=== PATIENT | female | born 1985 | race Caucasian/White ===

== ENCOUNTER 2024-01-14 10:40 | Outpatient (CLI) | payer OTHER, SELFPAY | END 2024-01-14 10:41 | disposition home or self-care (01) | PROVIDERS: Visit Provider Obstetrics & Gynecology | DX: O20.0 Threatened abortion (principal); Z3A.00 Weeks of gestation of pregnancy not specified | CPT/HCPCS: 36415; 84702; 85461; 86850; 86900; 86901 ==

== ENCOUNTER 2024-01-16 00:26 | Day surgery (SDC) | payer OTHER, SELFPAY ==
[2024-01-15 13:17] VITALS: BMI 37.7
--- NOTE | 2024-01-15 13:17 | PC.NURSE ---
Report to the Outpatient Waiting Room, entrance under the green pavilion located off [facility], at time _0600_ on date _[id number]_. Planned Procedure Time: _0730_. Time changes happen often and if your time is changed the preop area will call you the afternoon before. - You and your visitor will be asked to self-screen and do not enter if you have any COVID symptoms. - A mask is optional within the hospital at this time. Patients may have clear liquids (water, carbonated beverages, clear teas, apple juice) until 3 hours prior to surgery with a maximum of 20 ounces. - No food from midnight until time of surgery Take the following medications with a SIP of water the morning of surgery: None, takes Oxcarbazepine at 10am so will take after surgery. DO NOT STOP ANY OF YOUR OTHER PRESCRIPTION MEDICATIONS PRIOR TO SURGERY ?EXCEPT THE FOLLOWING Medications to discontinue per physician Prenatal and folic acid Date to take last dose____Stop now. Please no make-up, nail thai, hairspray, perfume, deodorant, or body powder the day of surgery. No jewelry (including any body piercings) or valuables the day of surgery, leave them at home. Please take a shower or bath the night before, or the morning of, surgery with an antibacterial soap. Wear comfortable, loose fitting clothing. - Jewelry must be removed prior to entering the operating room. Rings and piercings that are not removed may be cut off. - The hospital will not accept responsibility for valuables. - Please leave all valuables, including medications, at home the day of surgery. If you are going home after surgery, a licensed mechanic welder truck driver must drive you home. - NO public transportation without another adult if you receive anesthesia. - We recommend that an adult stay with you for 24 hours following discharge. - We also recommend that you do not drive, make important decision, drink alcoholic beverages, or take any drugs that were not prescribed by your health care provider for at least 24 hours after your discharge time. Follow any additional instructions given to you from your surgeon. If you or anyone in your household have experienced Covid symptoms in the past week, please notify your surgeon or the nurse liaison at the phone number below for possible testing. Telephone instructions given to __Quynh___and asked if any additional questions and then verbalized understanding. Patient advised to call surgeon office or pre surgery nurse liaison [phone] if any additional questions.
--- NOTE | 2024-01-16 06:32 | P.PNAN_ITS ---
Anes - Initial Pre Proc Eval Procedure: Operation Date: 01/16/24 07:30 Proposed Procedures p Suction Dilation and Curettage - Dario Mullen MD Date/Time: 01/16/24 06:32 Surgeon: Dario Mullen MD Pre Op Diagnosis: missed ab Patient Data Age: 38 Gender: F Height: 1.55 m Weight: 90.5 kg Allergies Allergy/AdvReac Type Severity Reaction Status Date / Time Penicillins Allergy Mild Nausea and Verified 01/15/24 13:07 Vomiting Home Medications Medication Instructions Recorded Confirmed Type folic acid 1 mg tablet 1 mg PO HS 01/15/24 01/15/24 History nifedipine 30 mg tablet,extended 30 mg PO HS 01/15/24 01/15/24 History release oxcarbazepine 600 mg tablet 900 mg PO BID 01/15/24 01/15/24 History vit with calcium-iron 1 tablet PO HS 01/15/24 01/15/24 History fum-folic acid 60 mg-0.8 mg tablet Patient hx anesthesia problems: none Family hx anesthesia problems: none Results Review: All pre-operative results and documents have been reviewed as part of the pre- operative evaluation. [facility] Past Medical History Medical History Epilepsy HTN (hypertension) Social History Social History Smoking status: Never smoker Living arrangements: with family Spiritual care concerns: No Anes - Eval Final PreProcedure Day of Procedure 01/16/24 06:32 Patient weight: obese Heart: regular rate and rhythm Lungs: clear to auscultation Airway: Mallampati scale class II Neurological: alert and oriented Last oral intake: >/= 8 hours ASA classification: II Emergent: no Anesthetic plan: proceed Anesthesia type and monitoring: general GIVS and standard monitoring Results Review: All pre-operative results and documents have been reviewed as part of the pre- operative evaluation. Informed Consent: The patient's anesthetic plan and its attendant risks and benefits were dis cussed with the patient/family/POA. Questions were solicited and answers provided to the satisfaction of the patient/family/POA.
[2024-01-16 07:00] VITALS: BP 126/79; PULSE 78; RESP 14; TEMP 36.3; O2SAT 99
[2024-01-16] MEDS: ACETAMINOPHEN 500 MG TABLET 1000 MG PO (07:00)
[2024-01-16] MEDS: LACTATED RINGERS 1,000 ML 30 ML IV CONT (07:00)
--- NOTE | 2024-01-16 07:47 | PM.IMHP ---
H&P: HPI History of Present Illness Date/Time: 01/16/24 07:47 Chief Complaint: Missed miscarriage Narrative: this patient is a 38-year-old female with a missed miscarriage. We have agreed to perform suction D&C. She understands risks, benefits, and alternatives. She has understands the procedure. She understands injury may occur that resulted hospitalization, more surgery, and severe illness. Understands risk of hemorrhage and infection. She and denies any nausea, vomiting, fever, chills. She denies any chest pain or shortness of breath Review of Systems Review of Systems: All systems reviewed & are unremarkable except as noted in HPI and below Constitutional: Constitutional: Denies chills, Denies fatigue, Denies fever(s) and Denies weakness Eyes: Eyes: Denies blurry vision, Denies change in vision, Denies loss of peripheral vision, Denies loss of vision, Denies other visual disturbances and Denies eye pain ENT: Denies vertigo, Denies dizziness, Denies hearing loss, Denies mouth pain, Denies nasal obstruction, Denies neck mass and Denies neck pain Cardiovascular: Cardiovascular: Denies chest pain, Denies diaphoresis, Denies syncope, Denies leg edema and Denies dyspnea Respiratory: Respiratory: Denies chest congestion, Denies cough, Denies hemoptysis, Denies dyspnea and Denies wheezing Gastrointestinal: Gastrointestinal: Denies abdominal pain, Denies constipation, Denies diarrhea, Denies nausea and Denies vomiting Genitourinary: Genitourinary: Denies hematuria, Denies change in libido, Denies nocturia, Denies genital lesions, Denies flank pain and Denies urinary urgency Musculoskeletal: Musculoskeletal: Denies abnormal gait, Denies back pain, Denies myalgias, Denies arthralgias, Denies joint swelling, Denies muscle weakness and Denies neck pain Integumentary/Breasts: Skin/Breast: Denies swelling, Denies breast pain, Denies breast mass, Denies dry skin, Denies nipple discharge, Denies unusual bruising and Denies jaundice Neurologic: Denies Neuro-related abnormal movements, Denies Abnormal speech present, Denies abnormal gait, Denies behavioral changes, Denies confusion, Denies vertigo, Denies dizziness, Denies syncope, Denies loss of vision, Denies memory loss, Denies convulsions and Denies weakness Psychiatric: Psychiatric: Denies abnormal sleep pattern, Denies behavioral changes, Denies change in libido, Denies confusion, Denies depression, Denies anhedonia and Denies memory loss Endocrine: Endocrine: Reports no additional endocrine complaints, Denies change in libido and Denies fatigue Hematologic/Lymphatic: Hematologic/Lymphatic: Reports no additional hematologic/lymphatic complaints Allergic/Immunologic: Allergic/Immunologic: Reports no additional allergic/immunologic complaints and Denies wheezing PMFSH Past Medical History Medical History Epilepsy HTN (hypertension) Social History Social History Smoking status: Never smoker Living arrangements: with family Spiritual care concerns: No Meds Home Medications and Allergies Home Medications Medication Instructions Recorded Confirmed Type folic acid 1 mg tablet 1 mg PO HS 01/15/24 01/15/24 History nifedipine 30 mg tablet,extended 30 mg PO HS 01/15/24 01/15/24 History release oxcarbazepine 600 mg tablet 900 mg PO BID 01/15/24 01/15/24 History vit with calcium-iron 1 tablet PO HS 01/15/24 01/15/24 History fum-folic acid 60 mg-0.8 mg tablet Allergies Allergy/AdvReac Type Severity Reaction Status Date / Time Penicillins Allergy Mild Nausea and Verified 01/16/24 07:43 Vomiting levetiracetam [From [facility]] Allergy Hives Verified 01/16/24 07:45 Vital Signs Vital Signs - 24 hr 01/16/24 07:00 Temperature 97.4 F L Pulse Rate 78 Respiratory Rate 14 Blood Pressure 126/79 Pulse Oximetry 99 Oxygen Delivery Room Air E
--- NOTE | 2024-01-16 07:49 | WPDHPUPDATE1 ---
History and Physical Update Update Date/Time: 01/16/24 07:49 History and Physical has been reviewed, including an updated exam of the patient. There are NO changes in the patient's condition. Risks, benefits, and alternatives have been discussed and questions answered. Patient agrees to proceed with procedure.
[2024-01-16 08:14] VITALS: BP 137/78; PULSE 71; RESP 12; O2SAT 93
--- NOTE | 2024-01-16 08:34 | P.OP_ITS ---
Procedure Note - Detailed Date of Procedure 01/16/24 Pre-op Diagnosis missed ab Post-op Diagnosis Same Procedure Performed Suction D&C Surgeon Dario Mullen MD Anesthesia MAC Indications missed Findings normal-appearing vulva vagina and cervix to. Moderate amount of products conception within the uterus. 8 cm uterus Description of Procedure the patient was taken the operating room. She was prepped and draped in dorsal lithotomy position after induction of mac anesthesia. A speculum was placed in the vagina. Cervix grasped with tenaculum. The cervix was dilated to about 1 cm Using Henao dilators. A 8. [place] curved curette was used to perform suction D&C. The curette was introduced and vacuum was applied. The curette was removed over all surfaces of the intrauterine cavity multiple times. This was done until all the surfaces were clear and had the familiar grainy texture they can be felt through the instrument. A sharp curette was then used to curettage all the surfaces. The suction cup was then reapplied 1 more time to remove any debris. The instruments were removed. The speculum and tenaculum were removed. The patient tolerated the procedure well. She was taken recovery room stable condition. Estimated Blood Loss 50 Drains No Packing No Pathology Yes Complications No immediate complications Condition Stable Disposition PACU
[2024-01-16 08:40] VITALS: BP 130/77; PULSE 64; RESP 12; O2SAT 97
[2024-01-16] MEDS: oxyCODONE HCL (*CRX) 5 MG TAB IR PO (08:44)
[2024-01-16 09:10] VITALS: BP 134/83; PULSE 55; RESP 12
== END 2024-01-16 09:25 | disposition home or self-care (01) ==
PROVIDERS: Visit Provider Obstetrics & Gynecology
PROC: (CPT 59820; principal; 2024-01-16 07:30)
DX: O02.1 Missed abortion (principal); I10 Essential (primary) hypertension; G40.909 Epilepsy, unspecified, not intractable, without status epilepticus
CPT/HCPCS: 59820; 36415; 85461; 86850; 86900; 86901; 88305; A9270; J1100; J1885; J2250; J2405; J2704; J3010; J7120

== ENCOUNTER 2024-03-19 17:29 | Outpatient (RCR) | payer OTHER, SELFPAY ==
[2024-03-17 11:43] LABS: Beta HCG Quantitative 258.79 mIU/ML
[2024-03-19 18:33] LABS: Beta HCG Quantitative 703.71 mIU/ML
== END 2024-06-15 23:59 | disposition home or self-care (01) ==
LOC: ANHLAB 17:29
PROVIDERS: Visit Provider Obstetrics & Gynecology
DX: Z87.59 Personal history of other complications of pregnancy, childbirth and the puerperium (principal)
CPT/HCPCS: 36415; 84702

== ENCOUNTER 2024-05-18 08:24 | Outpatient (CLI) | payer OTHER, SELFPAY ==
--- NOTE | ~2024-05-18 | US_ITS ---
US breast RT limited INDICATION: Right breast lump by clinical examination. History of breast reduction surgery. Patient i s . Family history of breast cancer. TECHNIQUE: Dedicated Limited right breast ultrasound COMPARISON: No prior studies for comparison. FINDINGS: The right breast is/are composed of normal heterogeneous echotexture without focal solid or cystic mass. IMPRESSION: 1: Normal limited right breast ultrasound. BI-RADS CATEGORY 1 - NEGATIVE Reviewed, dictated and finalized at location B. 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
== END 2024-05-18 08:25 | disposition home or self-care (01) ==
PROVIDERS: Visit Provider Obstetrics & Gynecology
DX: N63.0 Unspecified lump in unspecified breast (principal)
CPT/HCPCS: 76642

== ENCOUNTER 2024-05-30 13:35 | Emergency (ER) | payer OTHER, SELFPAY ==
[2024-05-30 13:36] VITALS: BP 133/76; PULSE 92; RESP 16; TEMP 36.9; O2SAT 99
[2024-05-30 14:37] VITALS: BP 120/67; PULSE 83; RESP 20; O2SAT 98
--- NOTE | 2024-05-30 15:21 | ED.FEMALEGU ---
HPI - Female Genitourinary General Chief complaint: Urogenital-Female Stated complaint: LLQ pain, hematuria, 14 weeks Time Seen by Provider: 05/30/24 14:45 History of Present Illness HPI Narrative: 38-year-old female at approximately 14 weeks gestation presenting with vomiting and hematuria. States that for the last couple days she has had vomiting and is now unable to keep down fluids. She has B6 and doxylamine at home which has not really been helping. Today she noticed blood in her urine. No vaginal bleeding. Complains of very mild left lower quadrant pain that feels better with palpation. Related Data Home Medications ?Medication ?Instructions ?Recorded ?Confirmed ?Last Taken ?Type folic acid 1 mg tablet 1 mg PO HS 01/15/24 01/15/24 Unknown History nifedipine 30 mg tablet,extended 30 mg PO HS 01/15/24 01/15/24 Unknown History release oxcarbazepine 600 mg tablet 900 mg PO BID 01/15/24 01/15/24 Unknown History vit with calcium-iron 1 tablet PO HS 01/15/24 01/15/24 Unknown History fum-folic acid 60 mg-0.8 mg tablet Allergies Allergy/AdvReac Type Severity Reaction Status Date / Time levetiracetam (From [facility]) Allergy Hives Verified 01/16/24 07:45 Penicillins AdvReac Mild Nausea and Verified 05/30/24 15:39 Vomiting Review of Systems Review of Systems: All systems reviewed & are unremarkable except as noted in HPI and below PMFSH Past Medical History Medical History HTN (hypertension) Epilepsy Social History Social History Smoking status: Never smoker Living arrangements: with family Spiritual care concerns: No Exam Narrative: GENERAL: Well-appearing, in no acute distress, pleasant and cooperative HEAD: Normocephalic, atraumatic. EYES: PERRLA and EOMI. ENT: Mucous membranes moist. NECK: Supple. CHEST: Clear to auscultation. No respiratory distress. HEART: Regular rate and rhythm ABDOMEN: Soft, appropriately gravid, nontender EXTREMITIES: Normal range of motion SKIN: Warm, dry, no rash. NEURO: No focal deficits. Alert and oriented x3. PSYCH: Normal mood and affect. Course Vital Signs Vital signs: Vital Signs Temperature 98.5 F 05/30/24 13:36 Pulse Rate 92 05/30/24 13:36 Respiratory Rate 16 05/30/24 13:36 Blood Pressure 133/76 05/30/24 13:36 Pulse Oximetry 99 05/30/24 13:36 Oxygen Delivery Room Air 05/30/24 13:36 Temperature 98.5 F 05/30/24 13:36 Pulse Rate 72 05/30/24 17:32 Respiratory Rate 20 05/30/24 17:32 Blood Pressure 112/72 05/30/24 17:32 Pulse Oximetry 100 05/30/24 17:32 Oxygen Delivery Room Air 05/30/24 14:37 MDM - Female Genitourinary MDM Narrative Medical decision making narrative: 38-year-old female presenting with hematuria and vomiting. Vitals are stable. Exam remarkable for the above. Blood work is unremarkable. UA is concerning for UTI. Patient given a dose of Rocephin, 2 L of fluids, some Zofran. She is now tolerating p.o. intake. Feel she is safe for outpatient management. Will send in for Keflex and p.o. Zofran. Recommend close OB follow-up. Appropriate return precautions given. Discharged in stable condition. Lab Data 05/30/24 15:37 05/30/24 15:37 Labs: Lab Results 05/30/24 Range/Units 15:37 WBC 4.7 (4.5-10.0) K/mm3 RBC 4.59 (4.2-5.4) M/mm3 Hgb 13.6 (12.0-15.0) g/dL Hct 38.6 (37.0-47.0) % MCV 84.1 (80-100) fl MCH 29.6 (26-34) pg MCHC 35.2 (32-36) g/dl RDW 12.5 (11.5-14.5) % Plt Count 154 (150-375) k/mm3 MPV 10.4 (7.4-10.4) fl Immature Gran % (Auto) 0.4 (0-0.5) % Neut % (Auto) 87.9 H (45.5-73.1) % Lymph % (Auto) 7.2 L (18.3-44.2) % [place] % (Auto) 4.3 (2.6-8.5) % Eos % (Auto) 0.0 (0-4.4) % Baso % (Auto) 0.2 (0.2-1.2) % Lymph # (Auto) 0.34 L (0.9-3.2) K/mm3 [place] # (Auto) 0.2 (0.1-0.6) K/mm3 Eos # (Auto) 0.0 (0-0.3) K/mm3 Baso # (Auto) 0.0 (0.0-0.1) K/mm3 Abs Immat Gran (auto) 0.02 (0.00-0.031) K/mm3 Absolute Neuts (auto) 4.1 (1.3-6.7) K/mm3 Absolute Nucleated RBC 0.000 (0.0-0.012) K/mm3 Nucleated RBC % 0.0 (0.0-0.2) % Sodium 131 L (137-145) mmol/L Potassium 3.6 (3.4-5.0) mmol/L Chloride 106 (98-107) mmol/L Carbon Dioxide 23 (22-30) mmol/L Anion Gap 2 L (4-12) mmol/L BUN 7 (7-17) mg/dL Creatinine 0.50 L (0.7-1.0) mg/dL Estim Creat Clear Calc 131 ml/min Estimated GFR > 60 (59 - ) Glucose 90 (65-110) mg/dL Calcium 8.1 L (8.4-10.2) mg/dL Total Bilirubin 0.4 (0.2-1.3) mg/dL AST 28 (14-36) U/L ALT 20 (6-35) U/L Alkaline Phosphatase 64 (38-126) U/L Total Protein 6.0 L (6.3-8.2) g/dL Albumin 3.2 L (3.5-5.1) g/dL Lipase 88 (23-300) U/L Urine Color [place] H (Yellow) Urine Appearance Cloudy H (Clear) Urine pH 6.0 (5.0-9.0) Ur Specific [place] 1.033 (1.001-1.035) Urine Protein 2+ H (Negative) mg/dL Urine Glucose (UA) Negative (Negative) mg/dL Urine Ketones 4+ H (Negative) mg/dL Ur Blood (Man) Negative (Negative) Urine Nitrate Positive H (Negative) Urine Bilirubin 2+ H (Negative) Urine Urobilinogen 1.0 (<2.0) mg/dL Add Ur Microanalysis Reviewed Leukocyte Esterase Rfl 1+ H (Negative) JUANY/UL Urine RBC 11-20 H (0-2) /hpf Urine WBC 0-5 (0-3) /hpf Ur Squamous Epith Cells Few (Few) /hpf Urine Bacteria None seen /hpf Urine Casts 0-2 Critical Care Time Critical Care Time Critical Care Time: No Discharge Plan Discharge Clinical Impression: Urinary tract infection during , Vomiting affecting Patient Disposition: Home, Self-Care Condition: Stable Instructions: Antibiotic Form, Nausea and Vomiting in (ED), Urinary Tract Infection in (ED) Additional Instructions: You were found to have a urinary tract infection today. We have started you on antibiotics. Please complete these as prescribed. You may use the Zofran as needed for vomiting. Please follow-up closely with your OB. If your symptoms worsen or other concerning symptoms arise, please return to the ER. Patient Language: Albanian Prescriptions: New cephalexin 500 mg capsule 500 mg PO Q6H 7 Days Qty: 28 0RF ondansetron 4 mg tablet,disintegrating 4 mg PO Q8H PRN (Reason: nausea and vomiting) Qty: 20 0RF No Action nifedipine 30 mg tablet extended release 30 mg PO HS oxcarbazepine 600 mg tablet 900 mg PO BID folic acid 1 mg tablet 1 mg PO HS 60-0.8 mg Tablet 1 tablet PO HS Follow-up/Referrals: Dario Mullen MD [Primary Care Provider] -
[2024-05-30] MEDS: SODIUM CHLORIDE 0.9% IV 1,000 ML 999 ML IV CONT ×2 (15:45→17:31)
[2024-05-30] MEDS: ONDANSETRON INJ 4 MG/2 ML VIAL IV PUSH (15:45)
[2024-05-30 15:46] LABS: Basophils Percent Auto 0.2 % (0.2-1.2); Hematocrit 38.6 % (37.0-47.0); Hemoglobin 13.6 g/dL (12.0-15.0); Immature Granulocyte Absolute 0.02 K/mm3 (0.00-0.031); Immature Granulocyte Percent A 0.4 % (0-0.5); Lymphocytes Absolute Auto 0.34 K/mm3 (0.9-3.2); Lymphocytes Percent Auto 7.2 % (18.3-44.2); Mean Corpuscular HGB Conc 35.2 g/dl (32-36); Mean Corpuscular Hemoglobin 29.6 pg (26-34); Mean Corpuscular Volume 84.1 fl (80-100); Mean Platelet Volume 10.4 fl (7.4-10.4); Monocytes Absolute Auto 0.2 K/mm3 (0.1-0.6); Monocytes Percent Auto 4.3 % (2.6-8.5); Neutrophils Absolute Auto 4.1 K/mm3 (1.3-6.7); Neutrophils Percent Auto 87.9 % (45.5-73.1); Platelet Count Result 154 k/mm3 (150-375); Red Blood Count 4.59 M/mm3 (4.2-5.4); Red Cell Distribution Width 12.5 % (11.5-14.5); White Blood Count 4.7 K/mm3 (4.5-10.0)
[2024-05-30 15:56] LABS: Alanine Aminotransferase 20 U/L (6-35); Albumin Level 3.2 g/dL (3.5-5.1); Alkaline Phosphatase 64 U/L (38-126); Anion Gap 2 mmol/L (4-12); Aspartate Amino Transferase 28 U/L (14-36); Bilirubin,Total 0.4 mg/dL (0.2-1.3); Blood Urea Nitrogen 7 mg/dL (7-17); Calcium 8.1 mg/dL (8.4-10.2); Carbon Dioxide 23 mmol/L (22-30); Chloride 106 mmol/L (98-107); Estimated CRCL calculation 131 ml/min; Estimated Glomerular Filt Rate > 60; Glucose 90 mg/dL (65-110); Lipase 88 U/L (23-300); Potassium 3.6 mmol/L (3.4-5.0); Sodium 131 mmol/L (137-145)
[2024-05-30 16:04] LABS: Add Urine Microscopic? YES; Appearance Urine Cloudy (Clear); Bacteria Urine None Seen /hpf; Bilirubin Urine 2+ (Negative); Blood Urine Negative (Negative); Glucose Urine UA Negative (Negative); Ketones Urine 4+ mg/dL (Negative); Leukocyte Esterase Ur 1+ LEU/UL (Negative); Need Manual Microscopic Reviewed; Nitrate Urine Positive (Negative); Non Pathogenic Casts 0-2; Protein Urine 2+ mg/dL (Negative); Specific Grav Ur 1.033 (1.001-1.035); Squamous Epithelial Cell Urine Few /hpf (Few); WBC Urine 0-5 /hpf (0-3)
[2024-05-30 16:05] LABS: Color Urine Orange (Yellow)
[2024-05-30] MEDS: cefTRIAXone 2 GM/NS 100 ML 2 GM/100 ML BAG IVPB (16:30)
[2024-05-30 17:32] VITALS: BP 112/72; PULSE 72; RESP 20; O2SAT 100
[2024-05-30 18:32] VITALS: BP 130/75; PULSE 86; RESP 18; O2SAT 99
--- OUTSIDE RECORDS SUMMARY | 2024-06-04 06:22 | XMS_ITS | Continuity of Care Document ---
Author Organization [facility], [facility] Address [address] [place] [address] [place] [address] Care Team Providers Care Design And Sales Consultant Name Role Phone ZEESHAN BRAGA Primary Care Provider [phone] Assessment No assessment recorded. Plan of Treatment Reminders Order Date Submit Date Provider Last Modified By Organization Details Last Modified Time Details Appointments OB ROUTINE 2024 03:15P Aguilar BOB MD Not available Not available Not available U/S OB BASELIN E 2024 02:00P M ULTRASOUND Not available Not available Not available OB ROUTINE 2024 03:00P M Freddie BOB MD Not available Not available Not available Lab None recorde d. Referral None recorde d. Procedures None recorde d. Surgeries None recorde d. Imaging US, obstetr ic, nuchal translu cency 2023 024 [email or web address] [address], [address], [place], [address], 05/19/2024 21:10:46 Medication Orders None recorde d. Patient TargetsNo targets recorded. Patient InstructionsNo instructions recorded. Reason for Referral None Reported. Results Created Date Observation Date Name Description Value Unit Range Abnormal Flag Note LastModifiedBy Organization Detail LastModifiedTime 05/19/20 24 05/19/2024 US, obste tric, nucha l trans lucen cy No observ ation record ed. [facility] [address], [place], [address], 05/19/2024 18:26:41 05/19/20 24 05/19/2024 US, obste tric, nucha l trans lucen cy No observ ation record ed. [email or web address] [address], [place], [address], 05/19/2024 21:06:08 Result Notes None recorded. Problems Name Problem SNOMED Code Status Onset Date Resolution Date Notes Provider Name and Address Organization Details Recorded Time 42439046 Active 2023 Maria Elena rm, [facility] 16:44:58 Seizure disorder 919804021 Active oxcarbeza pine 900 bid Dario Bob MD [address], [place], [address], [facility] 17:16:32 Hypertens shalonda disorder 84598782 Active Chronic HTN - procardia xl 60mg qd Dario Bob MD [address], [place], [address], [facility] 17:18:38 Problem Notes None recorded. Procedures Surgical History Date Name Laterality Status Provider Name and Address Organization Details Recorded Time 4 Date of Last Pap Smear completed Maria Elena Parada [facility] 04/22/2024 14:59:47 4 DILATION & CURETTAGE (SURG) completed Aspen Burns [facility] 01/16/2024 10:26:21 8 [facility] 01/15/2024 10:34:11 Imaging Results Imaging Date Name Status LastModified by Organization Details LastModified Time 05/19/2024 US, obstetric, nuchal translucency completed sanna [place] [address], [place], [address], 05/19/2024 18:26:41 05/19/2024 US, obstetric, nuchal translucency completed [email or web address] [address], [place], [address], 05/19/2024 21:06:08 Procedure Notes None recorded. Medical Equipment None Reported. Allergies Allergen ID Allergen Name Allergen Category Reaction Reaction Severity Criticality Documentation Date Start Date Code Code System Note Provider Name and Address Organization Details Recorded Time 07480 Keppra medicatio n rash moderate Not available 01/15/2024 51622 7 RxNorm Maria Elena Woodwarder [facility] 10:28:54 Medications Name Sig Start Date Stop Date Status Note LastModified by Organization Details LastModified Time dicloxacill in 500 mg capsule TAKE 1 CAPSULE BY MOUTH 4 TIMES DAILY FOR 5 DAYS 01/14 completed Not Available Not Available Not Available labetalol 200 mg tablet Take 1 tablet twice a day by oral route. active Not Available Not Available No t Available nifedipine ER 30 mg tablet,exte nded release TAKE 1 TABLET BY MOUTH ONCE DAILY active Not Available Not Available No t Available nifedipine ER 60 mg tablet,exte nded release 24 hr Take 1 tablet every day by oral route. active Not Available Not Available No t Available Nifedipine ER 30 mg tablet,exte nded release 01/14 completed Not Available Not Available Not Available lisinopril 10 mg tablet TAKE 1 TABLET BY MOUTH ONCE DAILY 01/14 completed Not Available Not Available Not Available oxcarbazepi ne 600 mg tablet TAKE 1 & 1/2 (ONE & ONE-HALF) TABLETS BY MOUTH TWICE DAILY active Not Available Not Available No t Available folic acid 1 mg tablet TAKE 1 TABLET BY MOUTH ONCE DAILY active Not Available Not Available No t Available methylpredn isolone 4 mg tablets in a dose pack TAKE BY MOUTH DIRECTED ON INSIDE OF PACKAGE 01/14 completed Not Available Not Available Not Available fluticasone propionate 50 mcg/actuati on nasal spray,suspe nsion USE 2 SPRAY(S) IN EACH NOSTRIL ONCE DAILY active Not Available Not Available No t Available amoxicillin 875 mg-potassiu m clavulanate 125 mg tablet 01/14 completed Not Available Not Available Not Available neomycin-po lymyxin-hyd rocort 3.5 mg-10,000 unit/mL-1 % ear drops,susp 01/14 completed Not Available Not Available Not Available clonazepam 0.25 mg disintegrat ing tablet DISSOLVE 1 TABLET IN MOUTH ONCE DAILY NEEDED FOR SEIZURES 04/22 completed Not Available Not Available Not Available Flonase 01/14 completed Not Available Not Available Not Available active Not Available Not Avai lable Not Available Vitals Date Recorded Body height Body weight Systolic blood pressure Diastolic blood pressure Systolic blood pressure Diastolic blood pressure Provider Name and Address Organization Details Last Updated DateTime 4 167.64 cm 62625.5 95185 g 145 mm[Hg] 84 mm[Hg] 140 mm[Hg] 88 mm[Hg] Maria Elena Parada [facility] 4 17:45:55 Social History Question Answer Notes LastModified by Organizat ion Details LastModified Time What Is Your Level Of Alcohol Consumption? Occasional Information not available 01/15/2024 How Many Years Have You Consumed Alcohol? 15 Information not available 01/15/2024 Are You Blind Or Do You Have Difficulty Seeing? No Information not available 01/15/2024 What Is Your Level Of Caffeine Consumption? Moderate Information not available 01/15/2024 How Much Tobacco Do You Chew? None Information not available 01/15/2024 In The 14 Days Before Symptom Onset, Have You Had Close Contact With A Laboratory-confir med COVID-19 While That Case Was Ill? No Information not available 01/15/2024 In The 14 Days Before Symptom Onset, Have You Had Close Contact With A Person Who Is Under Investigation For COVID-19 While That Person Was Ill? No Information not available 04/22/2024 Have You Been To An Area Known To Be High Risk For COVID-19? No Information not available 01/15/2024 Are You Deaf Or Do You Have Serious Difficulty Hearing? No Information not available 01/15/2024 What Type Of Diet Are You Following? REGULAR Information not available 01/15/2024 What Is The Highest Grade Or Level Of School You Have Completed Or The Highest Degree You Have Received? 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 No Information not available 01/15/2024 Do You Use Protection During Sex? No Information not available 01/15/2024 Do You Use Your Seat Belt Or Car Seat Routinely? Yes Information not available 01/15/2024 Do You Have Smoke And Carbon Monoxide Detectors In Your Home? Yes Information not available 01/15/2024 How Much Tobacco Do You Smoke? No Information not available 01/15/2024 Do You Feel Stressed (tense, Restless, Nervous, Or Anxious, Or Unable To Sleep At Night)? [id number] Information not available 01/15/2024 Do You Use Any Illicit Or Recreational Drugs? No Information not available 01/15/2024 Do You Use Sunscreen Routinely? Yes Information not available 01/15/2024 Have You Used IV Drugs? No Information not available 01/15/2024 Sex: Unknown Functional Status Question Answer Note LastModified by Organization D etails LastModified Time Are you able to walk? YESWOREST Information not available 01/15/2024 What is your exercise level? None Information not available 01/15/2024 Mental Status None recorded. Family History Relationship Description Onset Age of this Age Resolved Age Notes LastModified by Organization Details LastModified Time Mother Hypertensive disorder Not available 2023 10:28:59 Paternal Aunt Malignant tumor of breast Not available 2023 10:28:59 Paternal Aunt Malignant tumor of ovary Not available 2023 10:28:59 Paternal Grandfather Heart disease Not available 2023 10:28:59 Father Hypertensive disorder Not available 2023 10:28:59 Medical History Condition Response Hypertension Y Neurologic/Epilepsy Y Gynecological History Statement/Question Response Abnormal Pap N Flow Moderate Date of LMP 02/14/2024 On BCP's at Conception? N N Was last menstrual period normal Y STIs/STDs N HPV Vaccine Y Duration of Flow (days) 7 Current Control Method Are cycles usually normal Y Frequency of Cycle (Q days) 28 Sexually Active? Y Menses Monthly Y Age of first menstrual cycle 12 Date of Last Pap Smear 04/22/2024 Sexual Problems? N LMP Definite N Obstetrics History GPAL:G 2 P 0 0 1 0 Type Value Spontaneous 1 Living 0 Total 2 Past Encounters Encounter ID Performer Location Encounter Start Date Encounter Closed Date Diagnosis/Indication Diagnosis SNOMED-CT Code Diagnosis ICD10 Code [id number] Elly Harmon [facility] [address],[place] [address] 04/22/2024 13:50:30 04/22/2024 14:16:23 [id number] Dario Bob MD [facility] [address],[place] [address] 04/22/2024 13:50:49 04/22/2024 15:59:06 Amenorrhea 55570044 N91.2 [id number] [facility] [address],[place] [address] 05/19/2024 15:16:38 05/19/2024 16:06:30 screening 257108619 Z36.82 Z3A.13 [id number] [facility] [address],[place] [address] 05/19/2024 15:16:55 05/19/2024 18:27:40 Chronic hypertension complicating AND/OR reason for care during 37208016 O16.9 Health Concerns Section Related Observation LastModified by Organization Detai ls LastModified Time None Recorded Concern Status LastModified by Organization Details LastModified Time None Recorded Payers Encounter Date Sequence Insurance Name Policy Number Policy Turcios Covered Member ID Turcios Member ID Guarantor Name 05/19/2024 1 R [id number] Quynh De Leon [id number] Quynh De Leon OBGyn Episode Ob Episode Information Episode Created Date Number of Fetuses Patient Bloodtype Patient rh Status Prepregnancy Weight lbs Domestic Partner Domestic Partner Phone Father Name Human Resources Vice President Status 05/19/20 24 1 A Positive [place] Fetus Data First Name Last Name Admitted to NICU Weight (g) Sex Living Outcome Pediatric Complications Fetus ID Race Codes Race Delivery Type [id number] Problems Problem Notes Problem Name Start Date End Date Resolution Snomed Code Not e Seizure disorder 679254513 oxc arbezapine 900 bid Hypertensive disorder 05856461 Chronic HTN - procardia xl 60mg qd Arvin Calculation ARVIN Calculation Method Initial Arvin Date Initial Exam Date Initial Exam Provider Initial Ultrasound Date Last Menstrual Period Date Ultra Sound Weeks Gestation Conception by IVF Embryo Age at Transfer Date of Transfer 05/19/20 24 04/22/2024 02/14/2024 9 Eighteen To Twenty Week Arvin Update Ultra Sound Date Fundal Height At Umbil Quickening Date Ultra Sound Latest Weeks Gestation Final Arvin Confirmed By Final Arvin Confirmed Date Final Arvin Date Ultra Sound Latest Days Gestation 0 [email or web address] 05/19/2024 11/26/19 25 0 Pre- Flowsheet Flowsheet Date 05/19/2024 Perales Score Blood Edema Fundus Height Fundus Units Glucose Ketones Leukocytes Nitrite Labor Signs Protein Cervic Dilation Cervic Effacement Cervic Station Type Weight in lbs Pre/Post Dialysis Refused 204.272981852121 BP Diastolic BP Location Tested BP Systolic BP Type 84 L arm 145 sitting 88 R arm 140 sitting Fetus Heart Rate Present A 154 Fetus Movement A No Comments this patient is a 38-year-ol d multiparous female at 12 weeks' gestation who presents for initial care. She has a history of term vaginal births. Her medical, surgical, obstetric history is unremarkable. She is vaccinated. She was given precautions recommendations for . We talked about vaccines in . Talked about care in detail. She is having genetic testing. She had a normal 12 week ultrasound. To begin routine care. complicated by seizure disorder and chronic hypertension Flowsheet Date 05/28/2024 Perales Score Blood Edema Fundus Height Fundus Units Glucose Ketones Leukocytes Nitrite Labor Signs Protein Cervic Dilation Cervic Effacement Cervic Station Type Weight in lbs Pre/Post Dialysis Refused 204.688405448807 BP Diastolic BP Location Tested BP Systolic BP Type 78 L arm 136 sitting Fetus Heart Rate Present A 155 Fetus Movement A No Comments This patient presents for fo llow-up on blood pressure. She had some severe [place] blood pressures last night. They did improve. She has reasonably good blood pressures today. We agreed to start 200 labetalol b.i.d. to prevent these blood pressure spikes And gained better controlled. Menstrual History Last Menstrual Date Menses Monthly On Bcp Conception Prior Menses Frequency Hcg Plus Date Menarche Onset Age 0802/14/2024 true Delivery Information Delivery Date Delivery Type Labor Anesthesia Weeks Gestation Incision Type Labor Labor Length Hrs Delivered By Post Complications Tubal Sterilization Discharge Date Comments Discharge Information Feeding Method Contraceptive Method Maternal HG B and HCT Levels
--- OUTSIDE RECORDS SUMMARY | 2024-06-04 06:22 | XMS_ITS | Data Portability ---
[facility] Address [address] [place] [address] Assessment No assessment recorded. Plan of Treatment Reminders Order Date Submit Date Provider Last Modified By Organization Details Last Modified Time Details Appointments None recorded. Lab SARS CoV 2 RNA (COVID-19), QL, territory manager-PCR, respiratory specimen - [place] location please 2019 020 MARY [facility] (Lab), [address] [place], [address], 0 17:55:45 Referral None recorded. Procedures None recorded. Surgeries None recorded. Imaging None recorded. Medication Orders None recorded. Patient TargetsNo targets recorded. Patient Instructions Encounter Date Encounter Id Patient Instructions Last Modified By Organization Details Last Modified Time 10/20/2019 [id number] Reviewed the following recommendations: -Stay home and separate from others as much as possible. -Monitor your symptoms and seek medical attention for trouble breathing, persistent chest pain, confusion, or bluish lips or face. -Wear a mask if you must be around other people. -Wash your hands often for 20 seconds with soap and water and clean high-touch surfaces daily -You may discontinue home isolation if your symptoms are improving, it has been 7 days since symptoms started, and you have been fever free for at least 3 days. [email or web address] Not available 10/20/2019 12:03:46 Reason for Referral None Reported. Results Created Date Observation Date Name Description Value Unit Range Abnormal Flag Note LastModifiedBy Organization Detail LastModifiedTime 10/20/19 20 10/20/2019 SARS CoV 2 RNA (COVI D-19) , QL, territory manager-P CR, respi rator y speci men sars - cov - 2 PCR NEGATI VE mL Not Available [facility] [address] [place], [address], 10/21/2019 17:55:45 10/20/19 20 10/20/2019 SARS CoV 2 RNA (COVI D-19) , QL, territory manager-P CR, respi rator y speci men covidcom1 This assay is desig polo to detec t the RdRp and N genes of SARS- CoV-2 using nucle ic acid ampli ficat ion. A negat shalonda resul t does not precl ude the possi bilit y of 2019- nCoV infec tion since the adequ acy of sampl e colle ction and/o r low viral burde n may resul t in the prese nce of viral nucle ic acids level s below the jorge l tical sensi tivit y of this test metho d. Not Available [facility] (Lab) [address], [place], [address], 10/21/2019 17:55:45 10/20/1910/20/2019 SARS CoV 2 RNA (COVI D-19) , QL, territory manager-P CR, respi rator y speci men covidcom2 Posit shalonda resul ts are indic ative of the prese nce of SARS- CoV-2 RNA and do not rule out bacte rial infec tion or co-in fecti on with other virus es. Not Available [facility] (Lab) [address], [place], [address], 10/21/2019 17:55:45 10/20/1910/20/2019 SARS CoV 2 RNA (COVI D-19) , QL, territory manager-P CR, respi rator y speci men covidcom3 Test resul ts shoul d be used along with other clini emmie obser vatio ns, patie nt histo ry, epide miolo gical infor matio n and labor atory data in sheng miguel the diagn osis. Not Available [facility] (Lab) [address], [place], [address], 10/21/2019 17:55:45 10/20/1910/20/2019 SARS CoV 2 RNA (COVI D-19) , QL, territory manager-P CR, respi rator y speci men covidcom4 This test has recei [facility]imo [facility] Emerg ency Use Autho rizat ion and has been verif ied by Arley ravinder [address] . This test is only autho rized for the durat ion of the decla ratio n and the circu mstan nolan that exist to justi fy the autho rizat ion of the emerg ency use of in vitro diagn ostic tests for the detec tion of SARS- CoV-2 virus and/o r diagn osis of COVID -19 infec tion under secti on 564 (b) (1) of the Act. 11 U.S.C . 360bb b-3 (b) (1), unles s the autho rizat ion is termi nated or revok ed soone r. Not Available [facility] (Lab) [address] [place], [address], 10/21/2019 17:55:45 10/20/1910/20/2019 SARS CoV 2 RNA (COVI D-19) , QL, territory manager-P CR, respi rator y speci men covidcom5 [facility] ravinder Peters kiki Horacio arango is certi fied under CLIA- 88 as quali fied to perfo rm high compl exity testi ng. This testi ng was perfo rmed in the [facility] [employer] Visual Effects[employer] [place] [address] (CLIA Licen se #[id number] 5, CAP #[id number], AU-ID #[id number]). Not Available [facility] (Lab) [address], [place], [address], 10/21/2019 17:55:45 10/20/1910/20/2019 SARS CoV 2 RNA (COVI D-19) , QL, territory manager-P CR, respi rator y speci men covidcom6 Facts heet for healt hcare provi ders: https ://ww w.fda .gov/ media /6808 56/do wnloa d Facts heet for mere nts: https ://ww w.fda .gov/ media /1094 57/do wnloa d Not Available [facility] (Lab) [address], [place], [address], 10/21/2019 17:55:45 Result Notes None recorded. Medical Equipment None Reported. Vitals None Recorded Social History None recorded. Functional Status None recorded. Mental Status None recorded. Family History Nothing Reported. Medical History No medical history recorded. Gynecological HistoryNo gynecological history recorded. Obstetrics History GPAL:G 0 P 0 0 0 0 Past Encounters Encounter ID Performer Location Encounter Start Date Encounter Closed Date Diagnosis/Indication Diagnosis SNOMED-CT Code Diagnosis ICD10 Code [id number] [place] [address] [place] [address] 10/20/2019 11:02:29 10/20/2019 13:27:13 Suspected COVID-19 579886757 Z03.818 Health Concerns Section Related Observation LastModified by Organization Detai ls LastModified Time None Recorded Concern Status LastModified by Organization Details LastModified Time None Recorded Advance Directives Directive None Recorded Payers Encounter Date Sequence Insurance Name Policy Number Policy Turcios Covered Member ID Turcios Member ID Guarantor Name 10/20/2019 1 [employer] (POS) [id number] Quynh De Leon [id number] Quynh De Leon Notes Date Note Type Note Provider Name and Address Organization Details Recorded Time 10/20/2019 text/html COVID ScreeningReported bypatient.Onset/Durati on of fever:no fever Associated Symptoms:cough; no shortness of breathCOVID-19 Symptoms October 2019Reported bypatient.COVID-19 Signs and Symptomsheadache same; sore throat same Contacts and Exposureclose contact with a confirmed or suspected case of COVID-19; 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
--- OUTSIDE RECORDS SUMMARY | 2024-06-04 06:22 | XMS_ITS | Continuity of Care Document ---
Author Organization [facility], [facility] Address [address] [place] [address] Care Team Providers Care Culinary Manager Name Role Phone ZEESHAN BRAGA Primary Care Provider [phone] Assessment No assessment recorded. Plan of Treatment [...] recorde d. Surgeries None recorde d. Imaging None recorde d. Medication Orders labetal ol 200 mg tablet 2023 024 [facility], [address] [facility], [place], [address], 05/28/2024 11:29:56 Patient TargetsNo targets recorded. Patient InstructionsNo instructions recorded. Reason for Referral None Reported. Results Created Date Observation Date Name Description Value Unit Range Abnormal Flag Note LastModifiedBy Organization Detail LastModifiedTime 05/19/2005/19/2024 US, obste tric, nucha l trans lucen cy No observ ation record ed. [facility] [address], [place], [address], 05/19/2024 18:26:41 05/19/20 24 05/19/2024 US, obste tric, nucha l trans lucen cy No observ ation record ed. [email or web address], [place], [address], 05/19/2024 21:06:08 Result Notes None recorded. Problems Name Problem SNOMED Code Status Onset Date Resolution Date Notes Provider Name and Address Organization Details Recorded Time 26949298 Active 2023 Maria Elena rm [facility] 4 16:44:58 Seizure disorder 018960210 Active oxcarbeza pine 900 bid Draio Bob MD [address], [place], [address], [facility] 4 17:16:32 Hypertens shalonda disorder 91751156 Active Chronic HTN - procardia xl 60mg qd Dario Bob MD [address], [place], [address], [facility] 4 17:18:38 Problem Notes None recorded. Procedures Surgical History Date Name Laterality Status Provider Name and Address Organization Details Recorded Time 4 Date of Last Pap Smear completed Maria Elena Parada [facility] 04/22/2024 14:59:47 4 DILATION & CURETTAGE (SURG) completed Aspen Burns [facility] 01/16/2024 10:26:21 8 Breast Surgery completed Maria Elena Parada [facility] 01/15/2024 10:34:11 Imaging Results None recorded. Procedure Notes None recorded. Medical Equipment None Reported. Allergies Allergen ID Allergen Name Allergen Category Reaction Reaction Severity Criticality Documentation Date Start Date Code Code System Note Provider Name and Address Organization Details Recorded Time 76589 Keppra medicatio n rash moderate Not available 01/15/2024 60076 7 RxNorm Maria Elena rm [facility] 10:28:54 Medications Name Sig Start Date [...] Available Vitals Date Recorded Body height Body mass index (BMI) Body weight Systolic blood pressure Diastolic blood pressure Provider Name and Address Organization Details Last Updated DateTime 05/28/2024 167.64 cm 32.9 kg/m2 65760.84 348 g 136 mm[Hg] 78 mm[Hg] Maria Elena Parada [facility] 10:44:51 Social History Question Answer Notes LastModified by [...] Or The Highest Degree You Have Received? 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 [id number] Information not available 01/15/2024 Do You Use [...] Diagnosis/Indication Diagnosis SNOMED-CT Code Diagnosis ICD10 Code [id number] Azul Andinojose enrique [place] [address] [address] 05/19/2024 15:16:38 05/19/2024 16:06:30 screening 945186058 Z36.82 Z3A.13 [id number] Maria Elena Parada [place] [address] [address] 05/19/2024 15:16:55 05/19/2024 18:27:40 Chronic hypertension complicating AND/OR reason for care during 56744761 O16.9 [id number] Dario Bob MD [place] [address] [address] 05/28/2024 09:55:50 05/28/2024 11:33:55 Chronic hypertension complicating AND/OR reason for care during 01174936 O16.9 Health Concerns Section Related Observation LastModified by Organization Detai ls LastModified Time None Recorded Concern Status LastModified by Organization Details LastModified Time None Recorded Payers Encounter Date Sequence Insurance Name Policy Number Policy Turcios Covered Member ID Tucrios Member ID Guarantor Name 05/28/2024 1 [facility] [id number] Quynh De Leon [id number] Quynh De Leon OBGyn Episode Ob Episode Information Episode Created Date Number of Fetuses Patient Bloodtype Patient rh Status Prepregnancy Weight lbs Domestic Partner Domestic Partner Phone Father Name Pathology Supervisor Status 05/19/20 24 1 A Positive Los OPEN Fetus Data First Name Last Name Admitted to NICU Weight (g) Sex Living Outcome Pediatric Complications Fetus ID Race Codes Race Delivery Type [id number] Problems Problem Notes Problem Name Start Date End Date Resolution Snomed Code Not e Seizure disorder 075547779 oxc arbezapine 900 bid Hypertensive disorder 79379733 Chronic HTN - procardia xl 60mg qd [...] Gestation 0 [email or web address] 05/19/2024 11/26/19 25 0 Pre-tim Flowsheet Flowsheet Date 05/19/2024 Perales Score Blood Edema Fundus Height Fundus Units Glucose Ketones Leukocytes Nitrite Labor Signs Protein Cervic Dilation Cervic Effacement Cervic Station Type Weight in lbs Pre/Post Dialysis Refused 204.244402754488 BP Diastolic BP Location Tested BP Systolic [...] Type Weight in lbs Pre/Post Dialysis Refused 204.182492868897 BP Diastolic BP Location Tested BP Systolic [...]
--- OUTSIDE RECORDS SUMMARY | 2024-06-04 06:22 | XMS_ITS | Continuity of Care Document ---
Author Organization [facility], [facility] Address [address] [place] [address] Care Team Providers Care Master Fire Control Technician Name Role Phone ZEESHAN BRAGA Primary Care Provider [phone] Assessment No assessment recorded. Plan of Treatment [...] d. Imaging None recorde d. Medication Orders Procard ia XL 60 mg tablet, extende d release 2023 024 [facility] [address], [address] [place] [address], [address], 05/19/2024 17:20:16 Patient TargetsNo targets recorded. Patient InstructionsNo instructions recorded. Reason for Referral None Reported. Results Created Date Observation Date Name Description Value Unit Range Abnormal Flag Note LastModifiedBy Organization Detail LastModifiedTime 05/19/20 24 05/19/2024 US, obste tric, nucha l trans lucen cy No observ ation record ed. [facility] [address], [place], [address], 05/19/2024 18:26:41 05/19/20 24 05/19/2024 US, obste tric, nucha l trans lucen cy No observ ation record ed. [email or web address], [place], [address], 05/19/2024 21:06:08 Result Notes None recorded. Problems Name Problem SNOMED Code Status Onset Date Resolution Date Notes Provider Name and Address Organization Details Recorded Time 39224445 Active 2023 Maria Elena rm [facility] 4 16:44:58 Seizure disorder 739809003 Active oxcarbeza pine 900 bid Dario Bob MD [address], [place], [address], [facility] 4 17:16:32 Hypertens shalonda disorder 53723029 Active Chronic HTN - procardia xl 60mg qd Dario Bob MD [address], [place], [address], [facility] 4 17:18:38 Problem Notes None recorded. Procedures Surgical History Date Name Laterality Status Provider Name and Address Organization Details Recorded Time 4 Date of Last Pap Smear completed Maria Elena Parada [facility] 04/22/2024 14:59:47 4 DILATION & CURETTAGE (SURG) completed Aspen Burns [facility] 01/16/2024 10:26:21 8 Breast Surgery completed Maria Elena Parada [facility] 01/15/2024 10:34:11 Imaging Results None recorded. Procedure Notes None recorded. Medical Equipment None Reported. Allergies Allergen ID Allergen Name Allergen Category Reaction Reaction Severity Criticality Documentation Date Start Date Code Code System Note Provider Name and Address Organization Details Recorded Time 40744 Keppra medicatio n rash moderate Not available 01/15/2024 47257 7 RxNorm Maria Elena rm [facility] 4 10:28:54 Medications Name Sig Start Date Stop [...] Details Last Updated DateTime 4 167.64 cm 29985.5 17139 g 145 mm[Hg] 84 mm[Hg] 140 mm[Hg] 88 mm[Hg] Maria Elena Parada [facility] 4 17:45:55 Social History Question [...] Or The Highest Degree You Have Received? 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 [id number] Information not available 01/15/2024 Do You Use [...] Diagnosis/Indication Diagnosis SNOMED-CT Code Diagnosis ICD10 Code 168253 Elly Harmon [place] [address] [address] 04/22/2024 13:50:30 04/22/2024 14:16:23 142255 Dario Bob MD [place] [address] [address] 04/22/2024 13:50:49 04/22/2024 15:59:06 Amenorrhea 88586714 N91.2 [id number] Azul Romo [place] [address] [address] 05/19/2024 15:16:38 05/19/2024 16:06:30 screening 529658475 Z36.82 Z3A.13 462015 Maria Elena Parada [place] [address] [address] 05/19/2024 15:16:55 05/19/2024 18:27:40 Chronic hypertension complicating AND/OR reason for care during 28006317 O16.9 Health Concerns Section Related Observation LastModified by Organization Detai ls LastModified Time None Recorded Concern Status LastModified by Organization Details LastModified Time None Recorded Payers Encounter Date Sequence Insurance Name Policy Number Policy Turcios Covered Member ID Turcios Member ID Guarantor Name 05/19/2024 1 [facility] [id number] Quynh De Leon [id number] Quynh De Leon OBGyn Episode Ob Episode Information Episode Created Date Number of Fetuses Patient Bloodtype Patient rh Status Prepregnancy Weight lbs Domestic Partner Domestic Partner Phone Father Name Faucet Polisher Status 05/19/20 24 1 A Positive Los OPEN Fetus Data First Name Last Name Admitted to NICU Weight (g) Sex Living Outcome Pediatric Complications Fetus ID Race Codes Race Delivery Type 44239 Problems Problem Notes Problem Name Start Date End Date Resolution Snomed Code Not e Seizure disorder 212416145 oxc arbezapine 900 bid Hypertensive disorder 92469864 Chronic HTN - procardia xl 60mg qd [...] Type Weight in lbs Pre/Post Dialysis Refused 204.251540594992 BP Diastolic BP Location Tested BP Systolic [...] Type Weight in lbs Pre/Post Dialysis Refused 204.103906727462 BP Diastolic BP Location Tested BP Systolic [...]
--- OUTSIDE RECORDS SUMMARY | 2024-06-04 06:22 | XMS_ITS | Continuity of Care Document ---
Author Organization [facility], [facility] Address [address] [place] [address] Care Team Providers Care Gang Saw Operator Name Role Phone ZEESHAN BRAGA Primary Care Provider Assessment No assessment recorded. Plan of Treatment [...] None recorde d. Imaging US, obstetr ic, transva ginal 2023 024 [email or web address] [place], [address], [place], [address], 04/06/2024 18:16:59 Medication Orders None recorde d. Patient TargetsNo targets recorded. Patient InstructionsNo instructions recorded. Reason for Referral None Reported. Results Created Date Observation Date Name Description Value Unit Range Abnormal Flag Note LastModifiedBy Organization Detail LastModifiedTime 05/19/20 24 05/19/2024 US, obste tric, nucha l trans lucen cy No observ ation record ed. [facility] [address], [place], [address], 05/19/2024 18:26:41 05/19/20 24 05/19/2024 US, obste tric, nucha l trans lucen cy No observ ation record ed. [email or web address], [place], [address], 05/19/2024 21:06:08 Result Notes None recorded. Problems Name Problem SNOMED Code Status Onset Date Resolution Date Notes Provider Name and Address Organization Details Recorded Time 32544003 Active 2023 Maria Elena rm, [facility] 16:44:58 Seizure disorder 346401932 Active oxcarbeza pine 900 bid Dario Bob MD [address], [place], [address], [facility] 4 17:16:32 Hypertens shalonda disorder 28216755 Active Chronic HTN - procardia xl 60mg qd Dario Bob MD [address], [place], [address], [facility] 4 17:18:38 Problem Notes None recorded. Procedures Surgical History Date Name Laterality Status Provider Name and Address Organization Details Recorded Time 4 Date of Last Pap Smear completed Maria Elena Parada [facility] 04/22/2024 14:59:47 4 DILATION & CURETTAGE (SURG) completed Aspen Burns [facility] 01/16/2024 10:26:21 8 Breast Surgery completed Maria Elena Parada [facility] 01/15/2024 10:34:11 Imaging Results Imaging Date Name Status LastModified by Organization Details LastModified Time 04/06/2024 US, obstetric, transvaginal completed sanna [place] [address], [place], [address], 04/06/2024 18:11:08 Procedure Notes None recorded. Medical Equipment None Reported. Allergies Allergen ID Allergen Name Allergen Category Reaction Reaction Severity Criticality Documentation Date Start Date Code Code System Note Provider Name and Address Organization Details Recorded Time 93483 Keppra medicatio n rash moderate Not available 01/15/2024 07889 7 RxNorm Maria Elena Parada [facility] 4 10:28:54 Medications Name Sig Start [...] completed Not Available Not Available Not Available Diliae 01/14 completed Not Available Not Available Not Available active Not Available Not Avai lable Not Available Vitals None Recorded Social History Question Answer Notes LastModified by [...] Or The Highest Degree You Have Received? 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 [id number] Information not available 01/15/2024 Do You Use [...] Diagnosis/Indication Diagnosis SNOMED-CT Code Diagnosis ICD10 Code [id number] Azullester Andinojose enrique [place] [address] [address] 04/06/2024 15:22:11 04/07/2024 05:23:51 screening 661100223 O36.80X0 Z87.59 Z3A.01 Health Concerns Section Related Observation LastModified by Organization Detai ls LastModified Time None Recorded Concern Status LastModified by Organization Details LastModified Time None Recorded Payers Encounter Date Sequence Insurance Name Policy Number Policy Turcios Covered Member ID Turcios Member ID Guarantor Name 04/06/2024 1 [facility] [id number] Quynh De Leon [id number] Quynh De Leon OBGyn Episode Ob Episode Information Episode Created Date Number of Fetuses Patient Bloodtype Patient rh Status Prepregnancy Weight lbs Domestic Partner Domestic Partner Phone Father Name Internal Revenue Agent Status 05/19/20 24 1 A Positive [place] OPEN Fetus Data First Name Last Name Admitted to NICU Weight (g) Sex Living Outcome Pediatric Complications Fetus ID Race Codes Race Delivery Type 08967 Problems Problem Notes Problem Name Start Date End Date Resolution Snomed Code Not e Seizure disorder 602864649 oxc arbezapine 900 bid Hypertensive disorder 16716541 Chronic HTN - procardia xl 60mg qd [...] Type Weight in lbs Pre/Post Dialysis Refused 204.305797246489 BP Diastolic BP Location Tested BP Systolic [...] Type Weight in lbs Pre/Post Dialysis Refused 204.132001471923 BP Diastolic BP Location Tested BP Systolic [...]
--- OUTSIDE RECORDS SUMMARY | 2024-06-04 06:22 | XMS_ITS | Data Portability ---
Author Organization 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 Discussed plan. Not available 04/22/2024 14:50:59 Plan of Treatment Reminders Order Date Submit Date Provider Last Modified By Organization Details Last Modified Time Details Appointments OB ROUTINE 2024 03:15P Aguilar MULLEN MD Not available Not available Not available U/S OB BASELIN E 2024 02:00P M ULTRASOUND Not available Not available Not available OB ROUTINE 2024 03:00P Aguilar MULLEN MD Not available Not available Not available Lab None recorde d. Referral None recorde d. Procedures None recorde d. Surgeries None recorde d. Imaging US, obstetr ic, nuchal translu cency 2023 024 [email or web address] [facility], [address], [place], [address], 05/19/2024 21:10:46 Medication Orders Procard ia XL 60 mg tablet, extende d release 2023 024 [facility] [address] [facility], [place], [address], 05/19/2024 17:20:16 labetal ol 200 mg tablet 2023 024 [facility] [address] [facility], [place], [address], 05/28/2024 11:29:56 Patient TargetsNo targets recorded. Patient InstructionsNo instructions recorded. Reason for Referral None Reported. Results Created Date Observation Date Name Description Value Unit Range Abnormal Flag Note LastModifiedBy Organization Detail LastModifiedTime 05/25/2024 [UNIT Y] ANEUP LOIDY NIPT fraction 9.4% normal Not Available [facility] [address] [facility], [place], [address], 05/25/2024 22:48:49 05/25/2024 [UNIT Y] ANEUP LOIDY NIPT 22Q11.2 microdeletio n LOW RISK <1 in 10,000 normal Not Available [facility] [address] [place], [address], 05/25/2024 22:48:49 05/25/2024 [UNIT Y] ANEUP LOIDY NIPT sex chromosome aneuploidy NOT DETECT ED normal Not Available [facility] [address] [facility] , [place], [address], 05/25/2024 22:48:49 05/25/2024 [UNIT Y] ANEUP LOIDY NIPT monosomy X LOW RISK <1 in 10,000 normal Not Available [facility] [address] [facility] , [place], [address], 05/25/2024 22:48:49 05/25/2024 [UNIT Y] ANEUP LOIDY NIPT trisomy 13 LOW RISK <1 in 10,000 normal Not Available [facility] [address] [facility] , [place], [address], 05/25/2024 22:48:49 05/25/2024 [UNIT Y] ANEUP LOIDY NIPT trisomy 18 LOW RISK <1 in 10,000 normal Not Available [facility] [address] [facility] , [place], [address], 05/25/2024 22:48:49 05/25/2024 [UNIT Y] ANEUP LOIDY NIPT trisomy 21 LOW RISK <1 in 10,000 normal Not Available [facility] [address] [facility] , [place], [address], 05/25/2024 22:48:49 05/25/2024 [UNIT Y] ANEUP LOIDY NIPT sex FEMALE normal Not Available [facility] [address] [facility], [place], [address], 05/25/2024 22:48:49 05/25/2024 [UNIT Y] ANEUP LOIDY NIPT gestation SINGLE TON normal Not Available [facility] [address] [facility], [place], [address], 05/25/2024 22:48:49 05/25/2024 [UNIT Y] ANEUP LOIDY NIPT for detailed report, see pdf See PDF normal Not Available [facility] [address] [facility], [place], [address], 05/25/2024 22:48:49 04/22/20 24 04/22/2024 IMAGE GUIDE D PAP AND HPV REGAR DLESS image guided Pap, HPV regardless of Pap result SEE RESULT S BELOW CASE REPOR T: Cytol ogy Gynec ologi emmie Repor t Case: [id number] Autho francia miguel Provi viktoria: Obdulia Mullen MD Colle cted: 04/22 1453 Order ing Locat ion: [place] [facility] Recei geronimo: 04/23 0954 First Scree n: Rohit Grace, CT Speci men: Scree ruthann Pap - Image d, Cervi x STATE MENT OF ADEQU ACY: Satis facto ry for evalu ation Trans forma tion zone compo nent prese nt ----- ----- ----- ----- ----- ----- ----- ----- ----- ----- ----- ----- ----- ----- ----- ----- ----- ---- FINAL DIAGN OSIS: Negat shalonda for Intra epith elial Lesio brijesh or Brayden yeung (NIL) . Elect michael triplett d by Rohit Grace, CT on 04/29 at 5:05 PM ----- ----- ----- ----- ----- ----- ----- ----- ----- ----- ----- ----- ----- ----- ----- ----- ----- ---- HPV RESUL TS: HPV mRNA E6/E7 : No HPV mRNA Detec nicole NOTE: This high risk HPV mRNA assay detec ts fourt een high- risk HPV types (16, 18, 31, 33, 35, 39, 45, 51, 52, 56, 58, 59, 66, 68) witho ut diffe renti ation . COMME NT: This speci men was revie wed by a Cytot echno logis t and/o r Patho logis t (as indic ated in this repor t) after evalu ation using the Thinp rep Imagi ng Syste m. CLINI EMMIE INFOR MATIO N: Menst rual Statu s: LMP (if appli cable ): Clini emmie Histo ry/Pr eviou s Pap: Type of Neopl dominick (if appli cable ): Signi fican t Clini emmie Findi ngs: Other Histo ry: Hormo nelida (if appli cable ): PAP EDUCA ANGELINA L NOTE: The Pap Test is a scree ruthann test with an inher ent false negat shalonda rate. Liqui d-bas ed sampl ing may decre ase, but will not elimi brain, false negat shalonda resul ts. A negat shalonda resul t does not precl ude the prese nce and/o r devel opmen t of disea se, since the prese nce of abnor mal cells in the sampl e depen ds on the locat ion of the lesio n and sampl ing techn ique. Joanie nued regul ar scree ruthann is the best metho d of cance r preve ntion . If repor nicole cytol ogic findi ng do not corre late with physi emmie and/o r histo rical findi ngs, furamilcar romo tigafrica ion is recom anthony d, as clini taiwo nuñez nted. Not Available [facility] (Lab) [address], [place], [address], 04/29/2024 18:10:16 04/22/20 24 04/22/2024 TRICH OMONA S VAGIN AMANDA (RRNA ) trichomonas vaginalis ribosomal RNA (rrna) Negati ve negati ve Not Available [facility] (Lab) [address], [place], [address], 04/29/2024 18:10:17 04/22/20 24 04/22/2024 CT/GC (SUNG) , THINP REP VIAL chlamydia trachomatis, PCR Negati ve negati ve Not Available [facility] (Lab) [address], [place], [address], 04/29/2024 18:10:17 04/22/20 24 04/22/2024 CT/GC (SUNG) , THINP REP VIAL neisseria gonorrhoeae, PCR Negati ve negati ve Not Available [facility] (Lab) [address], [place], [address], 04/29/2024 18:10:17 05/19/20 24 05/19/2024 CBC W/DIF F WBC 6.6 10'3/ uL 3.5-10 .5 Not Available [facility] (Lab) [address], [place], [address], 05/20/2024 13:27:55 05/19/20 24 05/19/2024 CBC W/DIF F RBC 4.64 10'6/ uL (based on docume nted legal sex) 3.80-5 .20 Not Available [facility] (Lab) [address], [place], [address], 05/20/2024 13:27:55 05/19/20 24 05/19/2024 CBC W/DIF F HGB 13.6 g/dL (based on docume nted legal sex) 11.6-1 5.4 Not Available [facility] (Lab) [address] , [place], [address], 05/20/2024 13:27:55 05/19/20 24 05/19/2024 CBC W/DIF F HCT 39.6 % (based on docume nted legal sex) 34.0-4 5.0 Not Available [facility] (Lab) [address], [place], [address], 05/20/2024 13:27:55 05/19/20 24 05/19/2024 CBC W/DIF F MCV 85.3 fL 80.0-9 9.0 Not Available [facility] (Lab) [address], [place], [address], 05/20/2024 13:27:55 05/19/20 24 05/19/2024 CBC W/DIF F MCH 29.3 pg 27.0-3 4.0 Not Available [facility] (Lab) [address], [place], [address], 05/20/2024 13:27:55 05/19/20 24 05/19/2024 CBC W/DIF F MCHC 34.3 g/dL 32.0-3 5.5 Not Available [facility] (Lab) [address], [place], [address], 05/20/2024 13:27:55 05/19/20 24 05/19/2024 CBC W/DIF F RDW 12.1 % 11.0-1 5.0 Not Available [facility] (Lab) [address], [place], [address], 05/20/2024 13:27:55 05/19/20 24 05/19/2024 CBC W/DIF F plt 214 10'3/ uL 150-40 0 Not Available [facility] (Lab) [address] [facility], [place], [address], 05/20/2024 13:27:55 05/19/20 24 05/19/2024 CBC W/DIF F MPV 11.4 fL 8.8-12 .1 Not Available [facility] (Lab) [address] [facility], [place], [address], 05/20/2024 13:27:55 05/19/20 24 05/19/2024 CBC W/DIF F NRBC's 0.0 % 0.0 Not Available [facility] (Lab) [address] [facility], [place], [address], 05/20/2024 13:27:55 05/19/20 24 05/19/2024 CBC W/DIF F absolute NRBCs 0.0 10'3/ uL no refere nce range establ ished Not Available [facility] (Lab) [address] [facility], [place], [address], 05/20/2024 13:27:55 05/19/20 24 05/19/2024 CBC W/DIF F neutrophils 69.2 % 34.0-7 3.0 Not Available [facility] (Lab) [address] [facility], [place], [address], 05/20/2024 13:27:55 05/19/20 24 05/19/2024 CBC W/DIF F lymphocytes 25.3 % 15.0-5 0.0 Not Available [facility] (Lab) [address] [facility], [place], [address], 05/20/2024 13:27:55 05/19/20 24 05/19/2024 CBC W/DIF F monocytes 4.7 % 1.0-15 .0 Not Available [facility] (Lab) [address] [facility], [place], [address], 05/20/2024 13:27:55 05/19/20 24 05/19/2024 CBC W/DIF F eosinophils 0.3 % 0.0-8. 0 Not Available [facility] (Lab) [address] [place], [address], 05/20/2024 13:27:55 05/19/20 24 05/19/2024 CBC W/DIF F basophils 0.3 % 0.0-2. 0 Not Available [facility] (Lab) [address] [facility], [place], [address], 05/20/2024 13:27:55 05/19/20 24 05/19/2024 CBC W/DIF F immature granulocytes 0.2 % no define d refere nce range Not Available [facility] (Lab) [address] [facility], [place], [address], 05/20/2024 13:27:55 05/19/20 24 05/19/2024 CBC W/DIF F absolute neutrophils 4.5 10'3/ uL 1.5-8. 0 Not Available [facility] (Lab) [address] [facility], [place], [address], 05/20/2024 13:27:55 05/19/20 24 05/19/2024 CBC W/DIF F absolute lymphocytes 1.7 10'3/ uL 1.0-4. 0 Not Available [facility] (Lab) [address] [place], [address], 05/20/2024 13:27:55 05/19/20 24 05/19/2024 CBC W/DIF F absolute monocytes 0.3 10'3/ uL 0.2-1. 0 Not Available [facility] (Lab) [address] [place], [address], 05/20/2024 13:27:55 05/19/20 24 05/19/2024 CBC W/DIF F absolute eosinophils 0.0 10'3/ uL 0.0-0. 6 Not Available [facility] (Lab) [address] [place], [address], 05/20/2024 13:27:55 05/19/20 24 05/19/2024 CBC W/DIF F absolute basophils 0.0 10'3/ uL 0.0-0. 3 Not Available [facility] (Lab) [address], [place], [address], 05/20/2024 13:27:55 05/19/20 24 05/19/2024 CBC W/DIF F absolute immature granulocytes 0.0 10'3/ uL 0.00-0 .10 2023 2:51 AM: P indic ates parti al resul ts on a panel have been relea sed. Addit ional resul ts will follo w. 2023 2:51 AM: This resul t has been final verif ied. No addit ional or little ed resul ts are expec nicole. Not Available [facility] (Lab) [address], [place], [address], 05/20/2024 13:27:55 05/19/20 24 05/19/2024 HEMOG LOBIN A1C hemoglobin A1C 5.5 % 0-5.6 The Ameri can [employer] iatio n recom mends that a prima ry goal of thera py shoul d be a HBA1C of < 7% and that physi cians shoul d reeva luate the treat ment regim en in patie nts with HBA1C value s consi stent ly > 8%. <5.7% Mindy l 5.7 - 6.4% Incre ased risk for diabe bharat >=6.5 % Diagn ostic of diabe bharat <7.0% Goal of thera py >8.0% Actio n sugge sted Not Available [facility] (Lab) [address], [place], [address], 05/20/2024 13:27:55 05/19/20 24 05/19/2024 RUBEL LA IGG ANTIB GENOVEVA, QUANT rubella antibodies, IgG Reacti ve reacti ve Not Available [facility] (Lab) [address] [facility], [place], [address], 05/20/2024 13:27:56 05/19/20 24 05/19/2024 RUBEL LA IGG ANTIB GENOVEVA, QUANT rubella antibodies, IgG quant 37.4 IU/mL >=10 Non-r eacti ve (Non- Immun e) <10 IU/mL React shalonda (Immu ne) > or = 10 IU/mL Not Available [facility] (Lab) [address] [facility], [place], [address], 05/20/2024 13:27:56 05/19/20 24 05/19/2024 TYPE/ RH/SC REEN ABO/Rh type A POS Not Available [facility] (Lab) [address] [facility], [place], [address], 05/20/2024 13:27:56 05/19/20 24 05/19/2024 TYPE/ RH/SC REEN antibody screen NEG Not Available [facility] (Lab) [address] [facility], [place], [address], 05/20/2024 13:27:56 05/19/20 24 05/19/2024 TYPE/ RH/SC REEN exp date 2023 23:59 Not Available [facility] (Lab) [address] [facility], [place], [address], 05/20/2024 13:27:56 05/19/20 24 05/19/2024 HIV 1/2 ANTIG EN/AN TIBOD Y, REFLE X CONFI RMATI ON HIV antigen/anti body Nonrea ctive nonrea ctive HIV-1 antig en and HIV-1 /HIV- 2 antib odies were not detec nicole. No labor atory evide nce of HIV infec tion. Not Available [facility] (Lab) [address] [facility], [place], [address], 05/20/2024 13:27:57 05/19/20 24 05/19/2024 HEPAT ITIS C ANTIB GENOVEVA SCREE N, REFLE X TO CONFI RMATI ON hepatitis C antibody Non-re active non-re active Antib odies to HCV Not Detec nicole, does not exclu de the possi bilit y of expos ure to HCV. Not Available [facility] (Lab) [address] [facility], [place], [address], 05/20/2024 13:27:57 05/19/20 24 05/19/2024 HEPAT ITIS B SURFA CE ANTIG EN hepatitis B surface antigen Non-re active non-re active This assay was perfo rmed using [employer] ratio n reage nts and test kits. Value s obtai polo with other assay metho ds or kits canno t be used inter little eably . Not Available [facility] (Lab) [address] [facility], [place], [address], 05/20/2024 13:27:58 05/19/20 24 05/19/2024 RPR SCREE N, REFLE X TITER /CONF IRMAT ION RPR screen Nonrea ctive nonrea ctive Not Available [facility] (Lab) [address] [facility], [place], [address], 05/20/2024 13:27:58 04/06/20 24 04/06/2024 US, obste tric, 1st trime ster No observ ation record ed. [email or web address] [facility], [place], [address], 04/06/2024 20:23:28 04/06/20 24 04/06/2024 US, obste tric, trans vagin al No observ ation [facility] ed. [facility] [address], [place], [address], 04/06/2024 18:11:08 04/22/20 24 04/22/2024 US, obste tric, follo w-up No observ ation record ed. [email or web address] [address], [place], [address], 04/23/2024 07:34:04 05/18/20 24 05/18/2024 US, alma kapoor unila teral No observ ation record ed. M[facility] [address], [place], [address], 05/18/2024 12:07:39 05/18/20 24 05/18/2024 US, jake strangea teral No observ ation record ed. [facility] [address], [place], [address], 05/18/2024 17:27:46 05/19/20 24 05/19/2024 US, obste tric, nucha l trans lucen cy No observ ation record ed. [facility] [address], [place], [address], 05/19/2024 18:26:41 05/19/20 24 05/19/2024 US, obste tric, nucha l trans lucen cy No observ ation record ed. [email or web address], [place], [address], 05/19/2024 21:06:08 Result Notes None recorded. Problems Name Problem SNOMED Code Status Onset Date Resolution Date Notes Provider Name and Address Organization Details Recorded Time 20839452 Active 2023 Maria Elena rm, [facility] 16:44:58 Seizure disorder 564354501 Active oxcarbeza pine 900 bid Dario Mullen MD [address], [place], [address], [facility] 17:16:32 Hypertens shalonda disorder 20031234 Active Chronic HTN - procardia xl 60mg qd Dario Mullen MD [address], [place], [address], [facility] 17:18:38 Problem Notes None recorded. Procedures Surgical History Date Name Laterality Status Provider Name and Address Organization Details Recorded Time 4 Date of Last Pap Smear completed Maria Elena [facility] 04/22/2024 14:59:47 4 DILATION & CURETTAGE (SURG) completed Aspen Burns [facility] 01/16/2024 10:26:21 8 Breast Surgery completed [facility] 01/15/2024 10:34:11 Imaging Results Imaging Date Name Status LastModified by Organization Details LastModified Time 04/06/2024 US, obstetric, 1st trimester completed [email or web address], [place], [address], 04/06/2024 20:23:28 04/06/2024 US, obstetric, transvaginal completed [facility] [address], [place], [address], 04/06/2024 18:11:08 04/22/2024 US, obstetric, follow-up completed [email or web address], [place], [address], 04/23/2024 07:34:04 05/18/2024 US, breast, unilateral completed MARY [facility] [address], [place], [address], 05/18/2024 12:07:39 05/18/2024 US, breast, unilateral completed [email or web address] [facility] [address], [place], [address], 05/18/2024 17:27:46 05/19/2024 US, obstetric, nuchal translucency completed [facility] [address], [place], [address], 05/19/2024 18:26:41 05/19/2024 US, obstetric, nuchal translucency completed [email or web address] [facility], [place], [address], 05/19/2024 21:06:08 Procedure Notes None recorded. Medical Equipment None Reported. Allergies Allergen ID Allergen Name Allergen Category Reaction Reaction Severity Criticality Documentation Date Start Date Code Code System Note Provider Name and Address Organization Details Recorded Time 76889 Keppra medicatio n rash moderate Not available 01/15/2024 81660 7 RxNorm Maria Elena rm [facility] 10:28:54 Medications Name Sig Start Date [...] and Address Organization Details Last Updated DateTime 04/22/2024 167.64 cm 32.9 kg/m2 22182.84 g 124 mm[Hg] 85 mm[Hg] [facility] 4 14:52:14 Date Recorded Body height Body weight Systolic blood pressure Diastolic blood pressure Systolic blood pressure Diastolic blood pressure Provider Name and Address Organization Details Last Updated DateTime 4 167.64 cm 79596.5 87851 g 145 mm[Hg] 84 mm[Hg] 140 mm[Hg] 88 mm[Hg] [facility] 4 17:45:55 Date Recorded Body height Body mass index (BMI) Body weight Systolic blood pressure Diastolic blood pressure Provider Name and Address Organization Details Last Updated DateTime 05/28/2024 167.64 cm 32.9 kg/m2 47467.84 348 g 136 mm[Hg] 78 mm[Hg] [facility] 4 10:44:51 Social History Question Answer Notes LastModified [...] Or The Highest Degree You Have Received? 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 [id number] Information not available 01/15/2024 Do You Use [...] Diagnosis/Indication Diagnosis SNOMED-CT Code Diagnosis ICD10 Code 718181 Azul Romo [facility] [address],[facility] [place] [address] 01/15/2024 09:48:08 01/15/2024 10:39:37 Threatened miscarriage 76968446 O20.0 Z3A.01 [id number] Dario Mullen MD [facility] [address],[facility] [place] [address] 01/15/2024 09:50:21 01/15/2024 11:10:27 Missed miscarriage 48443625 O02.1 [id number] Dario Mullen MD [facility] [address],[facility] [place] [address] 01/21/2024 14:49:06 01/21/2024 16:00:26 Missed miscarriage 08281743 O02.1 Polycystic ovary syndrome 974398161 E28.2 [id number] Aspen Burns [facility] [address],[place] [address] 02/10/2024 11:59:37 02/10/2024 12:34:32 Missed miscarriage 34305413 O02.1 [id number] [facility] [address],[place] [address] 04/06/2024 15:22:11 04/07/2024 05:23:51 screening 382681449 O36.80X0 Z87.59 Z3A.01 [id number] Elly Harmon [facility] [address],[place] [address] 04/22/2024 13:50:30 04/22/2024 14:16:23 [id number] Dario Mullen MD [facility] [address],[place] [address] 04/22/2024 13:50:49 04/22/2024 15:59:06 Amenorrhea 73152501 N91.2 [id number] [facility] [address],[place] [address] 05/19/2024 15:16:38 05/19/2024 16:06:30 screening 205315692 Z36.82 Z3A.13 [id number] Maria Elena Parada [facility] [address],[place] [address] 05/19/2024 15:16:55 05/19/2024 18:27:40 Chronic hypertension complicating AND/OR reason for care during 00132427 O16.9 [id number] Dario Mullen MD [facility] [address],[place] [address] 05/28/2024 09:55:50 05/28/2024 11:33:55 Chronic hypertension complicating AND/OR reason for care during 41319262 O16.9 Health Concerns Section Related Observation LastModified by Organization Detai ls LastModified Time None Recorded Concern Status LastModified by Organization Details LastModified Time None Recorded Advance Directives Directive None Recorded Payers Encounter Date Sequence Insurance Name Policy Number Policy Turcios Covered Member ID Turc[employer] Member ID Guarantor Name 04/22/2024 1 R [id number] Quynh De Leon [id number] Quynh De Leon 04/22/2024 1 R [id number] Quynh Brunern [id number] Quynh Brunern 05/19/2024 1 UMR [id number] Quynh Brunern [id number] Quynh Brunern 05/19/2024 1 UMR [id number] Quynh Brunern [id number] Quynh Brunern 05/28/2024 1 UMR [id number] Quynh Brunern [id number] Quynh De Leon Notes Date Note Type Note Provider Name and Address Organization Details Recorded Time 04/22/2024 text/html this patient is a 38-year-old female who presents for amenorrhea. She is a positive test. Ultrasound revealed a 1st trimester gestation. Patient has no complaints. We talked about early care. Talked about genetic screening. We talked about her ultrasound results. We talked about the 12 week ultrasound that has genetic screening components. She was given recommendations on exercise, diet, [id number] medications. We reviewed her obstetric history. We reviewed her medical history. We reviewed her social history. She will begin routine care at her next visit. Dario Mullen MD [address], [place], [address], [facility] 04/22/2024 15:55:38 OBGyn Episode Ob Episode Information Episode Created Date Number of Fetuses Patient Bloodtype Patient rh Status Prepregnancy Weight lbs Domestic Partner Domestic Partner Phone Father Name Machinery Mover Status 01/15/20 24 1 CLOSED Fetus Data First Name Last Name Admitted to NICU Weight (g) Sex Living Outcome Pediatric Complications Fetus ID Race Codes Race Delivery Type , Spontane ous [id number] Arvin Calculation ARVIN Calculation Method Initial Arvin Date Initial Exam Date Initial Exam Provider Initial Ultrasound Date Last Menstrual Period Date Ultra Sound Weeks Gestation Conception by IVF Embryo Age at Transfer Date of Transfer 0 Eighteen To Twenty Week Arvin Update Ultra Sound Date Fundal Height At Umbil Quickening Date Ultra Sound Latest Weeks Gestation Final Arvin Confirmed By Final Arvin Confirmed Date Final Arvin Date Ultra Sound Latest Days Gestation 0 0 Menstrual History Last Menstrual Date Menses Monthly On Bcp Conception Prior Menses Frequency Hcg Plus Date Menarche Onset Age Delivery Information Delivery Date Delivery Type Labor Anesthesia Weeks Gestation Incision Type Labor Labor Length Hrs Delivered By Post Complications Tubal Sterilization Discharge Date Comments 4 Discharge Information Feeding Method Contraceptive Method Maternal HG B and HCT Levels Ob Episode Information Episode Created Date Number of Fetuses Patient Bloodtype Patient rh Status Prepregnancy Weight lbs Domestic Partner Domestic Partner Phone Father Name Machinery Mover Status 05/19/20 24 1 A Positive [place] Fetus Data First Name Last Name Admitted to NICU Weight (g) Sex Living Outcome Pediatric Complications Fetus ID Race Codes Race Delivery Type [id number] Problems Problem Notes Problem Name Start Date End Date Resolution Snomed Code Not e Seizure disorder [id number] oxc arbezapine 900 bid Hypertensive disorder 34263427 Chronic HTN - procardia xl 60mg qd [...] Type Weight in lbs Pre/Post Dialysis Refused 204.676831496395 BP Diastolic BP Location Tested BP Systolic [...] Type Weight in lbs Pre/Post Dialysis Refused 204.011870514275 BP Diastolic BP Location Tested BP Systolic [...]
--- OUTSIDE RECORDS SUMMARY | 2024-06-04 06:22 | XMS_ITS | Data Portability ---
Author Organization [place] [facility], Main Office Address [address] [place] [address] Assessment Encounter Date Assessment Date Assessment LastModified by Organization Details LastModified Time 01/21/2023 01/21/2023 Medrol Dosepak blood work see me in 6 months [email or web address] Not available 01/21/2023 21:44:09 Plan of Treatment Reminders Order Date Submit Date Provider Last Modified By Organization Details Last Modified Time Details Appointments None recorded. Lab HbA1c (hemoglob in A1c), blood 023 023 [email or web address] [facility], [facility] [place], [address], 4 11:02:54 CMP, serum or plasma 023 023 [email or web address] 25 [facility], [facility], [place], [address], 4 11:02:54 CBC w/ auto diff 023 023 [email or web address] 25 [facility], [facility], [place], [address], 4 11:02:54 lipid panel, serum 023 023 [email or web address] [facility], [address] [place] [address], [place], [address], 4 11:02:54 Referral None recorded. Procedures None recorded. Surgeries None recorded. Imaging None recorded. Medication Orders Medrol (Jim) 4 mg tablets in a dose pack 023 023 [email or web address] [facility] [facility], [place], [address], 3 17:43:58 Patient TargetsNo targets recorded. Patient InstructionsNo instructions recorded. Reason for Referral None Reported. Results Created Date Observation Date Name Description Value Unit Range Abnormal Flag Note LastModifiedBy Organization Detail LastModifiedTime Result Notes None recorded. Problems Name Problem SNOMED Code Status Onset Date Resolution Date Notes Provider Name and Address Organization Details Recorded Time Eruption 255826928 Active Not Available [facility] 3 13:30:56 Insect bite - wound 278461371 Active Not Available [facility] 3 13:30:56 Low back pain 766504752 Active Not Available [facility] 3 13:30:56 Cat bite - wound 178717496 Active Not Available [facility] 3 13:30:56 Synovitis/t enosynoviti s - hand 483542056 Active Not Available [facility] 3 13:30:56 Ingrowing toenail 995414036 Active Not Available [facility] 3 13:30:57 Dysuria 63999986 Active 023 Not Available [facility] 3 13:30:57 Obesity 200728609 Active 023 LAILA Cardoza, [place] [employer] [facility] 3 17:17:12 Problem Notes None recorded. Procedures Surgical History Date Name Laterality Status Provider Name and Address Organization Details Recorded Time Vidalia Teeth completed Not Available [facility] 08/14/2022 13:30:05 Breast reduction completed Not Available [facility] 08/14/2022 13:30:05 Imaging Results None recorded. Procedure Notes None recorded. Medical Equipment None Reported. Allergies No known drug allergies Medications Name Sig Start Date Stop Date Status Note LastModified by Organization Details LastModified Time clotrimazol e 10 mg jorgito 01/21 completed Not Available Not Available Not Available Augmentin 875 mg-125 mg tablet Take 1 tablet every 12 hours by oral route. 11/22 completed Not Available Not Available Not Available acetic acid 2 % ear solution INSTILL 3 TO 5 DROPS INTO EACH EAR EVERY 4 8 HOURS FOR 5 7 DAYS 10/18 completed Not Available Not Available Not Available prednisone 10 mg tablet Take by oral route. take 7x3hubd, 8y2umzw, 1x3 days active Not Available Not Available No t Available doxycycline hyclate 100 mg capsule TAKE 1 CAPSULE BY MOUTH TWICE DAILY FOR 7 DAYS 07/05 completed Not Available Not Available Not Available cefuroxime axetil 250 mg tablet 09/15 completed Not Available Not Available Not Available triamcinolo ne acetonide 0.5 % topical cream APPLY TOPICALLY TO THE AREA(S) ON LEG AND THIGH TWICE DAILY FOR 14 DAYS 07/05 completed Not Available Not Available Not Available tizanidine 4 mg tablet Take 1 tablet every day by oral route at bedtime. 10/18 completed Not Available Not Available Not Available Nystop 100,000 unit/gram topical powder APPLY POWDER TOPICALLY TO AFFECTED AREA TWICE DAILY 07/05 completed Not Available Not Available Not Available prednisone 20 mg tablet Take 2 tablets every day by oral route. active Not Available Not Available No t Available Zyrtec 10 mg tablet Take 1 tablet every day by oral route. 01/17 completed Not Available Not Available Not Available ciprofloxac in 500 mg tablet 01/21 completed Not Available Not Available Not Available sulfamethox azole 800 mg-trimetho prim 160 mg tablet Take 1 tablet every 12 hours by oral route. 03/11 completed Not Available Not Available Not Available Macrobid 100 mg capsule Take 1 capsule every 12 hours by oral route for 5 days. 01/21 completed Not Available Not Available Not Available cephalexin 500 mg capsule Take 1 capsule twice a day by oral route for 7 days. 01/17 completed Not Available Not Available Not Available oxcarbazepi ne 600 mg tablet TAKE 1 & 1/2 (ONE & ONE-HALF) TABLETS BY MOUTH TWICE DAILY active Not Available Not Available No t Available diclofenac sodium 75 mg tablet,maxwell yed release 06/23 completed Not Available Not Available Not Available montelukast 10 mg tablet Take 1 tablet every day by oral route. 08/13 completed Not Available Not Available Not Available mupirocin 2 % topical ointment 03/11 completed Not Available Not Available Not Available levofloxaci n 500 mg tablet 09/15 completed Not Available Not Available Not Available methylpredn isolone 4 mg tablets in a dose pack TAKE BY MOUTH DIRECTED ON INSIDE OF PACKAGE active Not Available Not Available No t Available albuterol sulfate HFA 90 mcg/actuati on aerosol inhaler INHALE 2 PUFFS BY MOUTH EVERY 4 HOURS NEEDED 01/21 completed Not Available Not Available Not Available dicyclomine 10 mg capsule TAKE 1 CAPSULE BY MOUTH THREE TIMES DAILY 01/21 completed Not Available Not Available Not Available Bactroban Nasal 2 % ointment Take 1 applicati on twice a day by nasal route for 14 days. 03/11 completed Not Available Not Available Not Available cyclobenzap rine 5 mg tablet TAKE 1 TO 2 TABLETS BY MOUTH THREE TIMES DAILY NEEDED FOR MUSCLE SPASM 10/18 completed Not Available Not Available Not Available clonazepam 0.25 mg disintegrat ing tablet active Not Available Not Available N ot Available Menactra (PF) 4 mcg/0.5 mL intramuscul ar solution 03/11 completed Not Available Not Available Not Available Zyrtec 2021 active Not Available Not Available Not Avai lable Mirena 10/18 completed Not Available Not Available Not Available Recombivax HB (PF) 10 mcg/mL intramuscul ar syringe 01/17 completed Not Available Not Available Not Available Vaqta (PF) 50 unit/mL intramuscul ar syringe 01/17 completed Not Available Not Available Not Available Ocella 3 mg-0.03 mg tablet 07/28 completed Not Available Not Available Not Available Recombivax HB (PF) 5 mcg/0.5 mL intramuscul ar syringe 01/12 completed Not Available Not Available Not Available Vitamins Plus Low Iron 27 mg iron-1 mg tablet TAKE 1 TABLET BY MOUTH ONCE DAILY active Not Available Not Available No t Available Flonase Allergy Relief 50 mcg/actuati on nasal spray,suspe nsion Eastman 1 spray every day by intranasa l route. 2021 active Not Available Not Available Not Avai lable Fluarix Quad 7618-0998 (PF) 60 mcg (15 mcg x 4)/0.5 mL IM syringe 01/17 completed Not Available Not Available Not Available Fluarix Quad (PF) 60 mcg (15 mcg x 4)/0.5 mL IM syringe 07/28 completed Not Available Not Available Not Available Fluzone Quad (PF) 60 mcg(15 mcgx4)/0.5 mL intramuscul ar syringe 03/11 completed Not Available Not Available Not Available Se-Inna-19 29 mg iron-1 mg tablet TAKE 1 TABLET BY MOUTH ONCE DAILY 10/18 completed Not Available Not Available Not Available ID NOW COVID-19 Test Kit TEST DIRECTED TODAY 07/05 completed Not Available Not Available Not Available BinaxNOW COVID-19 Ag Self Test kit Use as Directed on the Package 07/05 completed Not Available Not Available Not Available Vitals Date Recorded Body mass index (BMI) Body height Heart rate Body temperature Body weight Systolic blood pressure Diastolic blood pressure Provider Name and Address Organization Details Last Updated DateTime 2 36.6 kg/m2 157.48 cm 72 /min 97.7 [degF] 15223.4 7 g 122 mm[Hg] 72 mm[Hg] Not Available [facility] 3 13:30:17 Date Recorded Body mass index (BMI) Body height Heart rate Body temperature Body weight Systolic blood pressure Diastolic blood pressure Provider Name and Address Organization Details Last Updated DateTime 3 37.3 kg/m2 157.48 cm 73 /min 98.2 [degF] 00258.8 4 g 124 mm[Hg] 78 mm[Hg] Not Available [facility] 3 13:30:17 Date Recorded Body height Body mass index (BMI) Body weight Body temperature Heart rate Systolic blood pressure Diastolic blood pressure Provider Name and Address Organization Details Last Updated DateTime 3 157.48 cm 36.6 kg/m2 37818.4 7 g 97.7 [degF] 70 /min 122 mm[Hg] 82 mm[Hg] LAILA Chirinos [place] [employer] [facility] 3 16:21:30 Social History Question Answer Notes LastModified by Organizat ion Details LastModified Time Tobacco Smoking Status Never Smoker Not Available [facility] 08/14/2022 13:29:55 Do You Have An Advance Directive? No MIGRATION.[id number] [id number] Information not available 08/14/2022 What Is Your Level Of Alcohol Consumption? None MIGRATION.06349 86895 Information not available 08/14/2022 What Is Your Level Of Caffeine Consumption? None MIGRATION.74722 68528 Information not available 08/14/2022 In The 14 Days Before Symptom Onset, Have You Had Close Contact With A Laboratory-confi rmed COVID-19 While That Case Was Ill? No MIGRATION.37005 47894 Information not available 08/14/2022 In The 14 Days Before Symptom Onset, Have You Had Close Contact With A Person Who Is Under Investigation For COVID-19 While That Person Was Ill? No MIGRATION.04794 33299 Information not available 08/14/2022 What Type Of Diet Are You Following? REGULAR MIGRATION.99377 87445 Information not available 08/14/2022 What Is The Highest Grade Or Level Of School You Have Completed Or The Highest Degree You Have Received? 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 No MIGRATION.37372 95804 Information not available 08/14/2022 What Is The Fluoride Status Of Your Home? Unknown MIGRATION.55517 45321 Information not available 08/14/2022 Are There Any Guns Present In Your Home? No MIGRATION.02214 92538 Information not available 08/14/2022 Do You Use Insect Repellent Routinely? No MIGRATION.44196 68650 Information not available 08/14/2022 Where Do You Live? [place]House MIGRATION.96191 07759 Information not available 08/14/2022 Do You Have A Medical Power Of Institute Scientist? No MIGRATION.58609 90231 Information not available 08/14/2022 What Was The Date Of Your Most Recent Tobacco Screening? 01/21/2023 [email or web address] Information not available 01/21/2023 Do You Have Any Pets? Yes MIGRATION.84113 54946 Information not available 08/14/2022 What Is Your Relationship Status? Single MIGRATION.64291 39185 Information not available 08/14/2022 Do You Use Your Seat Belt Or Car Seat Routinely? Yes MIGRATION.36151 13698 Information not available 08/14/2022 Do You Have Smoke And Carbon Monoxide Detectors In Your Home? Yes MIGRATION.84952 22531 Information not available 08/14/2022 Are You Passively Exposed To Smoke? No MIGRATION.15313 85501 Information not available 08/14/2022 Are There Any Smokers In Your House? No MIGRATION.48958 70289 Information not available 08/14/2022 What Types Of Sporting Activities Do You Participate In? None MIGRATION.78572 20845 Information not available 08/14/2022 Do You Feel Stressed (tense, Restless, Nervous, Or Anxious, Or Unable To Sleep At Night)? [id number] MIGRATION.03542 49016 Information not available 08/14/2022 Do You Use Any Illicit Or Recreational Drugs? No MIGRATION.82627 68414 Information not available 08/14/2022 Do You Use Sunscreen Routinely? Yes MIGRATION.10691 46992 Information not available 08/14/2022 Has Tobacco Cessation Counseling Been Provided? No Not Needed-ne fernando Smoked MIGRATION.59841 85571 Information not available 08/14/2022 Have You Recently Traveled Abroad? No MIGRATION.32817 22474 Information not available 08/14/2022 Do You Have Any Dietary Restrictions? No MIGRATION.91086 93194 Information not available 08/14/2022 Do You Or Have You Ever Used Any Other Forms Of Tobacco Or Nicotine? No MIGRATION.64202 56379 Information not available 08/14/2022 Sex: Female Functional Status Question Answer Note LastModified by Organizat ion Details LastModified Time What is your exercise level? Occasional MIGRATION.[id number] Information not available 08/14/2022 Mental Status None recorded. Family History Relationship Description Onset Age of this Age Resolved Age Notes LastModified by Organization Details LastModified Time Paternal Grandmother Arterial bypass graft MIGRATION.007 [id number] Not available 08/14/2022 13:30:06 Paternal Grandmother Alzheimer's disease MIGRATION.950 [id number] Not available 08/14/2022 13:30:06 Maternal Grandfather Bypass graft MIGRATION.0 30 [id number] Not available 08/14/2022 13:30:06 Maternal Grandfather Alzheimer's disease deceas ed MIGRATION.058 [id number] Not available 08/14/2022 13:30:06 Paternal Aunt Malignant tumor of breast and cervic al cancer MIGRATION.616 [id number] Not available 08/14/2022 13:30:06 Maternal Grandmother Neoplasm of brain MIGRATION.992 [id number] Not available 08/14/2022 13:30:06 Mother Anxiety MIGRATION.537 [id number] Not available 08/14/2022 13:30:06 Father Hypertensive disorder MIGRATION.853 [id number] Not available 08/14/2022 13:30:06 Medical History Condition Response NERVE DISEASE N BLINDNESS N RHEUMATIC FEVER N KIDNEY STONES N BLADDER PROBLEMS N MRSA N OTHER # 1 N POLIO N LUNG DISEASE/DISORDER N HISTORY OF DRUG ABUSE N RADIATION / CHEMOTHERAPY N COPD N Other # 2 N BLOOD DISEASES N EAR OR HEARING PROBLEMS N MUMPS N SHINGLES N BOWEL PROBLEMS N DEPRESSION (INCLUDING POST ) N STROKE/TIA N ULCERS N BENIGN PROSTATIC HYPERPLASIA N MEASLES N HYPOTENSION N MYOCARDIAL INFARCTION N OBESITY N GERD/NAUSEA N ANEURYSM N URINARY/BLADDER/KIDNEY PROBLEMS N CORONARY ARTERY DISEASE (CAD) N ADDICTION CONCERNS N Impotence N ENDOMETRIOSIS N USE OF BLOOD THINNERS N SKIN PROBLEMS N GASTROINTESTINAL DISORDER N PERIPHERAL VASCULAR DISEASE N MUSCLE,JOINT OR BONE PROBLEMS N GASTROINTESTINAL BLEEDING N BLOOD CLOTS N ASTHMA N CATARACTS N ERECTILE DYSFUNCTION N VARICOSITIES N GI PROBLEMS N Low Testosterone N INFERTILITY N AIDS/HIV N CHEMOTHERAPY / RADIATION N LIVER DISEASE N MALE HYPOGONADISM N HYPERTENSION N Deficiency N TOURETTE'S N ANXIETY DISORDER N BLOOD TRANSFUSION N ANEMIA/BLOOD DISORDER N CHRONIC EAR INFECTIONS N BRONCHITIS N TUBERCULOSIS N GLAUCOMA N FOOT PROBLEM N DIVERTICULITIS N SLEEP APNEA N CHICKENPOX N INFECTIOUS DISEASE N PROSTATE N HEART ARRHYTHMIA N INSOMNIA N HIGH CHOLESTEROL / HYPERLIPIDEMIA N EYE PROBLEMS N HYPERTHYROIDISM N EDEMA N CHRONIC PAIN SYNDROME N HYPOTHYROIDISM N CONSTIPATION N CAROTID BLOCKAGE N BACK / NECK PROBLEMS N HAVE YOU BEEN HOSPITALIZED OR SEEN IN [facility] IN THE PAST YEAR ? N ATHEROSCLEROSIS N BREAST PROBLEMS N DIALYSIS N ECZEMA N OSTEOPOROSIS N ARTHRITIS N APPENDICITIS N DIABETES, TYPE N BAD TEETH N ENT N HEARTBURN / REFLUX N AUTISM SPECTRUM DISORDER (ASD) N HEPATITIS / LIVER DISEASE N GOUT N SLEEP DISORDER N ALZHEIMER'S DISEASE N Brain Problems N DEMENTIA N HERPES N SEIZURES/EPILEPSY N HEADACHES/MIGRAINES N VASCULAR DISEASE N PACEMAKER N Blood Disorder N DIZZINESS N HEART DISEASE/HEART PROBLEMS N KIDNEY DISEASE N MULTIPLE SCLEROSIS N CANCER: SPECIFY N CARDIAC ARRHYTHMIA N ATRIAL FIBRILLATION N Gall Stones N PULMONARY EMBOLISM N AUTOIMMUNE DISEASE N Gynecological HistoryNo gynecological history recorded. Obstetrics History GPAL:G 0 P 0 0 0 0 Immunizations Vaccine Type Date Status Note Provider Nam e and Address Organization Details Recorded Time tetanus toxoid, adsorbed 3 completed Not Available [facility] 08/14/2022 13:33:20 COVID-19, mRNA, LNP-S, PF, 100 mcg/0.5mL dose or 50 mcg/0.25mL dose 1 completed Not Available [facility] 08/14/2022 13:33:20 COVID-19, mRNA, LNP-S, PF, 100 mcg/0.5mL dose or 50 mcg/0.25mL dose 1 completed Not Available [facility] 08/14/2022 13:33:20 COVID-19, mRNA, LNP-S, PF, 100 mcg/0.5mL dose or 50 mcg/0.25mL dose 1 completed Not Available [facility] 08/14/2022 13:33:20 Influenza, split virus, trivalent, preservative 0 completed Not Available [facility] 08/14/2022 13:33:20 Tdap 0 completed Not Available [facility] 08/14/2022 13:33:20 Influenza, split virus, quadrivalent, preservative 9 completed Not Available [facility] 08/14/2022 13:33:20 Influenza, split virus, quadrivalent, preservative 8 completed Not Available [facility] 08/14/2022 13:33:20 meningococcal B, recombinant 7 completed Not Available [facility] 08/14/2022 13:33:20 Influenza, high-dose, trivalent, PF 7 completed Not Available [facility] 08/14/2022 13:33:20 Influenza, split virus, trivalent, preservative 7 completed Not Available [facility] 08/14/2022 13:33:20 Influenza, split virus, quadrivalent, preservative 1 completed Not Available [facility] 08/14/2022 13:33:20 meningococcal MPSV4 6 completed Not Available [facility] 08/14/2022 13:33:21 Influenza, split virus, quadrivalent, preservative 6 completed Not Available [facility] 08/14/2022 13:33:21 Hep B, adult 5 completed Not Available [facility] 08/14/2022 13:33:21 Hep A, adult 5 completed Not Available [facility] 08/14/2022 13:33:21 Hep A, adult 5 completed Not Available [facility] 08/14/2022 13:33:21 Hep B, adult 5 completed Not Available [facility] 08/14/2022 13:33:21 Past Encounters Encounter ID Performer Location Encounter Start Date Encounter Closed Date Diagnosis/Indication Diagnosis SNOMED-CT Code Diagnosis ICD10 Code [id number] S[facility] Internal Med Shaun talavera [address] [facility] , [place] [address] 10/18/2021 00:00:00 12/01/2021 14:57:01 [id number] S_G Internal Med [facility] [address], [facility] [address] [place] [address] 07/05/2022 00:00:00 07/05/2022 16:23:14 [id number] Wil Downey MD [facility] Internal Med Shaun talavera [address] [facility] , [place] [address] 01/21/2023 15:33:02 01/21/2023 17:22:20 Eruption 520630263 R21 Obesity 803661543 E66.9 Screening for cardiovascular system disease 086269333 Z13.6 Health Concerns Section Related Observation LastModified by Organization Detai ls LastModified Time None Recorded Concern Status LastModified by Organization Details LastModified Time None Recorded Advance Directives Directive N: Payers Encounter Date Sequence Insurance Name Policy Number Policy Turcios Covered Member ID Turcios Member ID Guarantor Name 01/21/2023 1 R [id number] Quynh De Leon [id number] Quynh De Leon Notes Date Note Type Note Provider Name and Address Organization Details Recorded Time 01/21/2023 text/html a bite on her leg now she has got a rash in the right upper arm was not a tick it did itch no new plants pets detergents. Has not lost weight Wil Downey MD [address] [facility], [place], [address], [place] [facility] 01/21/2023 21:44:37 OBGyn Episode No OBEpisode recorded.
--- OUTSIDE RECORDS SUMMARY | 2024-06-04 06:23 | XMS_ITS | Clinical Summary ---
Author Organization [facility] [place] [address] [place] [address] Care Team Providers Care Air Traffic Controller Name Role Phone Mray Perla MD Primary Care Provider [phone] Allergies Active Allergy Reactions Criticality Noted Date Comments Levetiracetam Unknown 12/11/2023 Medications fluticasone propionate (FLONASE) 50 mcg/actuation nasal spray 04/21/20 19 Active cetirizine (ZyrTEC) 10 mg tablet Take 1 tablet (10 mg total) by mouth daily Active Vitamin Plus Low Iron 27 mg iron- 1 mg tablet Take 1 tablet by mouth daily 08/27/19 22 Active clonazePAM (KlonoPIN) 0.25 mg disintegrating tabletIndications: Partial epilepsy with impairment of consciousness, intractable (HCC) Take 1 tablet (0.25 mg total) by mouth daily as needed for seizures 5 tablet 2 05/28/20 23 Active Additional Information Patient not taking.Reported on 01/05/2024 NIFEdipine CC 30 mg 24 hr tablet Take 1 tablet (30 mg total) by mouth daily 12/11/19 24 Active folic acid (FOLVITE) 1 mg tabletIndications: Partial epilepsy with impairment of consciousness, intractable (HCC), of unknown anatomic location Take 1 tablet (1 mg total) by mouth daily 30 tablet 11 01/05/20 24 025 Active OXcarbazepine (TRILEPTAL) 600 mg tabletIndications: Partial epilepsy with impairment of consciousness, intractable (HCC) Take 1.5 tablets (900 mg total) by mouth 2 (two) times a day 270 tablet 3 02/12/20 24 025 Active Active Problems Problem Noted Date Diagnosed Date HTN (hypertension) 01/05/2024 Assessment & Plan (01/05/2024 4:28 PM CDT): Normotensive today Monitors BP at home mostly 120/80s Currently on Nifedipine 30 mg every day of unknown anatomic location Assessment & Plan (01/05/2024 5:13 PM CDT): of unknown viability GS without a yolk sac or an embryo G measures 1.7 x 1.27 x 2.01 cm, with MSD 16.6 mm Around 7w4d in measurement, patient would be 8w0d by LMP with irregular menses Discussed plan for formal US in 2 weeks for diagnosis and the potential for diagnosing an early loss at that time, briefly reviewed the potential options for intervention for an early loss Counseled on mood today, discussed option to consider an SSRI for EPDS 10 with a hx of having thoughts of self harm, denies SI today, recommended therapy and resources provided Partial epilepsy with impair ment of consciousness, intractable 04/20/2019 Assessment & Plan (01/05/2024 5:14 PM CDT): Last seizure was in 2014 Currently on oxcarbazepine Recommendations for would include: Folic acid supplementation (1mg/day), Rx sent today Specialized anatomic survey Serial growth ultrasounds q4 weeks starting at 24 weeks Serial anti-epileptic levels qtrimester Continue to follow with neurology PCOS (polycystic ovarian syndrome) 07/01/2017 Excessive hair growth 03/15/2015 Symptomatic localization-related epilepsy 2012 Resolved Problems Problem Noted Date Diagnosed Date Resolved Date Supervision of other normal , antepartum 12/29/2023 03/09/2024 Overview (01/05/2024): -AMA -h/o PCOS -epilepsy -cHTN, on Nifedipine -serial growth US @ 28wks -weekly NSTs @ 32wks - Delivery 38-39 wks -EPDS 10 [] Initial BMI: [] Labs: [] Genetic Screening: [] Baby ASA: [] 1hr GCT at 24-28wks: [] Tdap (27-36wks): [] Flu Shot: [] RSV Vaccine (32.0-36.0): [] COVID vaccine: [] Rhogam (if Rh neg): [] GBS at 36 wks: [] [] control method: [] 39 weeks discussion of IOL vs. Expectant management: [] Mode of delivery: [] For C/S bottle of CHG 4% and hand out provided @ 36wks Teaching: [] 1st visit [] 28-30 week [] 36 week Intrauterine contraceptive d evice threads lost 07/01/2017 09/27/2020 Mass of breast 08/14/2016 09/27/2020 Immunizations Name Administration Dates Next Due Hep A, Adult 05/02/2015,11/28/2014 Hep B Vaccine 05/02/2015,11/28/2014 Influenza, Quadrivalent, Spl it, Intramuscular 01/21/2016 Influenza, Quadrivalent, Spl it, Preservative Free, Intramuscular 04/17/2020,03/03/2019,01/28/2018,03/26,01/31/2016 Influenza, Trivalent, IM (MDV) 04/17/2020 Meningococcal B, Recombinant (Trumenba) 04/16/2017 Meningococcal MCV4P (Menactra) 04/16/2017,2015 Meningococcal Polysaccharide (Menomune) 02/07/2016 Moderna SARS-CoV-2 Monovalen t Vaccination (12+ YRS) 08/17/2020,07/19/2020 Tdap 11/22/2019 Tetanus toxoid, adsorbed 02/12/2013 Surgical History Surgery Date Site/Laterality Comments NO PAST SURGERIES Medical History Medical History Date Comments Epilepsy without status epil epticus, not intractable (HCC) Epilepsy - (Added by TW Conv ) Partial epilepsy with impair ment of consciousness, intractable (HCC) 04/20/2019 Hypertension Family History Medical History Relation Name Comments Deep vein thrombosis Father Breast cancer Father's Sister Uterine cancer Father's Sister No Known Problems Mother Relation Name Status Comments Father Father's Sister Mother Social History Tobacco Use Types Packs/Day Years Used Date Smoking Tobacco: Never Smokeless Tobacco: Never Tobacco Cessation:Counseling Given: Not Answered Alcohol Use Standard Drinks/Week Comments Yes 0 (1 standard drink = 0.6 oz pur e alcohol) AUDIT-C Answer Date Recorded Q1: How often do you have a drink containing alcohol? Never 01/05/2024 Q2: How many drinks containi ng alcohol do you have on a typical day when you are drinking? Patient does not drink Q3: How often do you have si x or more drinks on one occasion? Never 01/05/2024 [place] Depression Scale Answer Date Recorded [place] Depression Scale Total 10 01/05/2024 The thought of harming myself has occurred to me . 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 Not on file Not on file Obstetrics History Para Term AB IAB SAB Ectopic Multiple Livin g Live Births 1 0 0 0 1 0 1 0 0 0 0 Date Outcome GA Total Labor Labor/2nd/3rd Weight Sex Type Anes PTL Candy A1 A5 Name Clin 12/2023 SAB Last Filed Vital Signs Vital Sign Reading Time Taken Comments Blood Pressure 126/85 02/12/2024 2:47 PM CDT Pulse 84 02/12/2024 2:47 PM CDT Temperature - - Respiratory Rate - - Oxygen Saturation 97% 07/01/2017 1:08 PM METAL MOULDER'S ASSISTANT Inhaled Oxygen Concentration - - Weight 91.6 kg (202 lb) 02/12/2024 2:47 PM CDT Height 154.9 cm (5' 1 ) 02/12/2024 2:47 PM CDT Body Mass Index 38.17 02/12/2024 2:47 PM CDT Plan of Treatment Health Maintenance Due Date Last Done Comments Hepatitis C Screening 1985 Varicella Vaccines (1 of 2 - 13+ 2-dose series) 1998 Cervical Cancer Screening 12/18/2017 12/18/2016 Regular Well Visit/Exam 18-64 09/27/2021 09/27/2020, 07/27/2019 Covid-19 Vaccine ( season) 2024 06/12/2021, 08/17/2020, 07/19/2020 Influenza Vaccine (#1) 2024 , 04/17/2020, 04/17/2020, Additional history exists Depression Screening 01/04/2025 01/05/2024 DTaP/Tdap/Td Vaccine (2 - Td or Tdap) 11/21/2029 11/22/2019 HPV Vaccines Aged Out No longer eligi ble based on patient's age to complete this topic Pneumococcal vaccine <65 Aged Out No longer eligible based on patient's age to complete this topic Procedures Procedure Name Priority Date/Time Associated Diagnosis Comments PAP SMEAR WITH HPV Routine 12/18/2016 from Last 3 Months or Most Recently Relevant to Health Maintenance Results * PAP SMEAR WITH HPV (12/18/2016) Pap smear Normal Historical Provider MD HEALTH MAINTENANCE Final Result from Last 3 Months or Most Recently Relevant to Health Maintenance [facility]O Address: [facility] [address] [place] [address] [facility] H[facility]/PPO Address: [address] [address] [facility] H[facility]/PPO Address: [address] [address] Care Teams Air Traffic Controller Relationship Specialty Start Date End Date Mary Perla MD [address] [facility] [address] [place] [address] PCP - General Internal Medicine 04/18/21
--- OUTSIDE RECORDS SUMMARY | 2024-06-04 06:23 | XMS_ITS | Referral Summary ---
Author Organization [facility] Address [address] [place] [address] Care Team Providers Care Hat Binder Name Role Phone Mary Perla MD Primary Care Provider Allergies Active Allergy Reactions Criticality Noted Date [...] 08/17/2020,07/19/2020 Tdap 11/22/2019 Tetanus toxoid, adsorbed 02/12/2013 Social History Tobacco Use Types Packs/Day Years [...] more drinks on one occasion? Never 01/05/2024 [place] Depression Scale Answer Date Recorded [place] Depression Scale Total 10 01/05/2024 The thought of harming myself has occurred to me . 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 Not on file Not on file Last Filed Vital Signs Vital Sign Reading Time Taken Comments Blood Pressure 126/85 02/12/2024 2:47 PM CDT Pulse 84 02/12/2024 2:47 PM CDT Temperature - - Respiratory Rate - - Oxygen Saturation 97% 07/01/2017 1:08 PM INDUSTRIAL CHEMISTRY TEACHER Inhaled Oxygen Concentration - - Weight 91.6 kg (202 lb) 02/12/2024 2:47 PM CDT Height 154.9 cm (5' 1 ) 02/12/2024 2:47 PM CDT Body Mass Index 38.17 02/12/2024 2:47 PM CDT Plan of Treatment Not on file Procedures Procedure Name Priority Date/Time Associated Diagnosis Comments PAP SMEAR WITH HPV Routine 12/18/2016 from Last 3 Months or Most Recently Relevant to Health Maintenance Results * PAP SMEAR WITH HPV (12/18/2016) Pap smear Normal us Historical Provider HEALTH MAINTENANCE Final Result from Last 3 Months or Most Recently Relevant to Health Maintenance Insurance [employer] [facility] HMO [facility] H[facility]/PPO Address: [address] [address] [facility] HMO/PPO Address: [address] [address] Care Teams Hat Binder Relationship Specialty Start Date End Date Mary Perla MD [address] [facility] [address] [place] [address] PCP - General Internal Medicine 04/18/21
--- OUTSIDE RECORDS SUMMARY | 2024-06-04 06:23 | XMS_ITS | Continuity of Care Document ---
Author Organization [facility] Address [address] [place] [address] Care Team Providers Care Solder Sprayer Name Role Phone MARIA LUZ, ZEESHAN Primary Care Provider Assessment Encounter Date Assessment Date Assessment LastModified by Organization Details LastModified Time 04/22/2024 04/22/2024 Patient is ___weeks . Discussed plan. Not available 04/22/2024 14:50:59 Plan of Treatment Reminders Order Date Submit Date Provider Last Modified By Organization Details Last Modified Time Details Appointments OB ROUTINE 2024 03:15P M Freddie BOB MD Not available Not available Not available U/S OB BASELIN E 2024 02:00P M ULTRASOUND Not available Not available Not available OB ROUTINE 2024 03:00P Aguilar BOB MD Not available Not available Not available Lab None recorde d. Referral None recorde d. Procedures None recorde d. Surgeries None recorde d. Imaging None recorde d. Medication Orders None recorde d. Patient TargetsNo targets recorded. Patient InstructionsNo instructions recorded. Reason for Referral None Reported. Results Created Date Observation Date Name Description Value Unit Range Abnormal Flag Note LastModifiedBy Organization Detail LastModifiedTime 05/19/2005/19/2024 US, obste tric, nucha l trans lucen cy No observ ation record ed. [facility] [address], [place], [address], 05/19/2024 18:26:41 05/19/2005/19/2024 US, obste tric, nucha l trans lucen cy No observ ation record ed. [email or web address], [place], [address], 05/19/2024 21:06:08 Result Notes None recorded. Problems Name Problem SNOMED Code Status Onset Date Resolution Date Notes Provider Name and Address Organization Details Recorded Time 61917503 Active 2023 Maria Elena rm [facility] 4 16:44:58 Seizure disorder 997496473 Active oxcarbeza pine 900 bid Dario Bob MD [address], [place], [address], [facility] 4 17:16:32 Hypertens shalonda disorder 72188580 Active Chronic HTN - procardia xl 60mg qd Dario Bob MD [address], [place], [address], [facility] 4 17:18:38 Problem Notes None recorded. Procedures Surgical History Date Name Laterality Status Provider Name and Address Organization Details Recorded Time 4 Date of Last Pap Smear completed Maria Elena Parada [facility] 04/22/2024 14:59:47 4 DILATION & CURETTAGE (SURG) completed [place] [facility] 01/16/2024 10:26:21 8 Breast Surgery completed Maria Elena Parada [facility] 01/15/2024 10:34:11 Imaging Results None recorded. Procedure Notes None recorded. Medical Equipment None Reported. Allergies Allergen ID Allergen Name Allergen Category Reaction Reaction Severity Criticality Documentation Date Start Date Code Code System Note Provider Name and Address Organization Details Recorded Time 82920 Keppra medicatio n rash moderate Not available 01/15/2024 34691 7 RxNorm Maria Elena rm [facility] 10:28:54 Medications Name Sig Start Date [...] Updated DateTime 04/22/2024 167.64 cm 32.9 kg/m2 52981.84 g 124 mm[Hg] 85 mm[Hg] Maria Elena Parada [facility] 14:52:14 Social History Question Answer Notes LastModified by [...] Or The Highest Degree You Have Received? 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 [id number] Information not available 01/15/2024 Do You Use [...] Diagnosis/Indication Diagnosis SNOMED-CT Code Diagnosis ICD10 Code [id number] Azul Andinojose enrique [place] [address] [address] 04/06/2024 15:22:11 04/07/2024 05:23:51 screening 726040860 O36.80X0 Z87.59 Z3A.01 [id number] Elly Harmon [place] [address] [address] 04/22/2024 13:50:30 04/22/2024 14:16:23 [id number] Dario Bob MD [place] [address] [address] 04/22/2024 13:50:49 04/22/2024 15:59:06 Amenorrhea 36587005 N91.2 Health Concerns Section Related Observation LastModified by Organization Detai ls LastModified Time None Recorded Concern Status LastModified by Organization Details LastModified Time None Recorded Payers Encounter Date Sequence Insurance Name Policy Number Policy Turcios Covered Member ID Turcios Member ID Guarantor Name 04/22/2024 1 [facility] [id number] Quynh Richardestella [id number] Quynh Haley Notes Date Note Type Note Provider Name [...] She was given recommendations on exercise, diet, lqic-jeq-kwjgyib medications. We reviewed her obstetric history. We reviewed her medical history. We reviewed her social history. She will begin routine care at her next visit. Dario Bob MD [address], [place], [address], [facility] 04/22/2024 15:55:38 OBGyn Episode Ob Episode Information Episode Created Date Number of Fetuses Patient Bloodtype Patient rh Status Prepregnancy Weight lbs Domestic Partner Domestic Partner Phone Father Name Scientific Investigator Status 05/19/20 24 1 A Positive [place] OPEN Fetus Data First Name Last Name Admitted to NICU Weight (g) Sex Living Outcome Pediatric Complications Fetus ID Race Codes Race Delivery Type [id number] Problems Problem Notes Problem Name Start Date End Date Resolution Snomed Code Not e Seizure disorder 085082090 [facility] arbezapine 900 bid Hypertensive disorder 76372808 Chronic HTN - procardia xl 60mg qd [...] Type Weight in lbs Pre/Post Dialysis Refused 204.884576018145 BP Diastolic BP Location Tested BP Systolic [...] Type Weight in lbs Pre/Post Dialysis Refused 204.795045590212 BP Diastolic BP Location Tested BP Systolic [...]
--- OUTSIDE RECORDS SUMMARY | 2024-06-04 06:23 | XMS_ITS | CONTINUITY OF CARE DOCUMENT ---
Author Name sakina presley Address Unknown Organization [facility] Address [address] [place] [address] Phone [phone] Care Team Providers Care Cartoonist Special Effects Name Role Phone Dian Melendez MD Unavailable Dian Melendez MD Unavailable INSURANCE PROVIDERS Payer name Policy type / Coverage type [place] red libertarian ID [id number] Commercial insurance co [facility] [id number]
--- OUTSIDE RECORDS SUMMARY | 2024-06-04 06:23 | XMS_ITS | Continuity of Care Document ---
Author Organization [facility], [facility] Address [address] [place] [address] Care Team Providers Care Memory Care Program Director Name Role Phone ZEESHAN BRAGA Primary Care [...] lucen cy No observ ation record ed. [facility] [address], [place], [address], 05/19/2024 18:26:41 05/19/20 24 05/19/2024 US, obste tric, nucha l trans lucen cy No observ ation record ed. [email or web address], [place], [address], 05/19/2024 21:06:08 Result Notes None recorded. Problems Name Problem SNOMED Code Status Onset Date Resolution Date Notes Provider Name and Address Organization Details Recorded Time 82180406 Active 2023 Maria Elena rm [facility] 4 16:44:58 Seizure disorder 716187079 Active oxcarbeza pine 900 bid Dario Bob MD [address], [place], [address], [facility] 4 17:16:32 Hypertens shalonda disorder 24354882 Active Chronic HTN - procardia xl 60mg qd Dario Bob MD [address], [place], [address], [facility] 4 17:18:38 Problem Notes None recorded. Procedures Surgical History Date Name Laterality Status Provider Name and Address Organization Details Recorded Time 4 Date of Last Pap Smear completed Maria Elena Parada [facility] 04/22/2024 14:59:47 4 DILATION & CURETTAGE (SURG) completed [place] [facility] 01/16/2024 10:26:21 8 Breast Surgery completed Maria Elena Parada [facility] 01/15/2024 10:34:11 Imaging Results None recorded. Procedure Notes None recorded. Medical Equipment None Reported. Allergies Allergen ID Allergen Name Allergen Category Reaction Reaction Severity Criticality Documentation Date Start Date Code Code System Note Provider Name and Address Organization Details Recorded Time 95529 Keppra medicatio n rash moderate Not available 01/15/2024 98656 7 RxNorm Maria Elena rm [facility] 4 10:28:54 Medications Name Sig Start [...] Updated DateTime 04/22/2024 167.64 cm 32.9 kg/m2 55099.84 g 124 mm[Hg] 85 mm[Hg] Maria Elena Parada [place] [facility] 4 14:52:14 Social History Question Answer Notes LastModified [...] Or The Highest Degree You Have Received? 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 [id number] Information not available 01/15/2024 Do You Use [...] Diagnosis/Indication Diagnosis SNOMED-CT Code Diagnosis ICD10 Code [id number] Azul Romo [place] [address] [address] 04/06/2024 15:22:11 04/07/2024 05:23:51 screening 661737037 O36.80X0 Z87.59 Z3A.01 [id number] Elly Harmon [place] [address] [address] 04/22/2024 13:50:30 04/22/2024 14:16:23 [id number] Dario Bob MD [place] [address] [address] 04/22/2024 13:50:49 04/22/2024 15:59:06 Amenorrhea 33532401 N91.2 Health Concerns Section Related Observation LastModified by Organization Detai ls LastModified Time None Recorded Concern Status LastModified by Organization Details LastModified Time None Recorded Payers Encounter Date Sequence Insurance Name Policy Number Policy Turcios Covered Member ID Turcios Member ID Guarantor Name 04/22/2024 1 [facility] [id number] Quynh Brunerbrijesh [id number] Quynh Haley Notes Date Note Type Note [...] She was given recommendations on exercise, diet, cjmw-idx-wjvslzj medications. We reviewed her obstetric history. We reviewed her medical history. We reviewed her social history. She will begin routine care at her next visit. Dario Bob MD [address], [place], [address], [facility] 04/22/2024 15:55:38 OBGyn Episode Ob Episode Information Episode Created Date Number of Fetuses Patient Bloodtype Patient rh Status Prepregnancy Weight lbs Domestic Partner Domestic Partner Phone Father Name Merry Go Round Attendant Status 05/19/20 24 1 A Positive [place] OPEN Fetus Data First Name Last Name Admitted to NICU Weight (g) Sex Living Outcome Pediatric Complications Fetus ID Race Codes Race Delivery Type [id number] Problems Problem Notes Problem Name Start Date End Date Resolution Snomed Code Not e Seizure disorder 314262074 oxc arbezapine 900 bid Hypertensive disorder 09126725 Chronic HTN - procardia xl 60mg qd [...] Type Weight in lbs Pre/Post Dialysis Refused 204.677963378473 BP Diastolic BP Location Tested BP Systolic [...] Type Weight in lbs Pre/Post Dialysis Refused 204.179594276580 BP Diastolic BP Location Tested BP Systolic [...]
--- OUTSIDE RECORDS SUMMARY | 2024-06-04 06:24 | XMS_ITS | Encounter Summary ---
Author Organization [facility] Care Team Providers Care Chief Nursing Executive Name Role Phone Unavailable Primary Care Provider Unavailabl e Encounter Details Date Type Department Care Team (Late st Contact Info) Description 01/21/2012 - 01/21/2012 11:59 PM CDT Hospital Encounter [facility] Marisela Monaco MD [id number] [place] [address] Lump or mass in breast Social History Tobacco Use Types Packs/Day Years Used Date Smoking Tobacco: Never Assessed Comments Unknown Sex and Gender Information Value Date Recorded Sex Assigned at Not on file 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
--- OUTSIDE RECORDS SUMMARY | 2024-06-04 06:24 | XMS_ITS | Encounter Summary ---
Author Organization [facility] Address [address] [place] [address] Phone Care Team Providers Care Glove Turner Name Role Phone Mary Perla MD Primary Care Provider Reason for Visit * Reason Comments Follow-up NO NORMAL CYCLES IN 3MO Encounter Details Date Type Department Care Team (Late st Contact Info) Description 11/15/2021 7:45 AM CDT Office Visit [facility] Obstetrics and Gynecology [address] [facility] [address] 1st [address] [place] [address] Corin Fraser, MIKAEL [address] [address] PCOS (polycystic ovarian syndrome) (Primary Dx); Desire for Social History Tobacco Use Types Packs/Day Years Used Date Smoking Tobacco: Never Smokeless Tobacco: Never Alcohol Use Standard Drinks/Week Comments Yes 0 (1 standard drink = 0.6 oz pur e alcohol) Comments No Sex and Gender Information Value Date Recorded Sex Assigned at Not on file Legal Sex Female 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 Gender Identity Not on file Sexual Orientation Not on file documented as of this encounter Last Filed Vital Signs Vital Sign Reading Time Taken Comments Blood Pressure 136/94 11/15/2021 7:44 AM CDT AUT OMATIC Pulse 78 11/15/2021 7:44 AM CDT Temperature - - Respiratory Rate - - Oxygen Saturation - - Inhaled Oxygen Concentration - - Weight 90.1 kg (198 lb 9.6 oz) 11/15/2021 7:44 A M CDT Height 154.9 cm (5' 1 ) 11/15/2021 7:44 AM CDT Body Mass Index 37.53 11/15/2021 7:44 AM CDT documented in this encounter Progress Notes * Corin Fraser, WOOL WASHING MACHINE OPERATOR - 11/15/2021 7:45 AM CDT Patient ID: Quynh De Leon is a 36 y.o. female Subjective: Chief Complaint: Follow-up (NO NORMAL CYCLES IN 3MO) HPI: Quynh De Leon is a 36 y.o. with PMH significant for epilepsy and PCOS who presents for f/u after Mirena IUD removal 07/07. H/o irreg menses. Started on COCs around age 14. Then switched to Mirena. However, since IUD removed, pt reports having spontaneous, monthly cycles. Pt and partner are not preventing , but unsure if they want to proceed with infertility w/u at this time. Taking PNVs intermittently, often forgets. Does endorse coarse hair growth on chin and jaw line. Past medical, surgical, social and family history reviewed as documented. Histories: Patient Active Problem List Diagnosis ??? Symptomatic localization-related epilepsy (CMS/HCC) (HCC) ??? PCOS (polycystic ovarian syndrome) ??? Excessive hair growth ??? Partial epilepsy with impairment of consciousness, intractable (CMS/HCC) (HCC) Past Medical History: Diagnosis Date ??? Epilepsy without status epilepticus, not intractable (CMS/HCC) (HCC) Epilepsy - (Added by TW Conv) ??? Partial epilepsy with impairment of consciousness, intractable (CMS/HCC) (HCC) 04/20/2019 Past Surgical History: Procedure Laterality Date ??? NO PAST SURGERIES OB History Para Term AB Living 0 0 0 0 0 0 SAB IAB Ectopic Multiple Live Births 0 0 0 0 0 Patient's last menstrual period was 10/18/2021. Social History Substance and Sexual Activity Sexual Activity Yes ??? Partners: Male ??? control/protection: I.U.D. Family Family History Problem Relation Age of Onset ??? No Known Problems Father ??? No Known Problems Mother Medications: Current Outpatient Medications: ??? cetirizine (ZyrTEC) 10 mg tablet, Take 10 mg by mouth daily, Disp: , Rfl: ??? clonazePAM (KlonoPIN) 0.25 mg disintegrating tablet, Take 1 tablet (0.25 mg total) by mouth daily as needed for seizures, Disp: 5 tablet, Rfl: 2 ??? dicyclomine (BENTYL) 10 mg capsule, , Disp: , Rfl: ??? fluticasone propionate (FLONASE) 50 mcg/actuation nasal spray, , Disp: , Rfl: ??? OXcarbazepine (TRILEPTAL) 600 mg tablet, Take 1.5 tablets (900 mg total) by mouth 2 (two) timesa day, Disp: 270 tablet, Rfl: 3 ??? Vitamin Plus Low Iron 27 mg iron- 1 mg tablet, Take 1 tablet by mouth daily, Disp: , Rfl: Allergies: Patient has no known allergies. Objective: BP 136/94 (BP Location: Right arm, Patient Position: Sitting) Comment: AUTOMATIC Pulse 78 Ht 154.9 cm (5' 1 ) Wt 198 lb 9.6 oz (90.1 kg) LMP 10/18/2021 BMI 37.53 kg/m?? Physical Exam Constitutional: Appearance: Normal appearance. She is well-developed. She is obese. Pulmonary: Effort: Pulmonary effort is normal. Musculoskeletal: General: Normal range of motion. Cervical back: Normal range of motion. Skin: General: Skin is dry. Neurological: Mental Status: She is alert. Psychiatric: Behavior: Behavior normal. Thought Content: Thought content normal. Judgment: Judgment normal. Assessment/Plan: Quynh De Leon is a 36 y.o. female who presents today in office. Diagnoses and all orders for this visit: PCOS (polycystic ovarian syndrome) - Pt w/ elev free testosterone, h/o irreg menses. Pelvic US in 2018 did reveal normal ovarian morphology - Pt notes she has orders from PCP to have labs done but not an HgbA1c. Pt inquiring re: metformin use. Will check labs. [facility] 09/2020 wnl. - Hemoglobin A1c; Future Desire for - reviewed infertility w/u. ACOG Eval Infertility, letrozole and KRIS handout given. - Recommended OPKs, timed IC, day 21 progesterone level to start. Would then proceed with a HSG with next cycle and SA of partner. - Pt will discuss with partner desired next steps. Pt aware of AMA. Due for WWE and pap. Pt states I'm not up for that today. Pt to schedule at earliest convenience. Corin Fraser, JAMIN, JAIRO, [place] 11/15/21 documented in this encounter Plan of Treatment Not on file documented as of this encounter Procedures Procedure Name Priority Date/Time Associated Diagnosis Comments HEMOGLOBIN A1C Routine 11/15/2021 11:21 AM CDT PCOS (polycystic ovarian syndrome) documented in this encounter Results * Hemoglobin A1c (11/15/2021 11:21 AM CDT) Hgb A1C 5.1 <5.7 % of total Hgb [facility] Comment: For the purpose of screening for the presence of diabetes: <5.7% ? Consistent with the absence of diabetes 5.7-6.4% ?Consistent with increased risk for diabetes ?(prediabetes) > or =6.5% ??Consistent with diabetes This assay result is consistent with a decreased risk of diabetes. Currently, no consensus exists regarding use of hemoglobin A1c for diagnosis of diabetes in children. According to [place] Diabetes Association (ADA) guidelines, hemoglobin A1c <7.0% represents optimal control in non- diabetic patients. Different metrics may apply to specific patient populations. Standards of Medical Care in Diabetes(ADA). ?? Blood specimen (specimen) 11/15/2021 11:21 AM CDT 11/15/2021 11:22 AM CDT us Corin Fraser WOOL WASHING MACHINE OPERATOR LAB BLOOD ORDERABLES Fi nal Result [email or web address] [address] [place] [address] documented in this encounter Visit Diagnoses Diagnosis PCOS (polycystic ovarian syndrome)- Primary Polycystic ovaries Desire for documented in this encounter Discontinued Medications Medication Sig Discontinue Reason Start Date End Da te levonorgestrel (MIRENA) IUD Mirena Patient Discharge documented as of this encounter Historical Medications * This list may reflect changes made after this encounter. Vitamin Plus Low Iron 27 mg iron- 1 mg tablet Take 1 tablet by mouth daily 08/26/2021 added in this encounter Care Teams Glove Turner Relationship Specialty Start Date End Date Mary Perla MD [address] [facility] [address] [place], [place] [id number] PCP - General Internal Medicine 04/18/21 documented as of this encounter
--- OUTSIDE RECORDS SUMMARY | 2024-06-04 06:24 | XMS_ITS | Encounter Summary ---
Author Organization [facility] Address [address] [place] [address] Phone Care Team Providers Care Molecular Modeler Name Role Phone Wil Downey MD Primary Care Provider [phone] Encounter Details Date Type Department Care Team (Late st Contact Info) Description 04/19/2019 4:00 PM RELAY TESTER Office Visit [facility] Epilepsy [address] [facility] Advanced Medicine 6th [place] [address] [place] [address] Richard Espinoza III, MD [address] [place] [address] Partial epilepsy with impairment of consciousness, intractable (CMS/HCC) Social History Tobacco Use Types Packs/Day Years Used Date Smoking Tobacco: Never Smokeless Tobacco: Never Comments Unknown Sex and Gender Information Value Date Recorded Sex Assigned at Not on file Legal Sex Female 9:12 PM RELAY TESTER Gender Identity Not on file Sexual Orientation Not on file documented as of this encounter Last Filed Vital Signs Vital Sign Reading Time Taken Comments Blood Pressure 127/82 04/19/2019 3:15 PM RELAY TESTER Pulse 74 04/19/2019 3:15 PM RELAY TESTER Temperature - - Respiratory Rate - - Oxygen Saturation - - Inhaled Oxygen Concentration - - Weight 91.8 kg (202 lb 6.4 oz) 04/19/2019 3:15 P M RELAY TESTER Height 154.9 cm (5' 1 ) 04/19/2019 3:15 PM RELAY TESTER Body Mass Index 38.24 04/19/2019 3:15 PM RELAY TESTER documented in this encounter Ordered Prescriptions Prescription Sig Dispense Quantity Refills Last Filled Start Date End Date OXcarbazepine (TRILEPTAL) 600 mg tabletIndications: Partial epilepsy with impairment of consciousness, intractable (HCC) Take 1.5 tablets (900 mg total) by mouth 2 (two) times a day 270 tablet 3 04/19/2019 0 documented in this encounter Progress Notes * Richard Espinoza MD - 04/19/2019 4:00 PM CST Name: Quynh De Leon Date of : 1985 PCP: Wil Downey MD Date: 04/19/2019 Provider: Jasmeet Espinoza III, MD CHIEF COMPLAINT Quynh is a 33 y.o. year old female who was referred by Wil Downey MD for evaluation of seizures. HISTORY OF PRESENT ILLNESS The patient presents today for follow up of epileptic seizures. The patient developed seizures at age 18 years. Her initial episode while at [place], preceded by headache, followed by loss of consciousness and shaking. She was evaluated with a head CT at a local hospital, which was reportedly normal. She had further episodes thereafter, prompting trials of Dilantin,Tegretol, and Keppra, the latter of which was started by Dr. Saleem. There was a possible rash with Dilantin and Tegretol. She was then switched to Trileptal in September 2003 and has had much improvedseizure control since. Her seizures were typically preceded by vertigo for 1-2 seconds, followed byloss of consciousness and shaking with right head version, tongue biting, no incontinence, ending with postictal confusion. Seizure triggers have included stress. In the past, the patient has been treated with Dilantin and Tegretol, which were discontinued because of allergic reactions. There was no history of febrile seizures. There was no history of head trauma with loss of consciousness. The patient was the product of a normal and delivery with normal developmental milestones. Today, she denies any seizures since 2013. She is taking OXC 900 mg BID. She denies any side effects. She reports good over all compliance with medication (she missed one dose this year). Her mood isgood today, but sometimes feels depressed, mostly transient, related to her periods, not interrupting her daily life. She still has episodic lightheadedness and feelings of passing out. She had rash (hives) after a trip to [place] this October, which is now under control with allergy meds. She has beenconsulting with her filtrose crusher. She has been on OXC for 15 yrs. Before OXC, she was on PHT, CBZ, LEV. PAST MEDICAL HISTORY Quynh has a past medical history of Epilepsy without status epilepticus, not intractable (CMS/[facility]). PAST SURGICAL HISTORY She has no past surgical history on file. REVIEW OF SYSTEMS Review of Systems see patient health questionnaire. MEDICATIONS She has a current medication list which includes the following prescription(s): dicyclomine, levonorgestrel, oxcarbazepine, clonazepam, levonorgestrel, methylprednisolone, and tizanidine. Requested Prescriptions Signed Prescriptions Disp Refills ??? OXcarbazepine (TRILEPTAL) 600 mg tablet 270 tablet 3 Sig: Take 1.5 tablets (900 mg total) by mouth 2 (two) times a day ALLERGIES Quynh has No Known Allergies. SOCIAL HISTORY Quynh reports that she has never smoked. She has never used smokeless tobacco. FAMILY HISTORY Her family history is not on file. VITAL SIGNS Vitals BP 127/82 (BP Location: Left arm, Patient Position: Sitting) Pulse 74 Ht 154.9 cm (5' 1 ) Wt 91.8 kg (202 lb 6.4 oz) BMI 38.24 kg/m?? PAST TESTING PHYSICAL EXAM General: The patient appeared well developed, well nourished and well groomed. HEENT: Normocephalic atraumatic. Oropharynx was clear. Conjunctivae were clear. Extremities: No edema. Normal. Skin: Normal Neurological Exam: Mental Status: The patient was alert, awake, and oriented. The patient had fluent speech and followed commands. Attention was normal. Affect and mood were normal. The STACY-D score was 21 today. Cranial Nerves: Pupils were equal, round and reactive to light bilaterally. Extraocular muscles were full. There was no nystagmus. Facial strength was normal and symmetric. Facial expression was normal. Palate was up going equally bilaterally. Tongue was midline. Motor Examination: Muscle bulk was normal. Tone was normal. Strength was 5/5 throughout in both upper and lower extremities. Fasciculations were absent. There was no pronator drift. There was no tremor. Bradykinesia was absent. Myoclonus was absent. Fine finger movements were normal and equal bilaterally. Sensation: The patient had normal sensations to temperature, light touch. Coordination: Finger to nose testing and rapid alternating movements were normal. Gait: Posture was normal. Gait was normal including tandem gait. Reflexes: The reflexes were normal at the biceps, brachioradialis, and knees bilaterally. 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 Since increase of her oxcarbazepine to 900 mg twice daily, she has had adequate seizure control. She has now been seizure free since 2013. We encouraged her to take her oxcarbazepine with food. We also reviewed protocols in case she misses medication dosages. We also reviewed systems to insure medication compliance. She reports that shehad been tolerating her medication well recently. She developed rash since this October. We think it is unlikely related to OXC, given her length of therapy with OXC. She will continue to f/u with her forest resource specialist and continue to monitor. PLAN The patient will continue her oxcarbazepine 900 mg twice daily. She was given a refill of her antiepileptic medication today. We reviewed the importance of regular antiepileptic medication compliance, as well as good general medical health, to optimize seizure control. She will follow-up in the epilepsy clinic in one year, sooner if clinically indicated. Y TESTER documented in this encounter Plan of Treatment Not on file documented as of this encounter Visit Diagnoses Diagnosis Partial epilepsy with impairment of consciousness, intractable (HCC) Localization-related (focal) (partial) epilepsy and epileptic syndromes with complex partial seizures, with intractable epilepsy documented in this encounter Discontinued Medications Medication Sig Discontinue Reason Start Date End Da te OXcarbazepine (TRILEPTAL) 600 mg tabletIndications:Partia l epilepsy with impairment of consciousness, intractable (HCC) Take 1.5 tablets (900 mg total) by mouth 2 (two) times a day Reorder 04/12/2019 04/19/2019 documented as of this encounter Historical Medications * This list may reflect changes made after this encounter. clonazePAM (KlonoPIN) 0.25 mg disintegrating tablet clonazepam 0.25 mg disintegrating tablet methylPREDNISolone (MEDROL DOSEPACK) 4 mg Dosepack methylprednisolone 4 mg tablets in a dose pack 020 levonorgestrel (MIRENA) IUD Mirena 022 tiZANidine (ZANAFLEX) 4 mg tablet daily 022 added in this encounter Care Teams Molecular Modeler Relationship Specialty Start Date End Date Wil Downey MD PCP - General 12/12/16 04/17/21 documented as of this encounter
--- OUTSIDE RECORDS SUMMARY | 2024-06-04 06:24 | XMS_ITS | Encounter Summary ---
Author Organization [facility] Address [address] [place] [address] Phone Care Team Providers Care Business Services Analyst Name Role Phone Mary Perla MD Primary Care Provider [phone] Encounter Details Date Type Department Care Team (Late st Contact Info) Description 02/12/2024 3:00 PM CDT Office Visit [facility] Epilepsy [address] [facility] Medicine 6th [place] [address] [place] [address] Richard Espinoza III, MD [address] [place] [address] Partial epilepsy with impairment of consciousness, intractable (HCC) (Primary Dx) Social History Tobacco Use Types Packs/Day Years [...] more drinks on one occasion? Never 01/05/2024 [place] Depression Scale Answer Date Recorded [place] Depression Scale Total 10 01/05/2024 The thought of harming myself has occurred to me . 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 Gender Identity Not on file Sexual Orientation Not on file Occupation Industry Job Start Date Job End Date [employer] Not on file Not on file Not on file documented as of this encounter Last Filed Vital Signs Vital Sign Reading Time Taken Comments Blood Pressure 126/85 02/12/2024 2:47 PM CDT Pulse 84 02/12/2024 2:47 PM CDT Temperature - - Respiratory Rate - - Oxygen Saturation - - Inhaled Oxygen Concentration - - Weight 91.6 kg (202 lb) 02/12/2024 2:47 PM CDT Height 154.9 cm (5' 1 ) 02/12/2024 2:47 PM CDT Body Mass Index 38.17 02/12/2024 2:47 PM CDT documented in this encounter Ordered Prescriptions Prescription Sig Dispense Quantity Refills Last Filled Start Date End Date OXcarbazepine (TRILEPTAL) 600 mg tabletIndications: Partial epilepsy with impairment of consciousness, intractable (HCC) Take 1.5 tablets (900 mg total) by mouth 2 (two) times a day 270 tablet 3 02/12/2024 documented in this encounter Progress Notes * Richard Espinoza III, MD - 02/12/2024 3:00 PM CDT Name: Quynh De Leon Date of : 1985 PCP: Mary Perla MD Date: 02/12/2024 Provider: Richard Espinoza III, MD CHIEF COMPLAINT Quynh is a 38 y.o. year old female who was referred by Physician Jacqueline for evaluation of seizures. HISTORY OF PRESENT ILLNESS The patient presents today for follow up of epileptic seizures. The patient developed seizures at age 18 years. Her initial episode while at , preceded by headache, followed by loss of [...] past, the patient has been treated with PHT, and CBZ which were discontinued because of allergic reactions. She also tried LEV in the past. There was no history of febrile seizures. There was no history of head trauma with loss of consciousness. The patient was the product of a normal and delivery with normal developmental milestones. She remains seizure free since 2013. She continues taking OXC 900 mg BID. She denies any side effects, and reports good over all compliance with medication. Overall, she reports doing well since her last visit. She continues working at [employer] full-time, and reports she is completing her job adequately. She continues to have intermittent, mild tension headache, which is relieved with ibuprofen. Sometimes this has been associated with jaw tightness, especially when sleeping/resting. PAST MEDICAL HISTORY Quynh has a past medical history of Epilepsy without status epilepticus, not intractable (HCC), Hypertension, and Partial epilepsy with impairment of consciousness, intractable (HCC) (04/20/2019). PAST SURGICAL HISTORY She has a past surgical history that includes No past surgeries. REVIEW OF SYSTEMS Review of Systems see patient health questionnaire. MEDICATIONS She has a current medication list which includes the following prescription(s): cetirizine, folic acid, nifedipine cc, vitamin plus low iron, clonazepam, fluticasone propionate, and oxcarbazepine. Requested Prescriptions Signed Prescriptions Disp Refills OXcarbazepine (TRILEPTAL) 600 mg tablet 270 tablet 3 Sig: Take 1.5 tablets (900 mg total) by mouth 2 (two) times a day ALLERGIES Quynh is allergic to keppra [levetiracetam]. SOCIAL HISTORY Quynh reports that she has never smoked. She has never used smokeless tobacco. She reports current alcohol use. She reports that she does not use drugs. 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 FAMILY HISTORY Her family history includes Breast cancer in her father's sister; Deep vein thrombosis in her father; No Known Problems in her mother; Uterine cancer in her father's sister. VITAL SIGNS Vitals BP 126/85 (BP Location: Left arm, Patient Position: Sitting) Pulse 84 Ht 154.9 cm (5' 1 ) Wt 91.6 kg (202 lb) LMP 11/10/2023 BMI 38.17 kg/m?? PAST TESTING PHYSICAL EXAM General: The patient appeared well developed, well nourished and well groomed. HEENT: Normocephalic atraumatic. Conjunctivae were clear. Extremities: Normal. Skin: Normal Neurological Exam: Mental Status: The patient was alert, awake, and oriented. The patient had fluent speech and followed commands. Attention was normal. Affect and mood were normal. Cranial Nerves: Extraocular muscles were full. There was no nystagmus. Facial strength was normal and symmetric. Facial expression was normal. Palate was up going equally bilaterally. Tongue was midline. Motor Examination: Muscle bulk was normal. Fasciculations were absent. There was no pronator drift.There was no tremor. Bradykinesia was absent. Myoclonus was absent. Fine finger movements were normal and equal bilaterally. Coordination: Finger to nose testing and rapid alternating movements were normal. Gait: Posture was normal. Gait was normal including tandem gait. 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 Since increase of her oxcarbazepine to 900 mg twice daily, she has had adequate seizure control. She remains seizure free since 2013. We encouraged her to take her oxcarbazepine with food. We also reviewed systems to insure she takesher medication regularly. She reports good compliance with oxcarbazepine. We reviewed long-term risk and benefits for taking antiseizure medication. Given her past history of seizures, she should take antiseizure medication in the long-term. She has not used her clonazepamrecently. Overall, headaches have been stable. Intermittent use of ibuprofen is effective for headache control. PLAN The patient will continue her oxcarbazepine 900 mg twice daily. She was given a refill of her antiepileptic medication today. We reviewed the importance of regular antiseizure medication compliance, as well as good general medical health, to optimize seizure control. She will follow-up in the epilepsy clinic in one year, sooner if clinically indicated. documented in this encounter Plan of Treatment Not on file documented as of this encounter Visit Diagnoses Diagnosis Partial epilepsy with impairment of consciousness, intractable (HCC)- Primary Localization-related (focal) (partial) epilepsy and epileptic syndromes with complex partial seizures, with intractable epilepsy documented in this encounter Discontinued Medications Medication Sig Discontinue Reason Start Date End Da te OXcarbazepine (TRILEPTAL) 600 mg tabletIndications:Partia l epilepsy with impairment of consciousness, intractable (HCC) Take 1.5 tablets (900 mg total) by mouth 2 (two) times a day Reorder 05/28/2023 02/12/2024 documented as of this encounter Care Teams Business Services Analyst Relationship Specialty Start Date End Date Mary Perla MD [address] [facility] [address] [place] [address] PCP - General Internal Medicine 04/18/21 documented as of this encounter
--- OUTSIDE RECORDS SUMMARY | 2024-06-04 06:24 | XMS_ITS | Encounter Summary ---
Author Organization 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 Gender Identity Not on file Sexual Orientation Not on file documented as of this encounter Medications at Time of Discharge OXcarbazepine (TRILEPTAL) 600 mg tablet TAKE ONE & ONE-HALF TABLETS BY MOUTH TWICE DAILY 12/11/2009 04/01/2018 documented as of this encounter Discharge Disposition Disposition Code Departure Means Destination Discharge to home or self care documented in this encounter Plan of Treatment Not on file documented as of this encounter Procedures Procedure Name Priority Date/Time Associated Diagnosis Comments HPV ONLY Routine 12/18/2016 4:37 PM CDT DISCHARGE LABORATORY CUMULATIVE REPORT 12/18/2016 12:00 AM CDT documented in this encounter Results * HPV ONLY (12/18/2016 4:37 PM CDT) High Risk HPV RNA Detection Negative Negative GARRY Comment: Interpretive Data Tested for types 16, 18, 31, 33, 35, 39, 45, 51, 52, 56, 58, 59, 66, and 68. Test performed utilizing Gen-Probe Aptima assay. Current interpretive data was last reviewed 2016 Thin prep 12/18/2016 4:37 PM CDT 12/23/2016 8:51 AM CDT Narrative GARRY - 12/23/2016 2:23 PM CDT [id number] us Notinfile Unknown LAB BLOOD ORDERABLES Final Res ult GARRY [id number] [place] [address] * DISCHARGE LABORATORY CUMULATIVE REPORT (12/18/2016 12:00 AM CDT) Narrative 12/18/2016 12:00 AM CDT Ordered by an unspecified provider. Historical Provider LAB BLOOD ORDERABLES Yanira l Result documented in this encounter Visit Diagnoses Not on filedocumented in this encounter Care Teams Fuel Operator Relationship Specialty Start Date End Date Wil Downey MD PCP - General 12/12/16 04/17/21 documented as of this encounter
--- OUTSIDE RECORDS SUMMARY | 2024-06-04 06:24 | XMS_ITS | Encounter Summary ---
Author Organization [facility] Address [address] [place] [address] Phone Care Team Providers Care Monotype Keyboard Operator Name Role Phone Mary Perla MD Primary Care Provider Encounter Details Date Type Department Care Team (Late st Contact Info) Description 11/26/2021 Telephone [facility] Epilepsy [address] [facility] Medicine 6th [place] [address] [place] [address] Richard Espinoza III, MD [address] [place] [address] Social History Tobacco Use Types Packs/Day Years Used Date Smoking Tobacco: Never Smokeless Tobacco: Never Alcohol Use Standard Drinks/Week Comments Yes 0 (1 standard drink = 0.6 oz pur e alcohol) Comments No Sex and Gender Information Value Date Recorded Sex Assigned at Not on file 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 She wants to make sure she have a script on hand just in case an emergency. documented in this encounter Plan of Treatment [...] mouth 2 (two) times a day Reorder 04/26/2021 11/26/2021 documented as of this encounter Care Teams Monotype Keyboard Operator Relationship Specialty Start Date End Date Mary Perla MD [address] [facility] [address] [place] [address] PCP - General Internal Medicine 04/18/21 documented as of this encounter
--- OUTSIDE RECORDS SUMMARY | 2024-06-04 06:24 | XMS_ITS | Encounter Summary ---
Author Organization [facility] Address [address] [place] [address] Phone Care Team Providers Care Entertainment Manager Name Role Phone Mary Perla MD Primary Care Provider Encounter Details Date Type Department Care Team (Late st Contact Info) Description 09/05/2023 Telephone [facility] Epilepsy [address] [facility] 6th [place] [address] [place] [address] Richard Espinoza III, MD [address] [place] [address] Social History Tobacco Use Types Packs/Day Years Used Date Smoking Tobacco: Never Smokeless Tobacco: Never Alcohol Use Standard Drinks/Week Comments Yes 0 (1 standard drink = 0.6 oz pur e alcohol) Personal Safety Answer Date Recorded Getting School Help Needed Not on file 05/27 Comments No Sex and Gender Information Value Date Recorded Sex Assigned at Not on file 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 Informed patient to look in [employer] under the letters tab to locate. * Telephone Encounter - Nevin Thayer RN - 09/05/2023 10:32 AM CDT Quynh called. She is going to [facility] and will be going on a hike and is requesting a letter that states that she can go on the hike. I informed Quynh that we could not provide a letter stating this, as we could not guarantee that she would not have a seizure while on the hike, but we could provide her a seizure precaution letter. She was in agreement for the seizure precaution letter. She also asked for a letter that states what medications she is on as previously provided in May 2022. Will generate both letters and upload to her [employer] account. documented in this encounter Plan of Treatment Not on file documented as of this encounter Visit Diagnoses Not on filedocumented in this encounter Care Teams Entertainment Manager Relationship Specialty Start Date End Date Mary Perla MD [facility] [facility] [address] [place] [address] PCP - General Internal Medicine 04/18/21 documented as of this encounter
--- OUTSIDE RECORDS SUMMARY | 2024-06-04 06:24 | XMS_ITS | Encounter Summary ---
Author Organization [facility] Address [address] [place] [address] Phone Care Team Providers Care Ultrasound Applications Specialist Name Role Phone Mary Perla MD Primary Care Provider [phone] Reason for Visit * Diagnostic Imaging (Routine) - Closed Specialty Diagnoses / Procedures Referred By Contac t Referred To Contact Diagnoses of unknown anatomic location Procedures US [place] 14 [place] [address] [place] [id number] Phone: tel: fax: [facility] (All Locations) Referral ID Status Reason Start Date Expiration Date Visits Re quested Visits Authorized [id number] Closed 01/05/2024 02/03/2025 1 1 Encounter Details Date Type Department Care Team (Late st Contact Info) Description 01/05/2024 2:05 PM CDT Ancillary Procedure [facility] Obstetrics and Gynecology [address] [place] [address] Outpatient Health 7th Floor [address] [place] [address] Social History Tobacco Use Types Packs/Day Years [...] more drinks on one occasion? Never 01/05/2024 [place] Depression Scale Answer Date Recorded [place] Depression Scale Total 10 01/05/2024 The thought of harming myself has occurred to me . 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 Not on file Not on file documented as of this encounter Plan of Treatment Not on file documented as of this encounter Procedures Procedure Name Priority Date/Time Associated Diagnosis Comments US OB UNDER 14 WEEKS Schedule Routine, Read Routine (OP Routine) 01/05/2024 2:01 PM CDT of unknown anatomic location documented in this encounter Results * US Ob Under 14 Weeks (01/05/2024 2:01 PM CDT) Anatomical Region Laterality Modality Abdomen N/A Ultrasound Study GA Study Date Study ARVIN Working ARVIN (Source) Feta l Weight (Method) 01/05/2024 Result Name Value Comments CRL cm Sac Diameter cm Heart Rate bpm Narrative 01/05/2024 2:05 PM CDT Transvaginal ultrasound early Indication: Confirm viability and dating Uterus: normal in tom and shape Gestational sac without an embryo GS measuring 1.7 x 1.27 x 2.01 cm, with MSD 16.6 mm Unable to visualize ovaries, no free fluid or masses appreciated Impression: of unknown viability us Dayanara Hill MD IMG OB US PROCEDURES F inal Result documented in this encounter Visit Diagnoses Not on filedocumented in this encounter Care Teams Ultrasound Applications Specialist Relationship Specialty Start Date End Date Mary Perla MD [address] [facility] [address] [place] [address] PCP - General Internal Medicine 04/18/21 documented as of this encounter
--- OUTSIDE RECORDS SUMMARY | 2024-06-04 06:24 | XMS_ITS | Encounter Summary ---
Author Organization [facility] Address [address] [place] [address] Phone Care Team Providers Care Frothing Machine Operator Name Role Phone Mary Perla MD Primary Care Provider Reason for Visit * Reason Comments IUD Removal Planning Breast Lumps on both breasts Encounter Details Date Type Department Care Team (Late st Contact Info) Description 06/22/2021 8:45 AM MEDICAL LAB TECH INSTRUCTOR Office Visit [facility] Gynecology [address] [facility] 7th Floor [address] [place] [address] Solomon Messina MD [address] [facility] [phone] [place] [address] Encounter for IUD removal (Primary Dx); General counseling and advice on procreative management; PCOS (polycystic ovarian syndrome); Lump or mass in breast Social History Tobacco Use Types Packs/Day Years Used Date Smoking Tobacco: Never Smokeless Tobacco: Never Alcohol Use Standard Drinks/Week Comments Yes 0 (1 standard drink = 0.6 oz pur e alcohol) Comments No Sex and Gender Information Value Date Recorded Sex Assigned at Not on file Legal Sex Female 9:12 PM MEDICAL LAB TECH INSTRUCTOR Gender Identity Not on file Sexual Orientation Not on file documented as of this encounter Last Filed Vital Signs Vital Sign Reading Time Taken Comments Blood Pressure 144/85 06/22/2021 9:04 AM MEDICAL LAB TECH INSTRUCTOR Pulse - - Temperature - - Respiratory Rate - - Oxygen Saturation - - Inhaled Oxygen Concentration - - Weight 90.4 kg (199 lb 6.4 oz) 06/22/2021 9:04 A M MEDICAL LAB TECH INSTRUCTOR Height 154.9 cm (5' 1 ) 06/22/2021 9:04 AM MEDICAL LAB TECH INSTRUCTOR Body Mass Index 37.68 06/22/2021 9:04 AM MEDICAL LAB TECH INSTRUCTOR documented in this encounter Patient Instructions * Patient Instructions* Solomon Messina MD - 06/22/2021 8:45 AM MEDICAL LAB TECH INSTRUCTOR [facility] Family Planning Post-op Instructions/Expectations After your IUD removal procedure you may have irregular bleeding. Most patients do well with just ibuprofen to manage their pain/craming. You should rest the day and gradually return to regular activity. Post-procedure restrictions: ?? Nothing in the vagina for 1 week (no douching, tampons, intercourse) Pain Medication: ?? You should take Ibuprofen 600 mg every 6 hours or 800 mg every 8 hr for cramping/pain. Maximum dose: 2400 mg/24 hr ?? You may take Tylenol (acetaminophen) 975-1000 mg every 8 hr in combination with the ibuprofen. Maximum dose: 3000 mg/24 hr Please CALL us immediately if you experience any of the following: ?? Fever (Temperature 100.4F or higher) ?? Pain that is not relieved with the medications provided ?? Heavy vaginal bleeding (passing clots, soaking a maxi pad in less than 1 hour) ?? Foul smelling vaginal discharge ?? Severe vomiting, where you are unable to keep down liquids or medications If you notice any of the above, please call [phone] to speak to the nurse during normal business hours. Please call our exchange at [phone] if it is after hours. The answering service will call the physician on-call who will then call you back. Patient Education Planning for HEALTH COORDINATOR: Why you should plan for : There are things you can do to get your body ready for a healthypregnancy. A healthy can improve your chance of having a healthy baby. The steps you needto take and the amount of time needed depends on your current health and habits. Work with your healthcare provider to help you plan a healthy . What you need to know about nutrition and exercise before : ?? Eat a variety of healthy foods. Healthy foods include fruits, vegetables, whole-grain breads, low-fat dairy foods, beans, lean meats, and fish. Limit foods high in sugar, fat, and sodium. Limit your intake of fish to 2 servings each week. Choose fish low in mercury such as canned light tuna, shrimp, salmon, cod, or tilapia. Do not eat fish high in mercury such as swordfish, tilefish, karli mackerel, and shark. ?? Take 400 micrograms (mcg) of folic acid each day. This will help to prevent defects of thebrain and spine such as spina bifida. Most women should take folic acid before and up to 12 weeks after getting . ?? Exercise for at least 30 minutes, 5 days a week. Some examples of exercise include walking, biking, dancing, and swimming. Include muscle strengthening activities 2 days each week. Regular exercise provides many health benefits. It helps you manage your weight, and decreases your risk for type 2diabetes, heart disease, stroke, and high blood pressure. Exercise can also help improve your mood.Ask your healthcare provider about the best exercise plan for you. How weight affects : ?? Obesity can make it harder for you to get . It also increases your risk of health problems during . Some of these health problems include gestational diabetes, high blood pressure, and infections. It can also increase your baby's risk of health problems such as defects. Your baby may also be large and harder to deliver or be born prematurely (early). Your risk of miscarriage is also higher if you are obese. Work with your healthcare provider to reach a healthy weight before you try to get . ?? Being underweight can also make it hard for you to get . It can also increase your risk of having a premature baby and miscarriage. Your baby may be born at a low weight. What you need to know about smoking, alcohol, and drugs: ?? Smoking increases your risk of a miscarriage and other health problems during . Smokingcan cause your baby to be born too early or weigh less at . Ask your healthcare provider for information if you need help quitting. ?? Alcohol passes from your body to your baby through the placenta. It can affect your baby's braindevelopment and cause alcohol syndrome (FAS). FAS is a group of conditions that causes mental, behavior, and growth problems. Talk to your healthcare provider if you abuse alcohol and need helpquitting before . ?? Drugs , such as marijuana and cocaine, should not be used while you are trying to get or during . They increase your risk of problems during and increase the risk of having a baby with health problems. These include defects, premature , and infant . What you need to know about medicines and supplements: Tell your healthcare provider about all the medicines and supplements you take. Certain medicines and supplements should not be used during . These include [id number] medicines, prescription medicines, vitamins, and herbal supplements. He or she may recommend that you take different medicines that are safer during . What you need to know about immunizations: Tell your healthcare provider about all the immunizations you have had. If you have missed any immunizations, your healthcare provider may recommend that you update your immunizations. These include hepatitis B, influenza, MMR (measles, mumps, rubella), Tdap, and varicella immunizations. Tests you may need to have before : Your healthcare provider may recommend that you have tests to screen for sexually transmitted infections. These include chlamydia, gonorrhea, herpes, HIV infection, syphilis, and tuberculosis. These infectious diseases should be treated before ,if needed. What you need to know about toxic substances: Toxic substances can harm a developing baby. Examplesinclude cleaning products, paints, solvents, pesticides, and other chemical products. They can increase the risk of having a miscarriage, premature , and low- weight baby. They also increase the risk of developmental delay and childhood cancer. Avoid exposure to toxic substances and materials at work and home. What you need to know about genetic testing: Tell your healthcare provider about your and your partner's family history of genetic disorders, developmental delays, or other disabilities. Also tell your healthcare provider about any problems you have had in previous pregnancies. Your healthcare provider may recommend that you see a healthcare professional called a genetic counselor. He or she willtalk to you about how genes, defects, and other medical conditions are passed down. He or shecan also tell you about your risk for passing a genetic disease in a future . How you can prepare for if you have a medical condition: Medical conditions such as diabetes, high blood pressure, asthma, seizure disorders, and thyroid disorders should be managed before . Mental health conditions, such as depression and anxiety, should also be treated. This will decrease your risk of having health problems during . It will also decrease your baby's risk of medical problems. Medicines used to treat certain conditions are not safe to use during and may need to be changed before you get . Ask your healthcare provider if it is safefor you to get if you have a medical condition. ?? 2017 [employer] Information is for End User's use only and may not be sold, redistributed or otherwise used for commercial purposes. All illustrations and images included in CareNotes?? are the copyrighted property of [employer]. or [employer]. The above information is an public aid eligibility assistant only. It is not intended as medical advice for individual conditions or treatments. Talk to your doctor, nurse or pharmacist before following any medical regimen to see if it is safe and effective for you. CAL LAB TECH INSTRUCTOR documented in this encounter Ordered Prescriptions Prescription Sig Dispense Quantity Refills Last Filled Start Date End Date [id number] acid 29 mg iron- 1 mg tablet,chewableIndi cations:Prevention of Neural Tube Defects Take 1 Dose by mouth daily 90 tablet 3 06/22/2021 09/20/2021 documented in this encounter Progress Notes * Solomon Messina MD - 06/22/2021 8:45 AM CST Patient ID: Quynh De Leon is a 35 y.o. female Subjective Chief Complaint: IUD Removal (Planned ) and Breast Lumps on both breasts HPI: 35 y.o. with PMH significant for Epilepsy, breast reduction, PCOS who presents for eval of bilateral breast lumps who also wants IUD removal for desired . She has had Mirena x5yrs and is not having menses. She notes that before Mirena her cycles were unpredictable unless she was onOCPs. She reports lumps in both breasts with round hard spot in right breast on the outer aspect of the breast on right. She reports she has had this for a couple weeks. It has not changed much. She thinksit may come/go on a regular basis. She does not need pain meds. She denies d/c from nipple. 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 All necessary changes were made in her chart to reflect updates. Objective BP 144/85 Ht 154.9 cm (5' 1 ) Wt 90.4 kg (199 lb 6.4 oz) LMP (LMP Unknown) BMI 37.68 kg/m?? Physical Exam Examination chaperoned by Mariluz Cervantes MA General Appearance: appears stated age, cooperative, no distress and obese, Breasts: s/p reduction bilat, irregular densities in BUOQ c/w fibrocystic breast dz or scarring, but discrete/tender 1.5cm round, mobile, firm mass at 8 O'clock 10cm from areolar edge on right at border of defect from reduction c/w patient's area of concern Gastrointestinal Exam: soft, non-tender; bowel sounds normal; no masses, no organomegaly, Pelvic Exam: External genitalia: normal general appearance Urinary system: urethral meatus normal and bladder not palpable Vaginal: normal mucosa without prolapse or lesions and normal rugae Cervix: normal appearance and IUD string visualized but flush w/ os Uterus: normal single, nontender and mid-position Adnexa: normal bimanual exam Exam limited by body habitus Musculoskeletal Exam: Normal. Back is straight and non-tender, full ROM of upper and lower extremities. Skin: normal, acne, hirsutism noted Psychiatric Exam: Normal. and Alert and oriented, appropriate affect. IUD REMOVAL PROCEDURE The strings were visible After prepping the cervix with betadine sterile alligator forcep was gently inserted into the uterine cavity under sterile conditions and used to grasp and remove the IUD. UItrasound guidance was used during the procedure No . Complications: None New contraception desired: Contraceptive type: desires conception Assessment/Plan 1. Encounter for IUD removal 2. General counseling and advice on procreative management 3. PCOS (polycystic ovarian syndrome) We reviewed importance of healthy lifestyle habits prior to and during . We discussed her and her partner's family history is negative for significant chromosomal or congenital anomalies. Wereviewed that her partner does not have any children, but has no risk factors for low sperm counts.We reviewed that her irregular cycles and dx of PCOS puts her at risk for infertility issues. We reviewed that ???polycystic ovarian syndrome??? is a metabolic syndrome characterized by excess androgens, oligomenorrhea, and complications of excess weight such as diabetes, hyperlipidemia, fatty liver disease, and sleep apnea. We discussed diagnosis of PCOS can be made using the [place] criteria with two out of three elements required to make the diagnosis: oligomenorrhea, clinical or biochemical hyperandrogenism, and polycystic ovaries on ultrasound. Given this she will try for for at least 6 months if no we will then pursue a more extensive evaluation, but if she does not have return of normal menses within 3 months of the IUD removal we will start the evaluation sooner. She tolerated the IUD removal well postprocedure instructions were reviewed. Finally we discussed that she is at risk for spina bifida and other neural tube defects in the setting of her anti epileptic medication, but she is not on a high risk medication considering the otherpotential antiepileptics and that she would warrant 1 mg daily folic acid for risk reduction for ideally 12 weeks prior to conception. Prescription for vitamin with 1 mg folic acid was sent pharmacy with instructions. - [id number] acid 29 mg iron- 1 mg tablet,chewable; Take 1 Dose by mouth daily Dispense: 90 tablet; Refill: 3 4. Lump or mass in breast We reviewed her physical exam findings and history are most consistent with chronic trauma from an underwire bra are on the right causing discomfort and the palpable mass likely to be a combination of scar tissue and normal breast tissue at the location of her previous breast reduction. We discussed that the potential cyclicity of this could be related to hormonal changes as well, but without menstrual cycles on a in the presence of the IUD it is hard difficult to determine. She was sufficient reassured by this that she does not desire additional workup, but we discussed that if her symptoms do not improve or worsen that a breast ultrasound would be warranted to further identify the etiology of this mass and tenderness. We discussed the best approach for now would be to avoid wearing underwire bra off for at least we can determine if this resolves her symptoms and ideally to not use an underwire bra at all, or minimum be refitted for a new underwire bra that fits more properly. Solomon Messina MD Please note that portions of this note were created using [employer] and may have some trolley operator variance. CAL LAB TECH INSTRUCTOR documented in this encounter Plan of Treatment Not on file documented as of this encounter Visit Diagnoses Diagnosis Encounter for IUD removal- Primary General counseling and advice on procreative management Other procreative management counseling and advice PCOS (polycystic ovarian syndrome) Polycystic ovaries Lump or mass in breast documented in this encounter Discontinued Medications Medication Sig Discontinue Reason Start Date End Da te tiZANidine (ZANAFLEX) 4 mg tablet daily Therapy completed 06/22/2021 documented as of this encounter Care Teams Frothing Machine Operator Relationship Specialty Start Date End Date Mary Perla MD [address] [facility] [address] [place] [address] PCP - General Internal Medicine 04/18/21 documented as of this encounter
--- OUTSIDE RECORDS SUMMARY | 2024-06-04 06:24 | XMS_ITS | Encounter Summary ---
Author Organization [facility] Address [address] [place] [address] Phone Care Team Providers Care Bathhouse Attendant Name Role Phone Mary Perla MD Primary Care Provider [phone] Reason for Referral * Diagnostic Imaging (Routine) - Pending Review Specialty Diagnoses / Procedures Referred By Contac t Referred To Contact Diagnoses of unknown anatomic location Procedures US Ob Limited Dayanara Hill MD [address] [place] [address] Phone: tel: fax: [facility] (All Locations) Referral ID Status Reason Start Date Expiration Date V isits Requested Visits Authorized [id number] Pending Review 01/05/2024 02/03/2025 1 1 * Diagnostic Imaging (Routine) - Closed Specialty Diagnoses / Procedures Referred By Contdewayne t Referred To Contact Diagnoses of unknown anatomic location Procedures US Ob Under 14 Weeks Dayanara Hill MD [address] [place] [address] Phone: tel: fax: [facility] (All Locations) Referral ID Status Reason Start Date Expiration Date Visits Re quested Visits Authorized [id number] Closed 01/05/2024 02/03/2025 1 1 Reason for Visit * Reason Comments New Patient Initial Visit Encounter Details Date Type Department Care Team (Late st Contact Info) Description 01/05/2024 1:15 PM CDT Office Visit [facility] Obstetrics and Gynecology [address] 7[address] [place] [address] of unknown anatomic location (Primary Dx); Partial epilepsy with impairment of consciousness, intractable (HCC); PCOS (polycystic ovarian syndrome); Hypertension, unspecified type Social History Tobacco Use Types Packs/Day Years [...] more drinks on one occasion? Never 01/05/2024 [place] Depression Scale Answer Date Recorded [place] Depression Scale Total 10 01/05/2024 The thought of harming myself has occurred to me . 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 Not on file Not on file Not on file documented as of this encounter Last Filed Vital Signs Vital Sign Reading Time Taken Comments Blood Pressure 128/82 01/05/2024 1:12 PM CDT Pulse - - Temperature - - Respiratory Rate - - Oxygen Saturation - - Inhaled Oxygen Concentration - - Weight 91 kg (200 lb 9.6 oz) 01/05/2024 1:12 PM CDT Height 154.9 cm (5' 1 ) 01/05/2024 1:12 PM CDT Body Mass Index 37.9 01/05/2024 1:12 PM CDT documented in this encounter Patient Instructions * Patient Instructions* Dayanara Hill MD - 01/05/2024 1:15 PM CDT Psychiatry Resources Psychiatry: [facility] @ [phone] [facility] @ [phone] [facility] @ [phone] [facility] @ [phone] Therapy: [facility] @ [phone] [facility] @ [phone] [facility] @ [phone] [facility] @ [phone] / Resources: Behavioral Health Unit: [phone] Help for [employer] (PSI) [place] Maternal Mental Health Hotline: 747-QUR-HYTY documented in this encounter Ordered Prescriptions Prescription Sig Dispense Quantity Refills Last Filled Start Date End Date folic acid (FOLVITE) 1 mg tabletIndications: Partial epilepsy with impairment of consciousness, intractable (HCC), of unknown anatomic location Take 1 tablet (1 mg total) by mouth daily 30 tablet 11 01/05/2024 01/04/2025 documented in this encounter Progress Notes * Dayanara Hill MD - 01/05/2024 1:15 PM CDT [facility] Gynecology Note Subjective/Objective Patient ID: Quynh De Leon is a 38 y.o. with PMH of cHTN on Nifedipine, epilepsy on oxcarbazepine, and PCOS who presents for an initial visit and was found to have a ofunknown viability with a gestational sac without an embryo. She is overall doing okay today, deniesVB, LOF, and contractions. She is with her partner Los who is supportive. She has a group of friends through work who have been a strong support system for her as well. With her epilepsy, she does follow with neurology. She has never been diagnosed with a mood disorder, never been on SSRIs previously, endorses rare thoughts of self harm without having an active plan. She has not had any recent thoughts of self harm. I have reviewed: allergies, current medications, past family history, past medical history, past social history, past surgical history, and problem list Vitals BP 128/82 Ht 154.9 cm (5' 1 ) Wt 200 lb 9.6 oz (91 kg) LMP 11/10/2023 BMI 37.90 kg/m?? Physical Exam Constitutional: Appearance: Normal appearance. Genitourinary: Vulva and rectum normal. HENT: Head: Normocephalic and atraumatic. Mouth/Throat: Mouth: Mucous membranes are moist. Eyes: Extraocular Movements: Extraocular movements intact. Pulmonary: Effort: Pulmonary effort is normal. Musculoskeletal: General: Normal range of motion. Cervical back: Normal range of motion. Neurological: General: No focal deficit present. Mental Status: She is alert. Psychiatric: Mood and Affect: Mood normal. Behavior: Behavior normal. Thought Content: Thought content normal. Exam Chaperoned by: Lita Lopez Assessment/Plan Diagnoses and all orders for this visit: of unknown anatomic location (Primary) Assessment & Plan: of unknown viability GS without a yolk [...] SI today, recommended therapy and resources provided Orders: - POCT urinalysis dipstick - US Ob Under 14 Weeks - US Ob Limited; Future - folic acid (FOLVITE) 1 mg tablet; Take 1 tablet (1 mg total) by mouth daily Partial epilepsy with impairment of consciousness, intractable (HCC) Assessment & Plan: Last seizure was in 2014 Currently on oxcarbazepine Recommendations for would include: Folic acid supplementation (1mg/day), Rx sent today Specialized anatomic survey Serial growth ultrasounds q4 weeks starting at 24 weeks Serial anti-epileptic levels qtrimester Continue to follow with neurology Orders: - folic acid (FOLVITE) 1 mg tablet; Take 1 tablet (1 mg total) by mouth daily PCOS (polycystic ovarian syndrome) Hypertension, unspecified type Assessment & Plan: Normotensive today Monitors BP at home mostly 120/80s Currently on Nifedipine 30 mg every day RTC in 2 weeks for formal US with follow up MD visit Dayanara Hill MD documented in this encounter Miscellaneous Notes * Assessment & Plan Note - Dayanara Hill MD - 01/05/2024 5:13 PM CDT Associated Problem(s): of unknown anatomic location of unknown viability GS without a yolk [...] SI today, recommended therapy and resources provided * Assessment & Plan Note - Dayanara Hill MD - 01/05/2024 1:50 PM CDT Associated Problem(s): Partial epilepsy with impairment of consciousness, intractable (HCC) Last seizure was in 2014 Currently on oxcarbazepine Recommendations for would include: Folic acid supplementation (1mg/day), Rx sent today Specialized anatomic survey Serial growth ultrasounds q4 weeks starting at 24 weeks Serial anti-epileptic levels qtrimester Continue to follow with neurology * Assessment & Plan Note - Dayanara Hill MD - 01/05/2024 1:45 PM CDT Associated Problem(s): HTN (hypertension) Normotensive today Monitors BP at home mostly 120/80s Currently on Nifedipine 30 mg every day documented in this encounter Plan of Treatment Scheduled Orders Name Type Priority Associated Diagnoses Orde r Schedule US Ob Limited Imaging Schedule Routine , Read Routine (OP Routine) of unknown anatomic location Expected: 01/19/2024, Expires: 01/04/2025 documented as of this encounter Procedures Procedure Name Priority Date/Time Associated Diagnosis Comments POCT URINALYSIS DIPSTICK Routine 01/05/2024 2:44 PM CDT of unknown anatomic location US OB UNDER 14 WEEKS Schedule Routine, Read Routine (OP Routine) 01/05/2024 2:01 PM CDT of unknown anatomic location documented in this encounter Results * (ABNORMAL) POCT urinalysis dipstick (01/05/2024 2:44 PM CDT) Color, Urine, POC Kate Clarity, ur, POC Clear Clear Glucose, ur, POC Negative Negative MG/DL Bilirubin, ur, POC Negative Negative, Small, Moderate, Large Ketones, ur, POC Negative Negative Specific A[place]worth, POC 1.015 1.003 - 1.030 Blood, ur, POC Negative Negative pH, ur, POC 6.5 5.0 - 8.0 Protein, ur, POC 30.(A) Negative Urobilinogen, urine, POC 0.2 0.2 - 1.0 mg/dL Nitrite, ur, POC Negative Negative Leukocytes, ur, POC Negative Negative Lot Number [id number] Urine 01/05/2024 2:44 PM CDT Dayanara Hill MD POINT OF CARE TEST ORD ERABLES Final Result * US Ob Under 14 Weeks (01/05/2024 [...] Result documented in this encounter Visit Diagnoses Diagnosis of unknown anatomic location- Primary Partial epilepsy with impairment of consciousness, intractable (HCC) Localization-related (focal) (partial) epilepsy and epileptic syndromes with complex partial seizures, with intractable epilepsy PCOS (polycystic ovarian syndrome) Polycystic ovaries Hypertension, unspecified type documented in this encounter Historical Medications * This list may reflect changes made after this encounter. NIFEdipine CC 30 mg 24 hr tablet Take 1 tablet (30 mg total) by mouth daily 12/11/2023 added in this encounter Care Teams Bathhouse Attendant Relationship Specialty Start Date End Date Mary Perla MD [address] [place] [address] PCP - General Internal Medicine 04/18/21 documented as of this encounter
--- OUTSIDE RECORDS SUMMARY | 2024-06-04 06:24 | XMS_ITS | Encounter Summary ---
Author Organization [facility] Address [address] [place] [address] Phone Care Team Providers Care Fisher Spear Name Role Phone Wil Downey MD Primary Care Provider [phone] Encounter Details Date Type Department Care Team (Late st Contact Info) Description 03/27/2018 Orders Only [facility] Scheduling [address] [place] [address] Ted Wan CMA Social History Tobacco Use Types Packs/Day Years Used Date Smoking Tobacco: Never Comments Unknown Sex and Gender Information Value Date Recorded Sex Assigned at Not on file 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 OXcarbazepine (TRILEPTAL) 600 mg tablet TAKE ONE & ONE-HALF TABLETS BY MOUTH TWICE DAILY 12/11/2009 8 levonorgestrel (MIRENA) IUD by intrauterine route. 0 added in this encounter Care Teams Fisher Spear Relationship Specialty Start Date End Date Wil Downey MD PCP - General 12/12/16 04/17/21 documented as of this encounter
--- OUTSIDE RECORDS SUMMARY | 2024-06-04 06:24 | XMS_ITS | Encounter Summary ---
Author Organization [facility] Care Team Providers Care Accounting Administrator Name Role Phone Unavailable Primary Care Provider Unavailabl e Encounter Details Date Type Department Care Team (Late st Contact Info) Description 09/04/2010 - 09/04/2010 11:59 PM CDT Hospital Encounter [facility] Richard Blackwell III, MD [address] [place] [address] Condition of brain Social History Tobacco Use Types Packs/Day Years Used Date Smoking Tobacco: Never Assessed Comments Unknown Sex and Gender Information Value Date Recorded Sex Assigned at Not on file 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
--- OUTSIDE RECORDS SUMMARY | 2024-06-04 06:24 | XMS_ITS | Encounter Summary ---
Author Organization [facility] Care Team Providers Care Corporate Tutor Name Role Phone Unavailable Primary Care Provider Unavailabl e Encounter Details Date Type Department Care Team (Late st Contact Info) Description 03/02/2014 - 03/02/2014 11:59 PM CDT Hospital Encounter [facility] Marisela Monaco MD [phone] [place] [address] Screening for malignant neoplasm of cervix Social History Tobacco Use Types Packs/Day Years Used Date Smoking Tobacco: Never Comments Unknown Sex and Gender Information Value Date Recorded Sex Assigned at Not on file 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 us Historical Provider MD LAB CYTOLOGY ORDERABLES F inal Result documented in this encounter Visit Diagnoses Diagnosis Screening for malignant neoplasm of cervix Screening for malignant neoplasm of the cervix documented in this encounter
--- OUTSIDE RECORDS SUMMARY | 2024-06-04 06:24 | XMS_ITS | Encounter Summary ---
Author Organization [facility] Address [address] [place] [address] Phone Care Team Providers Care Crude Oil Driver Name Role Phone Wil Doweny MD Primary Care Provider [phone] Reason for Visit * Reason Comments Return Patient 1 y f/u Encounter Details Date Type Department Care Team (Late st Contact Info) Description 04/01/2018 2:00 PM CDT Office Visit [facility] Epilepsy 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 Gender Identity Not on file Sexual Orientation Not on file documented as of this encounter Last Filed Vital Signs Vital Sign Reading Time Taken Comments Blood Pressure 125/82 04/01/2018 1:57 PM CDT Pulse 85 04/01/2018 1:57 PM CDT Temperature - - Respiratory Rate - - Oxygen Saturation - - Inhaled Oxygen Concentration - - Weight 89 kg (196 lb 3.2 oz) 04/01/2018 1:57 PM CDT Height 154.9 cm (5' 1 ) 04/01/2018 1:57 PM CDT Body Mass Index 37.07 04/01/2018 1:57 PM CDT documented in this encounter Ordered Prescriptions Prescription Sig Dispense Quantity Refills Last Filled Start Date End Date OXcarbazepine (TRILEPTAL) 600 mg tabletIndications: Partial epilepsy with impairment of consciousness, intractable (HCC) Take 1.5 tablets (900 mg total) by mouth 2 (two) times a day. 270 tablet 3 04/01/2018 9 documented in this encounter Progress Notes * Richard Espinoza MD - 04/01/2018 2:00 PM CDT Name: Quynh De Leon Date of : 1985 PCP: Wil Downey MD Date: 04/01/2018 Provider: Jasmeet Espinoza MD CHIEF COMPLAINT Quynh is a 32 y.o. year old female who was referred [...] She reports good over all compliance with medication. PAST MEDICAL HISTORY Quynh has a past medical history of Epilepsy without status epilepticus, not intractable ([facility] PAST SURGICAL HISTORY She has no past surgical history on file. REVIEW OF SYSTEMS Review of Systems MEDICATIONS She has a current medication list which includes the following prescription(s): dicyclomine, levonorgestrel, and oxcarbazepine. Requested Prescriptions Signed Prescriptions Disp Refills ??? OXcarbazepine (TRILEPTAL) 600 mg tablet 270 tablet 3 Sig: Take 1.5 tablets (900 mg total) by mouth 2 (two) times a day. ALLERGIES Quynh has No Known Allergies. SOCIAL HISTORY Quynh reports that she has never smoked. She has never used smokeless tobacco. FAMILY HISTORY Her family history is not on file. VITAL SIGNS Vitals BP 125/82 (BP Location: Left arm, Patient Position: Sitting) Pulse 85 Ht 154.9 cm (5' 1 ) Wt 89 kg (196 lb 3.2 oz) BMI 37.07 kg/m?? PAST TESTING PHYSICAL EXAM General: The patient appeared well developed, well nourished and well groomed. HEENT: Normocephalic atraumatic. Oropharynx was clear. Conjunctivae were clear. Cardiovascular: Regular rate and rhythm. No murmurs or gallops were appreciated. Pulmonary: Lungs were clear to ausculation bilaterally. Extremities: No edema. Normal. Skin: Normal Neurological Exam: Mental Status: The patient was alert, awake, and oriented. The patient had fluent speech and followed commands. Attention was normal. Affect and mood were normal. The STACY-D score was today. Cranial Nerves: Pupils were equal, round [...] patient had normal sensations to temperature, light touch and vibration. Coordination: Finger to nose testing and rapid [...] shehad been tolerating her medication well recently. PLAN The patient will continue her oxcarbazepine [...] End Da te OXcarbazepine (TRILEPTAL) 600 mg tablet TAKE ONE & ONE-HALF TABLETS BY MOUTH TWICE DAILY Reorder 12/11/2009 04/01/2018 documented as of this encounter Historical Medications * This list may reflect changes made after this encounter. Medication Sig Dispense Quantity Refills Last Filled Start D ate End Date dicyclomine (BENTYL) 10 mg capsule 03/16/2018 08/10/2019 added in this encounter Care Teams Crude Oil Driver Relationship Specialty Start Date End Date Wil Downey MD PCP - General 12/12/16 04/17/21 documented as of this encounter
--- OUTSIDE RECORDS SUMMARY | 2024-06-04 06:24 | XMS_ITS | Encounter Summary ---
Author Organization [facility] Address [address] [place] [address] Care Team Providers Care Day Guard Name Role Phone Wil Downey MD Primary Care Provider [phone] Encounter Details Date Type Department Care Team (Latest Contact Info) Description 12/19/2016 11:04 AM CDT - 12/19/2016 11:59 PM T Hospital Encounter [facility] [phone] Marisela Hernandez MD [phone] [place] [address] Discharge Disposition: Discharge to home or self care Social History Tobacco Use Types Packs/Day Years Used Date Smoking Tobacco: Never Comments Unknown Sex and Gender Information Value Date Recorded Sex Assigned at Not on file 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 GONORRHOEAE/C. TRACHOMATIS AMPLIFICATION TEST Routine Gen Lab 12/18/2016 3:15 PM CDT documented in this encounter Results * DISCHARGE LABORATORY CUMULATIVE REPORT (12/19/2016 12:00 AM CDT) Narrative 12/19/2016 12:00 AM CDT Ordered by an unspecified provider. [facility] Provider LAB BLOOD ORDERABLES Yanira l Result * N. gonorrhoeae/C. trachomatis amplification test (12/18/2016 3:15 PM CDT) Report Final Report: Negative for: ??Chlamydia trachomatis rRNA Negative for: ??Neisseria gonorrhoeae rRNA [facility] Endocervical 12/18/2016 3:15 PM CDT 12/19/2016 11:42 AM CDT Narrative [facility] - 12/19/2016 11:45 AM CDT Testing performed by the Gen-Probe [employer]ris APTIMA Combo 2 Assay. This nucleic acid amplification test (NAAT) detects ribosomal RNA (rRNA) from Chlamydia trachomatis and Neisseria gonorrhoeae using target capture,and Dye Winch Operator-Mediated Amplification (TMA). This test is approved by the [place] Food and Drug Administration for endocervical, vaginal, and male urethral swab specimens, in addition to male and female urine specimens. The performance characteristics for these specimen types have been verified by the [facility].The performance characteristics of this assay for pharyngeal and rectal specimens collected from cervical swab collection devices have been validated and verified by the [facility]. Verification studies support a lack of cross reactivity with other Neisseria species considered normal oropharyngeal bacterial donte. Rectal swab specimens containing excess stool may be inhibitory and result in false negatives for Chlamydia trachomatis or Neisseria gonorrhoeae. The performance characteristics of this test have not been evaluated in women or individuals less than 16 years of age. Marisela Hernandez MD LAB MICROBIOLOGY - GENERAL O RDERABLES Final Result GARRY H [facility] [place] [address] documented in this encounter Visit Diagnoses Not on filedocumented in this encounter Care Teams Day Guard Relationship Specialty Start Date End Date Wil Downey MD PCP - General 12/12/16 04/17/21 documented as of this encounter
--- OUTSIDE RECORDS SUMMARY | 2024-06-04 06:24 | XMS_ITS | Encounter Summary ---
Author Organization [facility] Address [address] [place] [address] Phone Care Team Providers Care Inside Sales Executive Name Role Phone Wil Downey MD Primary Care Provider [phone] Reason for Referral * (Routine) - Closed Specialty Diagnoses / Procedures Referred By Contac t Referred To Contact Diagnoses Arthritis of carpometacarpal (CMC) joint of right thumb Procedures De Quervain's injection: R extensor compartment 1 Héctor Ware MD Phone: tel: fax: [facility] (All Locations) Referral ID Status Reason Start Date Expiration Date Visits Re quested Visits Authorized [id number] Closed 08/10/2019 02/18/2021 1 1 TRACTOR OPERATOR Encounter Details Date Type Department Care Team (Latest Contact Info) Description 08/10/2019 3:40 PM RAIL TRACTOR OPERATOR Office Visit [facility] Orthopaedic Surgery [address] [place] [address] 6th [place] [address] [place] [address] Héctor Ware MD [address] [facility] [address]A [place] [address] Arthritis of carpometacarpal (CMC) joint of right thumb (Primary Dx) Social History Tobacco Use Types Packs/Day Years Used Date Smoking Tobacco: Never Smokeless Tobacco: Never Alcohol Use Standard Drinks/Week Comments Yes 0 (1 standard drink = 0.6 oz pur e alcohol) Comments No Sex and Gender Information Value Date Recorded Sex Assigned at Not on file Legal Sex Female 9:12 PM RAIL TRACTOR OPERATOR Gender Identity Not on file Sexual Orientation Not on file documented as of this encounter Progress Notes * Héctor Ware MD - 08/10/2019 3:40 PM CST Images from the original note were not included. NEW PATIENT VISIT HISTORY OF PRESENT ILLNESS It is my pleasure seeing Quynh. 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 Has had two injections before. Did not work. PAST MEDICAL HISTORY She has a past medical history of Epilepsy without status epilepticus, not intractable ([facility]). PAST SURGICAL HISTORY She has a past surgical history that includes No past surgeries. INITIAL REVIEW OF MEDICATIONS She has a current medication list which includes the following prescription(s): dicyclomine, fluticasone propionate, levonorgestrel, oxcarbazepine, and tizanidine. DRUG ALLERGIES She has No Known Allergies. SOCIAL HISTORY She reports that she has never smoked. She has never used smokeless tobacco. She reports current alcohol use. She reports that she does not use drugs. FAMILY HISTORY Her family history includes No Known Problems in her father and mother. REVIEW OF SYSTEMS The intake questionnaire was reviewed. No relevant new findings (noted by the patient over the pastthirty days) were recorded. PHYSICAL EXAMINATION On examination, patient looks their stated age, appears well-nourished, is alert and oriented timesthree. Heart rhythm is regular. Respirations are at a normal rate and the patient can articulate full sentences without dyspnea. Skin is warm and dry bilaterally. The patient has tenderness overlying her first dorsal compartment.The Lionel test is positive.There is no mass present. There is not thinning and discoloration of the skin overlying the 1st dorsal compartment. The ipsilateral basal thumb joint is not tender. The contralateral exam is normal with respect to these findings. IMPRESSION/TREATMENT PLAN Injected. This would be our last injection. Third time. If she does not get better from this or shedoes get better and then recurs, I would recommend surgical treatment. Héctor Ware M.D., MSc, [facility](C) Professor [facility] Orthopedics TRACTOR OPERATOR * Héctor Ware MD - 08/10/2019 3:40 PM CSTAssociated Order(s): De Quervain's injection: R extensor compartment 1 Post-Procedure Diagnose(s): Arthritis of carpometacarpal (CMC) joint of right thumb De Quervain's injection: R extensor compartment 1 Date/Time: 08/10/2019 4:39 PM Performed by: Héctor Ware MD Authorized by: Héctor Ware MD De Quervain's Injection: Consent Given by: Patient Timeout: prior to procedure the correct patient, procedure, and site was verified Verbal consent obtained?: Yes Written consent obtained?: No Supporting Documentation: Indications: Pain and therapeutic Procedure Details: Condition: de Quervain's Site: R extensor compartment 1 Prep: patient was prepped using a clean technique Needle Size: 28 G Approach: Volar Ultrasound guidance: No Medications: 1 mL lidocaine PF 10 mg/mL (1 %); 40 mg methylPREDNISolone acetate 40 mg/mL Patient tolerance: Patient tolerated the procedure well with no immediate complications TRACTOR OPERATOR documented in this encounter Plan of Treatment Not on file documented as of this encounter Procedures Procedure Name Priority Date/Time Associated Diagnosis Comments MS INJECTION 1 TENDON SHEATH/LIGAMENT APONEUROSIS Routine 08/10/2019 3:40 PM RAIL TRACTOR OPERATOR Arthritis of carpometacarpal (CMC) joint of right thumb documented in this encounter Results * MS INJECTION 1 TENDON SHEATH/LIGAMENT APONEUROSIS (08/10/2019 3:40 PM RAIL TRACTOR OPERATOR) Narrative Héctor Ware MD - 08/10/2019 3:40 PM RAIL TRACTOR OPERATOR Héctor Ware MD ? 08/10/2019 ??4:39 PM De Quervain's injection: R extensor compartment 1 Date/Time: 08/10/2019 4:39 PM Performed by: Héctor Ware MD Authorized by: Héctor Ware MD De Quervain's Injection: ??Consent Given by: ??Patient ??Timeout: prior to procedure the correct patient, procedure, and site was verified ?Verbal consent obtained?: Yes ?Written consent obtained?: No ?? Supporting Documentation: ??Indications: ??Pain and therapeutic Procedure Details: ??Condition: de Quervain's ?Site: ??R extensor compartment 1 ??Prep: patient was prepped using a clean technique ?Needle Size: ??28 G ??Approach: ??Volar ??Ultrasound guidance: No ?Medications: ??1 mL lidocaine PF 10 mg/mL (1 %); 40 mg methylPREDNISolone acetate 40 mg/mL ??Patient tolerance: ??Patient tolerated the procedure well with no immediate complications us Héctor Ware MD IN CLINIC/BEDSIDE ORDERABLES Final Result documented in this encounter Visit Diagnoses Diagnosis Arthritis of carpometacarpal (CMC) joint of right thumb- Primary documented in this encounter Administered Medications Inactive Administered Medications - up to 3 most recent administrations Medication Order MAR Action Action Date Dose Rate Site lidocaine PF (XYLOCAINE) 10 mg/mL (1 %) preservative free injection 1 mL 1 mL, One-Time Injection, Starting on Fri08/10/19 at 1639, For 1 doseIndications:Arthritis of carpometacarpal (CMC) joint of right thumb Given 08/10/2019 4:39 PM RAIL TRACTOR OPERATOR 1 mL methylPREDNISolone acetate (DEPO-medrol) injection 40 mg 40 mg, intra-articular, One-Time Injection, Starting on Fri08/10/19 at 1639, For 1 doseIndications:Arthritis of carpometacarpal (CMC) joint of right thumb Given 08/10/2019 4:39 PM RAIL TRACTOR OPERATOR 40 mg documented in this encounter Discontinued Medications Medication Sig Discontinue Reason Start Date End Da te dicyclomine (BENTYL) 10 mg capsule Duplicate order 03/16/2018 08/10/2019 documented as of this encounter Historical Medications * This list may reflect changes made after this encounter. Medication Sig Dispense Quantity Refills Last Filled Start D ate End Date dicyclomine (BENTYL) 10 mg capsule 08/04/2019 12/11/2023 added in this encounter Care Teams Inside Sales Executive Relationship Specialty Start Date End Date Wil Downey MD PCP - General 12/12/16 04/17/21 documented as of this encounter
--- OUTSIDE RECORDS SUMMARY | 2024-06-04 06:24 | XMS_ITS | Encounter Summary ---
Author Organization [facility] Address [address] [place] [address] Phone Care Team Providers Care Primary Care Pediatrician Name Role Phone Wil Downey MD Primary Care Provider [phone] Reason for Visit * Reason Onset Date Comments OT Discharge 09/09/2019 Encounter Details Date Type Department Care Team (Late st Contact Info) Description 09/09/2019 Documentation [facility] Occupational Therapy [address] [facility] 6th [place] [address] [place] [address] Kat Encarnacion, OT [address] [address] OT Discharge Social History Tobacco Use Types Packs/Day Years Used Date Smoking Tobacco: Never Smokeless Tobacco: Never Alcohol Use Standard Drinks/Week Comments Yes 0 (1 standard drink = 0.6 oz pur e alcohol) Comments No Sex and Gender Information Value Date Recorded Sex Assigned at Not on file Legal Sex Female 9:12 PM HEALTHCARE SOCIAL WORKER Gender Identity Not on file Sexual Orientation Not on file documented as of this encounter Progress Notes * Kat Encarnacion, OT - 09/09/2019 2:20 PM CDT Patient discharged from OT on 08/10/19 documented in this encounter Plan of Treatment Not on file documented as of this encounter Visit Diagnoses Not on filedocumented in this encounter Care Teams Primary Care Pediatrician Relationship Specialty Start Date End Date Wil Downey MD PCP - General 12/12/16 04/17/21 documented as of this encounter
--- OUTSIDE RECORDS SUMMARY | 2024-06-04 06:24 | XMS_ITS | Encounter Summary ---
Author Organization [facility] Facility Care Team Providers Care Asphalt Tile Floor Layer Name Role Phone Unavailable Primary Care Provider Unavailabl e Encounter Details Date Type Department Care Team (Late st Contact Info) Description 07/16/2011 - 07/16/2011 11:59 PM ASSISTANT MAINTENANCE MANAGER Hospital Encounter [facility] Marisela Monaco MD [address] [phone] [place] [address] Lump or mass in breast Social History Tobacco Use Types Packs/Day Years Used Date Smoking Tobacco: Never Assessed Comments Unknown Sex and Gender Information Value Date Recorded Sex Assigned at Not on file Legal Sex Female 9:12 PM ASSISTANT MAINTENANCE MANAGER Gender Identity Not on file Sexual Orientation [...]
--- OUTSIDE RECORDS SUMMARY | 2024-06-04 06:24 | XMS_ITS | Encounter Summary ---
Author Organization [facility] Address [address] [place] [address] Phone Care Team Providers Care Rad Tech Name Role Phone Mary Perla MD Primary Care Provider [phone] Encounter Details Date Type Department Care Team (Late st Contact Info) Description 01/21/2022 Telephone [facility] Obstetrics and Gynecology [address] [facility] 7th [address] [place] [address] Lilibeth Damian Social History Tobacco Use Types Packs/Day Years Used Date Smoking Tobacco: Never Smokeless Tobacco: Never Alcohol Use Standard Drinks/Week Comments Yes 0 (1 standard drink = 0.6 oz pur e alcohol) Comments No Sex and Gender Information Value Date Recorded Sex Assigned at Not on file Legal Sex Female 9:12 PM [employer] Gender Identity Not on file Sexual Orientation Not on file documented as of this encounter Miscellaneous Notes * Telephone Encounter - Lilibeth Damian - 01/21/2022 9:35 AM CDT Spoke with pt who declined to reschedule her agy at this time./ documented in this encounter Plan of Treatment Not on file documented as of this encounter Visit Diagnoses Not on filedocumented in this encounter Care Teams Rad Tech Relationship Specialty Start Date End Date Mary Perla MD [address] [facility] [address] [place] [address] PCP - General Internal Medicine 04/18/21 documented as of this encounter
--- OUTSIDE RECORDS SUMMARY | 2024-06-04 06:24 | XMS_ITS | Encounter Summary ---
Author Organization [facility] Healthcare Address [address] [place] [address] Care Team Providers Care High Pressure Kettle Operator Name Role Phone Wil Downey MD Primary Care Provider [phone] Encounter Details Date Type Department Care Team (Latest Contact Info) Description 05/20/2017 10:50 PM SPACE OPERATIONS - 05/20/2017 11:59 PM [facility] Hospital Encounter [facility] OP INTERIM [phone] Marisela Hernandez MD [address] [facility] [address] [phone] [place] [address] Discharge Disposition: Discharge to home or self care Social History Tobacco Use Types Packs/Day Years Used Date Smoking Tobacco: Never Comments Unknown Sex and Gender Information Value Date Recorded Sex Assigned at Not on file Legal Sex Female 9:12 PM SPACE OPERATIONS Gender Identity Not on file Sexual Orientation [...] Procedure Name Priority Date/Time Associated Diagnosis Comments N. GONORRHOEAE/C. TRACHOMATIS AMPLIFICATION TEST Routine Gen Lab 05/20/2017 3:38 PM SPACE OPERATIONS DISCHARGE LABORATORY CUMULATIVE REPORT 05/20/2017 12:00 AM SPACE OPERATIONS documented in this encounter Results * N. gonorrhoeae/C. trachomatis amplification test (05/20/2017 3:38 PM SPACE OPERATIONS) Report Final Report: Negative for: ??Chlamydia trachomatis rRNA Negative for: ??Neisseria gonorrhoeae rRNA [facility] Urine 05/20/2017 3:38 PM SPACE OPERATIONS 05/20/2017 11:05 PM SPACE OPERATIONS Narrative [facility] - 05/20/2017 11:05 PM SPACE OPERATIONS Testing performed by the Gen-Probe Tigris APTIMA Combo 2 Assay. This nucleic acid amplification test (NAAT) detects ribosomal RNA (rRNA) from Chlamydia trachomatis and Neisseria gonorrhoeae using target capture,and Centrex Radio Operator-Mediated Amplification (TMA). This test is approved by the [place] Food and Drug Administration for endocervical, vaginal, and male urethral swab specimens, in addition to male and female urine specimens. The performance characteristics for these specimen types have been verified by the [facility].The performance characteristics of this assay for pharyngeal and rectal specimens collected from cervical swab collection devices have been validated and verified by the [facility]. Verification studies support a lack of cross reactivity with other Neisseria species considered normal oropharyngeal bacterial donte. Rectal swab specimens containing excess stool may be inhibitory and result in false negatives for Chlamydia trachomatis or Neisseria gonorrhoeae. The performance characteristics of this test have not been evaluated in women or individuals less than 16 years of age. us Marisela Hernandez MD LAB MICROBIOLOGY - GENERAL O RDERABLES Final Result [facility] Department [place] [address] * DISCHARGE LABORATORY CUMULATIVE REPORT (05/20/2017 12:00 AM SPACE OPERATIONS) Narrative 05/20/2017 12:00 AM SPACE OPERATIONS Ordered by an unspecified provider. us Historical Provider LAB BLOOD ORDERABLES Yanira l Result documented in this encounter Visit Diagnoses Not on filedocumented in this encounter Care Teams High Pressure Kettle Operator Relationship Specialty Start Date End Date Wil Downey MD PCP - General 12/12/16 04/17/21 documented as of this encounter
--- OUTSIDE RECORDS SUMMARY | 2024-06-04 06:24 | XMS_ITS | Encounter Summary ---
Author Organization [facility] Facility Care Team Providers Care Economics Analyst Name Role Phone Unavailable Primary Care Provider Unavailabl e Encounter Details Date Type Department Care Team (Late st Contact Info) Description 02/03/2008 - 02/03/2008 11:59 PM CDT Hospital Encounter [facility] Delaney Brown MD [address] [place] [address] Social History Tobacco Use Types Packs/Day Years Used Date Smoking Tobacco: Never Assessed Comments Unknown Sex and Gender Information Value Date Recorded Sex Assigned at Not on file Legal Sex Female 9:12 PM BUILDING CONSTRUCTION SUPERVISOR Gender Identity Not on file Sexual Orientation Not on file documented as of this encounter Plan of Treatment Not on file documented as of this encounter Visit Diagnoses Not on filedocumented in this encounter
--- OUTSIDE RECORDS SUMMARY | 2024-06-04 06:24 | XMS_ITS | Encounter Summary ---
Author Organization [facility] Healthcare Address [address] [place] [address] Care Team Providers Care Sorting Livestock Worker Name Role Phone Wil Downey MD Primary Care Provider [phone] Encounter Details Date Type Department Care Team (Latest Contact Info) Description 12/18/2016 4:37 PM CDT - 12/18/2016 11:59 PM T Hospital Encounter [facility] OP INTERIM [phone] Marisela Hernandez MD [address] [phone] [place] [address] Discharge Disposition: Discharge to home or self care Social History Tobacco Use Types Packs/Day Years Used Date Smoking Tobacco: Never Comments Unknown Sex and Gender Information Value Date Recorded Sex Assigned at Not on file Legal Sex Female 9:12 PM WORD PROCESSING SPECIALIST Gender Identity Not on file Sexual Orientation [...] Name Priority Date/Time Associated Diagnosis Comments CYTOLOGY Routine 12/18/2016 4:37 PM CDT CYTOLOGY 12/18/2016 12:00 AM CDT documented in this encounter Results * Cytology (12/18/2016 4:37 PM CDT) 12/18/2016 4:37 PM CDT 12/19/2016 8:15 AM CDT Narrative 12/25/2016 4:42 PM CDT [facility] [place] [address] CYTOPATHOLOGY REPORT FINAL Patient Name: STALIN DE LEON Address: [address] [place] [address] Service: Laboratory [place], [place] ??[address] Location: [facility] Taken: 12/18/2016 Gender: F Received: 12/19/2016 : 1985 (Age: 31) Hospital #: [id number] Accessioned: 12/19/2016 ?? Patient Type: [facility] Ref Lab Reported: 12/25/2016 ? Physician(s): Marisela Hernandez M.D. ?? FINAL INTERPRETATION SOURCE OF SPECIMEN: ? Liquid based pap test, Thin prep STATEMENT OF ADEQUACY: ?- Satisfactory for evaluation ?- Endocervical cells/transformation zone sample absent GENERAL CATEGORY: ?- Negative for squamous intraepithelial lesion or malignancy ?? Comments HPV Result: ??NEGATIVE for high risk types of Human Papilloma Virus (HPV) RNA This probe detects the presence of HPV types: 16, 18, 31, 33, 35, 39, 45, 51, 52, 56, 58, 59, 66 and 68. ??This HPV test was performed at [facility] in [place], [place] utilizing the Gen-Probe Aptima assay. This specimen has been rescreened in accordance with this laboratory's Videotape Operator Program. sherman/12/25/2016 16:37 ?Biju Bell, CT(ASCP) ??Report Electronically Reviewed and Signed Out By MARK Beltre, CT(ASCP)[facility] 12/25/2016 16:37:21 ?? Gross Description A. ??Liquid based pap test, Thin prep: ??Cervical/vaginal - Screening ThinPrep ??with HPV ?? Clinical Diagnosis and History Last Menstrual Period: Not Provided. ICD-9 code V72.31 per requisition. The HPV test was performed by [facility], [address] [place] [address]. This Cytology report is available electronically in Clinical Desktop. The performance characteristics of some immunohistochemical stains, in-situ hybridization and fluorescence in-situ hybridization tests and immunophenotyping by flow cytometry cited in this report (if any) were determined by the Surgical Pathology Department at [facility] as part of an ongoing dairy quality assurance officer program and in compliance with federally mandated regulations drawn from the Clinical Laboratory Improvement Act of 1988 (CLIA '88). ??Some of these tests rely on the use of analyte specific reagents and are subject to specific labeling requirements by the US Food and Drug Administration. ??Such diagnostic tests may only be performed in a facility that is certified by the Department of Health and Human Services as a high complexity laboratory under CLIA '88. ??The FDA has determined that such clearance or approval is not necessary. ??This test is used for clinical purposes. ??It should not be regarded as investigational or for research. ??Nevertheless, federal rules concerning the medical use of analyte specific reagents require that the following disclaimer be attached to the report: This test was developed and its performance characteristics determined by the Surgical Pathology Department of [facility]. ??It has not been cleared or approved by the [place]. S. Food and Drug Administration. Marisela Hernandez MD LAB CYTOLOGY ORDERABLES Edit ed Result - Final * CYTOLOGY (12/18/2016 12:00 AM CDT) Narrative 12/18/2016 12:00 AM CDT Ordered by an unspecified provider. Historical Provider LAB CYTOLOGY ORDERABLES F inal Result documented in this encounter Visit Diagnoses Not on filedocumented in this encounter Care Teams Sorting Livestock Worker Relationship Specialty Start Date End Date Wil Downey MD PCP - General 12/12/16 04/17/21 documented as of this encounter
--- OUTSIDE RECORDS SUMMARY | 2024-06-04 06:24 | XMS_ITS | Encounter Summary ---
Author Organization [facility] Address [address] [place] [address] Phone Care Team Providers Care Wink Cutter Operator Name Role Phone Mary Perla MD Primary Care Provider [phone] Reason for Visit * Reason Onset Date Comments medication question 12/11/2023 Encounter Details Date Type Department Care Team (Late st Contact Info) Description 12/11/2023 Telephone [facility] Obstetrics and Gynecology [facility] 7th Floor [address] [place] [address] Pancho Pcukett RN medication question Social History Tobacco Use Types Packs/Day Years [...] on file Legal Sex Female 9:12 PM SPEECH CORRECTION ASSISTANT Gender Identity Not on file Sexual Orientation Not on file documented as of this encounter Miscellaneous Notes * Telephone Encounter - Pancho Puckett RN - 12/11/2023 6:26 PM CDT Pt informed of provider recommendations of nifedipine XL 30mg PO daily and should speak with neuro in regards to medications. Pt verbalized understanding. Pt states that she has already reached out to neuro and awaiting follow up. * Telephone Encounter - Pancho Puckett RN - 12/11/2023 10:45 AM CDT Returned phone call to pt and informed of provider response/recommendations to switch to lamictal or keppra if possible and stop klonopin and lisinopril. Pt states that she does not use klonopin as she has not had seizure in a long time. Pt states that she is allergic to keppra but will ask about lamictal but unsure if neuro will switch given great control on oxcarbazepine since 18. Pt states that her PCP will get back to her about medication but will let them know about suggestion for nifedipine and f/u once they have prescribed. Pt inquiring about AMA . Pt informed that AMA is managed similarly, she is at greater risk for tri21 but will offer genetic screening however this is offered to all pts, will have her start baby ASA at 12wks due to increased risk of preE, and she will get a specialized anatomy scan but this is standard for all AMA pregnancies. Pt informed that can send additional information for her and partner to review via [employer]. Pt amenable and understanding verbalized. * Telephone Encounter - Pancho Puckett RN - 12/11/2023 8:46 AM CDT Pt 4.3 wks by . Pt calling due to her NOB scheduled for 01/04 and has questions about her prescriptions and wanting to know if ok to take: Oxcarbazepine 600mg 1.5 tabs PO BID Lisinopril 10mg PO daily Klonopin 0.25mg PO PRN Flonase PRN Cetirizine PRN Pt informed that will reach out to provider to review and follow up. Understanding verbalized. documented in this encounter Plan of Treatment Not on file documented as of this encounter Visit Diagnoses Not on filedocumented in this encounter Discontinued Medications Medication Sig Discontinue Reason Start Date End Da te dicyclomine (BENTYL) 10 mg capsule Therapy completed 08/04/2019 12/11/2023 documented as of this encounter Care Teams Wink Cutter Operator Relationship Specialty Start Date End Date aMry Perla MD [address] [facility] [address] [place] [address] PCP - General Internal Medicine 04/18/21 documented as of this encounter
--- OUTSIDE RECORDS SUMMARY | 2024-06-04 06:24 | XMS_ITS | Encounter Summary ---
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 Telemedicine [facility] Epilepsy [address] [facility] 6th [place] [address] [place] [address] Richard Espinoza III, MD [address] [place] [address] Partial epilepsy with impairment of consciousness, intractable (CMS/HCC) (Primary Dx) Social History Tobacco Use Types Packs/Day Years Used Date Smoking Tobacco: Never Smokeless Tobacco: Never Alcohol Use Standard Drinks/Week Comments Yes 0 (1 standard drink = 0.6 oz pur e alcohol) Comments No Sex and Gender Information Value Date Recorded Sex Assigned at Not on file Legal Sex Female 9:12 PM 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 Gender Identity Not on file Sexual Orientation Not on file documented as of this encounter Ordered Prescriptions Prescription Sig Dispense Quantity Refills Last Filled Start Date End Date clonazePAM (KlonoPIN) 0.25 mg disintegrating tabletIndications:Pa rtial epilepsy with impairment of consciousness, intractable (HCC) Take 1 tablet (0.25 mg total) by mouth daily as needed for seizures 5 tablet 2 04/19/2020 1 OXcarbazepine (TRILEPTAL) 600 mg tabletIndications:Pa rtial epilepsy with impairment of consciousness, intractable (HCC) Take 1.5 tablets (900 mg total) by mouth 2 (two) times a day 270 tablet 3 04/19/2020 1 documented in this encounter Progress Notes * Richard Espinoza III, MD - 04/19/2020 11:00 AM CST Name: Quynh De Leon Date of : 1985 PCP: Wil Downey MD Date: 04/19/2020 Provider: Jasmeet Espinoza III, MD CHIEF COMPLAINT Quynh is a 34 y.o. year old female who was referred [...] had rash (hives) after a trip to [place] this October, which is now under control with allergy meds. She has beenconsulting with her brim pouncer. She has been on OXC for 15 yrs. Before OXC, she was on PHT, CBZ, LEV. Overall, she reports doing well since her last visit. 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 She is also taking a single graduate-level class. Her main complaint today is intermittent headache. These headaches begin only when she isbusy at work, and typically build gradually during the day, but sometimes can have a more rapid onset. Ibuprofen relieves that headache. Headaches typically only require ibuprofen every 2-4 weeks. They do not occur outside of her work setting. We discussed issues related to COVID-19 and epileptic seizures. PAST MEDICAL HISTORY Quynh has a past medical history of Epilepsy without status epilepticus, not intractable ([facility]). PAST SURGICAL HISTORY She has a past surgical history that includes No past surgeries. REVIEW OF SYSTEMS Review of Systems see patient health questionnaire. MEDICATIONS She has a current medication list which includes the following prescription(s): clonazepam, dicyclomine, fluticasone propionate, levonorgestrel, oxcarbazepine, and tizanidine. Requested Prescriptions Signed Prescriptions Disp Refills ??? OXcarbazepine (TRILEPTAL) 600 mg tablet 270 tablet 3 Sig: Take 1.5 tablets (900 mg total) by mouth 2 (two) times a day ??? clonazePAM (KlonoPIN) 0.25 mg disintegrating tablet 5 tablet 2 Sig: Take 1 tablet (0.25 mg total) by mouth daily as needed for seizures ALLERGIES Quynh has No Known Allergies. SOCIAL HISTORY Quynh reports that she has never smoked. She has never used smokeless tobacco. She reports current alcohol use. She reports that she does not use drugs. 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 FAMILY HISTORY Her family history includes No Known Problems in her father and mother. VITAL SIGNS There were no vitals taken for this visit. 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 Since increase of her oxcarbazepine to 900 mg twice daily, she has had adequate seizure control. She has now been seizure free since 2014. We encouraged her to take her oxcarbazepine with food. We also reviewed protocols in case she misses medication dosages. We also reviewed systems to insure medication compliance. She reports that shehad been tolerating her medication well recently. We reviewed issues related to COVID-19 and epileptic seizures. PLAN The patient will continue her oxcarbazepine 900 mg twice daily. She was given a refill of her antiepileptic medication today. We reviewed the importance of regular antiepileptic medication compliance, as well as good general medical health, to optimize seizure control. By history, she likely has intermittent tension headaches in addition to her epileptic seizures. Intermittent treatment with ibuprofen for her headache is appropriate. If headaches worsen or change in character, we will consider further assessment for etiology. She will follow-up in the epilepsy clinic in one year, sooner if clinically indicated. This was a telemedicine visit with Quynh aviles which took place via Telephone. During the visit, I was located in the office and the patient was located at home [facility] the [facility]. The patient visit started at 11:00 and ended at 11:25. Total encounter time was 33 minutes, which includes time spent today on pre charting, the patient encounter, and post charting and Greater than 50% ofthe video/phone call was spent on counseling and coordinating care. Patient was counseled on medication compliance.. The patient: has been informed that the visit may not be secure and acknowledged the information. The option of participating in a telephone or video visit during the COVID-19 public health emergencywas explained to them. After being given an opportunity to ask questions about and discuss this type of visit, they verbally consented to proceeding with the telephone/video visit and understand thatthis service replaces an office visit. Jasmeet Espinoza III, MD [employer] MOLDING MACHINE OFFBEARER documented in this encounter Plan of Treatment Not on file documented as of this encounter Visit Diagnoses Diagnosis Partial epilepsy with impairment of consciousness, intractable (HCC)- Primary Localization-related (focal) (partial) epilepsy and epileptic syndromes with complex partial seizures, with intractable epilepsy documented in this encounter Discontinued Medications Medication Sig Discontinue Reason Start Date End Da te OXcarbazepine (TRILEPTAL) 600 mg tabletIndications:Partial epilepsy with impairment of consciousness, intractable (HCC) Take 1.5 tablets (900 mg total) by mouth 2 (two) times a day Reorder 04/19/2019 04/19/2020 clonazePAM (KlonoPIN) 0.25 mg disintegrating tablet Take 1 tablet (0.25 mg total) by mouth daily as needed for seizures Reorder 09/15/2019 04/19/2020 documented as of this encounter Care Teams Associate Principal Relationship Specialty Start Date End Date Wil Downey MD PCP - General 12/12/16 04/17/21 documented as of this encounter
--- OUTSIDE RECORDS SUMMARY | 2024-06-04 06:24 | XMS_ITS | Encounter Summary ---
Author Organization [facility] Facility Care Team Providers Care Claim Processor Name Role Phone Unavailable Primary Care Provider Unavailabl e Encounter Details Date Type Department Care Team (Late st Contact Info) Description 09/02/2013 12:47 AM CDT - 09/02/2013 5:06 AM CDT Hospital Encounter [facility] Zana Marsh MD [address] [place] [address] Epilepsy (HCC); Vomiting alone; Other alteration of consciousness Social History Tobacco Use Types Packs/Day Years Used Date Smoking Tobacco: Never Comments Unknown Sex and Gender Information Value Date Recorded Sex Assigned at Not on file Legal Sex Female 9:12 PM [employer] Gender Identity Not on file Sexual Orientation Not on file documented as of this encounter Medications at Time of Discharge OXcarbazepine (TRILEPTAL) 600 mg tablet TAKE ONE & ONE-HALF TABLETS BY MOUTH TWICE DAILY 12/11/2009 04/01/2018 documented as of this encounter Plan of Treatment Not on file documented as of this encounter Procedures Procedure Name Priority Date/Time Associated Diagnosis Comments CT HEAD WO CONTRAST Routine 09/02/2013 3 :09 AM CDT XR CHEST PA LATERAL 2 VIEWS Routine 09/02/2013 2:32 AM CDT URINE CHORIONIC GONADOTROPIN (HCG) Routine 09/02/2013 2:16 AM CDT URINE DRUG SCREEN Routine 09/02/2013 2:0 9 AM CDT URINALYSIS Routine 09/02/2013 2:09 AM CDT BLOOD GLUCOSE, POC Routine 09/02/2013 1: 52 AM CDT BLOOD CELL COUNT (CBC) Routine 09/02/2013 1:47 AM CDT PLASMA HEPATIC FUNCTION PANEL Routine 09/02/2013 1:41 AM CDT PLASMA BASIC METABOLIC PANEL Routine 09/02/2013 1:41 AM CDT DISCHARGE LABORATORY CUMULATIVE REPORT Routine 09/02/2013 12:00 AM CDT documented in this encounter Results * CT Head WO Contrast (09/02/2013 3:09 AM CDT) Anatomical Region Laterality Modality Head and Neck N/A Computed Tomogra phy 09/02/2013 3:09 AM CDT Narrative 09/02/2013 3:18 PM CDT DINORAH LEO M.D. RHEA ORELLANA, FINAL REPORT The radiology attending physician has personally reviewed this study, and has reviewed and/or edited this written report and agrees with it. ACC# ??Date Time ??Exam [id number] Sep 02, 2013 03:09:[id number] Head or Brain w/o cont EXAMINATION: ?? Noncontrast head CT HISTORY: Seizure TECHNIQUE: Noncontrast CT of the brain was performed with axial images acquired from skull base to vertex. COMPARISON: None available. FINDINGS: Topogram demonstrates no lytic lesions or fractures. ??On the axial slices, there are no acute intra or extra-axial fluid collections. Ventricles are of normal size, shape, and morphology. The basal cisterns are patent. No mass effect or midline shift is present. The mendoza-white matter differentiation is normal. The visualized portions of the orbits, and paranasal sinuses, and mastoids are normal. No fractures are identified. A 4 x 10 mm focus of ossification along the inner table of the left frontal bone is unchanged since the prior study and likely represents dural calcification. IMPRESSION: ?? No acute findings. Requested By: NATHALIE MCLAUGHLIN M.D. Dictated By: ?? RHEA ORELLANA, ?? on Sep 02 2013 ??3:32A This document has been electronically signed by: DINORAH LEO M.D. on Sep 02 2013 ??3:17P Procedure Note Provider, MD Lindsey - 10/16/2016 DINORAH LEO M.D. RHEA ORELLANA, FINAL REPORT The radiology attending physician has personally reviewed this study, and has reviewed and/or edited this written report and agrees with it. ACC# Date Time Exam [id number] Sep 02, 2013 03:09:[id number] Head or Brain w/o cont EXAMINATION: Noncontrast head CT HISTORY: Seizure TECHNIQUE: Noncontrast CT of the brain was performed with axial images acquired from skull base to vertex. COMPARISON: None available. FINDINGS: Topogram demonstrates no lytic lesions or fractures. On the axial slices, there are no acute intra or extra-axial fluid collections. Ventricles are of normal size, shape, and morphology. The basal cisterns are patent. No mass effect or midline shift is present. The mendoza-white matter differentiation is normal. The visualized portions of the orbits, and paranasal sinuses, and mastoids are normal. No fractures are identified. A 4 x 10 mm focus of ossification along the inner table of the left frontal bone is unchanged since the prior study and likely represents dural calcification. IMPRESSION: No acute findings. Requested By: NATHALIE MCLAUGHLIN M.D. Dictated By: RHEA ORELLANA, on Sep 02 2013 3:32A This document has been electronically signed by: DINORAH LEO M.D. on Sep 02 2013 3:17P us Historical Provider MD THOM[facility] CT PROCEDURES Final R esult * XR Chest Pa Lateral 2 Views (09/02/2013 2:32 AM CDT) Anatomical Region Laterality Modality Body, Chest N/A Radiographic Sara ging 09/02/2013 2:32 AM CDT Narrative 09/02/2013 9:34 AM CDT Alina DE LA TORRE M.D. FINAL REPORT The radiology attending physician has personally reviewed this study, and has reviewed and/or edited this written report and agrees with it. ACC# ??Date Time ??Exam [id number] Sep 02, 2013 02:32:00 [id number] Chest 2 views Frontl & Lat EXAMINATION: ?? Chest 2 views HISTORY: Seizure IMPRESSION: ?? Two view examination of the chest is submitted without prior comparison. Lungs are clear. There is no pleural effusion or pneumothorax. Heart size and mediastinal contour normal. Requested By: NATHALIE MCLAUGHLIN M.D. Dictated By: ?? ZANA ANDERSON M.D. ??on Sep 02 2013 ??2:37A This document has been electronically signed by: KEON PEREZ M.D. on Sep 02 2013 ??9:34A Procedure Note Provider, MD Lindsey - 11/21/2016 KEON PEREZ M.D. ZANA ANDERSON M.D. FINAL REPORT The radiology attending physician has personally reviewed this study, and has reviewed and/or edited this written report and agrees with it. ACC# Date Time Exam [id number] Sep 02, 2013 02:32:00 [id number] Chest 2 views Frontl & Lat EXAMINATION: Chest 2 views HISTORY: Seizure IMPRESSION: Two view examination of the chest is submitted without prior comparison. Lungs are clear. There is no pleural effusion or pneumothorax. Heart size and mediastinal contour normal. Requested By: NATHALIE MCLAUGHLIN M.D. Dictated By: ZANA ANDERSON M.D. on Sep 02 2013 2:37A This document has been electronically signed by: KEON PEREZ M.D. on Sep 02 2013 9:34A us Historical Provider MD THOMPSON XR PROCEDURES Final R esult * Urine chorionic gonadotropin (HCG) (09/02/2013 2:16 AM CDT) HCG, ur Negative HISTORICAL RESULTS Urine 09/02/2013 2:16 AM CDT us Nathalie Hyun Mclaughlin LAB BLOOD ORDERABLES Final Resu lt HISTORICAL RESULTS * Urine drug screen (09/02/2013 2:09 AM CDT) Amphetamine, ur None detected HISTORICAL RESULTS Comment: Interpretive Data Immunoassay Screen cutoff level 300 ng/mL. Drug results are to be used only for medical purposes. ??All results, especially unconfirmed screening results, must not be used for non medical purposes. Current interpretive data was last revised 06. Barbiturates, ur None detected HISTORICAL RESULTS Comment: Interpretive Data Immunoassay Screen cutoff level 200 ng/mL. Drug results are to be used only for medical purposes. ??All results, especially unconfirmed screening results, must not be used for non medical purposes. Current interpretive data was last revised 06. Benzodiazepines, ur None detected HISTORICAL RESULTS Comment: Interpretive Data Immunoassay Screen cutoff level 200 ng/mL. Drug results are to be used only for medical purposes. ??All results, especially unconfirmed screening results, must not be used for non medical purposes. Current interpretive data was last revised 06. Cannabinoids, ur None detected HISTORICAL RESULTS Comment: Interpretive Data Immunoassay Screen cutoff level 50 ng/mL. Drug results are to be used only for medical purposes. ??All results, especially unconfirmed screening results, must not be used for non medical purposes. Current interpretive data was last revised 06. Cocaine, ur None detected HISTORICAL RESULTS Comment: Interpretive Data Immunoassay Screen cutoff level 150 ng/mL. Drug results are to be used only for medical purposes. ??All results, especially unconfirmed screening results, must not be used for non medical purposes. Current interpretive data was last revised 06. Opiates, qual, ur None detected HISTORICAL RESULTS Comment: Interpretive Data Immunoassay Screen cutoff level 300 ng/mL. Drug results are to be used only for medical purposes. ??All results, especially unconfirmed screening results, must not be used for non medical purposes. Current interpretive data was last revised 06. Phencyclidine, qual, ur None detected HISTORICAL RESULTS Comment: Interpretive Data Immunoassay Screen cutoff level 25 ng/mL. Drug results are to be used only for medical purposes. ??All results, especially unconfirmed screening results, must not be used for non medical purposes. Current interpretive data was last revised 06. Urine 09/02/2013 2:09 AM CDT Result [facility] Nathalie Mclaughlin LAB BLOOD ORDERABLES Final Resu lt Performing Organization Address [facility] de Phone Number HISTORICAL RESULTS * (ABNORMAL) Urinalysis (09/02/2013 2:09 AM CDT) Color, ur Yellow Yellow HISTORICAL RESULTS Clarity, ur Clear Clear HISTORIC AL RESULTS Specific gravity, ur 1.023 1.003 - 1.030 HISTORICAL RESULTS pH, ur 6.0 5.0 - 8.0 HISTORICAL RESULTS Protein, ur Trace Trace HISTORIC AL RESULTS Glucose, ur Negative Negative HISTORIC AL RESULTS Ketones, ur Trace(A) Negative HISTORIC AL RESULTS Bilirubin, ur Negative Negative HISTOR ICAL RESULTS U Blood Negative Negative HISTORICAL RESULTS Urobilinogen, quant, ur <2.0 0.0 - 2.0 mg/dl HISTORICAL RESULTS Nitrites, ur Negative Negative HISTORI SHERLEY RESULTS Leukocyte esterase, ur Negative Negative HISTORICAL RESULTS Urine 09/02/2013 2:09 AM CDT Result [facility] Zana Quigley MD LAB BLOOD ORDERA BLES Final Result Performing Organization Address [facility] de Phone Number HISTORICAL RESULTS * Blood glucose, POC (09/02/2013 1:52 AM CDT) Glucose, POC, bld 96 70 - 199 mg/dl HISTORICAL RESULTS Blood specimen (specimen) 09/02/2013 1:52 AM CDT Result [facility] Historical Provider LAB BLOOD ORDERABLES Yanira l Result Performing Organization Address [facility] de Phone Number HISTORICAL RESULTS * (ABNORMAL) Blood cell count (CBC) (09/02/2013 1:47 AM CDT) WBC 9.9(H) 3.8 - 9.8 K/cumm HISTORICAL RESULTS RBC 4.73 3.90 - 5.00 M/cumm HISTORICAL RESULTS Hgb 13.7 12.1 - 15.1 g/dl HISTORICAL RESULTS Hct 40.3 36.1 - 44.3 % HISTORICAL RESULTS MCV 85.1 80.0 - 97.6 fl HISTORICAL RESULTS MCH 28.9 26.7 - 33.7 pg HISTORICAL RESULTS MCHC 34.0 32.7 - 35.5 g/dl HISTORICAL RESULTS Rdw 12.7 11.8 - 14.6 % HISTORICAL RESULTS Platelets 202 140 - 440 K/cumm HISTORICAL RESULTS MPV 8.3 6.8 - 10.4 fl HISTORICAL RESULTS Neutrophils 76.7(H) 38.7 - 74.5 % HISTORICAL RESULTS Lymphocytes 18.4(L) 20.0 - 54.3 % HISTORICAL RESULTS Monos 4.1(L) 4.3 - 13.5 % HISTORICAL RESULTS Eosinophils 0.4 0.0 - 6.0 % HISTORICAL RESULTS Basophils 0.4 0.0 - 3.0 % HISTORICAL RESULTS Neutrophils, abs 7.6(H) 1.8 - 6.6 K/cumm HISTORICAL RESULTS Lymphocytes, abs 1.8 1.2 - 3.3 K/cumm HISTORICAL RESULTS Monocytes, absolute 0.4 0.2 - 1.2 K/cumm HISTORICAL RESULTS Eosinophils, abs 0.0 0.0 - 0.5 K/cumm HISTORICAL RESULTS Basophils, abs 0.0 0.0 - 0.2 K/cumm HISTORICAL RESULTS Blood specimen (specimen) 09/02/2013 1:47 AM CDT us Nathalie Mclaughlin LAB BLOOD ORDERABLES Final Resu lt HISTORICAL RESULTS * (ABNORMAL) Plasma hepatic function panel (09/02/2013 1:41 AM CDT) Pathologist [facility] [place] Protein, pl 6.9 6.5 - 8.5 g/dl HISTORICAL RESULTS Alb 3.9 3.6 - 5.0 g/dl HISTORICAL RESULTS Bilirubin 0.1(L) 0.3 - 1.1 mg/dl HISTORICAL RESULTS Alk phos 47 38 - 126 Units/L HISTORICAL RESULTS AST 31 11 - 47 Units/L HISTORICAL RESULTS ALT 17 7 - 53 Units/L HISTORICAL RESULTS Bilirubin, direct <0.1 0.0 - 0.3 mg/dl HISTORICAL RESULTS Plasma 09/02/2013 1:41 AM CDT Nathalie Purvis Gross LAB BLOOD ORDERABLES Final Resu lt Performing Organization Address [place]/[facility] de Phone Number HISTORICAL RESULTS * Plasma basic metabolic panel (09/02/2013 1:41 AM CDT) [facility] Sodium 138 135 - 145 mmol/L HISTORICAL RESULTS K, pl 3.6 3.3 - 4.9 mmol/L HISTORICAL RESULTS Comment: Hemolyzed; (++); potassium value may be falsely elevated by as much as 0.3 - 0.5 mmol/L. Suggest redraw and reanalysis. Chloride 101 97 - 110 mmol/L HISTORICAL RESULTS CO2 29 22 - 32 mmol/L HISTORICAL RESULTS A. gap 8 0 - 16 mmol/L HISTORICAL RESULTS Glucose 104 70 - 199 mg/dl HISTORICAL RESULTS BUN 9 8 - 25 mg/dl HISTORICAL RESULTS Creatinine 0.63 0.60 - 1.10 mg/dl HISTORICAL RESULTS Calcium 8.9 8.6 - 10.3 mg/dl HISTORICAL RESULTS Plasma 09/02/2013 1:41 AM CDT Nathalie Mclaughlin LAB BLOOD ORDERABLES Final Resu lt Performing Organization Address [facility] Co de Phone Number HISTORICAL RESULTS * Discharge Laboratory Cumulative Report (09/02/2013 12:00 AM CDT) 09/02/2013 Narrative HISTORICAL RESULTS - 09/03/2013 3:17 PM CDT ?[facility] ?Department of Laboratories ? [address] [facility] [address] ? [place] [address] Patient Name: ??STALIN DE LEON [facility] Rec Number: [id number] Fin Number: ?[id number] Date: ?1985 Sex/Age: ? Female 28 years Admit Date: ?09/02/2013 Discharge Date: 09/02/2013 Doctor: ?Zana Quigley V Facility: ?[facility] Location: ?[facility]-5 Chart Printed: 09/03/2013 15:17 ?? * Abnormal ?? C Critical ?? f Footnote ?? ^ Corrected ?? L Low ?? H High ? i Interp Data ?? @ Reference Lab ?Chart Type:Cumulative ? SELECTED ELECTROLYTES ?Test: Sodium ? Plasma Potassium ??Chloride ? Reference: [135-145] ??[3.3-4.9] ? [97-110] ? Units: mmol/L ? mmol/L ?mmol/L 09/02/2013 ?? 01:41:00 ?? 138 ?3.6 ??f ?101 09/02/2013 01:41:00 ??Plasma Potassium: Hemolyzed; (++); potassium value may be falsely elevated by as much as 0.3 - 0.5 mmol/L. Suggest redraw and reanalysis. ?Test: Total CO2 ??Anion Gap ? Reference: [22-32] ?[0-16] ? Units: mmol/L ? mmol/L 09/02/2013 ?? 01:41:00 ?? 29 ? 8 ? STANDARD BLOOD CHEMISTRY ?Test: BUN ? Creatinine ?? Total Bilirubin ? Reference: [8-25] ??[0.60-1.10] ??[0.3-1.1] ? Units: mg/dL ?? mg/dL ?mg/dL 09/02/2013 ?? 01:41:00 ?? 9 ? 0.63 ? 0.1 ??L ?Test: Bilirubin, Direct ??Glucose ?? Total Calcium ? Reference: [0.0-0.3] ?[70-199] ??[8.6-10.3] ? Units: mg/dL ?mg/dL ? mg/dL 09/02/2013 ?? 01:41:00 ?? <0.1 ? 104 ? 8.9 ?Test: Plasma Total Protein ??Albumin ? Reference: [6.5-8.5] ? [3.6-5.0] ? Units: g/dL ?g/dL 09/02/2013 ?? 01:41:00 ?? 6.9 ? 3.9 ?ENZYMES ?Test: Alkaline Phosphatase ??ALT ?AST ? Reference: [38-126] ?[7-53] ?? [11-47] ? Units: Units/L ? Units/L ??Units/L 09/02/2013 ?? 01:41:00 ?? 47 ?17 ? 31 ?URINE HORMONES ?Test: hCG Ur Qual ? Reference: ? Units: 09/02/2013 ?? 02:16:59 ?? Negative ? URINE/GASTRIC DRUG SCREEN ?Test: Amphet Class i ??Barbs Class i ? Reference: ? Units: 09/02/2013 ?? 02:09:00 ?? None detected ?? None detected 09/02/2013 02:09:00 Amphet Class: Interpretive Data Immunoassay Screen cutoff level 300 ng/mL. Drug results are to be used only for medical purposes. ??All results, especially unconfirmed screening results, must not be used for non medical purposes. Current interpretive data was last revised 06. 09/02/2013 02:09:00 Barbs Class: Interpretive Data Immunoassay Screen cutoff level 200 ng/mL. Drug results are to be used only for medical purposes. ??All results, especially unconfirmed screening results, must not be used for non medical purposes. Current interpretive data was last revised 06. ?Test: Benzodiazepines i ??Cannabinoids, Scrn i ? Reference: ? Units: 09/02/2013 ?? 02:09:00 ?? None detected ?None detected 09/02/2013 02:09:00 Benzodiazepines: Interpretive Data Immunoassay Screen cutoff level 200 ng/mL. Drug results are to be used only for medical purposes. ??All results, especially unconfirmed screening results, must not be used for non medical purposes. Current interpretive data was last revised 06. ? URINE/GASTRIC DRUG SCREEN 09/02/2013 02:09:00 Cannabinoids, Scrn: Interpretive Data Immunoassay Screen cutoff level 50 ng/mL. Drug results are to be used only for medical purposes. ??All results, especially unconfirmed screening results, must not be used for non medical purposes. Current interpretive data was last revised 06. ?Test: Cocaine Metabolite i ??Opiate Class i ? Reference: ? Units: 09/02/2013 ?? 02:09:00 ?? None detected ? None detected 09/02/2013 02:09:00 Cocaine Metabolite: Interpretive Data Immunoassay Screen cutoff level 150 ng/mL. Drug results are to be used only for medical purposes. ??All results, especially unconfirmed screening results, must not be used for non medical purposes. Current interpretive data was last revised 06. 09/02/2013 02:09:00 Opiate Class: Interpretive Data Immunoassay Screen cutoff level 300 ng/mL. Drug results are to be used only for medical purposes. ??All results, especially unconfirmed screening results, must not be used for non medical purposes. Current interpretive data was last revised 06. ?Test: Phencyclidine i ? Reference: ? Units: 09/02/2013 ?? 02:09:00 ?? None detected 09/02/2013 02:09:00 Phencyclidine: Interpretive Data Immunoassay Screen cutoff level 25 ng/mL. Drug results are to be used only for medical purposes. ??All results, especially unconfirmed screening results, must not be used for non medical purposes. Current interpretive data was last revised 06. ?URINALYSIS ?Macroscopic ?Test: Color ? Clarity ??Specific [place] ??pH ? Reference: [Yellow] ??[Clear] ??[1.003-1.030] ? [5.0-8.0] ? Units: 09/02/2013 ?? 02:09:43 ?? Yellow ?Clear ?1.023 ? 6.0 ?Test: Albumin ??Glucose ? Ketones ? Bilirubin ? Reference: [Trace] ??[Negative] ??[Negative] ??[Negative] ? Units: 09/02/2013 ?? 02:09:43 ?? Trace ?Negative ?Trace ??* ?Negative ?URINALYSIS ?Macroscopic ?Test: Blood ? Urobilinogen ??Nitrite ? Reference: [Negative] ??[0.0-2.0] ? [Negative] ? Units: ? mg/dL 09/02/2013 ?? 02:09:43 ?? Negative ?<2.0 ?Negative ?Test: Leuk Esterase ? Reference: [Negative] ? Units: 09/02/2013 ?? 02:09:43 ?? Negative ? COMPLETE BLOOD COUNT ?Test: WBC ?RBC ?Hgb ? Reference: [3.8-9.8] ??[3.90-5.00] ??[12.1-15.1] ? Units: K/cumm ? M/cumm ? g/dL 09/02/2013 ?? 01:47:40 ?? 9.9 ??H ? 4.73 ? 13.7 ?Test: Hct ?Platelet Ct ??MCV ? Reference: [36.1-44.3] ??[140-440] ?[80.0-97.6] ? Units: % ?K/cumm ? fL 09/02/2013 ?? 01:47:40 ?? 40.3 ? 202 ?85.1 ?Test: MCH ?MCHC ? RDW ? Reference: [26.7-33.7] ??[32.7-35.5] ??[11.8-14.6] ? Units: pg ? g/dL ? % 09/02/2013 ?? 01:47:40 ?? 28.9 ? 34.0 ? 12.7 ?Test: MPV ? Reference: [6.8-10.4] ? Units: fL 09/02/2013 ?? 01:47:40 ?? 8.3 ? AUTOMATED WHITE CELL DIFFERENTIAL ?Test: Neut Pct Auto ??Lymph Pct Auto ??Calvert Pct Auto ? Reference: [38.7-74.5] ?[20.0-54.3] ? [4.3-13.5] ? Units: % ?% ? % 09/02/2013 ?? 01:47:40 ?? 76.7 ??H ?18.4 ??L ? 4.1 ??L ?Test: Eos Pct Auto ??Baso Pct Auto ??Neut Abs Auto ? Reference: [0.0-6.0] ? [0.0-3.0] ?[1.8-6.6] ? Units: % ? % ?K/cumm 09/02/2013 ?? 01:47:40 ?? 0.4 ? 0.4 ?7.6 ??H ? AUTOMATED WHITE CELL DIFFERENTIAL ?Test: Lymph Abs Auto ??Calvert Abs Auto ??Eos Abs Auto ? Reference: [1.2-3.3] ? [0.2-1.2] ?[0.0-0.5] ? Units: K/cumm ?K/cumm ? K/cumm 09/02/2013 ?? 01:47:40 ?? 1.8 ? 0.4 ?0.0 ?Test: Baso Abs Auto ? Reference: [0.0-0.2] ? Units: K/cumm 09/02/2013 ?? 01:47:40 ?? 0.0 ?POINT OF CARE TESTS ? Chemistry ?Test: Glucose POC ? Reference: [70-199] ? Units: mg/dL 09/02/2013 ?? 01:52:00 ?? 96 us Historical Provider LAB BLOOD ORDERABLES Yanira huff Result HISTORICAL RESULTS documented in this encounter Visit Diagnoses Diagnosis Epilepsy (HCC) Unspecified epilepsy without mention of intractable epilepsy Vomiting alone Other alteration of consciousness documented in this encounter
--- OUTSIDE RECORDS SUMMARY | 2024-06-04 06:24 | XMS_ITS | Encounter Summary ---
Author Organization [facility] Address [address] [place] [address] Phone Care Team Providers Care Analog Ic Design Architect Name Role Phone Wil Downey MD Primary Care Provider [phone] Reason for Visit * Reason Comments Annual Exam Encounter Details Date Type Department Care Team (Late st Contact Info) Description 07/27/2019 2:45 PM PUNCH BOX TENDER Office Visit [facility] Obstetrics and Gynecology [address] [facility] 7th [address] [place] [address] Devika Hogan, ACID BLOWER [address] [facility] [phone] [place] [address] Well woman exam (Primary Dx); Mass of right breast Social History Tobacco Use Types Packs/Day Years Used Date Smoking Tobacco: Never Smokeless Tobacco: Never Alcohol Use Standard Drinks/Week Comments Yes 0 (1 standard drink = 0.6 oz pur e alcohol) Comments No Sex and Gender Information Value Date Recorded Sex Assigned at Not on file Legal Sex Female 9:12 PM PUNCH BOX TENDER Gender Identity Not on file Sexual Orientation Not on file documented as of this encounter Last Filed Vital Signs Vital Sign Reading Time Taken Comments Blood Pressure 100/70 07/27/2019 2:35 PM PUNCH BOX TENDER Pulse - - Temperature - - Respiratory Rate - - Oxygen Saturation - - Inhaled Oxygen Concentration - - Weight 91 kg (200 lb 9.6 oz) 07/27/2019 2:35 PM PUNCH BOX TENDER Height 154.9 cm (5' 1 ) 07/27/2019 2:35 PM PUNCH BOX TENDER Body Mass Index 37.9 07/27/2019 2:35 PM PUNCH BOX TENDER documented in this encounter Progress Notes * Devika Hogan, ACID BLOWER - 07/27/2019 2:45 PM CST Images from the original note were not included. Well Woman Exam Subjective Quynh De Leon is a 34 y.o. year old female who presents for a well woman exam. Pt c/o right breast mass she felt 1-2 weeks ago while in the shower. She has hx of breast reduction. Previous pt of Dr Hernandez. SA with 1 partner for 3 years. Amenorrheic cycles. MOC/Mirena. Health Maintenance: Health Maintenance Topics with due status: Overdue Topic Date Due Depression Screening-PHQ 1985 Regular Well Visit/Exam 1985 Varicella Vaccines 1986 DTaP/Tdap/Td Vaccine 1996 Health Maintenance Topics with due status: Not Due Topic Last Completion Date Cervical Cancer Screening-Pap and HPV 12/18/2016 Health Maintenance Topics with due status: Completed Topic Last Completion Date Influenza Vaccine 03/03/2019 1. Last Pap: 2016/nl 2. MEC: Mirena 3. Mammogram: Not indicated 4. STDs offered: not indicated Menstrual History: Menarche Age: 13 years No LMP recorded. (Menstrual status: IUD). Period Pattern: None Sexual History: Sexual History Gender of sexual partners: Men Sexually Transmitted Infection History: None Sexual Assault: No OB History 0 Para 0 Term 0 0 AB 0 Living 0 SAB 0 TAB 0 Ectopic 0 Multiple 0 Live Births 0 Past Medical History: Diagnosis Date ??? Epilepsy without status epilepticus, not intractable (CMS/HCC) Epilepsy - (Added by TW Conv) Current Outpatient Medications: ??? dicyclomine (BENTYL) 10 mg capsule, , Disp: , Rfl: ??? fluticasone propionate (FLONASE) 50 mcg/actuation nasal spray, , Disp: , Rfl: ??? levonorgestrel (MIRENA) IUD, Mirena, Disp: , Rfl: ??? OXcarbazepine (TRILEPTAL) 600 mg tablet, Take 1.5 tablets (900 mg total) by mouth 2 (two) timesa day, Disp: 270 tablet, Rfl: 3 ??? tiZANidine (ZANAFLEX) 4 mg tablet, daily, Disp: , Rfl: No Known Allergies Family History Problem Relation Age of Onset ??? No Known Problems Father ??? No Known Problems Mother Social History Socioeconomic History ??? Marital status: Single Spouse name: None ??? Number of children: None ??? Years of education: None ??? Highest education level: None Occupational History ??? None Social Needs ??? Financial resource strain: None ??? Food insecurity: Worry: None Inability: None ??? Transportation needs: Medical: None Non-medical: None Tobacco Use ??? Smoking status: Never Smoker ??? Smokeless tobacco: Never Used Substance and Sexual Activity ??? Alcohol use: Yes ??? Drug use: Never ??? Sexual activity: Yes Partners: Male control/protection: I.U.D. Lifestyle ??? Physical activity: Days per week: None Minutes per session: None ??? Stress: None Relationships ??? Social connections: Talks on phone: None Gets together: None Attends anabaptist service: None Active member of club or organization: None Attends meetings of clubs or organizations: None Relationship status: None ??? Intimate partner violence: Fear of current or ex partner: None Emotionally abused: None Physically abused: None Forced sexual activity: None Other Topics Concern ??? None Social History Narrative ??? None Objective Vitals BP 100/70 Ht 154.9 cm (5' 1 ) Wt 200 lb 9.6 oz (91 kg) BMI 37.90 kg/m?? Review of Systems Breast: Lumps All other Review of Systems are Negative: All other Review of Systems are negative Physical Exam Constitutional: Appearance: She is well-developed. Neck: Musculoskeletal: Normal range of motion and neck supple. Cardiovascular: Rate and Rhythm: Normal rate and regular rhythm. Heart sounds: Normal heart sounds. Pulmonary: Effort: Pulmonary effort is normal. Breath sounds: Normal breath sounds. Chest: Breasts: Breasts are symmetrical. Right: No inverted nipple, mass, nipple discharge, skin change or tenderness. Left: No inverted nipple, mass, nipple discharge, skin change or tenderness. Abdominal: Palpations: Abdomen is soft. Genitourinary: Pelvic exam was performed with patient supine. Vagina normal and uterus normal. Right labia: normal. Left Labia: normal. Right adnexa: normal. Cervix: visible IUD strings (short at cervical os) and Normal exam. Uterus is anteverted. Musculoskeletal: Normal range of motion. Skin: General: Skin is warm and dry. Assessment and Plan Quynh De Leon is a 34 y.o. female who presents for a well woman exam. ---Pap UTD /last done 12/2016/nl--next due 2021 MOC/Mirena IUD placed 05/2017 Right Breast mass --palpates at around 9 oclock --pt has hx of Breast reduction --Right Diagnostic mammogram ordered ---will notify pt of results Plan: SBE discussed and encouraged Breast cancer: Mammogram: Indicated Pap smear: Not Indicated Sexually transmitted disease screening: Not indicated Diet and exercise discussed. Calcium and vitamin D intake discussed. Contraception IUD in place. Pt to see Pcp for routine Health maintenance including Diabetes screening and cholesterol testing. RTO 1 year. Devika Hogan NP 07/27/2019 H BOX TENDER documented in this encounter Plan of Treatment Not on file documented as of this encounter Procedures Procedure Name Priority Date/Time Associated Diagnosis Comments PAP SMEAR WITH HPV Routine 12/18/2016 documented in this encounter Results * PAP SMEAR WITH HPV (12/18/2016) Pap smear Normal us Historical Provider MD HEALTH MAINTENANCE Final Result documented in this encounter Visit Diagnoses Diagnosis Well woman exam- Primary Routine general medical examination at a health care facility Mass of right breast Lump or mass in breast documented in this encounter Discontinued Medications Medication Sig Discontinue Reason Start Date End Da te OXcarbazepine (TRILEPTAL) 600 mg tablet 06/26/2019 07/27/2019 methylPREDNISolone (MEDROL DOSEPACK) 4 mg Dosepack methylprednisolone 4 mg tablets in a dose pack 07/27/2019 levonorgestrel (MIRENA) IUD by intrauterine route. 0 clonazePAM (KlonoPIN) 0.25 mg disintegrating tablet clonazepam 0.25 mg disintegrating tablet 07/27/2019 documented as of this encounter Historical Medications * This list may reflect changes made after this encounter. Medication Sig Dispense Quantity Refills Last Filled Start D ate End Date fluticasone propionate (FLONASE) 50 mcg/actuation nasal spray 04/21/2019 OXcarbazepine (TRILEPTAL) 600 mg tablet 06/26/2019 07/27/2019 added in this encounter Care Teams Analog Ic Design Architect Relationship Specialty Start Date End Date Wil Downey MD PCP - General 12/12/16 04/17/21 documented as of this encounter
--- OUTSIDE RECORDS SUMMARY | 2024-06-04 06:24 | XMS_ITS | Encounter Summary ---
Author Organization [facility] Address [address] [place] [address] Phone Care Team Providers Care Skating Rink Ice Maker Name Role Phone Mary Perla MD Primary Care Provider Encounter Details Date Type Department Care Team (Late st Contact Info) Description 12/11/2023 Telephone [facility] Epilepsy [address] [facility] Medicine 6th [place] [address] [place] [address] Richard Espinoza III, MD [address] [place] [address] Social History Tobacco Use Types [...] on file Legal Sex Female 9:12 PM RADIOSONDE SPECIALIST Gender Identity Not on file Sexual Orientation Not on file documented as of this encounter Miscellaneous Notes * Telephone Encounter - Nevin Thayer RN - 12/12/2023 9:42 AM CDT Spoke with Quynh. She will continue OXC as she is. She will call the office if she has any seizure activity. She will call the office to schedule [address] Espinoza. * Telephone Encounter - Nevin Thayer RN - 12/12/2023 9:40 AM CDT Images from the original note were not included. Richard Espinoza III, MD You; [facility] Epi [facility] Pool15 hours ago (6:01 PM) Agree continuing OXC is preferable. Keep the same dose for now. She should see me about 20 months EGA in clinic to follow up. * Telephone Encounter - Nevin Thayer RN - 12/11/2023 3:50 PM CDT Quynh Glover called. She is approx 4 weeks . She has first OB appointment on 01/05/24. She is currently taking OXC 900 mg bid. OB is recommending that she switch to Lamictal. We discussed that changing medication after she is already is not usually recommended but I would discuss with you as well. If able, Quynh would prefer to stay with OXC. She is taking a vitamin and folate already Her next appt with our office is 07/07/24. Would you like her to keep that appointment or see her sooner? ThanksCosta documented in this encounter Plan of Treatment Not on file documented as of this encounter Visit Diagnoses Not on filedocumented in this encounter Care Teams Skating Rink Ice Maker Relationship Specialty Start Date End Date Mary Perla MD [address] [facility] [address] [place] [address] PCP - General Internal Medicine 04/18/21 documented as of this encounter
--- OUTSIDE RECORDS SUMMARY | 2024-06-04 06:24 | XMS_ITS | Encounter Summary ---
Author Organization [facility] [facility] Address [address] [place] [address] Phone Care Team Providers Care Pit Operator Name Role Phone Wil Downey MD Primary Care Provider [phone] Mary Perla MD Primary Care Provider Encounter Details Date Type Department Care Team (Latest Contact Info) Description 07/01/2017 Orders Only [facility] CONVERSION Scanning, Provider Social History Tobacco Use Types Packs/Day Years Used Date Smoking Tobacco: Never Comments Unknown Sex and Gender Information Value Date Recorded Sex Assigned at Not on file Legal Sex Female 9:12 PM ACCESS SERVICES REPRESENTATIVE Gender Identity Not on file Sexual Orientation Not on file documented as of this encounter Plan of Treatment Not on file documented as of this encounter Procedures Procedure Name Priority Date/Time Associated Diagnosis Comments OBSTETRIC/GYNECOLOGY ULTRASONOGRAPHY REPORT 07/01/2017 2:20 PM ACCESS SERVICES REPRESENTATIVE documented in this encounter Results * OBSTETRIC/GYNECOLOGY ULTRASONOGRAPHY REPORT (07/01/2017 2:20 PM ACCESS SERVICES REPRESENTATIVE) Anatomical Region Laterality Modality Ultrasound us Provider Scanning IMG OB US PROCEDURES Final Res ult documented in this encounter Visit Diagnoses Not on filedocumented in this encounter Care Teams Pit Operator Relationship Specialty Start Date End Date Wil Downey MD PCP - General 12/12/16 04/17/21 Mary Perla MD [address] [facility] [address] [place] [address] PCP - General Internal Medicine 04/18/21 documented as of this encounter
--- OUTSIDE RECORDS SUMMARY | 2024-06-04 06:24 | XMS_ITS | Encounter Summary ---
Author Organization [facility] Address [address] [place] [address] Phone Care Team Providers Care Black Studies Professor Name Role Phone Wil Downey MD Primary Care Provider [phone] Encounter Details Date Type Department Care Team (Late st Contact Info) Description 08/10/2019 Telephone [facility] Epilepsy [address] [facility] 6th [place] [address] [place] [address] Dianna Shin RN Social History Tobacco Use Types Packs/Day Years Used Date Smoking Tobacco: Never Smokeless Tobacco: Never Alcohol Use Standard Drinks/Week Comments Yes 0 (1 standard drink = 0.6 oz pur e alcohol) Comments No Sex and Gender Information Value Date Recorded Sex Assigned at Not on file Legal Sex Female 9:12 PM PAPER INSPECTOR Gender Identity Not on file Sexual Orientation Not on file documented as of this encounter Miscellaneous Notes * Telephone Encounter - Dianna Shin RN - 08/11/2019 8:49 AM PAPER INSPECTOR Called pt to assess how long she will be in [place] and she stated the trip got cancelled so she no longer needs a script. She thanked this nurse for the follow up. R INSPECTOR * Telephone Encounter - Dianna Shin RN - 08/10/2019 12:56 PM PAPER INSPECTOR Pt asked for written prescription for AEDs to hand carry in case of emergency, as she is going to [place], date unknown. R INSPECTOR documented in this encounter Plan of Treatment Not on file documented as of this encounter Visit Diagnoses Not on filedocumented in this encounter Care Teams Black Studies Professor Relationship Specialty Start Date End Date Wil Downey MD PCP - General 12/12/16 04/17/21 documented as of this encounter
--- OUTSIDE RECORDS SUMMARY | 2024-06-04 06:24 | XMS_ITS | Encounter Summary ---
Author Organization [facility] Facility Care Team Providers Care Treasury Accountant Name Role Phone Unavailable Primary Care Provider Unavailabl e Encounter Details Date Type Department Care Team (Late st Contact Info) Description 04/17/2011 - 04/17/2011 11:59 PM CDT Hospital Encounter [facility] Marisela Monaco MD [phone] [place] [address] Screening for malignant neoplasm of cervix; Satisfactory cervical smear but lacking transformation zone Social History Tobacco Use Types Packs/Day Years Used Date Smoking Tobacco: Never Assessed Comments Unknown Sex and Gender Information Value Date Recorded Sex Assigned at Not on file Legal Sex Female 9:12 PM IN SERVICE EDUCATION TEACHER Gender Identity Not on file Sexual Orientation Not on file documented as of this encounter Medications at Time of Discharge OXcarbazepine (TRILEPTAL) 600 mg tablet TAKE ONE & ONE-HALF TABLETS BY MOUTH TWICE DAILY 12/11/2009 04/01/2018 documented as of this encounter Plan of Treatment Not on file documented as of this encounter Visit Diagnoses Diagnosis Screening for malignant neoplasm of cervix Screening for malignant neoplasm of the cervix Satisfactory cervical smear but lacking transformation zone documented in this encounter
--- OUTSIDE RECORDS SUMMARY | 2024-06-04 06:24 | XMS_ITS | Encounter Summary ---
Author Organization [facility] Address [address] [place] [address] Phone Care Team Providers Care Material Handling Crew Supervisor Name Role Phone Mary Perla MD Primary Care Provider Encounter Details Date Type Department Care Team (Late st Contact Info) Description 05/22/2022 Telephone [facility] Epilepsy [address] [facility] Medicine 6th [place] [address] [place] [address] Richard Espinoza III, MD [address] [place] [address] Social History Tobacco Use Types Packs/Day Years Used Date Smoking Tobacco: Never Smokeless Tobacco: Never Alcohol Use Standard Drinks/Week Comments Yes 0 (1 standard drink = 0.6 oz pur e alcohol) Comments No Sex and Gender Information Value Date Recorded Sex Assigned at Not on file Legal Sex Female 9:12 PM SOCIAL SCIENCES INSTRUCTOR Gender Identity Not on file Sexual Orientation Not on file documented as of this encounter Ordered Prescriptions Prescription Sig Dispense Quantity Refills Last Filled Start Date End Date OXcarbazepine (TRILEPTAL) 600 mg tablet Take 1.5 tablets (900 mg total) by mouth 2 (two) times a day 45 tablet 05/22/2022 3 documented in this encounter Miscellaneous Notes * Telephone Encounter - Dayanara Johnson RMA - 05/22/2022 2:52 PM SOCIAL SCIENCES INSTRUCTOR Quynh called asking if she can get a script for OXC to take with her to [place]. She's leaving on 06/10 and wants to have a prescription on hand incase her medication gets thrown away. Patient also asked for a letter stating why she needs the medication. AL SCIENCES INSTRUCTOR documented in this encounter Plan of Treatment Not on file documented as of this encounter Visit Diagnoses Not on filedocumented in this encounter Care Teams Material Handling Crew Supervisor Relationship Specialty Start Date End Date Mary Perla MD [address] [facility] [address] [place] [address] PCP - General Internal Medicine 04/18/21 documented as of this encounter
--- OUTSIDE RECORDS SUMMARY | 2024-06-04 06:24 | XMS_ITS | Encounter Summary ---
Author Organization [facility] Address [address] [place] [address] Phone Care Team Providers Care Circle Saw Operator Name Role Phone Wil Downey MD Primary Care Provider [phone] Reason for Visit * Reason Onset Date Comments questions about meds/time change 08/10/2018 Encounter Details Date Type Department Care Team (Late st Contact Info) Description 08/10/2018 Telephone [facility] Epilepsy [address] [facility] 6th [place] [address] [place] [address] Richard Espinoza III, MD [address] [place] [address] questions about meds/time change Social History Tobacco Use Types Packs/Day Years Used Date Smoking Tobacco: Never Smokeless Tobacco: Never Comments Unknown Sex and Gender Information Value Date Recorded Sex Assigned at Not on file Legal Sex Female 9:12 PM WEBMETHODS CONSULTANT Gender Identity Not on file Sexual Orientation Not on file documented as of this encounter Miscellaneous Notes * Telephone Encounter - Dianna Shin RN - 08/11/2018 4:01 PM WEBMETHODS CONSULTANT Called pt at work and relayed Dr Espinoza's information. Pt is nervous about having a sz due to the time change difference. Reiterated that there are no guarantees she won't have a sz but that the recommendation is what Dr Espinoza tells his pts that travel. She verbalized understanding. ETHODS CONSULTANT * Telephone Encounter - Dianna Shin RN - 08/11/2018 3:56 PM WEBMETHODS CONSULTANT Called pt and LVM asking for return call as Dr Espinoza's explanation is comprehensive. Attempted to call pt at work number but had to disconnect. ETHODS CONSULTANT * Telephone Encounter - Richard Espinoza MD - 08/11/2018 3:16 PM CST There is no right answer for this, but I usually tell people to keep the same time of the day for local time. For example, if she is on a 10A-10P schedule here, the she should switch to 10A-10P on her trip. It is better than getting up at 4 AM to take meds. There obviously will be some delay in dose when she makes the time change, but I think that is a better option that getting up in the middle of the night to take meds, which could also worsen seizures due to sleep deprivation. ETHODS CONSULTANT * Telephone Encounter - Dianna Shin RN - 08/10/2018 6:[address] Espinoza, Please see pt's message timestamped at 1241pm. She is asking about med administration times for international travel. What would you like me to tell her, as I have not received this question before? Thank you for clarifyingNaye ETHODS CONSULTANT * Telephone Encounter - Elly Garcia - 08/10/2018 12:41 PM WEBMETHODS CONSULTANT Patient will be going to [place] and there is about a 6 hour time difference she currently takes her medication 10AM-10PM she is wanting to know when she travels should she change it to 4AM-4PM ? Please advise Patient will be at work from [address] [facility] #[phone] ETHODS CONSULTANT documented in this encounter Plan of Treatment Not on file documented as of this encounter Visit Diagnoses Not on filedocumented in this encounter Care Teams Circle Saw Operator Relationship Specialty Start Date End Date Wil Downey MD PCP - General 12/12/16 04/17/21 documented as of this encounter
--- OUTSIDE RECORDS SUMMARY | 2024-06-04 06:24 | XMS_ITS | Encounter Summary ---
Author Organization [facility] Facility Care Team Providers Care Dolly Driver Name Role Phone Wil Downey MD Primary Care Provider Encounter Details Date Type Department Care Team (Latest Contact Info) Description 08/10/2019 Travel Social History Tobacco Use Types Packs/Day Years Used Date Smoking Tobacco: Never Smokeless Tobacco: Never Alcohol Use Standard Drinks/Week Comments Yes 0 (1 standard drink = 0.6 oz pur e alcohol) Comments No Sex and Gender Information Value Date Recorded Sex Assigned at Not on file Legal Sex Female 9:12 PM BUYER LIAISON Gender Identity Not on file Sexual Orientation Not on file documented as of this encounter Plan of Treatment Not on file documented as of this encounter Visit Diagnoses Not on filedocumented in this encounter Care Teams Dolly Driver Relationship Specialty Start Date End Date Wil Downey MD PCP - General 12/12/16 04/17/21 documented as of this encounter
--- OUTSIDE RECORDS SUMMARY | 2024-06-04 06:24 | XMS_ITS | Encounter Summary ---
Author Organization [facility] Address [address] [place] [address] Phone Care Team Providers Care Driver License Agent Name Role Phone Mary Perla MD Primary Care Provider Encounter Details Date Type Department Care Team (Late st Contact Info) Description 04/26/2021 3:00 PM METAPHYSICIST Telemedicine [facility]ilepsy [address] [facility] Advanced Medicine 6th [place] [address] [place] [address] Richard Espinoza III, MD [address] [place] [address] Partial epilepsy with impairment of consciousness, intractable (CMS/HCC) (HCC) Social History Tobacco Use Types Packs/Day Years Used Date Smoking Tobacco: Never Smokeless Tobacco: Never Alcohol Use Standard Drinks/Week Comments Yes 0 (1 standard drink = 0.6 oz pur e alcohol) Comments No Sex and Gender Information Value Date Recorded Sex Assigned at Not on file Legal Sex Female 9:12 PM METAPHYSICIST Gender Identity Not on file Sexual Orientation Not on file documented as of this encounter Ordered Prescriptions Prescription Sig Dispense Quantity Refills Last Filled Start Date End Date clonazePAM (KlonoPIN) 0.25 mg disintegrating tabletIndications:Pa rtial epilepsy with impairment of consciousness, intractable (HCC) Take 1 tablet (0.25 mg total) by mouth daily as needed for seizures 5 tablet 2 04/26/2021 2 OXcarbazepine (TRILEPTAL) 600 mg tabletIndications:Pa rtial epilepsy with impairment of consciousness, intractable (HCC) Take 1.5 tablets (900 mg total) by mouth 2 (two) times a day 270 tablet 3 04/26/2021 2 documented in this encounter Progress Notes * Richard Espinoza III, MD - 04/26/2021 3:00 PM CST Name: Quynh De Leon Date of : 1985 PCP: Mary Perla MD Date: 04/26/2021 Provider: Jasmeet Espinoza MD CHIEF COMPLAINT Quynh is a 35 y.o. year old female who was referred by Mary Perla MD for evaluation of seizures. HISTORY OF [...] and delivery with normal developmental milestones. She has been seizure free since 2013. She is taking OXC 900 mg BID. She denies any side effects. She reports good over all compliance with medication. She has been on OXC for many years. Before OXC, she was on PHT, CBZ, LEV. Overall, she reports doing well since her last visit. 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 She is also taking a graduate-level classes. Today, she reports of intermittent lightheadedness when she missed a dose of medication. Otherwise, she is doing well. We discussed issues related to COVID-19 and epileptic seizures. PAST MEDICAL HISTORY Quynh has a past medical history of Epilepsy without status epilepticus, not intractable (CMS/HCC) ([facility]) and Partial epilepsy with impairment of consciousness, intractable (CMS/HCC) ([facility]) (04/20/2019). PAST SURGICAL HISTORY She has a past surgical history that includes No past surgeries. REVIEW OF SYSTEMS Review of Systems see patient health questionnaire. MEDICATIONS She has a current medication list which includes the following prescription(s): cetirizine, clonazepam, dicyclomine, fluticasone propionate, levonorgestrel, oxcarbazepine, and [...] shehad been tolerating her medication well recently. Her complaint of lightheadedness today was associated with medication noncompliance, so we reviewed that side effects of medications can be more severe when there are fluctuations in baseline antiepileptic drug levels. We reviewed issues related to COVID-19 and epileptic seizures. PLAN The patient will continue her oxcarbazepine 900 mg twice daily. She was given a refill of her antiepileptic medication today. She was also given a renewal of her clonazepam 0.25 mg ODT taken as needed for seizures. She reports she has not taken this medication recently, but would like it on hand ifseizures recur. We reviewed the importance of regular antiepileptic medication compliance, as well as good general medical health, to optimize seizure control. By history, she likely has intermittent tension headaches in addition to her epileptic seizures. Intermittent treatment with ibuprofen for her headache is appropriate. Her complaint of headache, which was prominent on her last visit, has since resolved. She will follow-up in the epilepsy clinic in one year, sooner if clinically indicated. This was a telemedicine visit with Quynh aviles which took place via TelephoneInabilityor lack of knowledge to set up audio/visual visit. During the visit, I was located in the office and the patient was located at home in the [facility]. The patient visit started at 3:00 and ended at3:26. My total encounter time on 04/26/2021 was 33 minutes which was spent in the activities documented in the note. This includes time spent prior to the visit and after the visit in direct care of the patient. This time does not include time spent in any separately reportable services. The patient: has been informed that the [...] understand thatthis service replaces an office visit. PHYSICIST documented in this encounter Plan of Treatment [...] mouth 2 (two) times a day Reorder 04/19/2020 04/26/2021 clonazePAM (KlonoPIN) 0.25 mg disintegrating tabletIndications:Partial epilepsy with impairment of consciousness, intractable (HCC) Take 1 tablet (0.25 mg total) by mouth daily as needed for seizures Reorder 04/19/2020 04/26/2021 documented as of this encounter Care Teams Driver License Agent Relationship Specialty Start Date End Date Mary Perla MD [address] [facility] [address] [place] [address] PCP - General Internal Medicine 04/18/21 documented as of this encounter
--- OUTSIDE RECORDS SUMMARY | 2024-06-04 06:24 | XMS_ITS | Encounter Summary ---
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 Left a call back number in the message. TURNING MACHINE OPERATOR documented in this encounter Plan of Treatment Not on file documented as of this encounter Visit Diagnoses Not on filedocumented in this encounter Care Teams Automobile Technician Relationship Specialty Start Date End Date [facility] Per[facility] [address] [facility] [address] [place] [address] PCP - General Internal Medicine 04/18/21 documented as of this encounter
--- OUTSIDE RECORDS SUMMARY | 2024-06-04 06:24 | XMS_ITS | Encounter Summary ---
Author Organization [facility] Address [address] [place] [address] Phone Care Team Providers Care Bulk Sealer Name Role Phone Mary Perla MD Primary Care Provider [phone] Encounter Details Date Type Department Care Team (Late st Contact Info) Description 10/30/2021 Telephone [facility] Obstetrics and Gynecology [address] [facility] 7th Floor [address] [place] [address] Rose Urban Social History Tobacco Use Types Packs/Day Years Used Date Smoking Tobacco: Never Smokeless Tobacco: Never Alcohol Use Standard Drinks/Week Comments Yes 0 (1 standard drink = 0.6 oz pur e alcohol) Comments No Sex and Gender Information Value Date Recorded Sex Assigned at Not on file Legal Sex Female 9:12 PM NET DEVELOPER Gender Identity Not on file Sexual Orientation Not on file documented as of this encounter Miscellaneous Notes * Telephone Encounter - Rose Urban - 10/30/2021 11:53 AM CDT LM 11/06 appt bumped documented in this encounter Plan of Treatment Not on file documented as of this encounter Visit Diagnoses Not on filedocumented in this encounter Care Teams Bulk Sealer Relationship Specialty Start Date End Date [facility] Perla MD [address] [facility] [address] [place] [address] PCP - General Internal Medicine 04/18/21 documented as of this encounter
--- OUTSIDE RECORDS SUMMARY | 2024-06-04 06:24 | XMS_ITS | Encounter Summary ---
Author Organization [facility] Address [address] [place] [address] Phone Care Team Providers Care Painter Aircraft Name Role Phone Mary Perla MD Primary Care Provider [phone] Encounter Details Date Type Department Care Team (Late st Contact Info) Description 05/28/2023 2:30 PM RIG BUILDER Telemedicine [facility] Epilepsy [address] [facility] Advanced Medicine 6th [place] [address] [place] [address] Richard Espinoza III, MD [address] [place] [address] Partial epilepsy with impairment of consciousness, intractable (CMS/HCC) ([facility]) Social History Tobacco Use Types Packs/Day Years [...] on file Legal Sex Female 9:12 PM RIG BUILDER Gender Identity Not on file Sexual Orientation Not on file documented as of this encounter Ordered Prescriptions Prescription Sig Dispense Quantity Refills Last Filled Start Date End Date clonazePAM (KlonoPIN) 0.25 mg disintegrating tabletIndications:Pa rtial epilepsy with impairment of consciousness, intractable (HCC) Take 1 tablet (0.25 mg total) by mouth daily as needed for seizures 5 tablet 2 05/28/2023 OXcarbazepine (TRILEPTAL) 600 mg tabletIndications:Pa rtial epilepsy with impairment of consciousness, intractable (HCC) Take 1.5 tablets (900 mg total) by mouth 2 (two) times a day 270 tablet 3 05/28/2023 4 documented in this encounter Progress Notes * Richard Espinoza III, MD - 05/28/2023 2:30 PM CST Name: Quynh De Leon Date of : 1985 PCP: Mary Perla MD Date: 05/28/2023 Provider: Richard Espinoza III, MD CHIEF COMPLAINT Quynh is a 37 y.o. year old female who was referred [...] her last visit. She continues working at [employer] full-time. He reports traveling intermittently, and recently visited with her parents in [place]. She continues to have intermittent, mild tension headache, which is relieved with ibuprofen. PAST MEDICAL HISTORY Quynh has a past medical history of Epilepsy without status epilepticus, not intractable (CMS/HCC) ([facility]) and Partial epilepsy with impairment of consciousness, intractable (CMS/HCC) ([facility]) (04/20/2019). PAST SURGICAL HISTORY She has a past surgical history that includes No past surgeries. REVIEW OF SYSTEMS Review of Systems see patient health questionnaire. MEDICATIONS She has a current medication list which includes the following prescription(s): cetirizine, clonazepam, dicyclomine, fluticasone propionate, oxcarbazepine, and vitamin plus low iron. Requested Prescriptions Signed Prescriptions Disp Refills OXcarbazepine (TRILEPTAL) 600 mg tablet 270 tablet 3 Sig: Take 1.5 tablets (900 mg total) by mouth 2 (two) times a day clonazePAM (KlonoPIN) 0.25 mg disintegrating tablet 5 [...] for this visit. PAST TESTING PHYSICAL EXAM General: The patient [...] We also reviewed systems to insure she takes her medication regularly. She reports good compliance with her oxcarbazepine. We reviewed long-term risk and benefits for taking antiseizure medication. Given her past history of seizures, she should take antiseizure medication in the long-term. We also discussed use of clonazepam as needed for seizures. She has not used her clonazepam for several years, but would like to have this medication in case a seizure does occur. PLAN The patient will continue her oxcarbazepine 900 mg twice daily. She was given a refill of her antiepileptic medication today. She was also given a renewal of her clonazepam 0.25 mg ODT taken as needed for seizures. We reviewed the importance of regular antiseizure medication compliance, as well as good general medical health, to optimize seizure control. Over the last several years, her headaches have improved. She now uses ibuprofen intermittently with good headache control. She will follow-up in the epilepsy clinic in one year, sooner if clinically indicated. This was a telemedicine visit with Quynh aviles which took place via Real-time video connection (ServiceBench, Zoom or similar). During the visit, I was located in the office and the patient was located at home in the [facility]. The patient visit started at 2:42 and ended at 3:07. My totalencounter time on 05/28/2023 was 31 minutes which was spent in the activities [...] a telephone or video visit during the [facility] public health emergencywas explained to them. After being given an opportunity to ask questions about and discuss this type of visit, they verbally consented to proceeding with the telephone/video visit and understand thatthis service replaces an office visit. BUILDER documented in this encounter Plan of Treatment [...] epilepsy with impairment of consciousness, intractable (HCC) TAKE 1 & 1/2 (ONE & ONE-HALF) TABLETS BY MOUTH TWICE DAILY 05/26/2023 05/28/2023 OXcarbazepine (TRILEPTAL) 600 mg tablet Take 1.5 tablets (900 mg total) by mouth 2 (two) times a day Reorder 05/22/2022 05/28/2023 clonazePAM (KlonoPIN) 0.25 mg disintegrating tabletIndications:Partial epilepsy with impairment of consciousness, intractable (HCC) Take 1 tablet (0.25 mg total) by mouth daily as needed for seizures Reorder 05/02/2022 05/28/2023 documented as of this encounter Care Teams Painter Aircraft Relationship Specialty Start Date End Date Mary Perla MD [address] [place] [address] PCP - General Internal Medicine 04/18/21 documented as of this encounter
--- OUTSIDE RECORDS SUMMARY | 2024-06-04 06:24 | XMS_ITS | Encounter Summary ---
Author Organization [facility] Address [address] [place] [address] Care Team Providers Care Silver Brazer Name Role Phone Wil Downey MD Primary Care Provider [phone] Encounter Details Date Type Department Care Team (Latest Contact Info) Description 07/01/2017 1:29 PM HEAD REFRIGERATION ENGINEER - 07/01/2017 11:59 PM HEAD REFRIGERATION ENGINEER Hospital En[place] [facility] [phone] Marisela Hernandez MD [address] [facility] [phone] [place] [address] Discharge Disposition: Discharge to home or self care Social History Tobacco Use Types Packs/Day Years Used Date Smoking Tobacco: Never Comments Unknown Sex and Gender Information Value Date Recorded Sex Assigned at Not on file Legal Sex Female 9:12 PM HEAD REFRIGERATION ENGINEER Gender Identity Not on file Sexual Orientation [...] on filedocumented in this encounter Care Teams Silver Brazer Relationship Specialty Start Date End Date Wil Downey MD PCP - General 12/12/16 04/17/21 documented as of this encounter
--- OUTSIDE RECORDS SUMMARY | 2024-06-04 06:24 | XMS_ITS | Encounter Summary ---
Author Organization [facility] Facility Care Team Providers Care Top Inventory Control Executive Name Role Phone Unavailable Primary Care Provider Unavailabl e Encounter Details Date Type Department Care Team (Late st Contact Info) Description 08/13/2010 - 08/13/2010 11:59 PM CHANNEL CEMENTER Hospital Encounter 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) Social History Tobacco Use Types Packs/Day Years Used Date Smoking Tobacco: Never Assessed Comments Unknown Sex and Gender Information Value Date Recorded Sex Assigned at Not on file Legal Sex Female 9:12 PM CHANNEL CEMENTER Gender Identity Not on file Sexual Orientation Not on file documented as of this encounter Medications at Time of Discharge OXcarbazepine (TRILEPTAL) 600 mg tablet TAKE ONE & ONE-HALF TABLETS BY MOUTH TWICE DAILY 12/11/2009 04/01/2018 documented as of this encounter Plan of Treatment Not on file documented as of this encounter Visit Diagnoses Diagnosis 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
--- OUTSIDE RECORDS SUMMARY | 2024-06-04 06:24 | XMS_ITS | Encounter Summary ---
Author Organization [facility] Facility Care Team Providers Care Energy Management Specialist Name Role Phone Unavailable Primary Care Provider Unavailabl e Encounter Details Date Type Department Care Team (Late st Contact Info) Description 03/15/2015 12:03 PM CDT - 03/15/2015 11:59 PM CDT Hospital Encounter [facility] Marisela Hernandez MD [phone] [place] [address] Hypertrichosis Social History Tobacco Use Types Packs/Day Years Used Date Smoking Tobacco: Never Comments Unknown Sex and Gender Information Value Date Recorded Sex Assigned at Not on file Legal Sex Female 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 Gender Identity Not on file Sexual Orientation Not on file documented as of this encounter Medications at Time of Discharge OXcarbazepine (TRILEPTAL) 600 mg tablet TAKE ONE & ONE-HALF TABLETS BY MOUTH TWICE DAILY 12/11/2009 04/01/2018 documented as of this encounter Plan of Treatment Not on file documented as of this encounter Procedures Procedure Name Priority Date/Time Associated Diagnosis Comments PLASMA THYROID-STIMULATING HORMONE (TSH) Routine 03/15/2015 12:21 PM CDT SERUM TESTOSTERONE FRACTION Routine 02/16 7:21 AM CDT SERUM DEHYDROEPIANDROSTERONE SULFATE (DHEA-S) Routine 03/15/2015 7:21 AM CDT DISCHARGE LABORATORY CUMULATIVE REPORT 03/15/2015 documented in this encounter Results * Plasma thyroid-stimulating hormone (TSH) (03/15/2015 12:21 PM CDT) TSH 1.50 0.34 - 5.60 mcIUnits/m l HISTORICAL RESULTS Comment: TSH Interpretive Guide: [place]: ??TSH surges within the first 15 to 60 minutes of life reaching peak levels at about 30 minutes. ??Values then decline rapidly and after 1 week are within the Adult Normal Range . Adult: Hyperthyroid ?< ?? 0.1 ?mcIUnits/mL Euthyroid ?0.34 ??- ??5.60 ? mcIUnits/mL Hypothyroid ? > 12.0 ? mcIUnits/mL Plasma 03/15/2015 12:2 1 PM CDT us Marisela Hernandez MD LAB BLOOD ORDERABLES Final R esult HISTORICAL RESULTS * (ABNORMAL) Serum testosterone fraction (03/15/2015 7:21 AM CDT) Testosterone 62(H) 8 - 60 ng/dl HISTORICAL RESULTS Comment: ADDITIONAL INFORMATION Testing performed by Liquid Chromatography-Tandem Mass Spectrometry (LC-MS/MS). Testosterone, free 0.6 0.3 - 1.9 ng/dl HISTORICAL RESULTS Comment: ADDITIONAL INFORMATION Testing performed by Equilibrium Dialysis. Serum 03/15/2015 7:21 AM CDT Narrative HISTORICAL RESULTS - 03/17/2015 7:30 AM CDT Test performed at [facility] Dept of Lab Medicine and Pathology, [address] [place] [address], [id number]. Marisela Hernandez MD LAB BLOOD ORDERABLES Final [facility] Performing Organization Address [facility]/ZIP Co de Phone Number HISTORICAL RESULTS * Serum dehydroepiandrosterone sulfate (DHEA-S) (03/15/2015 7:21 AM CDT) DHEA-S 179 44 - 332 mcg/dl HISTORICAL RESULTS Serum 03/15/2015 7:21 AM CDT Narrative HISTORICAL RESULTS - 03/16/2015 6:34 AM CDT Test performed at [facility] Dept of Lab Medicine and Pathology, [address] [place] [address], [id number]. Marisela Hernandez MD LAB BLOOD ORDERABLES Final R esult HISTORICAL RESULTS * DISCHARGE LABORATORY CUMULATIVE REPORT (03/15/2015) Narrative 03/15/2015 Ordered by an unspecified provider. Historical Provider LAB BLOOD ORDERABLES Yanira l Result documented in this encounter Visit Diagnoses Diagnosis Hypertrichosis Hirsutism documented in this encounter
--- OUTSIDE RECORDS SUMMARY | 2024-06-04 06:24 | XMS_ITS | Encounter Summary ---
Author Organization [facility] Address [address] [place] [address] Phone Care Team Providers Care Clinical Nurse Occupational Medicine Name Role Phone Mary Perla MD Primary Care Provider [phone] Encounter Details Date Type Department Care Team (Late st Contact Info) Description 05/02/2022 3:30 PM PIT RECORDER Telemedicine [facility] Epilepsy [address] [facility] Advanced [facility] 6th [place] [address] [place] [address] Richard Espinoza III, MD [address] [place] [address] Partial epilepsy with impairment of consciousness, intractable (CMS/HCC) (HCC) (Primary Dx) Social History Tobacco Use Types Packs/Day Years Used Date Smoking Tobacco: Never Smokeless Tobacco: Never Alcohol Use Standard Drinks/Week Comments Yes 0 (1 standard drink = 0.6 oz pur e alcohol) Comments No Sex and Gender Information Value Date Recorded Sex Assigned at Not on file Legal Sex Female 9:12 PM PIT RECORDER Gender Identity Not on file Sexual Orientation Not on file documented as of this encounter Ordered Prescriptions Prescription Sig Dispense Quantity Refills Last Filled Start Date End Date clonazePAM (KlonoPIN) 0.25 mg disintegrating tabletIndications:Pa rtial epilepsy with impairment of consciousness, intractable (HCC) Take 1 tablet (0.25 mg total) by mouth daily as needed for seizures 5 tablet 2 05/02/2022 3 OXcarbazepine (TRILEPTAL) 600 mg tabletIndications:Pa rtial epilepsy with impairment of consciousness, intractable (HCC) Take 1.5 tablets (900 mg total) by mouth 2 (two) times a day 270 tablet 3 05/02/2022 3 documented in this encounter Progress Notes * Richard Espinoza III, MD - 05/02/2022 3:30 PM CST Name: Quynh De Leon Date of : 1985 PCP: Mary Perla MD Date: 05/02/2022 Provider: Richard Espinoza III, MD CHIEF COMPLAINT Quynh is a 36 y.o. year old female who was referred [...] last visit. 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 She continues to report she has been seizure freesince her last visit one year ago. PAST MEDICAL HISTORY Quynh has a past medical history of Epilepsy without status epilepticus, not intractable (CMS/HCC) ([facility]) and Partial epilepsy with impairment of consciousness, intractable (CMS/HCC) ([facility]) (04/20/2019). PAST SURGICAL HISTORY She has a [...] dosages. We also reviewed systems to insure she takes her medication regularly. We reviewed long-term risk and benefits for taking antiseizure medication. Given her past history of seizures, she should take antiseizure medication in the long-term. We also discussed use of clonazepam as needed for seizures. She has not used her clonazepam recently, but would like to have this medication in case a seizure does occur. PLAN The patient will continue her oxcarbazepine 900 mg twice daily. She was given a refill of her antiepileptic medication today. She was also given a renewal of her clonazepam 0.25 mg ODT taken as needed for seizures. We reviewed the importance of regular antiepileptic medication compliance, as well as good general medical health, to optimize seizure control. By history, she likely has intermittent tension headaches in addition to her epileptic seizures. Intermittent treatment with ibuprofen for her headache is appropriate. Her complaint of headache, which was prominent previously, has improved. She will follow-up in the epilepsy clinic in one year, sooner if clinically indicated. This was a telemedicine visit with Quynh De Leon alone which took place via Real-time video connection (Deem, GoPlanitom or similar). During the visit, I was located in the office and the patient was located at home in the state [facility]. The patient visit started at 3:31 and ended at 3:58. My totalencounter time on 05/02/2022 was 33 minutes which was spent in [...] a telephone or video visit during the [address] explained to them. After being given an opportunity to ask questions about and discuss this type of visit, they verbally consented to proceeding with the telephone/video visit and understand thatthis service replaces an office visit. RECORDER documented in this encounter Plan of Treatment Not on file documented as of this encounter Visit Diagnoses Diagnosis Partial epilepsy with impairment of consciousness, intractable (HCC)- Primary Localization-related (focal) (partial) epilepsy and epileptic syndromes with complex partial seizures, with intractable epilepsy documented in this encounter Discontinued Medications Medication Sig Discontinue Reason Start Date End Da te clonazePAM (KlonoPIN) 0.25 mg disintegrating tabletIndications:Partial epilepsy with impairment of consciousness, intractable (HCC) Take 1 tablet (0.25 mg total) by mouth daily as needed for seizures Reorder 04/26/2021 05/02/2022 OXcarbazepine (TRILEPTAL) 600 mg tabletIndications:Partial epilepsy with impairment of consciousness, intractable (HCC) Take 1.5 tablets (900 mg total) by mouth 2 (two) times a day Reorder 02/26/2022 05/02/2022 documented as of this encounter Care Teams Clinical Nurse Occupational Medicine Relationship Specialty Start Date End Date Mary Perla MD [address] [facility] [address] [place] [address] PCP - General Internal Medicine 04/18/21 documented as of this encounter
--- OUTSIDE RECORDS SUMMARY | 2024-06-04 06:24 | XMS_ITS | Encounter Summary ---
Author Organization [facility] Address [address] [place] [address] Care Team Providers Care Life Consultant Name Role Phone Wil Downey MD Primary Care Provider [phone] Reason for Visit * Diagnostic Imaging (Routine) - Closed Specialty Diagnoses / Procedures Referred By Contdewayne t Referred To Contact Diagnoses Mass of right breast Procedures US Breast Right Limited Diagnostic Mammogram Bilateral [place] Diagnostic Mammogram Right [place] Devika Hogan NP [address] [facility] [id number] [place] [address] Phone: tel: fax: [facility] Referral ID Status Reason Start Date Expiration Date Visits Re quested Visits Authorized [id number] Closed 07/27/2019 02/04/2021 1 1 Encounter Details Date Type Department Care Team (Latest Contact Info) Description 08/13/2019 7:55 AM SEAT COVERER - 08/13/2019 11:59 PM SEAT COVERER Hospital Encounter [facility] [place] [address] Mariah Luu MD [address] [facility] [address] [place] [address] Devika Hogan NP [address] [facility] [id number] [place] [address] Mass of right breast Discharge Disposition: Discharge to home or self care Social History Tobacco Use Types Packs/Day Years Used Date Smoking Tobacco: Never Smokeless Tobacco: Never Alcohol Use Standard Drinks/Week Comments Yes 0 (1 standard drink = 0.6 oz pur e alcohol) Comments No Sex and Gender Information Value Date Recorded Sex Assigned at Not on file Legal Sex Female 9:12 PM SEAT COVERER Gender Identity Not on file Sexual Orientation Not on file documented as of this encounter Medications at Time of Discharge fluticasone propionate (FLONASE) 50 mcg/actuation nasal spray 04/21/2019 dicyclomine (BENTYL) 10 mg capsule 08/04/2019 12/11/2023 levonorgestrel (MIRENA) IUD Mirena 11/15/2021 OXcarbazepine (TRILEPTAL) 600 mg tabletIndications :Partial epilepsy with impairment of consciousness, intractable (HCC) Take 1.5 tablets (900 mg total) by mouth 2 (two) times a day 270 tablet 3 04/19/2019 04/19/2020 tiZANidine (ZANAFLEX) 4 mg tablet daily 06/22/2021 documented as of this encounter Discharge Disposition Disposition Code Departure Means Destination Discharge to home or self care documented in this encounter Miscellaneous Notes * Result Encounter Note - Devika Hogan NP - 08/13/2019 11:39 AM SEAT COVERER Right breast us is normal and no worry within the area of pt concern. Please ensure she is aware. Devika Hogan NP COVERER documented in this encounter Plan of Treatment Not on file documented as of this encounter Procedures Procedure Name Priority Date/Time Associated Diagnosis Comments US BREAST RIGHT LIMITED Schedule Routine, Read Routine (OP Routine) 08/13/2019 8:40 AM SEAT COVERER Mass of right breast documented in this encounter Results * US Breast Right Limited (08/13/2019 8:40 AM SEAT COVERER) Anatomical Region Laterality Modality Breast Right Ultrasound 08/13/2019 8:52 AM SEAT COVERER Impressions 08/13/2019 11:31 AM SEAT COVERER 1. ??Normal breast tissue identified in the area of palpable concern. Clinical follow-up is recommended. OVERALL FINAL ASSESSMENT: BI-RADS Category 1: Negative. Continued clinical follow-up is recommended. ??Unless earlier screening is clinically indicated, recommend annual screening mammography beginning at 40 years of age. Dictated by: Mounika Matamoros M.D. The radiology attending physician has personally reviewed this study, and had reviewed and/or edited this written report and agrees with it. Electronically signed by: Elly Morrissey M.D. Narrative 08/13/2019 11:31 AM SEAT COVERER EXAMINATION: RIGHT BREAST ULTRASOUND HISTORY: 34-year-old woman with history of breast reduction at age 24 who presents with a palpable abnormality in the right breast at the 9:30 position 7 cm from the nipple. COMPARISON: Mammogram dated 01/21/2012 and mammogram and ultrasound dated 07/16/2011 TECHNIQUE: Directed ultrasound evaluation of the RIGHT breast was performed by a trained varnish melter helper and Dr. Matamoros. ULTRASOUND FINDINGS: A targeted ultrasound was performed in the area of palpable concern in the right breast the 9:30 o'clock position 7 cm from the nipple which demonstrated normal breast tissue. ??No suspicious mass is identified. Procedure Note Elly Morrissey MD - 08/13/2019 EXAMINATION: RIGHT BREAST ULTRASOUND HISTORY: 34-year-old woman with history of breast reduction at age 24 who presents with a palpable abnormality in the right breast at the 9:30 position 7 cm from the nipple. COMPARISON: Mammogram dated 01/21/2012 and mammogram and ultrasound dated 07/16/2011 TECHNIQUE: Directed ultrasound evaluation of the RIGHT breast was performed by a trained varnish melter helper and Dr. Matamoros. ULTRASOUND FINDINGS: A targeted ultrasound was performed in the area of palpable concern in the right breast the 9:30 o'clock position 7 cm from the nipple which demonstrated normal breast tissue. No suspicious mass is identified. IMPRESSION: 1. Normal breast tissue identified in the area of palpable concern. Clinical follow-up is recommended. OVERALL FINAL ASSESSMENT: BI-RADS Category 1: Negative. Continued clinical follow-up is recommended. Unless earlier screening is clinically indicated, recommend annual screening mammography beginning at 40 years of age. Dictated by: Mounika Matamoros M.D. The radiology attending physician has personally reviewed this study, and had reviewed and/or edited this written report and agrees with it. Electronically signed by: Elly Morrissey M.D. Devika Hogan ALLERGY NURSE IMG MAMMO PROCEDURES Final Result documented in this encounter Visit Diagnoses Diagnosis Mass of right breast Lump or mass in breast documented in this encounter Care Teams Life Consultant Relationship Specialty Start Date End Date Wil Downey MD PCP - General 12/12/16 04/17/21 documented as of this encounter
--- OUTSIDE RECORDS SUMMARY | 2024-06-04 06:24 | XMS_ITS | Encounter Summary ---
Author Organization [facility] Address [address] [place] [address] Phone Care Team Providers Care Mold Sander Name Role Phone Mary Perla MD Primary Care Provider [phone] Encounter Details Date Type Department Care Team (Late st Contact Info) Description 07/11/2022 Telephone [facility] Movement Disorders [address] [facility] 6th [place] [address] [place] [address] Eli Redman CMA Social History Tobacco Use Types Packs/Day Years Used Date Smoking Tobacco: Never Smokeless Tobacco: Never Alcohol Use Standard Drinks/Week Comments Yes 0 (1 standard drink = 0.6 oz pur e alcohol) Comments No Sex and Gender Information Value Date Recorded Sex Assigned at Not on file Legal Sex Female 9:12 PM PHYSICIAN OPHTHALMOLOGIST Gender Identity Not on file Sexual Orientation Not on file documented as of this encounter Miscellaneous Notes * Telephone Encounter - Eli Tobias - 12/16/2022 1:29 PM CDT Completed. documented in this encounter Plan of Treatment Not on file documented as of this encounter Visit Diagnoses Not on filedocumented in this encounter Care Teams Mold Sander Relationship Specialty Start Date End Date Mary Perla MD [address] [facility] [address] [place] [address] PCP - General Internal Medicine 04/18/21 documented as of this encounter
--- OUTSIDE RECORDS SUMMARY | 2024-06-04 06:24 | XMS_ITS | Encounter Summary ---
Author Organization [facility] Address [address] [place] [address] Phone Care Team Providers Care Educational Therapy Teacher Name Role Phone Wil Downey MD Primary Care Provider [phone] Encounter Details Date Type Department Care Team (Late st Contact Info) Description 09/14/2019 Telephone [facility] Epilepsy [address] [facility] 6th [place] [address] [place] [address] Dianna Shin, ENOCH Social History Tobacco Use Types Packs/Day Years Used Date Smoking Tobacco: Never Smokeless Tobacco: Never Alcohol Use Standard Drinks/Week Comments Yes 0 (1 standard drink = 0.6 oz pur e alcohol) Comments No Sex and Gender Information Value Date Recorded Sex Assigned at Not on file Legal Sex Female 9:12 PM HEARING THERAPY TEACHER Gender Identity Not on file Sexual Orientation Not on file documented as of this encounter Miscellaneous Notes * Telephone Encounter - Dianna Shin RN - 09/15/2019 8:56 AM CDT Called pt and relayed Dr Espinoza's information. She verbalized understanding and clarified preferred pharmacy. Clonazepam order entered and pended for Dr Espinoza's approval. Encouraged pt to work on managing stress and anxiety and she agreed to call with further events. * Telephone Encounter - Richard Espinoza III, MD - 09/14/2019 5:00 PM CDT This doesn't seemto be typical of her past seizures, so I would not encourage further treatment. Wecan give her an order of clonazepam 0.25 mg dispersible tablets daily as needed for seizures, #5 with no refills. Given the overall nature of her complaints, however, I'm concerned many of her symptoms may be related to anxiety. We should encourage her to get out to do as many of her normal routines as possible, but with observation of COVID restrictions. * Telephone Encounter - Dianna Shin RN - 09/14/2019 9:[address] Espinoza, Pt called chemist water purification last night and stated she had an event (no sure if it was a sz) where she felt lightheaded followed by a headache at the base of her skull. She shared that over the last couple of weeks, she has had transient areas of pain/discomfort on multiple areas of her head. She stated she wondered if she was hitting her head during the night, but had no signs of overt injury. She also expressed being paranoid about having an aneurysm. 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 AED: OXC 900mg BID. Would you like her to continue to monitor since she is unsure if it was a sz? She also used to have a clonazepam 0.25mg daily PRN order that has since . Would it be appropriate to reinstate that order? Thank you~Dianna documented in this encounter Plan of Treatment Not on file documented as of this encounter Visit Diagnoses Not on filedocumented in this encounter Care Teams Educational Therapy Teacher Relationship Specialty Start Date End Date Wil Downey MD PCP - General 12/12/16 04/17/21 documented as of this encounter
--- OUTSIDE RECORDS SUMMARY | 2024-06-04 06:24 | XMS_ITS | Encounter Summary ---
Author Organization [facility] Address [address] [place] [address] Phone Care Team Providers Care Nursing Professor Name Role Phone Wil Downey MD Primary Care Provider [phone] Reason for Visit * Reason Comments Gynecologic Exam Encounter Details Date Type Department Care Team (Latest Contact Info) Description 09/27/2020 10:30 AM CDT Office Visit [facility] Obstetrics and Gynecology [address] 1st [address] [place] [address] Corin Fraser, MIKAEL [address] [id number] Encounter for gynecological examination without abnormal finding (Primary Dx); PCOS (polycystic ovarian syndrome); IUD check up Social History Tobacco Use Types Packs/Day Years Used Date Smoking Tobacco: Never Smokeless Tobacco: Never Alcohol Use Standard Drinks/Week Comments Yes 0 (1 standard drink = 0.6 oz pur e alcohol) Comments No Sex and Gender Information Value Date Recorded Sex Assigned at Not on file 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 Gender Identity Not on file Sexual Orientation Not on file documented as of this encounter Last Filed Vital Signs Vital Sign Reading Time Taken Comments Blood Pressure 137/90 09/27/2020 10:39 AM CDT au tomatic Pulse 71 09/27/2020 10:39 AM CDT Temperature - - Respiratory Rate - - Oxygen Saturation - - Inhaled Oxygen Concentration - - Weight 90.7 kg (200 lb) 09/27/2020 10:39 AM CDT Height 154.9 cm (5' 1 ) 09/27/2020 10:39 AM CDT Body Mass Index 37.79 09/27/2020 10:39 AM CDT documented in this encounter Patient Instructions * Patient Instructions* Corin Fraser, MIKAEL - 09/27/2020 10:30 AM CDT Hormonal Intrauterine Device (IUD) FACT SHEET The hormonal IUD is a small, T-shaped device made of soft plastic which is placed in the uterus by your health care provider. The hormonal IUD, also known as the Mirena??, Liletta??, or Janay??, contains a small amount of progesterone, a hormone that all women make naturally. The hormonal IUD worksby preventing sperm from joining with an egg. It does this by thickening the cervical mucus and making the linking of the uterus (called the endometrium) very thin. The hormonal IUD is one of the most effective methods at preventing , more than 99% effective. IUD???s are inserted after a pelvic exam. Your clinician will place a speculum and steady your cervix with an instrument. The IUD will be placed through the opening in your cervix into the uterus. You may feel cramping during the procedure. A short length of plastic ???string?? will hang down inside your vagina. You can check the string to make sure the IUD is still in place. The IUD does not protect against sexually transmitted infections (STIs). Condoms are the best way for sexually active people to reduce the risk of infection. Always use a condom to prevent STIs. Advantages of IUDs: o Highly effective reversible control o Can be used while o Nothing to do right before sex to make it work o Ability to become returns quickly when removed Advantages of the hormonal IUD: o Meat Hostess or less frequent periods, some women stop having periods completely o Decreased menstrual cramps o Approved for three to five years and may be effective for longer Disadvantages of the IUD: Possible side effects that may improve for the first 3 to 6 months: o Irregular periods or spotting between periods o Cramping or backache Other possible disadvantages of the IUD: o Mild to moderate discomfort with placement o Needs to be placed and removed by a health care provider Risks of using the IUD: o Perforation - Very rarely, the IUD is pushed into and through the wall of the uterus during insertion. This is called perforation. It could damage your internal organs. Sometimes surgery is needed to remove the IUD. o Expulsion - Sometimes the IUD can partly or completely slip out of the uterus, which is called expulsion. This happens to about 5% of women who have an IUD. You can become if it happens o - The chance that a will happen is very small. If it does, there is an increased risk of serious, problems including ectopic (tubal) , infection, miscarriage, and earlylabor and delivery. We recommend immediate evaluation and removal of the IUD if this happens. Infection - PID (pelvic inflammatory disease) associated with using an IUD is rare. PID may lead tosterility. Most PID related to IUD use occurs within three weeks of insertion.The hormonal IUD cannot be used by women who: o Are, or think they are o Currently have or have had any pelvic infection within the past three months o Currently have signs of a cervical infection or have a known infection such as gonorrhea or chlamydia o Have cervical or uterine cancer that hasn???t been treated o Have certain abnormalities of the uterus o Have abnormal vaginal bleeding that has not been evaluated o Have liver disease o Currently have, or have a history of breast cancer Tell your clinician if you have any of these risk factors or conditions or any other past or current medical problems or concerns. Your clinician will examine you and evaluate your risks - including your risk for STIs - and will help you decide if the IUD is right for you. Sometimes special tests or follow up may be needed. Warning signs - Call your health care provider right away if you: o Notice any change in the length of the string or can feel part of the IUD or think your IUD mighthave fallen out o Think you are o Have unusual pelvic pain in your abdomen o Have been, or might have been, exposed to an STI o Have unusual vaginal discharge o Have unexplained fever or chills o Have unusually heavy bleeding from the vagina. Regular physical examinations for routine health care and for STIs and cancer screening are strongly recommended. Calcium and Vitamin D Calcium and vitamin D are essential to building strong, dense bones when you???re young and to keeping them strong and healthy as you age. The information included here will help you learn all about calcium and vitamin D - the two most important nutrients for bone health. What is Calcium and What Does it Do? Calcium is a mineral that is necessary for life. In addition to building bones and keeping them healthy, calcium enables our blood to clot, our muscles to contract, and our heart to beat. About 99% of the calcium in our bodies is in our bones and teeth. Every day, we lose calcium through our skin, nails, hair, sweat, urine and feces. Our bodies cannotproduce its own calcium. That???s why it???s important to get enough calcium from the food we eat. When we don???t get the calcium our body needs, it is taken from our bones. This is fine once in a while, but if it happens too often, bones get weak and easier to break. Too many Americans fall short of getting the amount of calcium they need every day and that can lead to bone loss, low bone density and even broken bones. How Much Calcium Do You Need? The amount of calcium you need every day depends on your age and sex. WOMEN Age 50 & younger 1,000 mg* daily Age 51 & older 1,200 mg* daily MEN Age 70 & younger 1,000 mg* daily Age 71 & older 1,200 mg* daily *This includes the total amount of calcium you get from food and supplements. Sources of Calcium Calcium-Rich Food Sources Food is the best source of calcium. Dairy products, such as milk, yogurt, and cheese are high in calcium. Certain green vegetables and other foods contain calcium in smaller amounts. Some juices, breakfast foods, soymilk, cereals, snacks, breads and bottled water have added calcium. If you drink soymilk or another liquid that is fortified with calcium, be sure to shake the container well as calcium can settle to the bottom. A simple way to add calcium to many foods is to add a single tablespoon of nonfat powdered milk, which contains about 50 mg of calcium. It is easy to add a few tablespoons to almost any recipe. Reading Food Labels - How Much Calcium Am I Getting? To determine how much calcium is in a particular food, check the nutrition facts panel for the daily value (DV). Food labels list calcium as a percentage of the DV. This amount is based on 1,000 mg of calcium per day. For example: 30% DV of calcium equals 300 mg of calcicm. 20% DV of calcium equals 200 mg of calcium. 15% DV of calcium equals 150 mg of calcium. Calcium Supplements The amount of calcium you need from a supplement depends on how much you get from food. Try to get the daily amount recommended from food and only supplement as needed to make up any shortfall. In general, you shouldn???t take supplements that you don???t need. If you get enough calcium from foods,don???t take a supplement. There is no added benefit to taking more calcium than you need. Doing somay even carry some risks. Calcium supplements are available without a prescription in a wide range of preparations (includingchewable and liquid) and in different amounts. The best supplement is the one that meets your needsfor convenience, cost, and availability. When choosing a supplement, keep the following in mind: Choose brand-name supplements with proven reliability. Look for labels that state ???purified?? orhave the FCI ([place] Pharmacopeia) symbol. The ???FCI Verified Virgilio?? on the supplement label means that the FCI has tested and found the calcium supplement to meet its standards for purity and quality. Read the product label carefully to determine the amount of elemental calcium, which is the actual amount of calcium in the supplement, as well as how many doses or pills you have to take. When reading the label, pay close attention to the ???amount per serving?? and ???serving size.?? Calcium is absorbed best when taken in amounts of 500 - 600 mg or less. This is the case for both foods and supplements. Try to get your calcium-rich foods and/or supplements in small amounts throughout the day, preferably with a meal. While it???s not recommended, taking your calcium all at once is better than not taking it at all. Take (most) calcium supplements with food. Eating food produces stomach acid that helps your body absorb most calcium supplements. The one exception to the rule is calcium citrate, which can absorb well when taken with or without food. When starting a new calcium supplement, start with a smaller amount to better tolerate it. When switching supplements, try starting with 200-300 mg every day for a week, and drink an extra 6-8 ouncesof water with it. Then gradually add more calcium each week. Side effects from calcium supplements, such as gas or constipation may occur. If increasing fluids in your diet does not solve the problem, try another type or brand of calcium. It may require trial and error to find the right supplement for you, but fortunately there are many choices. Talk with your healthcare provider or pharmacist about possible interactions between prescription or midb-oks-gbsimzy medications and calcium supplements. What is Vitamin D and What Does it Do? Vitamin D plays an important role in protecting your bones, both by helping your body absorb calcium and by supporting muscles needed to avoid falls. Children need vitamin D to build strong bones, and adults need it to keep their bones strong and healthy. If you don???t get enough vitamin D, and you???re more likely to break bones as you age. How Much Vitamin D Do You Need? WOMEN AND MEN Under age 50 400-800 international units (IU) daily Age 50 and older 800-1,000 IU daily Some people need more vitamin D. According to the [employer] (IOM), the safe upper limit of vitamin D is 4,000 IU per day for most adults. Sources of Vitamin D There are three ways to get vitamin D: Sunlight Food Supplements Sunlight Your skin makes vitamin D in reaction to sunlight and stores it in fat for later use. How much vitamin D your skin can produce depends on time of day, season, latitude, skin pigmentation, age, and other factors. There are many reasons people do not have enough vitamin D. As we age, our skin loses its ability to generate vitamin D. People who live in cities or in institutional settings like nursing homes spend too little time outdoors. Even people who spend time outdoors often use sunscreen to prevent skin cancer. Sunscreen with an SPF as low as 8 reduces vitamin D production by 95 percent. Vitamin D in Food Vitamin D is found in very few foods. Sources include fatty fish like wild- caught mackerel, salmon,and tuna. Vitamin D is added to milk and other dairy products, orange juice, soymilk, and fortifiedcereals. Check the food label to see if vitamin D has been added to a particular product. One eight-ounce serving of milk usually has 25% of the daily value (DV) of vitamin D. The DV is based on a total dailyintake of 400 IU of vitamin D. So, a serving of milk with 25% of the DV of vitamin D contains 100 IU. It is very difficult to get all the vitamin D you need from food alone. Most people must take vitamin D supplements to get enough to support bone health. Vitamin D Supplements If you aren???t getting enough vitamin D from sunlight and food, consider taking a supplement. Before adding a vitamin D supplement, check to see if any of the other supplements, multivitamins, or medications you take contain vitamin D. Many calcium supplements also contain vitamin D. There are two types of vitamin D supplements. They are vitamin D2 (ergocalciferol) and vitamin D3 (cholecalciferol). Both types are good for bone health. Vitamin D supplements can be taken with or without food and the full amount can be taken at one time. While your body needs vitamin D to absorb calcium, you do not need to take vitamin D at the same time as a calcium supplement. If you need help choosing a vitamin D supplement, ask your healthcare provider or pharmacist to recommend one. How Much Vitamin D Should You Supplement? To figure out how much vitamin D you need from a supplement, subtract the total amount of vitamin Dyou get each day from the recommended total daily amount for your age. For example, a 55-year-old woman who gets 400 IU of vitamin D from her calcium supplement should take between 400 and 600 additional IU of vitamin D to meet the 800 - 1,000 IU recommended for her age. Vitamin D Deficiency: Are You at Risk? Vitamin D deficiency occurs when you are not getting the recommended level of vitamin D over time. Certain people are at higher risk for vitamin D deficiency, including: People who spend little time in the sun or those who regularly cover up when outdoors; People living in nursing homes or other institutions or who are homebound; People with certain medical conditions such as Celiac disease and inflammatory bowel disease; People taking medicines that affect vitamin D levels such as certain anti- seizure medicines; People with very dark skin; Obese or very overweight people; and Older adults with certain risk factors. Talk to your healthcare provider if you have any of these risk factors. If you have osteoporosis and also have a vitamin D deficiency, your healthcare provider may temporarily prescribe a high dose of vitamin D to bring you up to a healthy level. A Guide to Calcium-Rich Foods We all know that milk is a great source of calcium, but you may be surprised by all the different foods you can work into your diet to reach your daily recommended amount of calcium. Use the guide below to get ideas of additional calcium-rich foods to add to your weekly shopping list. Produce Serving Size Estimated Calcium* Tracy greens, frozen 8 oz 360 mg Broccoli gray 8 oz 200 mg Kale, frozen 8 oz 180 mg Soy Beans, green, boiled 8 oz 175 mg Bok Emma, cooked, boiled 8 oz 160 mg Figs, dried 2 figs 65 mg Broccoli, fresh, cooked 8 oz 60 mg Oranges 1 whole 55 mg Seafood Serving Size Estimated Calcium* Sardines, canned with bones 3 oz 325 mg Selmer, canned with bones 3 oz 180 mg Shrimp, canned 3 oz 125 mg Dairy Serving Size Estimated Calcium* Ricotta, part-skim 4 oz 335 mg Yogurt, plain, low-fat 6 oz 310 mg Milk, skim, low-fat, whole 8 oz 300 mg Yogurt with fruit, low-fat 6 oz 260 mg Mozzarella, part-skim 1 oz 210 mg Cheddar 1 oz 205 mg Yogurt, Guamanian 6 oz 200 mg French Cheese 1 oz 195 mg Feta Cheese 4 oz 140 mg Cottage Cheese, 2% 4 oz 105 mg Frozen yogurt, vanilla 8 oz 105 mg Ice Cream, vanilla 8 oz 85 mg Parmesan 1 tbsp 55 mg Fortified Food Serving Size Estimated Calcium* Tie Siding milk, rice milk or soy milk, fortified 8 oz 300 mg [place] juice and other fruit juices, fortified 8 oz 300 mg Tofu, prepared with calcium 4 oz 205 mg Waffle, frozen, fortified 2 pieces 200 mg Oatmeal, fortified 1 packet 140 mg Bruneian muffin, fortified 1 muffin 100 mg Cereal, fortified 35 8 oz 100-1,000 mg Other Serving Size Estimated Calcium* Mac & cheese, frozen 1 package 325 mg Pizza, cheese, frozen 1 serving 115 mg Pudding, chocolate, prepared with 2% milk 4 oz 160 mg Beans, baked, canned 4 oz 160 mg *The calcium content listed for most foods is estimated and can vary due to multiple factors. Checkthe food label to determine how much calcium is in a particular product. The National Osteoporosis Foundation, Copyright [address] [place] [address] [address] [place] [address] documented in this encounter Progress Notes * Corin Fraser NP - 09/27/2020 10:30 AM CDT Well Woman Exam Patient ID: Quynh De Leon is a 35 y.o. female Subjective: Chief Complaint: Gynecologic Exam HPI: Quynh De Leon is a 35 y.o. female who presents for a well woman exam. 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 Past medical, surgical, social and family history plus review of systems as documented: Histories: Past Medical History: Diagnosis Date ??? Epilepsy without status epilepticus, not intractable (CMS/HCC) Epilepsy - (Added by TW Conv) Past Surgical History: Procedure Laterality Date ??? NO PAST SURGERIES OB History Para Term AB Living 0 0 0 0 0 0 SAB TAB Ectopic Multiple Live Births 0 0 0 0 0 No LMP recorded. (Menstrual status: IUD). Social History Substance and Sexual Activity Sexual Activity Yes ??? Partners: Male ??? control/protection: I.U.D. Menstrual History Menarche Age: 13 years Period Pattern: None Reason: Contraception Types: IUD Screening History Date of Last Pap if Known: 12/18/2016 Negative HPV- History of Abnormal Paps: No Ever had an HPV vaccine?: No Ever used Hormone Replacement Therapy?: No Ever had a mammogram?: Yes Date of Mammogram: 2011 Mammogram result: Abnormal Ever had a colonoscopy?: No Ever had a bone-density test?: No Family History Problem Relation Age of Onset ??? No Known Problems Father ??? No Known Problems Mother Review of Systems Constitutional: No change in weight Eyes: Denies Eye Problems Cardiovascular: Denies Cardiovascular Problems Respiratory: Denies Respiratory Problems Gastrointestinal: Denies Gastrointestinal problems Genitourinary: Denies Genitourinary Problems Sexual Dysfunction: No Musculoskeletal: Denies Musculosketal problems Skin/Breast/Axillae: Denies Skin/Axillae problems Breast: Denies Breast problems Neurological: Denies Neurological Problems Psychosocial: Denies Psychiatric Problems Endocrine: Denies Endocrine Problems Hematologic/Lymphatic: Denies Hematologic/Lymphatic Problems Allergic/Immunologic: Denies Allergies All other Review of Systems are Negative: All other Review of Systems are negative Have you been to the emergency room, urgent care, or hospital for any reason since the last visit: No Medications: Current Outpatient Medications: ??? cetirizine (ZyrTEC) [...] 4 mg tablet, daily, Disp: , Rfl: Allergies: Patient has no known allergies. Objective: BP 137/90 (BP Location: Right arm, Patient Position: Sitting) Comment: automatic Pulse 71 Ht 154.9 cm (5' 1 ) Wt 200 lb (90.7 kg) BMI 37.79 kg/m?? Physical Exam Constitutional: Appearance: She is well-developed. HENT: Head: Normocephalic and atraumatic. Eyes: Pupils: Pupils are equal, round, and reactive to light. Neck: Thyroid: No thyromegaly. Cardiovascular: Comments: Normal peripheral vascular exam Pulmonary: Effort: Pulmonary effort is normal. Chest: Breasts: Right: Normal. No mass, nipple discharge or skin change. Left: Normal. No mass, nipple discharge or skin change. Comments: S/p aiden breast reduction Abdominal: General: There is no distension. Palpations: Abdomen is soft. Tenderness: There is no abdominal tenderness. There is no guarding. Genitourinary: Pelvic exam was performed with patient supine. Rectum normal and vagina normal. Right labia: normal. There is no rash, tenderness or lesion on the left labia. Left Labia: normal. There is no rash, tenderness or lesion on the left labia. Cervix is nulliparous. Cervix: visible IUD strings and Normal exam. Genitourinary Comments: Strings noted at os, do not extend onto portio Musculoskeletal: General: Normal range of motion. Cervical back: Normal range of motion. Lymphadenopathy: Upper Body: Right upper body: No axillary adenopathy. Left upper body: No axillary adenopathy. Lower Body: No right inguinal adenopathy. No left inguinal adenopathy. Skin: General: Skin is warm and dry. Neurological: Mental Status: She is alert and oriented to person, place, and time. Psychiatric: Speech: Speech normal. Behavior: Behavior normal. Thought Content: Thought content normal. Judgment: Judgment normal. Assessment/Plan: Quynh De Leon is a 35 y.o. female who presents for a well woman exam. Diagnoses and all orders for this visit: Encounter for gynecological examination without abnormal finding PCOS (polycystic ovarian syndrome) IUD check up - appears properly placed; discussed off label extended use until 7 yrs Recommended screenings and preventive care discussed: Pap smear: Not Indicated ; rpt 12/2021 Breast health reviewed: SBE discussed, Mammogram: not indicated Sexually transmitted disease screening: patient declined Bone health: Calcium and vitamin D intake discussed. Dexa Scan: Not indicated Colon Cancer: Colonoscopy: not indicated Diet and exercise discussed. Body mass index is 37.79 kg/m??.; Reviewed recommendation/goal of >/= 150 minutes/week moderate-intensity aerobic exercise. Preventative health labs per PCP Handouts provided: Ca+/Vit D RTO 1 year/prn Corin Fraser APRN, JAIRO, NCMP 09/27/2020 documented in this encounter Plan of Treatment Not on file documented as of this encounter Visit Diagnoses Diagnosis Encounter for gynecological examination without abnormal finding- Primary PCOS (polycystic ovarian syndrome) Polycystic ovaries IUD check up documented in this encounter Historical Medications * This list may reflect changes made after this encounter. cetirizine (ZyrTEC) 10 mg tablet Take 1 tablet (10 mg total) by mouth daily added in this encounter Care Teams Nursing Professor Relationship Specialty Start Date End Date Wil Downey MD PCP - General 12/12/16 04/17/21 documented as of this encounter
--- OUTSIDE RECORDS SUMMARY | 2024-06-04 06:24 | XMS_ITS | Encounter Summary ---
Author Organization [facility] Address [address] [place] [address] Phone Care Team Providers Care Outdoor Adventure Instructor Name Role Phone Wil Downey MD Primary Care Provider [phone] Reason for Visit * Reason Comments OT Treatment orthosis only * Consultation (Routine) - Closed Specialty Diagnoses / Procedures Referred By Nathalie kapoor Referred To Contact Occupational Therapy Diagnoses De Quervain's disease (tenosynovitis) Héctor Ware MD Phone: tel: fax: [facility] Occupational Therapy [address] [place] [address] 6th [place] [address] [place] [address] Phone: tel: fax: Referral ID Status Reason Start Date Expiration Date V isits Requested Visits Authorized [id number] Closed Specialty Services Required 08/10/2019 02/18/2021 24 24 Encounter Details Date Type Department Care Team (Late st Contact Info) Description 08/10/2019 4:30 PM GANG MOWER OPERATOR Therapy [facility] Occupational Therapy [address] [place] [address] 6th [place] [address] [place] [address] Kat Encarnacion, OT [address] [place] [id number] De Quervain's disease (tenosynovitis) (Primary Dx) Social History Tobacco Use Types Packs/Day Years Used Date Smoking Tobacco: Never Smokeless Tobacco: Never Alcohol Use Standard Drinks/Week Comments Yes 0 (1 standard drink = 0.6 oz pur e alcohol) Comments No Sex and Gender Information Value Date Recorded Sex Assigned at Not on file Legal Sex Female 9:12 PM GANG MOWER OPERATOR Gender Identity Not on file Sexual Orientation Not on file documented as of this encounter Progress Notes * Kat Encarnacion, OT - 08/10/2019 4:30 PM CST Occupational Therapy: Orthosis Fabrication / Discharge Report 08/10/2019 Quynh De Leon 1985 De Quervain's disease (tenosynovitis) [M65.4] MD orders: Orthosis Specifications: Forearm based thumb spica with IP joint free- wear as much as possible for 2 weeks and then begin weaning out during the day- wear at night for 6 weeks. 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 She received her 3rd injection today. The previous two injections lasted about a year each; the current pain started in May. She is here as a walk-in for a custom orthosis and Comfort cool. Objective: Pain: 5 currently Treatment Provided: Fabrication of custom orthosis per MD orders: ALLEGRA TS with IP free to wear day and night for two weeks then at night. Comfort cool to wear with activities as needed after two weeks. Purpose of splint: Pain relief by immobilizing inflamed tendons Assessment: Pt reports comfort in orthosis and understanding of all instructions provided today. Pt understandsto call for orthosis modifications as needed in order to ensure proper fit of orthosis over time. Short Term Goals 08/10/2019 Pt will demonstrate ability to don/doff orthosis for hygiene by 08/10/2019. Achieved. 08/10/2019 Pt will report understanding of wear/care instructions for orthosis as they relate to ADL/IADLs by 08/10/2019. Achieved. Dermatologist Managing Partner Goals 08/10/2019 Pt will report comfort in orthosis for protection during ADLs by 08/10/2019. Achieved. Plan: Pt discharged this date. Pt to call for orthosis modifications as needed. Start Time: 1630 End Time: 1700 MOIRA Garrett,CHT MOWER OPERATOR documented in this encounter Plan of Treatment Not on file documented as of this encounter Visit Diagnoses Diagnosis De Quervain's disease (tenosynovitis)- Primary Radial styloid tenosynovitis documented in this encounter Orders Outpatient Referral Count Last Ordered Date Fir st Ordered Date AMB REFERRAL ORDER TO OCCUPATIONAL THERAPY 1 08/10/2019 documented in this encounter Care Teams Outdoor Adventure Instructor Relationship Specialty Start Date End Date Wil Downey MD PCP - General 12/12/16 04/17/21 documented as of this encounter
--- OUTSIDE RECORDS SUMMARY | 2024-06-04 06:26 | XMS_ITS | Encounter Summary ---
Author Organization [facility] Address [address] Driver: [place] [address] Care Team Providers Care Fresco Artist Name Role Phone Mary Perla MD Primary Care Provider [phone] Encounter Details Date Type Department Care Team (Latest Contact Info) Description 04/24/2021 Travel Social History Tobacco Use Types Packs/Day Years Used Date Smoking Tobacco: Never Smokeless Tobacco: Never Alcohol Use Standard Drinks/Week Comments Not Currently 0 (1 standard drink = 0.6 oz pur e alcohol) Sex and Gender Information Value Date Recorded Sex Assigned at Not on file Gender Identity Not on file Sexual Orientation Not on file Job Start Date Occupation Industry Not on file Not on file Not on file COVID-19 Exposure Response Date Recorded In the last month, have you been in contact with someone who was confirmed or suspected to have Coronavirus / COVID-19? Unable to assess 04/24/2021 8:05 AM EDUCATIONAL THERAPIST documented as of this encounter Plan of Treatment Upcoming Encounters Date Type Department Care Team (Late st Contact Info) Description 02/02/2025 9:30 AM CDT Office Visit [facility] Primary Care - [address] [address] Mary Perla MD [facility] [address] documented as of this encounter Visit Diagnoses Not on filedocumented in this encounter Care Teams Fresco Artist Relationship Specialty Start Date End Date Mary Perla MD [address] [facility] [address] [place] [address] PCP - General Internal Medicine 09/25/20 documented as of this encounter
--- OUTSIDE RECORDS SUMMARY | 2024-06-04 06:26 | XMS_ITS | Encounter Summary ---
Author Organization [facility] Address [address] [place] [address] Care Team Providers Care Board Winder Name Role Phone Mary Perla MD Primary Care Provider [phone] Encounter Details Date Type Department Care Team (Late Contact Info) Description 01/21/2024 Orders Only [facility] - [address] [place] [phone] Provider, Abstract NO ADDRESS ON FILE Social History Tobacco Use Types Packs/Day Years Used Date Smoking Tobacco: Never Smokeless Tobacco: Never Alcohol Use Standard Drinks/Week Comments Not Currently 0 (1 standard drink = 0.6 oz pur e alcohol) Comments Yes Sex and Gender Information Value Date Recorded Sex Assigned at Not on file Gender Identity Not on file Sexual Orientation Not on file Job Start Date Occupation Industry Not on file Not on file Not on file documented as of this encounter Plan of Treatment Upcoming Encounters Date Type Department Care Team (Late Contact Info) Description 02/02/2025 9:30 AM CDT Office Visit [facility] - [address] [place] [phone] Mary Perla MD [address] [place] [phone] documented as of this encounter Goals Goal Patient Goal Type Associated Problems Recent Progress Patient-Stated? Author HYPERTENSIO N CARE PLAN GOAL Care Plan ALANNA MYC HYPERTENSION CARE PLAN PROBLEM No Edd Downey RN documented as of this encounter Procedures Procedure Name Priority Date/Time Associated Diagnosis Comments PATHOLOGY Routine 01/19/2024 11:23 AM CDT documented in this encounter Results * PATHOLOGY (01/19/2024 11:23 AM CDT) Tissue Abstract Provider PATHOLOGY/CYTOLOGY O RDERABLES [facility] - [address] [facility] CLIA# [id number] [id number] [place] [address] documented in this encounter Visit Diagnoses Not on filedocumented in this encounter Additional Health Concerns Active Problems Noted Date Diagnosed Date ALANNA MYC HYPERTENSION CARE PLAN PROBLEM 4 Assessment Noted Time PHQ-9 Depression Total Score: 1 12/15/19 24 11:10 AM CDT documented as of this encounter Care Teams Board Winder Relationship Specialty Start Date End Date Mary Perla MD [address] [place] [phone] PCP - General Internal Medicine 09/25/20 documented as of this encounter
--- OUTSIDE RECORDS SUMMARY | 2024-06-04 06:26 | XMS_ITS | Encounter Summary ---
Author Organization [facility] Address [address] [place] [address] Care Team Providers Care Staff Internist Office Based Only Name Role Phone Mary Perla MD Primary Care Provider Reason for Visit * Reason Comments Medication Assistance Medication Assistance Medication Assistance Encounter Details Date Type Department Care Team (Late st Contact Info) Description 12/10/2023 Telephone [facility] Primary Care - [address] [place] [address] Mary Perla MD [address] [place] [phone] Medication Assistance; Medication Assistance; Medication Assistance Social History Tobacco Use Types Packs/Day Years [...] encounter Miscellaneous Notes * Telephone Encounter - Edd Downey RN - 12/11/2023 12:03 PM CDT Spoke to patient informed of what virtual said. Patient did skip taking her lisinopril yesterday. TM200 ordered. * Telephone Encounter - Genaro Metz - 12/11/2023 10:46 AM CDT Copied from [facility] #[id number]. Topic: Medication Request >> Dec 11, 2023 10:43 AM Genaro Mcgovern wrote: Caller is requesting: Medication - New Request (Not Currently Taking) Medication (Ask patient/caregiver to spell if possible): Nifedipine Preferred Pharmacy: [facility] [address] [address] Patient/Caregiver Callback Number: [phone] Call Notes: Her director of marketing operations recommended this medication to take the place of Lisinopril * Telephone Encounter - Edd Downey RN - 12/11/2023 9:39 AM CDT Spoke to patient, she stopped taking Lisinopril last night. Found out she was yesterday. BP today while I was on the phone with her was 125/81. * Telephone Encounter - Paayl Gardner - 12/10/2023 4:13 PM CDT Copied from [facility] #[id number]. Topic: Medication Request >> Dec 10, 2023 4:13 PM Payal Cedillo wrote: Caller is requesting: Medication Question from Patient (Not involving new prescription or refill) Caller: Quynh De Leon Patient/Caregiver Callback Number: Telephone Information: Medication (Ask patient/caregiver to spell if possible): LISINOPRIL Call Notes: would also like to know if she needs to stop taking this med, please advise gonazlez * Telephone Encounter - Payal Gardner - 12/10/2023 4:12 PM CDT Copied from [facility] #[id number]. Topic: Medication Request >> Dec 10, 2023 4:11 PM Payal Cedillo wrote: Caller is requesting: Medication Question from Patient (Not involving new prescription or refill) Caller: Quynh Richardestella Patient/Caregiver Callback Number: Telephone Information: Medication (Ask patient/caregiver to spell if possible): LISINOPRIL Call Notes: calling stating she is and she can no longer take this med and she would like to know what she can take for Blood Pressure, please advise documented in this encounter Plan of Treatment Upcoming Encounters Date Type Department Care Team (Late st Contact Info) Description 02/02/2025 9:30 AM CDT Office Visit [facility] Primary Care - [address] [place] [phone] Mary Perla MD [address] [place] [phone] Scheduled Orders Name Type Priority Associated Diagnoses Orde r Schedule PATIENT SELF MEASURED BLOOD PRESSURE (SMBP) REPORTING THROUGH Keep Me Certified Telemedicine Routine Ordered: 024 documented as of this encounter Visit Diagnoses Not on filedocumented in this encounter Care Teams Staff Internist Office Based Only Relationship Specialty Start Date End Date Mary Perla MD [address] [place] [phone] PCP - General Internal Medicine 09/25/20 documented as of this encounter
--- OUTSIDE RECORDS SUMMARY | 2024-06-04 06:26 | XMS_ITS | Encounter Summary ---
Author Organization [facility] Address [address] [place] [address] Care Team Providers Care Special Effects Designer Name Role Phone Mary Perla MD Primary Care Provider [phone] Encounter Details Date Type Department Care Team (Late st Contact Info) Description 08/01/2023 External Device Data STL ABSTRACTION Provider, Abstract NO ADDRESS ON FILE Social [...] Description 02/02/2025 9:30 AM CDT Office Visit [facility] Primary Care - [address] [place] [phone] Mary Perla MD [address] [place] [phone] documented as of this encounter Visit Diagnoses Not on filedocumented in this encounter Care Teams Special Effects Designer Relationship Specialty Start Date End Date Mary Perla MD [address] [place] [phone] PCP - General Internal Medicine 09/25/20 documented as of this encounter
--- OUTSIDE RECORDS SUMMARY | 2024-06-04 06:26 | XMS_ITS | Encounter Summary ---
Author Organization [facility] Address [address] Driver: [place] [address] Care Team Providers Care Boiler Riveter Name Role Phone Mary Perla MD Primary Care Provider [phone] Encounter Details Date Type Department Care Team (Latest Contact Info) Description 09/25/2020 Travel Social History Tobacco Use Types Packs/Day [...] or suspected to have Coronavirus / COVID-19? No / Unsure 09/25/2020 11:00 AM CDT documented as of this encounter Plan of Treatment Upcoming Encounters Date Type Department Care Team (Late st Contact Info) Description 02/02/2025 9:30 AM CDT Office Visit [facility] Primary Care - [address] [address] Mary Perla MD [facility] [address] [address] documented as of this encounter Visit Diagnoses Not on filedocumented in this encounter Care Teams Boiler Riveter Relationship Specialty Start Date End Date Mary Perla MD [address] [facility] [address] [place] [address] PCP - General Internal Medicine 09/25/20 documented as of this encounter
--- OUTSIDE RECORDS SUMMARY | 2024-06-04 06:26 | XMS_ITS | Encounter Summary ---
Author Organization [facility] Address [address] [place] [address] Care Team Providers Care Trenching Machine Operator Name Role Phone Mary Perla MD Primary Care Provider [phone] Encounter Details Date Type Department Care Team (Late st Contact Info) Description 12/23/2023 External Device Data STL ABSTRACTION Provider, Abstract [...] Description 02/02/2025 9:30 AM CDT Office Visit [facility] Primary Care - [address] [place] [phone] Mary Perla MD [address] [place] [phone] documented as of this encounter Goals Goal Patient Goal Type Associated Problems Recent Progress Patient-Stated? Author HYPERTENSIO N CARE PLAN GOAL Care Plan ALANNA MYC HYPERTENSION CARE PLAN PROBLEM No Edd Downey RN documented as of this encounter Visit Diagnoses Not on filedocumented in this encounter Additional Health Concerns Active Problems Noted Date Diagnosed Date ALANNA MYC HYPERTENSION CARE PLAN PROBLEM 4 Assessment Noted Time PHQ-9 Depression Total Score: 1 12/15/19 24 11:10 AM CDT documented as of this encounter Care Teams Trenching Machine Operator Relationship Specialty Start Date End Date Mary Perla MD [address] [facility] [address] [place] [phone] PCP - General Internal Medicine 09/25/20 documented as of this encounter
--- OUTSIDE RECORDS SUMMARY | 2024-06-04 06:26 | XMS_ITS | Encounter Summary ---
Author Organization [facility] Address [address] [place] [address] Care Team Providers Care Generator Rebuilder Name Role Phone Mary Perla MD Primary Care Provider [phone] Reason for Visit * Reason Comments Physical Encounter Details Date Type Department Care Team (Late st Contact Info) Description 01/29/2023 10:30 AM CDT Office Visit [facility] Primary Care - [address] [place] [phone] Mary Perla MD [address] [place] [phone] Encounter for routine adult health examination without abnormal findings (Primary Dx); Screening, lipid; Screening for diabetes mellitus; Screening for deficiency anemia Social History Tobacco Use Types Packs/Day Years [...] Sign Reading Time Taken Comments Blood Pressure 132/86 01/29/2023 10:34 AM CDT Pulse 71 01/29/2023 10:34 AM CDT Temperature 36.5 ??C (97.7 ??F) 01/29/2023 10:34 AM C DT Respiratory Rate 18 01/29/2023 10:34 AM CDT Oxygen Saturation 98% 01/29/2023 10:34 AM CDT Inhaled Oxygen Concentration - - Weight 88.9 kg (196 lb) 01/29/2023 10:34 AM CDT Height 154.9 cm (5' 1 ) 01/29/2023 10:34 AM CDT Body Mass Index 37.03 01/29/2023 10:34 AM CDT documented in this encounter Progress Notes * Mary Perla MD - 01/29/2023 10:34 AM CDT Depression Screen Positive: PHQ-2 score >= 3 or PHQ-9 score >= 9 PHQ-2 Total: 0 (01/29/2023 10:34 AM) DEPRESSION PLAN OF CARE Her depression screen was negative. * Mary Perla MD - 01/29/2023 10:30 AM CDT Chief Complaint Patient presents with Physical HPI Here for annual Rash Steroid pack Derm Dr Downey IBS Had seen Dr Mazariegos in [place] in the past Has had a colonoscopy for bleeding - cab[facility] Dr Ramesh artifacts conservator Allergic to grass, trees, rag weed, dust, mold Albuterol prn this summer Cough and SOB Epilepsy Follows with neurology Dr Espinoza Reports compliance with med Follows with SPINNING OPERATOR Breast reduction nodules mammogram Pap UTD No kids Sexually active with mon boyfriend Past Medical History: Diagnosis Date Allergies seasonal Epilepsy IBS (irritable bowel syndrome) Current Outpatient Medications: MAGNESIUM OXIDE ORAL, Take by mouth., Disp: , Rfl: OMEGA-3 ACID ETHYL ESTERS ORAL, Take by mouth., Disp: , Rfl: clonazePAM (KlonoPIN RAPID DISSOLVE) 0.25 mg Tablet, Rapid Dissolve, Take 0.25 mg by mouth., Disp: , Rfl: nystatin (NYSTOP) 100,000 unit/gram powder, Apply to affected area 2 times daily., Disp: 60 Gram, Rfl: 1 cetirizine (ZyrTEC) 10 mg tablet, Take 10 mg by mouth daily. prn, Disp: , Rfl: fluticasone propionate (FLONASE) 50 mcg/spray [place], Suspension nasal inhaler, Administer 2 Sprays in each nostril daily. prn, Disp: , Rfl: OXcarbazepine (TRILEPTAL) 600 mg tablet, TAKE 1 & 1 2 (ONE & ONE HALF) TABLETS BY MOUTH TWICE DAILY, Disp: , Rfl: PNV,calcium 94-oeog-eqhdd acid ( Vitamin Plus Low Iron) 27 mg iron- 1 mg Tablet, Take 1 Tablet by mouth daily., Disp: , Rfl: dicyclomine (BENTYL) 10 mg capsule, Take 10 mg by mouth 2 times daily as needed., Disp: , Rfl: No Known Allergies Social History Socioeconomic History Marital status: Single Spouse name: Not on file Number of children: Not on file Years of education: Not on file Highest education level: Not on file Occupational History Not on file Tobacco Use Smoking status: Never Smokeless tobacco: Never Vaping Use Vaping Use: Never used Substance and Sexual Activity Alcohol use: Not Currently Drug use: Never Sexual activity: Yes Partners: Male control/protection: None Other Topics Concern Not on file Social History Narrative Not on file Social Determinants of Health Financial Resource Strain: Not on file Food Insecurity: Not on file Transportation Needs: Not on file Social Connections: Not on file Intimate Partner Violence: Not on file Housing Stability: Not on file Family History Problem Relation Name Age of Onset GERD Father Wilfrid Hypertension Father Wilfrid GERD Mother smoker Healthy Brother Brain Cancer Maternal Grandmother Other Maternal Grandfather Andre Other Paternal Grandmother Yoselin Lau Other Paternal Grandfather Wilfrid Sr Heart Disease Paternal Grandfather Wilfrid Sr Breast Cancer Paternal Aunt Uterine Cancer Paternal Aunt Liver Cancer Maternal Uncle ETOH related ROS Review of Systems Constitutional: Negative for chills, fever, malaise/fatigue and weight loss. HENT: Negative. Eyes: Negative. Respiratory: Negative for cough and shortness of breath. Cardiovascular: Negative for chest pain, palpitations and leg swelling. Gastrointestinal: Negative for abdominal pain, blood in stool, constipation, diarrhea, heartburn, melena, nausea and vomiting. Genitourinary: Negative for dysuria and hematuria. Musculoskeletal: Negative for falls. Skin: Negative for rash. Neurological: Negative for dizziness, focal weakness and loss of consciousness. Psychiatric/Behavioral: Negative for depression. The patient is not nervous/anxious. Feels safe EXAM Vitals BP 132/86 (BP Location: Left arm, Patient Position (BP): Sitting, BP Cuff Size: Adult) Pulse 71 Temp 97.7 ??F (36.5 ??C) (Temporal) Resp 18 Ht 5' 1 (1.549 m) Wt 88.9 kg (196 lb) LMP 01/28/2023 SpO2 98% BMI 37.03 kg/m?? GEN - NAD, well developed, well nourished SKIN - No rashes or skin lesions, normal skin turgor HEENT - Normocephalic, atraumatic, TM's normal bilat, oropharynx clear with MMM, pharynx and tonsils normal NECK - Supple, no thyromegaly, no lymphadenopathy CVS - S1S2 +, no murmurs, rubs, or gallops RS - Clear to auscultation bilat ABD - Soft, non-tender, non-distended, no hepatosplenomegaly, no masses palpated FUNERAL LOCATION MANAGER - No focal neurologic deficit LE - No edema ASSESSMENT AND PLAN Diagnoses and all orders for this visit: ICD-10-CM ICD-9-CM 1. Encounter for routine adult health examination without abnormal findings Z00.00 V70.0 2. Screening, lipid Z13.220 V77.91 LIPID PANEL 3. Screening for diabetes mellitus Z13.1 V77.1 COMPREHENSIVE METABOLIC PANEL 4. Screening for deficiency anemia Z13.0 V78.1 Encounter for routine adult health examination with abnormal findings Up to date for age and sex related screening and immunization Continue following with SPINNING OPERATOR Preventative Care/Health Maintenance: Immunization History Administered Date(s) Administered (BEXSERO)(10-25 YR) MENINGOCOCCAL RECOMBIANT PROTEIN AND OUTER MEMBRANE VESICLE VACCINE, SEROGROUP B MENB-4C, 2 DOSE IM 04/16/2017 (SPIKEVAX) (12 YRS UP PRIMARY SERIES) COVID-19 VACCINE - MRNA-1273(PF) 100 MCG/0.5 ML IM SUSP 07/19/2020, 08/17/2020, 06/12/2021 Hepatitis A Vaccine 11/28/2014, 05/02/2015 Hepatitis B Vaccine 11/28/2014, 05/02/2015 INFLUENZA VACCINE QUADRIVALENT 6 MOS UP IM 01/21/2016, 01/28/2018, 03/03/2019, 06/13/2021 INFLUENZA VACCINE QUADRIVALENT 6 MOS UP PF IM 01/31/2016, 03/26/2017, 01/28/2018, 03/03/2019, 04/17/2020 Influenza Seasonal Unspecified Formulation IM 03/26/2017 Influenza Vaccine High Dose 65+ Yrs IM 03/26/2017 Influenza Vaccine Tri Split 4+ Im 04/17/2020 Meningococcal Polysaccharide Vaccine SQ 02/14/2016, 04/16/2017 Meningococcal Polysaccharide Vaccine, Serogroups A, C, Y, W-135, quadrivalent (Mpsv4) SQ 02/07/2016 TDAP Vaccine > 7 YO IM 11/22/2019 Tetanus Toxoid, Adsorbed 02/12/2013 Health Maintenance Topic Date Due HEPATITIS B VACCINES (1 of 3 - 3-dose series) 1985 CERVICAL CANCER SCREENING Never done COVID-19 Vaccine (4 - Moderna series) 08/07/2021 Preventative Visit- Commercial 06/16/2022 INFLUENZA VACCINE (1) 01/14/2023 DTAP/TDAP/TD VACCINES (2 - Td or Tdap) 11/21/2029 HPV VACCINES Aged Out PNEUMOCOCCAL VACCINE 0-64 YEARS Aged Out Irritable bowel syndrome, unspecified type Stable Continue prn meds Nonintractable epilepsy without status epilepticus, unspecified epilepsy type Continue follow up with neurology Continue Trileptal Mary Perla MD documented in this encounter Plan of Treatment Upcoming Encounters Date Type Department Care Team (Late st Contact Info) Description 02/02/2025 9:30 AM CDT Office Visit [facility] Primary [facility] - [facility] [place] [facility] [place] [phone] Mary Perla MD [address] [place] [phone] documented as of this encounter Visit Diagnoses Diagnosis Encounter for routine adult health examination without abnormal findings- Primary Screening, lipid Screening for lipoid disorders Screening for diabetes mellitus Screening for deficiency anemia Screening for other and unspecified deficiency anemia documented in this encounter Care Teams Generator Rebuilder Relationship Specialty Start Date End Date Mary Perla MD [address] [place] [phone] PCP - General Internal Medicine 09/25/20 documented as of this encounter
--- OUTSIDE RECORDS SUMMARY | 2024-06-04 06:26 | XMS_ITS | Encounter Summary ---
Author Organization [facility] Address [address] [place] [address] Care Team Providers Care Deli Bakery Clerk Name Role Phone Mary Perla MD Primary Care Provider [phone] Reason for Visit * Reason Onset Date Comments muscle relaxer 11/07/2020 Encounter Details Date Type Department Care Team (Late st Contact Info) Description 11/07/2020 Telephone [facility] Primary Care - [address] [phone] Mary Perla MD [address] [phone] muscle relaxer Social History Tobacco Use Types Packs/Day Years [...] encounter Miscellaneous Notes * Telephone Encounter - Ted Duenas - 11/07/2020 11:57 AM CDT Called pt and advised her to cancel her appointment, but she refused too and said she can't go without the chiropractor Scheduled an appointment with Mitra on 11/14 * Telephone Encounter - Mitra Rivera FNP - 11/07/2020 11:49 AM CDT 1) in general we recommend against manipulation (cracking back) from day care center director as it could result in negative outcome. 2) she needs to be evaluated in person to assess and ensure this is muscular 3) id advise cancelling tomorrows chiropractic appt until evalauted further * Telephone Encounter - Sylvie Lopez - 11/07/2020 11:01 AM CDT Name of PCP Provider or Prescribing Provider: Mary Perla MD Next office visit: Visit date not found Caller: Quynh Message: Patient stated she is experiencing severe back pain in lower back. Patient just seen by Harshad grijalvapractic this morning and will be returning for 2nd appointment today. Patient is requesting a muscle relaxer. Patient has taken 3 Advil with no relief Call back Number: [phone] documented in this encounter Plan of Treatment Upcoming Encounters Date Type Department Care Team (Late st Contact Info) Description 02/02/2025 9:30 AM CDT Office Visit [facility] Primary Care - [address] [place] [phone] Mary Perla MD [address] [place] [phone] documented as of this encounter Visit Diagnoses Not on filedocumented in this encounter Care Teams Deli Bakery Clerk Relationship Specialty Start Date End Date Mary Perla MD [address] [place] [phone] PCP - General Internal Medicine 09/25/20 documented as of this encounter
--- OUTSIDE RECORDS SUMMARY | 2024-06-04 06:26 | XMS_ITS | Encounter Summary ---
Author Organization Address [address] [place] [address] Care Team Providers Care Oven Heater Name Role Phone Mary Perla MD Primary Care Provider [phone] Encounter Details Date Type Department Care Team (Late st Contact Info) Description 12/02/2023 External Device Data STL ABSTRACTION Provider, Abstract [...] [facility] Primary Care - [address] [place] [phone] Mary Perla MD [address] [place] [phone] documented as of this encounter Visit Diagnoses Not on filedocumented in this encounter Care Teams Oven Heater Relationship Specialty Start Date End Date Mary Perla MD [address] [place] [phone] PCP - General Internal Medicine 09/25/20 documented as of this encounter
--- OUTSIDE RECORDS SUMMARY | 2024-06-04 06:26 | XMS_ITS | Encounter Summary ---
Author Organization [facility] Address [address] [place] [address] Care Team Providers Care Manager Baby Name Role Phone Mary Perla MD Primary Care Provider [phone] Reason for Visit * Reason Comments Chronic Conditions Coordination Hypertension Encounter Details Date Type Department Care Team (Late st Contact Info) Description 11/05/2023 9:30 AM CDT Office Visit [facility] Primary Care - [address] [place] [address] Shayy James, [address] [address] HTN (hypertension), benign (Primary Dx); Screening for diabetes mellitus; Screening, lipid Social History Tobacco Use Types Packs/Day Years Used Date Smoking Tobacco: Never Smokeless Tobacco: Never Tobacco Cessation:Counseling Given: No Alcohol Use Standard Drinks/Week Comments Not Currently [...] Sign Reading Time Taken Comments Blood Pressure 142/98 11/05/2023 9:45 AM CDT Pulse 78 11/05/2023 9:29 AM CDT Temperature - - Respiratory Rate - - Oxygen Saturation 97% 11/05/2023 9:29 AM CDT Inhaled Oxygen Concentration - - Weight 88.9 kg (196 lb) 11/05/2023 9:29 AM CDT Height 154.9 cm (5' 1 ) 11/05/2023 9:29 AM CDT Body Mass Index 37.03 11/05/2023 9:29 AM CDT documented in this encounter Progress Notes * Shayy James FNP - 11/05/2023 10:23 AM CDT SUBJECTIVE: Quynh De Leon is a 38 y.o. 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 Continued to measure BP over weekend and consistently 130s-140s/85-90s. Chart review shows borderline BP 130s-140s/80-90s as well. She plans on starting to diet and exercise to improve health. Outpatient Medications Marked as Taking for the 11/05/23 encounter (Office Visit) with Shayy James FNP Medication Sig Dispense Refill lisinopriL (PRINIVIL) 10 mg tablet Take 1 Tablet (10 mg) by mouth daily. 100 Tablet 3 MAGNESIUM OXIDE ORAL Take by mouth. OMEGA-3 ACID ETHYL ESTERS ORAL Take by mouth. PNV,calcium 88-vwkw-oryud acid ( Vitamin Plus Low Iron) 27 mg iron- 1 mg Tablet Take 1 Tablet by mouth daily. clonazePAM (KlonoPIN RAPID DISSOLVE) 0.25 mg Tablet, Rapid Dissolve Take 0.25 mg by mouth. nystatin (NYSTOP) 100,000 unit/gram powder Apply to affected area 2 times daily. 60 Gram 1 dicyclomine (BENTYL) 10 mg capsule Take 10 mg by mouth 2 times daily as needed. cetirizine (ZyrTEC) 10 mg tablet Take 10 mg by mouth daily. prn fluticasone propionate (FLONASE) 50 mcg/spray [place], Suspension nasal inhaler Administer 2 Sprays in each nostril daily. prn OXcarbazepine (TRILEPTAL) 600 mg tablet TAKE 1 & 1 2 (ONE & ONE HALF) TABLETS BY MOUTH TWICE DAILY No Known Allergies The patient reports that she has never smoked. She has never used smokeless tobacco. ROS: Gen: Denies fevers, chills, weight changes CV: Denies chest pain, palpitations Resp: Denies shortness of breath, dyspnea on exertion GI: Denies abdominal pain, nausea, vomiting, diarrhea TOBACCO COUNSELING She is not a tobacco/nicotine user. OBJECTIVE: Vitals: 11/05/23 0929 11/05/23 0945 BP: (!) 143/98 (!) 142/98 BP Location: Right arm Patient Position (BP): Sitting BP Cuff Size: Large Adult Pulse: 78 SpO2: 97% Weight: 88.9 kg (196 lb) Height: 5' 1 (1.549 m) General appearance: alert, well appearing, and in no distress. Ears - bilateral TM's and external ear canals normal. Nasal exam - normal and patent, no erythema, discharge or polyps. Oropharyngeal exam - mucous membranes moist, pharynx normal without lesions. Neck exam - supple, no significant adenopathy. CVS exam: normal rate, regular rhythm, normal S1, S2, no murmurs, rubs, clicks or gallops. Chest: clear to auscultation, no wheezes, rales or rhonchi, symmetric air entry. Abdominal exam: soft, nontender, nondistended, no masses or organomegaly. Neuro: CN2-12 intact, 2+ patellar reflexes, no gross motor or sensory deficits ASSESSMENT AND PLAN: Quynh was seen today for chronic conditions coordination and hypertension. Diagnoses and all orders for this visit: HTN (hypertension), benign - lisinopriL (PRINIVIL) 10 mg tablet; Take 1 Tablet (10 mg) by mouth daily. Review of chart and home readings trends elevated. Start Lisinopril, continue to monitor BP and we will see back in 1 month for repeat check. Discussed potential side effects. Advised to call back directly if there are further questions, or if these symptoms fail to improve as anticipated or worsen. An After Visit Summary was printed and given to the patient. Follow up 1 mo CHIKA Fall This patient was seen by ANGEL Han. Mary Connelly MD was within a 30 mile radius. documented in this encounter Miscellaneous Notes * Result Encounter Note - Shayy James FNP - 11/11/2023 4:13 PM CDT Contact patient regarding result. documented in this encounter Plan of Treatment Upcoming Encounters Date Type Department Care Team (Late st Contact Info) Description 02/02/2025 9:30 AM CDT Office Visit [facility] Primary Care - [address] [facility] 100[address] [facility] [address] [place] [address] Mary Perla MD [address] [facility] [address] [place] [address] Scheduled Orders Name Type Priority Associated Diagnoses Orde r Schedule MICROALBUMIN/CREATININ E RATIO, RANDOM UR Lab Routine HTN (hypertension), benign Expected: 11/05/2023, Expires: 11/04/2024 documented as of this encounter Procedures Procedure Name Priority Date/Time Associated Diagnosis Comments MICROALBUMIN/CREATININ E RATIO, RANDOM UR Routine 11/07/2023 9:22 AM CDT HEMOGLOBIN A1C Routine 11/07/2023 9:22 AM CDT Screening for diabetes mellitus LIPID PANEL Routine 11/07/2023 9:22 AM CDT Screening, lipid COMPREHENSIVE METABOLIC PANEL Routine 11/07/2023 9:22 AM CDT HTN (hypertension), benign documented in this encounter Results * MICROALBUMIN/CREATININE RATIO, RANDOM UR (11/07/2023 9:22 AM CDT) Creatinine, Urine 101 20 - 275 mg/dL [facility] MICROALBUMIN, URINE <0.2 See Note: mg/dL [facility] Comment: Reference Range: Reference Range Not established MICROALBUMIN/CREAT RATIO, UR NOTE <30 mg/g creat [facility] Comment: NOTE: The urine albumin value is less than 0.2 mg/dL therefore we are unable to calculate excretion and/or creatinine ratio. The ADA defines abnormalities in albumin excretion as follows: Albuminuria Category ?Result (mg/g creatinine) Normal to Mildly increased ?? <30 Moderately increased ? 30-299 Severely increased ? > OR = 300 The ADA recommends that at least two of three specimens collected within a 3-6 month period be abnormal before considering a patient to be within a diagnostic category. FASTING:YES FASTING: YES Test Performed at: [facility] [address] [place] [address] ??[id number] Isabel Simpson MD 11/07/2023 9:22 AM CDT 11/07/2023 9:24 AM CDT Shayy James CYANIDE CASE HARDENER URINE ORDERABLES [facility] [phone] [facility] [address] * HEMOGLOBIN A1C (11/07/2023 9:22 AM CDT) HEMOGLOBIN A1C 5.3 <5.7 % of total Hgb [facility] Comment: For the purpose of screening for the presence of diabetes: <5.7% ? Consistent with the absence of diabetes 5.7-6.4% ?Consistent with increased risk for diabetes ?(prediabetes) > or =6.5% ??Consistent with diabetes This assay result is consistent with a decreased risk of diabetes. Currently, no consensus exists regarding use of hemoglobin A1c for diagnosis of diabetes in children. According to [place] Diabetes Association (ADA) guidelines, hemoglobin A1c <7.0% represents optimal control in non- diabetic patients. Different metrics may apply to specific patient populations. Standards of Medical Care in Diabetes(ADA). ?? ESTIMATED AVERAGE GLUCOSE (MG/DL) 105 mg/dL [facility] ESTIMATED AVERAGE GLUCOSE (MMOL/L) 5.8 mmol/L [facility] Comment: ? This test was performed on the Polly raoul c503 platform. Effective 09/01/23, a change in test platforms from the Sandoval Customer Success Director to the Polly raoul c503 may have shifted HbA1c results compared to historical results. Based on laboratory validation testing conducted at [facility], the Polly platform relative to the Sandoval platform had an average increase in HbA1c value of < or = 0.3%. This difference is within accepted variability established by the National Glycohemoglobin Standardization Program. Note that not all individuals will have had a shift in their results and direct comparisons between historical and current results for testing conducted on different platforms is not recommended. FASTING:YES FASTING: YES Test Performed at: [place] [address] [place] ??[phone] Kari[facility]kechi Simpson Blood 11/07/2023 9:22 AM CDT 11/07/2023 9:24 AM CDT Anantanalia Giana James CYANIDE CASE HARDENER CHEMISTRY ORDERABLES [facility] [phone] [facility] [place] [address] [place] [address] * COMPREHENSIVE METABOLIC PANEL (11/07/2023 9:22 AM CDT) GLUCOSE 93 65 - 99 mg/dL [facility] Comment: ? Fasting reference interval BUN 14 7 - 25 mg/dL [facility] CREATININE 0.66 0.50 - 0.97 mg/dL [facility] GFR 115 > OR = 60 mL/min/1. 73m2 [facility] BUN/CREAT RATIO SEE NOTE: (calc) [facility] Comment: ?? Not Reported: BUN and Creatinine are within ?? reference range. ? SODIUM 135 135 - 146 mmol/L [facility] POTASSIUM 3.9 3.5 - 5.3 mmol/L [facility] CHLORIDE 100 98 - 110 mmol/L [facility] CO2 28 20 - 32 mmol/L [facility] CALCIUM 8.7 8.6 - 10.2 mg/dL [facility] TOTAL PROTEIN 6.3 6.1 - 8.1 g/dL [facility] ALBUMIN 3.9 3.6 - 5.1 g/dL [facility] [place] GLOBULIN 2.4 1.9 - 3.7 g/dL (calc) [facility]elia [facility] ALBUMIN/GLOBULIN RATIO 1.6 1.0 - 2.5 (calc) [facility] BILIRUBIN TOTAL 0.3 0.2 - 1.2 mg/dL [facility] ALKALINE PHOSPHATASE 57 31 - 125 U/L [facility] AST 14 10 - 30 U/L [facility] [place] ALT 17 6 - 29 U/L [facility] Comment: FASTING:YES FASTING: YES Test Performed at: [place] [address] [place] ??[phone] KariNkechi Simpson Blood 11/07/2023 9:22 AM CDT 11/07/2023 9:24 AM CDT Shayy James [facility] CHEMISTRY ORDERABLES [facility] [phone] [place] [address] [place] [phone] * (ABNORMAL) LIPID PANEL (11/07/2023 9:22 AM CDT) CHOLESTEROL 212(H) <200 mg/dL [facility] HDL 46(L) > OR = 50 mg/dL [facility] TRIGLYCERIDE 138 <150 mg/dL [facility] [place] LDL CALCULATED 139(H) mg/dL (calc) [facility] Comment: Reference range: <100 Desirable range <100 mg/dL for primary prevention; ?? <70 mg/dL for patients with CHD or diabetic patients with > or = 2 CHD risk factors. LDL-C is now calculated using the Sheba calculation, which is a validated novel method providing better accuracy than the Friedewald equation in the estimation of LDL-C. Héctor KHAN et al. BECKY. 2013;310(19): 0983-8184 (http://education.[facility].Sepior/faq/UQO487) CHOL/HDL RATIO 4.6 <5.0 (calc) [facility] NON-HDL CHOLESTEROL 166(H) <130 mg/dL (calc) [facility] Comment: For patients with diabetes plus 1 major ASCVD risk factor, treating to a non-HDL-C goal of <100 mg/dL (LDL-C of <70 mg/dL) is considered a therapeutic option. Test Performed at: [place] [address] [place] ??[id number] Isabel Simpson Blood 11/07/2023 9:22 AM CDT 11/07/2023 9:24 AM CDT Shayy James CYANIDE CASE HARDENER CHEMISTRY ORDERABLES [facility] [phone] [place] [address] [place] [phone] documented in this encounter Visit Diagnoses Diagnosis HTN (hypertension), benign- Primary Essential hypertension, benign Screening for diabetes mellitus Screening, lipid Screening for lipoid disorders documented in this encounter Care Teams Manager Baby Relationship Specialty Start Date End Date Mary Perla MD [address] [place] [address] PCP - General Internal Medicine 09/25/20 documented as of this encounter
--- OUTSIDE RECORDS SUMMARY | 2024-06-04 06:26 | XMS_ITS | Continuity of Care Document ---
Author Organization [facility] Address [address] [place] [address] [address] [place] [address] Phone Care Team Providers Care 3Rd Grade Reading Teacher Name Role Phone Omar PT,MPT,ATC, Ethan Unavailable Unavai lable Procedures Procedure Date Screen Advance Directives Directive Yes / No Effective Date File Name No Information Encounters Encounter Description Practice Location Reason(s) For Visit Diagnoses Date Provider Providers Copied on Encounter [facility], [address] [place], [place] [address], [place], [place], [id number], [place] tel:[phone] [place] No Diagnosis Omar Long. , [place], [place]. Referring Provider: Physician Screen. Family History Family Member Type Diagnosis Age At Onset No Information Payers Payer name Insurance type Covered libertarian ID Authoriza tion(s) Self Pay - GFE Social History Type Description Quantity Date Captured Comments Sex Female Smoking Status No Information Chief Complaint And Reason For Visit No Information Reason For Referral Reason For Referral No Information History Of Present Illness Encounter Date Complaint History Of Prese nt Illness No Information Functional Status Date Functional Assessmen t No Information Instructions Date Instruction Additional Infor mation No Information Assessments Type Assessment Date No Information Patient Care Teams Name Effective Dates (start - stop) Status Members No Information
--- OUTSIDE RECORDS SUMMARY | 2024-06-04 06:26 | XMS_ITS | Encounter Summary ---
Author Organization [facility] Address [address] Driver: [place] [address] Care Team Providers Care Machine Coremaker Name Role Phone Mary Perla MD Primary Care Provider [phone] Encounter Details Date Type Department Care Team (Latest Contact Info) Description 04/19/2021 Travel Social History Tobacco Use Types Packs/Day [...] Description 02/02/2025 9:30 AM CDT Office Visit [facility] Primary Care - [address] [address] Mary Perla MD [address] [place] [address] documented as of this encounter Visit Diagnoses Not on filedocumented in this encounter Care Teams Machine Coremaker Relationship Specialty Start Date End Date Mary Perla MD [address] [place] [address] PCP - General Internal Medicine 09/25/20 documented as of this encounter
--- OUTSIDE RECORDS SUMMARY | 2024-06-04 06:26 | XMS_ITS | Encounter Summary ---
Author Organization Address [address] [place] [address] Care Team Providers Care Pathology Laboratory Technologist Name Role Phone Mary Perla MD Primary Care Provider [phone] Encounter Details Date Type Department Care Team (Late st Contact Info) Description 05/31/2023 External Device Data ST[facility] ABSTRACTION Provider, Abstract [...] Description 02/02/2025 9:30 AM CDT Office Visit [facility] Primary Care - [address] [place] [address] Mary Perla MD [address] [place] [address] documented as of this encounter Visit Diagnoses Not on filedocumented in this encounter Care Teams Pathology Laboratory Technologist Relationship Specialty Start Date End Date Mary Perla MD [address] [place] [address] PCP - General Internal Medicine 09/25/20 documented as of this encounter
--- OUTSIDE RECORDS SUMMARY | 2024-06-04 06:26 | XMS_ITS | Encounter Summary ---
Author Organization [facility] Address [address] [place] [address] Care Team Providers Care Eye Surgeon Name Role Phone Mary Perla MD Primary Care Provider Encounter Details Date Type Department Care Team (Late st Contact Info) Description 02/03/2023 Abstract [facility] - [address] [place] [address] Mary Perla MD [address] [place] [address] Social History Tobacco Use Types Packs/Day Years [...] Description 02/02/2025 9:30 AM CDT Office Visit [facility] - [address] [place] [address] Mary Perla MD [address] [place] [address] documented as of this encounter Visit Diagnoses Not on filedocumented in this encounter Care Teams Eye Surgeon Relationship Specialty Start Date End Date Mary Perla MD [address] [facility] [address] [place] [address] PCP - General Internal Medicine 09/25/20 documented as of this encounter
--- OUTSIDE RECORDS SUMMARY | 2024-06-04 06:26 | XMS_ITS | Encounter Summary ---
Author Organization [facility] Address [address] [place] [address] Care Team Providers Care Police Pilot Name Role Phone Mary Perla MD Primary Care Provider Encounter Details Date Type Department Care Team ([facility] Contact Info) Description 03/27/2022 Abstract [facility] - [address] [place] [address] Mary Perla MD [address] [place] [address] Social History Tobacco Use Types Packs/Day [...] Exposure Response Date Recorded In the last 10 days, have yo u been in contact with someone who was confirmed or suspected to have Coronavirus/COVID-19? Unable to assess 03/27/2022 6:57 AM CDT documented as of this encounter Plan of Treatment Upcoming Encounters Date Type Department Care Team (Late Contact Info) Description 02/02/2025 9:30 AM CDT Office Visit [facility] - [address] [place] [address] Mary Perla MD [address] [place] [address] documented as of this encounter Visit Diagnoses Not on filedocumented in this encounter Care Teams Police Pilot Relationship Specialty Start Date End Date Mary Perla MD [address] [place] [address] PCP - General Internal Medicine 09/25/20 documented as of this encounter
--- OUTSIDE RECORDS SUMMARY | 2024-06-04 06:26 | XMS_ITS | Encounter Summary ---
Author Organization [facility] Address [address] [place] [address] Care Team Providers Care Tower Observer Name Role Phone Mary Perla MD Primary Care Provider [phone] Encounter Details Date Type Department Care Team (Late st Contact Info) Description 11/11/2023 External Device Data [facility] ABSTRACTION Provider, Abstract [...] Description 02/02/2025 9:30 AM CDT Office Visit [facility] Primary Care - [address] [place] [address] Mary Perla MD [address] [place] [address] documented as of this encounter Visit Diagnoses Not on filedocumented in this encounter Care Teams Tower Observer Relationship Specialty Start Date End Date Mary Perla MD [address] [place] [address] PCP - General Internal Medicine 09/25/20 documented as of this encounter
--- OUTSIDE RECORDS SUMMARY | 2024-06-04 06:26 | XMS_ITS | Encounter Summary ---
Author Organization [facility] Address [address] [place] [address] Care Team Providers Care Volunteer Assistant Name Role Phone Mary Perla MD Primary Care Provider [phone] Reason for Visit * Reason Onset Date Comments New medication 12/10/2021 Encounter Details Date Type Department Care Team (Late st Contact Info) Description 12/10/2021 Telephone [facility] Primary Care - [address] [address] Mary Perla MD [address] [address] New medication Social History Tobacco Use Types Packs/Day Years [...] encounter Miscellaneous Notes * Telephone Encounter - Shira Botello CNA - 12/11/2021 2:42 PM CDT Patient notified and scheduled * Telephone Encounter - Mary Perla MD - 12/11/2021 1:04 PM CDT It is not something that we would traditionally do for somebody for allergies. I would advise she contact her tech ed/woodshop teacher if this is something that they traditionally do for her. At her first visit, she did not mention she was seeing an tech ed/woodshop teacher for any reason. Additionally she needs to be on the schedule for an annual physical sometime soon can be with myself or LC. She is seeing Kristel through video visits recently. * Telephone Encounter - Angela White - 12/10/2021 3:42 PM CDT Name of PCP Provider or Prescribing Provider: Mary Perla MD Next office visit: Visit date not found Caller: Quynh De Leon Message: Patient called stating that she will be going on a school trip in December and will be in [place] during the entire trip. Patient is asking for a steroids for her allergies while she is away? Patient also state that her tech ed/woodshop teacher will not prescribe her the medication because she hasn't seen him in a while. Please advise patient Call back Number: [phone] (home) [facility] [address] [place] [address] ?? documented in this encounter Plan of Treatment Upcoming Encounters Date Type Department Care Team (Late st Contact Info) Description 02/02/2025 9:30 AM CDT Office Visit [facility] Primary Care - [address] [facility] [address] [place] [address] Mary Perla MD [address] [address] documented as of this encounter Visit Diagnoses Not on filedocumented in this encounter Care Teams Volunteer Assistant Relationship Specialty Start Date End Date Mary Perla MD [address] [facility] [address] [place] [address] PCP - General Internal Medicine 09/25/20 documented as of this encounter
--- OUTSIDE RECORDS SUMMARY | 2024-06-04 06:26 | XMS_ITS | Encounter Summary ---
Author Organization [facility] Address [address] [place] [address] Care Team Providers Care Rn Night Name Role Phone Mary Perla MD Primary Care Provider [phone] Encounter Details Date Type Department Care Team (Late Contact Info) Description 05/19/2024 Orders Only [facility] - [address] [place] [address] Provider, Abstract NO ADDRESS ON FILE Social History Tobacco Use Types Packs/Day Years Used Date Smoking Tobacco: Never Passive Smoke Exposure: Never Smokeless Tobacco: Never Alcohol Use Standard [...] 02/02/2025 9:30 AM CDT Office Visit [facility] - [address] [place] [address] Mary Perla MD [address] [place] [phone] documented as of this encounter Goals Goal Patient Goal Type Associated Problems Recent Progress Patient-Stated? Author HYPERTENSIO N CARE PLAN GOAL Care Plan ALANNA MYC HYPERTENSION CARE PLAN PROBLEM No Edd Downey RN documented as of this encounter Procedures Procedure Name Priority Date/Time Associated Diagnosis Comments US BREAST UNI RT LTD Routine 05/18/2024 10:39 AM THERMAL TECHNICIAN documented in this encounter Results * US BREAST UNI RT LTD (05/18/2024 10:39 AM THERMAL TECHNICIAN) Anatomical Region Laterality Modality Breast Right Other Abstract Provider US ORDERABLES documented in this encounter Visit Diagnoses Not on filedocumented in this encounter Additional Health Concerns Active Problems Noted Date Diagnosed Date ALANNA MYC HYPERTENSION CARE PLAN PROBLEM 4 Assessment Noted Time PHQ-9 Depression Total Score: 1 12/15/19 24 11:10 AM CDT documented as of this encounter Care Teams Rn Night Relationship Specialty Start Date End Date Mary Perla MD [address] [facility] [address] [place] [address] PCP - General Internal Medicine 09/25/20 documented as of this encounter
--- OUTSIDE RECORDS SUMMARY | 2024-06-04 06:26 | XMS_ITS | Encounter Summary ---
Author Organization [facility] Address [address] [place] [address] Care Team Providers Care Bedspring Assembler Name Role Phone Mary Perla MD Primary Care Provider [phone] Encounter Details Date Type Department Care Team (Late st Contact Info) Description 08/07/2023 External Device Data STL ABSTRACTION Provider, Abstract [...] [facility] Primary Care - [address] [place] [address] Mary Perla MD [address] [place] [address] documented as of this encounter Visit Diagnoses Not on filedocumented in this encounter Care Teams Bedspring Assembler Relationship Specialty Start Date End Date Mary Perla MD [address] [place] [phone] PCP - General Internal Medicine 09/25/20 documented as of this encounter
--- OUTSIDE RECORDS SUMMARY | 2024-06-04 06:26 | XMS_ITS | Encounter Summary ---
Author Organization [facility] Address [address] Driver: [place] [address] Care Team Providers Care Customer Sales Distributor Name Role Phone Unavailable Primary Care Provider Unavailabl e Encounter Details Date Type Department Care Team (Latest Contact Info) Description 09/22/2020 Travel Social History Tobacco Use Types Packs/Day Years Used Date Smoking Tobacco: Never Assessed Sex and Gender Information Value Date Recorded [...] have Coronavirus / COVID-19? No / Unsure 09/22/2020 9:59 AM CDT documented as of this encounter Plan of Treatment Upcoming Encounters Date Type Department Care Team (Late st Contact Info) Description 02/02/2025 9:30 AM CDT Office Visit [facility] Primary Care - [address] [address] Mary Perla MD [address] [address] documented as of this encounter Visit Diagnoses Not on filedocumented in this encounter
--- OUTSIDE RECORDS SUMMARY | 2024-06-04 06:26 | XMS_ITS | Encounter Summary ---
Author Organization [facility] Address [address] [place] [address] Care Team Providers Care Furniture Detailer Name Role Phone Mary Perla MD Primary Care Provider Reason for Visit * Reason Comments Provider Call Encounter Details Date Type Department Care Team (Late st Contact Info) Description 12/11/2023 Telephone [facility] Primary Care - [address] [place] [address] Mary Perla MD [address] [place] [phone] Provider Call Social History Tobacco Use Types Packs/Day Years [...] encounter Miscellaneous Notes * Telephone Encounter - Antonette Penaloza RN - 12/11/2023 4:32 PM CDT Noted * Telephone Encounter - Anastasia South - 12/11/2023 4:25 PM CDT Spoke with patient, made aware * Telephone Encounter - Wendy Nguyễn FNP - 12/11/2023 4:17 PM CDT Please call patient: Recommend she start nifedipine XL 30 mg 1 tablet daily. Her blood pressure has been elevated and I would be concerned progresses her blood pressure may continue to increase. Please discuss DASHdiet with patient as well. * Telephone Encounter - Wendy Nguyễn FNP - 12/11/2023 12:42 PM CDT We can prescribe medication for patient. Prescription sent to pharmacy. Please notify patient. * Telephone Encounter - Antonette Penaloza RN - 12/11/2023 11:44 AM CDT Spoke with Bc. Patient is currently taking lisinopril; however, since patient is , Nifedipine XL, 30 mg, daily is what Dr. Kasey Dawson recommends. Does Dr. Perla want to prescribe this or does she want Dr. Dawson to prescribe. Please call Bc back to advise. * Telephone Encounter - Caitlin Nails - 12/11/2023 11:15 AM CDT Copied from [facility] #[id number]. Topic: [id number] Call >> Dec 11, 2023 11:02 AM Caitlin Franco wrote: Caller is requesting to speak with Clinical Care Team. Caller Name: Bc PARNELL ROHIT Callback Number: [phone] Option 3 Clinician Type: Healthcare Professional Call Notes: Caller would like a callback to discuss pt being prescribed NIFEDIPNE. Would you like for PARMJIT to fill this order or Dr. Perla. Is this addressing an immediate patient care need? Yes documented in this encounter Plan of Treatment Upcoming Encounters Date Type Department Care Team (Late st Contact Info) Description 02/02/2025 9:30 AM CDT Office Visit [facility] Primary Care - [address] [facility] [address] [place] [address] Mary Perla MD [address] [address] documented as of this encounter Goals Goal Patient Goal Type Associated Problems Recent Progress Patient-Stated? Author HYPERTENSIO N CARE PLAN GOAL Care Plan ALANNA MYC HYPERTENSION CARE PLAN PROBLEM No Edd Downey RN documented as of this encounter Visit Diagnoses Not on filedocumented in this encounter Additional Health Concerns Active Problems Noted Date Diagnosed Date ALANNA MYC HYPERTENSION CARE PLAN PROBLEM 4 documented as of this encounter Care Teams Furniture Detailer Relationship Specialty Start Date End Date Mary Perla MD [address] [place] [address] PCP - General Internal Medicine 09/25/20 documented as of this encounter
--- OUTSIDE RECORDS SUMMARY | 2024-06-04 06:26 | XMS_ITS | Encounter Summary ---
Author Organization [facility] Address [address] Driver: [place] [address] Care Team Providers Care Information Security Manager Name Role Phone Mary Perla MD Primary Care Provider [phone] Encounter Details Date Type Department Care Team (Latest Contact Info) Description 03/28/2022 Travel Social History Tobacco Use Types Packs/Day [...] was confirmed or suspected to have Coronavirus/COVID-19? No / Unsure 03/28/2022 1:41 PM CDT documented as of this encounter Plan of Treatment Upcoming Encounters Date Type Department Care Team (Late st Contact Info) Description 02/02/2025 9:30 AM CDT Office Visit [facility] Primary Care - [facility] [address] [address] Mary Perla MD [address] [place] [address] documented as of this encounter Visit Diagnoses Not on filedocumented in this encounter Care Teams Information Security Manager Relationship Specialty Start Date End Date Mary Perla MD [address] [facility] [address] [place] [address] PCP - General Internal Medicine 09/25/20 documented as of this encounter
--- OUTSIDE RECORDS SUMMARY | 2024-06-04 06:26 | XMS_ITS | Encounter Summary ---
Author Organization [facility] Address [address] [place] [address] Care Team Providers Care Check Examiner Name Role Phone Mary Perla MD Primary Care Provider [phone] Encounter Details Date Type Department Care Team (Late st Contact Info) Description 08/04/2023 External Device Data STL ABSTRACTION Provider, Abstract [...] [facility] - [address] [place] [address] Mary Perla MD [address] [place] [address] documented as of this encounter Visit Diagnoses Not on filedocumented in this encounter Care Teams Check Examiner Relationship Specialty Start Date End Date Mary Perla MD [address] [place] [address] PCP - General Internal Medicine 09/25/20 documented as of this encounter
--- OUTSIDE RECORDS SUMMARY | 2024-06-04 06:26 | XMS_ITS | Clinical Summary ---
Author Organization [facility] [address] Address [facility] [place] [address] Care Team Providers Care Regional Manager Name Role Phone Mary Perla MD Primary Care Provider Allergies Active Allergy Reactions Criticality Noted Date Comments Levetiracetam Unknown 12/11/2023 Medications Medication Sig Dispensed Refills Start Date End Date Status cetirizine (ZyrTEC) 10 mg tablet Take 10 mg by mouth daily. prn Active fluticasone propionate (FLONASE) 50 mcg/spray [place], Suspension nasal inhaler Administer 2 Sprays in each nostril daily. prn Active OXcarbazepine (TRILEPTAL) 600 mg tablet TAKE 1 & 1 2 (ONE & ONE HALF) TABLETS BY MOUTH TWICE DAILY 08/06/2020 Active PNV,calcium 90-lgbr-ojkxb acid ( Vitamin Plus Low Iron) 27 mg iron- 1 mg Tablet Take 1 Tablet by mouth daily. 08/26/2021 Active clonazePAM (KlonoPIN RAPID DISSOLVE) 0.25 mg Tablet, Rapid Dissolve Take 0.25 mg by mouth. 04/26/2021 Active NIFEdipine (ADALAT CC) 30 mg Extended Release tablet Take 1 Tablet (30 mg) by mouth daily. 90 Tablet 3 02/03/2024 Active folic acid (FOLVITE) 1 mg tablet Take 1 mg by mouth daily. Active Active Problems Problem Noted Date Diagnosed Date Skin eruption 04/13/2024 of unknown anatomic location HTN (hypertension) 01/05/2024 HTN (hypertension), benign 12/15/2023 Other synovitis and tenosynovitis, left hand Insect bite 11/05/2023 Ingrowing toenail 11/05/2023 Epilepsy 11/05/2023 Cat bite 11/05/2023 Obesity 01/21/2023 Dysuria 07/29/2022 Low back pain 11/14/2020 Partial epilepsy with impair ment of consciousness, intractable 04/20/2019 PCOS (polycystic ovarian syndrome) 07/01/2017 Excessive hair growth 03/15/2015 Symptomatic localization-related epilepsy 2012 Encounters Date Type Department Care Team Description 05/19/2024 Orders Only [facility] Primary Care - [address] [facility] [address] [place] [address] Provider, Abstract 04/13/2024 2:40 PM CDT Office Visit [facility] Primary Care Same Day [address] [place] [address] Elly Meza, MIKAEL Urinary frequency (Primary Dx); Skin rash 03/09/2024 External Device Data STL ABSTRACTION Provider, Abstract from Last 3 Months Immunizations Name Administration Dates Next Due (ADACEL/BOOSTRIX)(10 YR UP) TDAP VACCINE, 0.5ML, IM 11/22/2019 (BEXSERO)(10-25 YR) MENINGOC OCCAL RECOMBIANT PROTEIN AND OUTER MEMBRANE VESICLE VACCINE, SEROGROUP B MENB-4C, 2 DOSE IM 04/16/2017 (GARDASIL 9)(9-45 YRS) HUMAN PAPILLOMAVIRUS VACCINE, TYPES 6, 11, 16, 18, 31, 33, 45, 52, 58, NONAVALENT (9VHPV), 2 OR 3 DOSE, IM 02/01/2023 (SPIKEVAX) (12 YRS UP PRIMAR Y SERIES) COVID-19 VACCINE - MRNA-1273(PF) 100 MCG/0.5 ML IM SUSP 06/12/2021,08/17/2020,07/19/2020 Hepatitis A Vaccine 05/02/2015,11/28/2014 Hepatitis B Vaccine 05/02/2015,11/28/2014 INFLUENZA VACCINE INACTIVATE D ADJUV, (65 YR UP), 0.5ML (PF), IM 05/21/2024 INFLUENZA VACCINE QUADRIVALE NT 6 MOS UP IM 06/13/2021,03/03/2019,01/28/2018,01/20 INFLUENZA VACCINE QUADRIVALE NT 6 MOS UP PF IM 04/17/2020,03/03/2019,01/28/2018,03/26,01/31/2016 Influenza Seasonal Unspecifi ed Formulation IM 03/26/2017 Influenza Vaccine High Dose 65+ Yrs IM 7 Influenza Vaccine Tri Split 4+ Im 04/17/2020 Meningococcal Polysaccharide Vaccine SQ 04/16/2017,02/14/2016 Meningococcal Polysaccharide Vaccine, Serogroups A, C, Y, W-135, quadrivalent (Mpsv4) SQ 02/07/2016 Tetanus Toxoid, Adsorbed 02/12/2013 Family History Medical History Relation Name Comments Healthy Brother GERD Father Wilfrid High Cholesterol Father Wilfrid Hypertension Father Wilfrid Other Maternal Grandfather Andre Brain Cancer Maternal Grandmother Liver Cancer Maternal Uncle ETOH related Anxiety Mother GERD Mother smoker Breast Cancer Paternal Aunt Uterine Cancer Paternal Aunt Heart Disease Paternal Grandfather Wilfrid Sr Other Paternal Grandfather Wilfrid Sr Other Paternal Grandmother Yoselinalejandro Lau Relation Name Status Comments Brother Alive Father Wilfrid Alive Maternal Grandfather Andre Maternal Grandmother Maternal Uncle Mother Alive Paternal Aunt Paternal Grandfather Wilfrid Sr Alive Paternal Grandmother Yoselin Lau Social History Tobacco Use Types Packs/Day Years Used Date Smoking Tobacco: Never Passive Smoke Exposure: Never Smokeless Tobacco: Never Tobacco Cessation:Counseling Given: [...] Sign Reading Time Taken Comments Blood Pressure 136/72 04/13/2024 2:40 PM CDT Pulse 91 04/13/2024 2:40 PM CDT Temperature 36.1 ??C (97 ??F) 04/13/2024 2:40 PM CDT Respiratory Rate 18 04/13/2024 2:40 PM CDT Oxygen Saturation 99% 04/13/2024 2:40 PM CDT Inhaled Oxygen Concentration - - Weight 94.5 kg (208 lb 6.4 oz) 04/13/2024 2:40 P M CDT Height 154.9 cm (5' 1 ) 04/13/2024 2:40 PM CDT Body Mass Index 39.38 04/13/2024 2:40 PM CDT Plan of Treatment Upcoming Encounters Date Type Department Care Team (Late st Contact Info) Description 02/02/2025 9:30 AM CDT Office Visit [facility] Primary Care - [address] [place] [phone] Mary Perla MD [address] [place] [phone] Health Maintenance Due Date Last Done Comments HEPATITIS B VACCINES (1 of 3 - 19+ 3-dose series) 2004 05/02/2015, 11/28/2014 CERVICAL CANCER SCREENING 2015 HPV VACCINES (2 - 3-dose SCDM series) 03/01/2023 02/01/2023 COVID-19 Vaccine ( season) 2024 06/12/2021, 08/17/2020, 07/19/2020 Pre-Diabetes and Diabetes Screening 11/06/2026 11/07/2023 DTAP/TDAP/TD VACCINES (2 - Td or Tdap) 11/21/2029 11/22/2019 Preventative Visit- Commercial Completed 02/03/2024, 01/29/2023, 01/29/2022, Additional history exists INFLUENZA VACCINE Completed 05/21/2024, , 04/17/2020, Additional history exists PNEUMOCOCCAL VACCINE 0-64 YEARS Aged Out No longer eligible based on patient's age to complete this topic Goals Goal Patient Goal Type Associated Problems Recent Progress Patient-Stated? Author HYPERTENSIO N CARE PLAN GOAL Care Plan ALANNA MYC HYPERTENSION CARE PLAN PROBLEM No Edd Downey welder setter resistance machine Procedure Name Priority Date/Time Associated Diagnosis Comments US BREAST UNI RT LTD Routine 05/18/2024 10:39 AM SPEECH PATHOLOGY ASSISTANT POC URINALYSIS DIPSTICK AUTOMATED Routine 04/13/2024 2:54 PM CDT Urinary frequency HEMOGLOBIN A1C Routine 11/07/2023 9:22 AM CDT Screening for diabetes mellitus from Last 3 Months or Most Recently Relevant to Health Maintenance Results * US BREAST UNI RT LTD (05/18/2024 10:39 AM SPEECH PATHOLOGY ASSISTANT) Anatomical Region Laterality Modality Breast Right Other Abstract Provider US ORDERABLES * (ABNORMAL) POC URINALYSIS DIPSTICK AUTOMATED (04/13/2024 2:54 PM CDT) COLOR UA POC Yellow Pale to Dark Yellow [facility] - [address] CLARITY UA POC Clear Clear, Other ME [facility] - [address] GLUCOSE UA POC Negative Negative, Normal [facility] - [address] BILIRUBIN UA POC Negative Negative [facility] - [address] KETONES UA POC Negative Negative [facility] - [address] SPECIFIC GRAVITY UA POC >=1.030 1.000 - 1.030 [facility] - [address] BLOOD UA POC Negative Negative [facility] - [address] PH UA POC 5.5 5.0 - 8.0 [facility] - [address] PROTEIN UA POC Trace(A) Negative [facility] - [address] UROBILINOGEN UA POC 0.2 <2.0 mg/dL [facility] - [address] NITRITE UA POC Negative Negative [facility] - [address] LEUKOCYTE ESTERASE UA POC Negative Negative [facility] - [address] KIT LOT NUMBER POC 0 [facility] - [address] KIT EXP DATE POC 0 [facility] - [address] Urine 04/13/2024 2:54 PM CDT Elly Meza NP POINT OF CARE TESTI NG [facility] - [address] CLIA# [id number] [address] * HEMOGLOBIN A1C (11/07/2023 9:22 AM CDT) HEMOGLOBIN A1C 5.3 <5.7 % of total Hgb [facility] [place] Comment: For the purpose of screening for the presence of diabetes: <5.7% ? Consistent with the absence of diabetes 5.7-6.4% ?Consistent with increased risk for diabetes ?(prediabetes) > or =6.5% ??Consistent with diabetes This assay result is consistent with a decreased risk of diabetes. Currently, no consensus exists regarding use of hemoglobin A1c for diagnosis of diabetes in children. According to [place] Diabetes Association (ADA) guidelines, hemoglobin A1c <7.0% represents optimal control in non- diabetic patients. Different metrics may apply to specific patient populations. Standards of Medical Care in Diabetes(ADA). ?? ESTIMATED AVERAGE GLUCOSE (MG/DL) 105 mg/dL [facility] ESTIMATED AVERAGE GLUCOSE (MMOL/L) 5.8 mmol/L [facility] [place] Comment: ? This test was performed on the Polly raoul c503 platform. Effective 09/01/23, a change in test platforms from the Sandoval [employer]astic Mixer to the Polly raoul c503 may have shifted HbA1c results compared to historical results. Based on laboratory validation testing conducted at [facility], the Polly platform relative to the Sandoval [...] recommended. FASTING:YES FASTING: YES Test Performed at: [facility] [address] [id number] Isabel Simpson Blood 11/07/2023 9:22 AM CDT 11/07/2023 9:24 AM CDT Shyay James RFID MANAGER CHEMISTRY ORDERABLES [facility] [phone] [facility] [place] [address] [address] [place] [address] from Last 3 Months or Most Recently Relevant to Health Maintenance Additional Health Concerns Active Problems Noted Date Diagnosed Date ALANNA MYC HYPERTENSION CARE PLAN PROBLEM 4 Care Teams Regional Manager Relationship Specialty Start Date End Date Mary Perla MD [address] [place] [address] PCP - General Internal Medicine 09/25/20
--- OUTSIDE RECORDS SUMMARY | 2024-06-04 06:26 | XMS_ITS | Encounter Summary ---
Author Organization [facility] Address [address] [place] [address] Care Team Providers Care Automotive Tire Tester Name Role Phone Mary Perla MD Primary Care Provider [phone] Reason for Visit * Reason Onset Date Comments Blood Pressure Monitoring 12/12/2023 Encounter Details Date Type Department Care Team (Late st Contact Info) Description 12/12/[address] [facility] [address] [place] [address] Bry Rangel Blood Pressure Monitoring Social History Tobacco Use Types Packs/Day Years [...] encounter Miscellaneous Notes * Telephone Encounter - Bry Rangel - 12/23/2023 2:32 PM CDT Virtual Primary Care Outreach Called patient x 2 to set up blood pressure monitoring as ordered per Dr Perla. No return call. Attempted to outreach via [employer]. No answer, though pt was seen reading the initial MMM. Ifat any time patient would like to set up monitoring, patient can call [phone] and ask for an computer specialist. Will close encounter. * Telephone Encounter - Bry Rangel - 12/15/2023 11:21 AM CDT Virtual Primary Care Outreach Called patient (second attempt) to set up blood pressure monitoring. No answer, LVM requesting callback. Will send [employer] message for final attempt at outreach. * Telephone Encounter - Bry Rangel - 12/12/2023 9:31 AM CDT Virtual Primary Care Outreach Called patient to attempt blood pressure monitoring setup. No answer, LVM requesting call back. documented in this encounter Plan of Treatment Upcoming Encounters Date Type Department Care Team (Late st Contact Info) Description 02/02/2025 9:30 AM CDT Office Visit [facility] Primary Care - [address] [address] Mary Perla MD [address] [place] [address] documented as of this encounter Goals Goal Patient Goal Type Associated Problems Recent Progress Patient-Stated? Author HYPERTENSIO N CARE PLAN GOAL Care Plan ALANNA MYC HYPERTENSION CARE PLAN PROBLEM Edd Niño RN documented as of this encounter Visit Diagnoses Not on filedocumented in this encounter Additional Health Concerns Active Problems Noted Date Diagnosed Date ALANNA MYC HYPERTENSION CARE PLAN PROBLEM documented as of this encounter Care Teams Automotive Tire Tester Relationship Specialty Start Date End Date Mary Perla MD [address] [place] [address] PCP - General Internal Medicine 09/25/20 documented as of this encounter
--- OUTSIDE RECORDS SUMMARY | 2024-06-04 06:26 | XMS_ITS | Encounter Summary ---
Author Organization [facility] Address [address] [place] [address] Care Team Providers Care Scrap Drop Crane Operator Name Role Phone Mary Perla MD Primary Care Provider [phone] Encounter Details Date Type Department Care Team (Late st Contact Info) Description 02/24/2024 External Device Data STL ABSTRACTION Provider, Abstract [...] Description 02/02/2025 9:30 AM CDT Office Visit [facility] Primary Care - [address] [place] [address] Mary Perla MD [address] [place] [address] documented as of this encounter Goals [...] documented as of this encounter Care Teams Scrap Drop Crane Operator Relationship Specialty Start Date End Date Mary Perla MD [address] [facility] [address] [place] [address] PCP - General Internal Medicine 09/25/20 documented as of this encounter
--- OUTSIDE RECORDS SUMMARY | 2024-06-04 06:26 | XMS_ITS | Encounter Summary ---
Author Organization [facility] Address [address] [place] [address] Care Team Providers Care Driver/Guide Name Role Phone Mary Perla MD Primary Care Provider [phone] Encounter Details Date Type Department Care Team (Late st Contact Info) Description 03/09/2024 External Device Data STL ABSTRACTION Provider, [...] Description 02/02/2025 9:30 AM CDT Office Visit [facility] Primary Care - [address] [place] [address] Mary Perla MD [address] [place] [address] documented as of this encounter Goals [...] documented as of this encounter Care Teams Driver/Guide Relationship Specialty Start Date End Date Mary Perla MD [address] [facility] [address] [place] [phone] PCP - General Internal Medicine 09/25/20 documented as of this encounter
--- OUTSIDE RECORDS SUMMARY | 2024-06-04 06:26 | XMS_ITS | Encounter Summary ---
Author Organization Address [address] [place] [address] Care Team Providers Care Remote Sensing Program Manager Name Role Phone Mary Perla MD Primary Care Provider Reason for Visit * Reason Comments Medication Refill Encounter Details Date Type Department Care Team (Late st Contact Info) Description 01/09/2022 Refill [facility] Primary Care - [address] [place] [phone] Mary Perla MD [address] [place] [phone] Irritable bowel syndrome, unspecified type Social History Tobacco Use Types [...] encounter Miscellaneous Notes * Telephone Encounter - Elver Carbone - 01/09/2022 4:13 PM CDT Pt calls for Rx refill Quynh De Leon at [phone] (home) called about Rx refill of Requested Prescriptions Pending Prescriptions Disp Refills ??? dicyclomine (BENTYL) 10 mg capsule [Pharmacy Med Name: Dicyclomine HCl 10 MG Oral Capsule] 90 Capsule 0 Sig: TAKE 1 CAPSULE BY MOUTH THREE TIMES DAILY Date of Last Visit: 04/24/2021 Date of Last Refill 09/25/2020 Next office visit: Visit date not found Patient's Preferred Pharmacy Info: Loaded documented in this encounter Plan of Treatment Upcoming Encounters Date Type Department Care Team (Late st Contact Info) Description 02/02/2025 9:30 AM CDT Office Visit [facility] Primary Care - [address] [place] [phone] Mary Perla MD [address] [place] [phone] documented as of this encounter Visit Diagnoses Diagnosis Irritable bowel syndrome, unspecified type documented in this encounter Care Teams Remote Sensing Program Manager Relationship Specialty Start Date End Date Mary Perla MD [address] [place] [phone] PCP - General Internal Medicine 09/25/20 documented as of this encounter
--- OUTSIDE RECORDS SUMMARY | 2024-06-04 06:26 | XMS_ITS | Encounter Summary ---
Author Organization [facility] Address [address] [place] [address] Care Team Providers Care Dental Scheduler Name Role Phone Mary Perla MD Primary Care Provider Reason for Visit * Reason Comments Rash Rash on leg. White l sidney on toenails. For approximately one week. Encounter Details Date Type Department Care Team (Late st Contact Info) Description 03/28/2022 2:00 PM CDT Office Visit [facility] Primary Care - [address] [place] [phone] Mitra Rivera, CHIKA [address] [place] [address] Dermatitis (Primary Dx) Social History Tobacco Use Types Packs/Day Years Used Date Smoking Tobacco: Never Smokeless Tobacco: Never Tobacco Cessation:Counseling Given: Not Answered Alcohol Use Standard Drinks/Week Comments Not Currently [...] PM CDT documented as of this encounter Last Filed Vital Signs Vital Sign Reading Time Taken Comments Blood Pressure 126/82 03/28/2022 1:58 PM CDT Pulse 91 03/28/2022 1:58 PM CDT Temperature 37.2 ??C (99 ??F) 03/28/2022 1:58 PM CDT Respiratory Rate 18 03/28/2022 1:58 PM CDT Oxygen Saturation 96% 03/28/2022 1:58 PM CDT Inhaled Oxygen Concentration - - Weight 90.4 kg (199 lb 6.4 oz) 03/28/2022 1:58 P M CDT Height 154.9 cm (5' 1 ) 03/28/2022 1:58 PM CDT Body Mass Index 37.68 03/28/2022 1:58 PM CDT documented in this encounter Progress Notes * Mitra Rivera, CHIKA - 03/28/2022 2:23 PM CDT Chief Complaint: Chief Complaint Patient presents with Rash Rash on leg. White lines on toenails. For approximately one week. Nursing documentation reviewed. History of Present Illness: Quynh De Leon is a 36 y.o. female here today for above. A week ago started with a red bump to left knee Went away after a day Then scratched behind her knee [place] some bumps Then shaved the area because thought it was hair irritation Then it spread Has been using topical steroid and antifungal which not sure if its helping Today didn't apply anything It is not itching today Denies fevers or chills Answers submitted by the patient for this visit: Rash Questionnaire (Submitted on 03/28/2022) Chief Complaint: Rash When did you first notice your symptoms?: in the past 7 days Progression since onset: gradually worsening, gradually worsening Where is your rash located?: left upper leg, left lower leg Characteristics: dryness, redness, swelling, itchiness Exposed to: nothing anorexia: No facial edema: No fatigue: Yes nail changes: Yes rhinorrhea: Yes What treatments have you tried?: antihistamine, anti-itch cream, topical steroids Level of improvement with treatment?: mild No Known Allergies Current Outpatient Medications on File Prior to Visit Medication Sig Dispense Refill PNV,calcium 64-demm-tmwde acid ( Vitamin Plus Low Iron) 27 [...] daily. prn fluticasone propionate (FLONASE) 50 mcg/spray [place], Suspension nasal inhaler Administer 2 Sprays in each nostril daily. prn OXcarbazepine (TRILEPTAL) 600 mg tablet TAKE 1 & 1 2 (ONE & ONE HALF) TABLETS BY MOUTH TWICE DAILY [DISCONTINUED] methylPREDNISolone (MEDROL DOSPACK) 4 mg Tablets, Dose Pack Use as directed with food (Patient not taking: Reported on 01/29/2022) 21 Tablet 0 No current facility-administered medications on file prior to visit. Review of Systems: Review of Systems Constitutional: Negative for chills and fever. HENT: Positive for congestion. Negative for sore throat. Eyes: Negative for pain. Respiratory: Negative for cough and shortness of breath. Gastrointestinal: Negative for diarrhea and vomiting. Musculoskeletal: Positive for joint pain. Skin: Positive for rash. PMHx/PSHx/FMHx: Reviewed and updated in chart. Past Medical History: Diagnosis Date Allergies seasonal Epilepsy IBS (irritable bowel syndrome) Family History Problem Relation Name Age of Onset GERD Father Wilfrid Hypertension Father Wilfrid GERD Mother smoker Healthy Brother Brain Cancer Maternal Grandmother Other Maternal Grandfather Andre Other Paternal Grandmother Yoselin Lau Other Paternal Grandfather Wilfrid Sr Heart Disease Paternal Grandfather Wilfrid Sr Breast Cancer Paternal Aunt Uterine Cancer Paternal Aunt Liver Cancer Maternal Uncle ETOH related Past Surgical History: Procedure Laterality Date HX BREAST REDUCTION 2007 HX WISDOM TEETH EXTRACTION 2001 Exam: BP 126/82 (BP Location: Left arm, Patient Position (BP): Sitting, BP Cuff Size: Adult) Pulse 91 Temp 99 ??F (37.2 ??C) (Temporal) Resp 18 Ht 5' 1 (1.549 m) Wt 90.4 kg (199 lb 6.4 oz) LMP03/06/2022 (Approximate) SpO2 96% BMI 37.68 kg/m?? Physical Exam Vitals reviewed. Cardiovascular: Rate and Rhythm: Normal rate. Pulmonary: Effort: Pulmonary effort is normal. Skin: Comments: See media for rash on the LLE, posterior calf There is warmth with redness Neurological: General: No focal deficit present. Psychiatric: Mood and Affect: Mood normal. Behavior: Behavior normal. Data Review/Procedures: I have reviewed the patient's medical history in detail; there are no changes to the history as noted in the electronic medical record. Assessment and Plan: Quynh was seen today for rash. Diagnoses and all orders for this visit: Dermatitis - Discontinue: triamcinolone acetonide (KENALOG) 0.5 % Cream; Apply to affected area 2 times daily for 14 days. - triamcinolone acetonide (KENALOG) 0.5 % Cream; Apply to affected area 2 times daily for 14 days. To calf and thigh Other orders - doxycycline hyclate (VIBRAMYCIN) 100 mg capsule; Take 1 Capsule (100 mg) by mouth 2 times daily for 7 days. Im concerned for possibility of infection since she has scratches which serve as mode of entry so will do doxycycline as well If symptoms change/worsen, new symptoms develop, or other concerns arise, pt advised to seek medical attention Specific f/u: prn Appropriate patient instructions provided. Medications and options explained to include common side effects. Understanding of medications, course, diagnosis, and expectations were expressed by patient/caregiver and agrees with plan. This patient was seen by Mitra Rivera APRN. Mary Perla MD was present in the suite. documented in this encounter Plan of Treatment Upcoming Encounters Date Type Department Care Team (Late st Contact Info) Description 02/02/2025 9:30 AM CDT Office Visit [facility] Primary Care - [address] [phone] Mary Perla MD [address] [phone] documented as of this encounter Visit Diagnoses Diagnosis Dermatitis- Primary Contact dermatitis and other eczema, due to unspecified cause documented in this encounter Care Teams Dental Scheduler Relationship Specialty Start Date End Date Mary Perla MD [address] [facility] [address] [place] [address] PCP - General Internal Medicine 09/25/20 documented as of this encounter
--- OUTSIDE RECORDS SUMMARY | 2024-06-04 06:26 | XMS_ITS | Encounter Summary ---
Author Organization [facility] Address [address] Driver: [place] [address] Care Team Providers Care Conditioning Room Worker Name Role Phone Mary Perla MD Primary Care Provider [phone] Encounter Details Date Type Department Care Team (Latest Contact Info) Description 03/27/2022 Travel Social History Tobacco Use Types Packs/Day [...] 02/02/2025 9:30 AM CDT Office Visit [facility] Primary Care - [address] [phone] Mary Perla MD [address] [place] [phone] documented as of this encounter Visit Diagnoses Not on filedocumented in this encounter Care Teams Conditioning Room Worker Relationship Specialty Start Date End Date Mary Perla MD [address] [facility] [address] [place] [address] PCP - General Internal Medicine 09/25/20 documented as of this encounter
--- OUTSIDE RECORDS SUMMARY | 2024-06-04 06:26 | XMS_ITS | Encounter Summary ---
Author Organization [facility] Address [address] [place] [address] Care Team Providers Care Senior Supplier Quality Engineer Name Role Phone Mary Perla MD Primary Care Provider [phone] Reason for Visit * Reason Comments Cough x1 week Sinus Problem Encounter Details Date Type Department Care Team (Late st Contact Info) Description 04/24/2021 2:30 PM PERSONAL FINANCIAL REPRESENTATIVE Video Visit [facility] Primary Care - [address] [place] [phone] Mitra Rivera, CUTTING DEPARTMENT SUPERVISOR [address] [place] [address] Upper respiratory tract infection, unspecified type (Primary Dx) Social History Tobacco Use Types [...] COVID-19? Unable to assess 04/24/2021 8:05 AM PERSONAL FINANCIAL REPRESENTATIVE documented as of this encounter Last Filed Vital Signs Vital Sign Reading Time Taken Comments Blood Pressure - - Pulse - - Temperature - - Respiratory Rate - - Oxygen Saturation - - Inhaled Oxygen Concentration - - Weight 93.9 kg (207 lb) 04/24/2021 2:33 PM PERSONAL FINANCIAL REPRESENTATIVE Height 154.9 cm (5' 1 ) 04/24/2021 2:33 PM PERSONAL FINANCIAL REPRESENTATIVE Body Mass Index 39.11 04/24/2021 2:33 PM PERSONAL FINANCIAL REPRESENTATIVE documented in this encounter Progress Notes * Mitra Rivera, CUTTING DEPARTMENT SUPERVISOR - 04/24/2021 2:45 PM CST HISTORY OF PRESENT ILLNESS Quynh De Leon is a 35 y.o. female presents with a Chief Complaint Patient presents with ??? Cough x1 week ??? Sinus Problem HPI: Cough 7+ days ago It seems to be improving overall, was worse in beginning She felt worse in the beginning Is not coughing anything out No SOB or wheezing unless she breathes in deeply Sinus congestion in the beginning but improved now Feels like she is improving Its still there but is lessening But has a lot of PND that is triggering some coughing At home test negative for covid Ht 5' 1 (1.549 m) Wt 93.9 kg (207 lb) BMI 39.11 kg/m?? Temperature Temp Readings from Last 1 Encounters: 11/14/20 97.6 ??F (36.4 ??C) Blood Pressure BP Readings from Last 1 Encounters: 11/14/20 118/80 Pulse Pulse Readings from Last 1 Encounters: 11/14/20 77 Weight Wt Readings from Last 1 Encounters: 04/24/21 93.9 kg (207 lb) Height Ht Readings from Last 1 Encounters: 04/24/21 5' 1 (1.549 m) Past Medical History: Past Medical History: Diagnosis Date ??? Allergies seasonal ??? Epilepsy ??? IBS (irritable bowel syndrome) Past Surgical History: Past Surgical History: Procedure Laterality Date ??? HX BREAST REDUCTION 2007 ??? HX WISDOM TEETH EXTRACTION 2001 Home Medications: Current Outpatient Medications: ??? methylPREDNISolone (MEDROL DOSPACK) 4 mg Tablets, Dose Pack, Use as directed with food, Disp: 21 Tablet, Rfl: 0 ??? dicyclomine (BENTYL) 10 mg capsule, Take 10 mg by mouth 2 times daily as needed., Disp: , Rfl: ??? cetirizine (ZyrTEC) 10 mg tablet, Take 10 mg by mouth daily. prn, Disp: , Rfl: ??? fluticasone propionate (FLONASE) 50 mcg/spray [place], Suspension nasal inhaler, Administer 2 Sprays in each nostril daily. prn, Disp: , Rfl: ? ? OXcarbazepine (TRILEPTAL) 600 mg tablet, TAKE 1 & 1 2 (ONE & ONE HALF) TABLETS BY MOUTHTWICE DAILY, Disp: , Rfl: ??? dicyclomine (BENTYL) 10 mg capsule, Take 1 Capsule (10 mg) by mouth 3 times daily., Disp: 90 Capsule, Rfl: 3 Allergies: No Known Allergies Family History: Family History Problem Relation Name Age of Onset ??? GERD Father ??? GERD Mother smoker ??? Healthy Brother ??? Brain Cancer Maternal Grandmother ??? Other Maternal Grandfather ??? Other Paternal Grandmother ??? Other Paternal Grandfather ??? Breast Cancer Paternal Aunt ??? Uterine Cancer Paternal Aunt ??? Liver Cancer Maternal Uncle ETOH related Review of Systems Constitutional: Negative. HENT: Positive for congestion and postnasal drip. Negative for sinus pressure and sinus pain. Respiratory: Positive for cough and chest tightness. Negative for shortness of breath and wheezing. Cardiovascular: Negative. Physical Exam Vitals reviewed. Constitutional: Appearance: Normal appearance. Pulmonary: Effort: Pulmonary effort is normal. Comments: She speaks in full sentences. Audible dry cough intermittently during conversation. Neurological: Mental Status: She is alert. ASSESSMENT: ICD-10-CM ICD-9-CM 1. Upper respiratory tract infection, unspecified type J06.9 465.9 methylPREDNISolone (MEDROL DOSPACK) 4 mg Tablets, Dose Pack Doesn't sound like PN or baterial infection at this time Continue home measures - restart zyrtec Will add steroid Let me know around day 14 if sx are still lingering CHIKA Tracy This patient was seen by Mitra Rivera APRN. Mary Perla MD was present in the suite. This encounter was completed via two-way synchronous audio only communication. Time spent by the provider delivering the care documented in this encounter 20 minutes. Patient expressed understanding that using technology outside of [facility] has higher potential tointroduce privacy risks: Not Applicable Patient's identity confirmed yes Patient gave verbal consent to have these services billed to their insurance and expressed understanding that co-insurance and deductible may apply: yes ONAL FINANCIAL REPRESENTATIVE documented in this encounter Plan of Treatment Upcoming Encounters Date Type Department Care Team (Late st Contact Info) Description 02/02/2025 9:30 AM CDT Office Visit [facility] Primary Care - [address] [place] [phone] Mary Perla MD [address] [place] [phone] documented as of this encounter Visit Diagnoses Diagnosis Upper respiratory tract infection, unspecified type- Primary documented in this encounter Care Teams Senior Supplier Quality Engineer Relationship Specialty Start Date End Date Mary Perla MD [address] [place] [phone] PCP - General Internal Medicine 09/25/20 documented as of this encounter
--- OUTSIDE RECORDS SUMMARY | 2024-06-04 06:26 | XMS_ITS | Encounter Summary ---
Author Organization [facility] Address [address] [place] [address] Care Team Providers Care Inserter Promotional Item Name Role Phone Mary Perla MD Primary Care Provider [phone] Encounter Details Date Type Department Care Team (Late Contact Info) Description 01/23/2024 Orders Only [facility] - [address] [place] [phone] Provider, Abstract NO ADDRESS ON FILE [...] 02/02/2025 9:30 AM CDT Office Visit [facility] - [address] [place] [phone] Mary Perla MD [address] [place] [phone] documented as of this encounter Goals Goal Patient Goal Type Associated Problems Recent Progress Patient-Stated? Author HYPERTENSIO N CARE PLAN GOAL Care Plan ALANNA MYC HYPERTENSION CARE PLAN PROBLEM No Edd Downey RN documented as of this encounter Procedures Procedure Name Priority Date/Time Associated Diagnosis Comments DILATION AND CURETTAGE Routine 01/16/2024 3:27 PM CDT documented in this encounter Results * DILATION AND CURETTAGE (01/16/2024 3:27 PM CDT) Abstract Provider PROCEDURE/MINOR SURG ICAL ORDERABLES [facility]IMARY [facility] - [address] [place] [address] CLME# [id number] [facility] [id number] [place] [address] documented in this encounter Visit Diagnoses Not on filedocumented in this encounter Additional Health Concerns Active Problems Noted Date Diagnosed Date ALANNA MYC HYPERTENSION CARE PLAN PROBLEM 4 Assessment Noted Time PHQ-9 Depression Total Score: 1 12/15/19 24 11:10 AM CDT documented as of this encounter Care Teams Inserter Promotional Item Relationship Specialty Start Date End Date Mary Perla MD [address] [place] [phone] PCP - General Internal Medicine 09/25/20 documented as of this encounter
--- OUTSIDE RECORDS SUMMARY | 2024-06-04 06:26 | XMS_ITS | Encounter Summary ---
Author Organization [facility] Address [address] [place] [address] Care Team Providers Care Cleaners Name Role Phone Mary Perla MD Primary Care Provider Reason for Visit * Reason Comments Rash Body rash started la st Friday/FridayNo change in detergent or soap until after rash appeared Urinary Frequency Started 2 wks ago Encounter Details Date Type Department Care Team (Late st Contact Info) Description 04/13/2024 2:40 PM CDT Office Visit [facility] Same Day [address] [place] [address] Elly Meza, MIKAEL [address] [place] [address] Urinary frequency (Primary Dx); Skin rash Social History Tobacco Use Types Packs/Day Years [...] Mass Index 39.38 04/13/2024 2:40 PM CDT documented in this encounter Progress Notes * Elly Meza, MOTOR EQUIPMENT COMMANDING OFFICER - 04/13/2024 2:47 PM CDT Images from the original note were not included. Chief Complaint Patient presents with Rash Body rash started last Friday/Friday No change in detergent or soap until after rash appeared Urinary Frequency Started 2 wks ago Current Outpatient Medications Medication Sig Dispense Refill NIFEdipine (ADALAT CC) 30 mg Extended Release tablet Take 1 Tablet (30 mg) by mouth daily. 90 Tablet 3 PNV,calcium 16-oetm-evgaw acid ( Vitamin Plus Low Iron) 27 mg iron- 1 mg Tablet Take 1 Tablet by mouth daily. clonazePAM (KlonoPIN RAPID DISSOLVE) 0.25 mg Tablet, Rapid Dissolve Take 0.25 mg by mouth. cetirizine (ZyrTEC) 10 mg tablet Take 10 mg by mouth daily. prn fluticasone propionate (FLONASE) 50 mcg/spray [place], Suspension nasal inhaler Administer 2 Sprays in each nostril daily. prn OXcarbazepine (TRILEPTAL) 600 mg tablet TAKE 1 & 1 2 (ONE & ONE HALF) TABLETS BY MOUTH TWICE DAILY folic acid (FOLVITE) 1 mg tablet Take 1 mg by mouth daily. No current facility-administered medications for this visit. Allergies Allergen Reactions Levetiracetam Unknown Past Medical History: Diagnosis Date Allergies seasonal Epilepsy H/O dilation and curettage 01/16/2024 IBS (irritable bowel syndrome) Rash Urinary frequency Past Surgical History: Procedure Laterality Date HX BREAST REDUCTION 2007 HX WISDOM TEETH EXTRACTION 2001 Family History Problem Relation Name Age of Onset GERD Father Wilfrid Hypertension Father Wilfrid High Cholesterol Father Wilfrid GERD Mother smoker Anxiety Mother Healthy Brother Brain Cancer Maternal Grandmother Other Maternal Grandfather Andre Other Paternal Grandmother Yoselin Lau Other Paternal Grandfather Wilfrid Sr Heart Disease Paternal Grandfather Wilfrid Sr 80 Liver Cancer Maternal Uncle ETOH related Breast Cancer Paternal Aunt Uterine Cancer Paternal Aunt Social History Tobacco Use Smoking status: Never Passive exposure: Never Smokeless tobacco: Never Substance Use Topics Alcohol use: Not Currently SUBJECTIVE: Quynh De Leon is a 38 y.o. female who complains of a rash involving the breasts initially but has since spread to legs, arms and abdomen. Rash started 3-4 days ago. Full body in the last 2 days. Course of symptoms over time is worsening. No rash on her posterior torso or face/neck. Skin sensations associated with rash: pruritic. Associated symptoms: no additional symptoms. Patient denies: no additional symptoms. No sore throat, no recent URI symptoms. No fevers. Patient has not had new exposures (soaps, lotions, laundry detergents, foods, medications, plants, insects or animals). Boyfriend pulled up carpet in cat's room on Friday. Allergic to mold and there is a mold issue in their home. Using Miconazole as she has a history of fungal rash. Using Hydrocortisone helps with itching. Has also been urinating a lot lately. Is 8 weeks . No pain with urination. No hematuria. No back or abdominal pain. No nausea, vomiting, diarrhea. ROS: See HPI, No fever, sore throat, no eye problems. No cough, cold, throat swelling, congestion or difficulty in breathing. No abdominal pain, vomiting, diarrhea. Skin: + pruritic rash OBJECTIVE: BP 136/72 (BP Location: Left arm, Patient Position (BP): Sitting, BP Cuff Size: Adult) Pulse 91 Temp 97 ??F (36.1 ??C) (Temporal) Resp 18 Ht 5' 1 (1.549 m) Wt 94.5 kg (208 lb 6.4 oz) SpO2 99% BMI 39.38 kg/m?? General appearance: alert, well appearing, and in no distress, oriented to person, place, and time,and well hydrated. Skin exam: Diffuse erythematous rash to the breasts, abdomen, arms and legs. Blanchable, pruritic. No drainage. Suggestive of possible viral rash versus contact rash. The remainder of the skin exam: no edema, temperature normal Respiratory: RRR Neuro: Alert and oriented, steady gait Psych; Calm and cooperative. Results for orders placed or performed in visit on 04/13/24 POC URINALYSIS DIPSTICK AUTOMATED Result Value Ref Range COLOR UA POC Yellow Pale to Dark Yellow CLARITY UA POC Clear Clear, Other GLUCOSE UA POC Negative Negative, Normal BILIRUBIN UA POC Negative Negative KETONES UA POC Negative Negative SPECIFIC GRAVITY UA POC >=1.030 1.000 - 1.030 BLOOD UA POC Negative Negative PH UA POC 5.5 5.0 - 8.0 PROTEIN UA POC Trace (A) Negative UROBILINOGEN UA POC 0.2 <2.0 mg/dL NITRITE UA POC Negative Negative LEUKOCYTE ESTERASE UA POC Negative Negative KIT LOT NUMBER POC 0 KIT EXP DATE POC 0 ASSESSMENT: ICD-10-CM ICD-9-CM 1. Urinary frequency R35.0 788.41 POC URINALYSIS DIPSTICK AUTOMATED 2. Skin rash R21 782.1 PLAN: Orders Placed This Encounter POC URINALYSIS DIPSTICK AUTOMATED (Point of Care) 1. Urinary frequency No UTI. No indication for antibiotics. If you develop pain, hematuria or new symptoms please followup with PCP or gynecology. - POC URINALYSIS DIPSTICK AUTOMATED 2. Skin rash Likely viral versus contact dermatitis. Is 8 weeks . I'm not comfortable with prescribing an oral steroid with new . She can take Zyrtec 10 mg 1-2 times daily. Can use hydrocortisonetopical sparingly twice daily. Would reach out to OB to see what safe medications she can take for itching or any further recommendations. Rest and push fluids. Quynh verbalizes understanding of instructions and has no further questions upon discharge. This patient was seen by Elly Meza APRN, Ko Moralez MD is collaborating physician. An After Visit Summary was printed and given to the patient. documented in this encounter Plan of Treatment Upcoming Encounters Date Type Department Care Team (Late st Contact Info) Description 02/02/2025 9:30 AM CDT Office Visit [facility] - [address] [place] [address] Mary Perla MD [address] [place] [address] documented as of this encounter Goals Goal Patient Goal Type Associated Problems Recent Progress Patient-Stated? Author HYPERTENSIO N CARE PLAN GOAL Care Plan ALANNA MYC HYPERTENSION CARE PLAN PROBLEM No Edd Downey RN documented as of this encounter Procedures Procedure Name Priority Date/Time Associated Diagnosis Comments POC URINALYSIS DIPSTICK AUTOMATED Routine 04/13/2024 2:54 PM CDT Urinary frequency documented in this encounter Results * (ABNORMAL) POC URINALYSIS DIPSTICK AUTOMATED (04/13/2024 2:54 PM CDT) COLOR UA POC Yellow Pale to Dark Yellow [facility] - [address] CLARITY UA POC Clear Clear, Other [facility] - [address] GLUCOSE UA POC Negative Negative, Normal [facility] - [facility] BILIRUBIN UA POC Negative Negative [facility] - [address] KETONES UA POC Negative Negative [facility] - [address] SPECIFIC GRAVITY UA POC >=1.030 1.000 - 1.030 [facility] - [address] BLOOD UA POC Negative Negative [facility] - [address] PH UA POC 5.5 5.0 - 8.0 [facility] - [address] PROTEIN UA POC Trace(A) Negative [facility] - [address] UROBILINOGEN UA POC 0.2 <2.0 mg/dL [facility] - [address] NITRITE UA POC Negative Negative [facility] [address] LEUKOCYTE ESTERASE UA POC Negative Negative [facility] - [address] KIT LOT NUMBER POC 0 [facility] - [address] KIT EXP DATE POC 0 [facility] - [address] Urine 04/13/2024 2:54 PM CDT Elly Meza MOTOR EQUIPMENT COMMANDING OFFICER POINT OF CARE TESTI NG [facility] - [address] [facility] CLIA# [id number] [address] [place] [address] documented in this encounter Visit Diagnoses Diagnosis Urinary frequency- Primary Skin rash Rash and other nonspecific skin eruption documented in this encounter Additional Health Concerns Active Problems Noted Date Diagnosed Date ALANNA MYC HYPERTENSION CARE PLAN PROBLEM 4 Assessment Noted Time PHQ-9 Depression Total Score: 1 12/15/19 24 11:10 AM CDT documented as of this encounter Care Teams Cleaners Relationship Specialty Start Date End Date Mary Perla MD [facility] [address] [address] PCP - General Internal Medicine 09/25/20 documented as of this encounter
--- OUTSIDE RECORDS SUMMARY | 2024-06-04 06:26 | XMS_ITS | Encounter Summary ---
Author Organization [facility] Address [address] [place] [address] Care Team Providers Care Eight Arm Operator Name Role Phone Mary Perla MD Primary Care Provider [phone] Reason for Referral * Physical Therapy (Routine) - Closed Specialty Diagnoses / Procedures Referred By Nathalie t Referred To Contact Diagnoses Acute bilateral low back pain without sciatica Mitra Rivera FNP [address] [place] [address] Referral ID Status Reason Start Date Expiration Date Visits Re quested Visits Authorized [id number] Closed 11/14/2020 11/14/2021 6 6 Reason for Visit * Reason Comments Back Pain x1 week Encounter Details Date Type Department Care Team (Late st Contact Info) Description 11/14/2020 2:00 PM CDT Office Visit [facility] - [address] [place] [address] Mitra Rivera FNP [address] [place] [address] Acute bilateral low back pain without sciatica (Primary Dx) Social History Tobacco Use Types [...] have Coronavirus / COVID-19? No / Unsure 11/14/2020 1:01 PM CDT documented as of this encounter Last Filed Vital Signs Vital Sign Reading Time Taken Comments Blood Pressure 118/80 11/14/2020 2:07 PM CDT Pulse 77 11/14/2020 2:07 PM CDT Temperature 36.4 ??C (97.6 ??F) 11/14/2020 2:07 PM CD T Respiratory Rate 18 11/14/2020 2:07 PM CDT Oxygen Saturation 97% 11/14/2020 2:07 PM CDT Inhaled Oxygen Concentration - - Weight 94.1 kg (207 lb 8 oz) 11/14/2020 2:07 PM CDT Height 154.9 cm (5' 1 ) 11/14/2020 2:07 PM CDT Body Mass Index 39.21 11/14/2020 2:07 PM CDT documented in this encounter Progress Notes * Mitra Rivera, CHIKA - 11/14/2020 2:00 PM CDT Chief Complaint: OV (f/u, acute) SWM Chief Complaint Patient presents with ??? Back Pain x1 week Nursing documentation reviewed. History of Present Illness: Quynh De Leon is a 35 y.o. female here today for above. Answers for HPI/ROS submitted by the patient on 11/14/2020 Chronicity: recurrent Onset: in the past 7 days Frequency: constantly Progression since onset: waxing and waning Pain location: lumbar spine Pain quality: stabbing Radiates to: left knee Pain - numeric: 6/10 Pain is: the same all the time Aggravated by: position, sitting, standing, twisting Stiffness is present: all day bladder incontinence: No bowel incontinence: No leg pain: No numbness: No paresis: No paresthesias: No pelvic pain: Yes perianal numbness: No Risk factors: lack of exercise, obesity, poor posture Low back pain Hip region Tried to pop it Not sure this caused the pain But shortly after started with spasms Terribly bad To the point she had to lay down Left work early Had trouble lifting her legs it was so bad chiro - stim therapy, heat and ice, pressure stretching Has had chronic back pain due to hips in past, usually readjusting seems to really help a lot 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 Hips tend to be off with one is higher than the other No Known Allergies Current Outpatient Medications on File Prior to Visit Medication Sig Dispense Refill ??? dicyclomine (BENTYL) 10 mg capsule Take 10 mg by mouth 2 times daily as needed. ??? cetirizine (ZyrTEC) 10 mg tablet Take 10 mg by mouth daily. prn ??? fluticasone propionate (FLONASE) 50 mcg/spray [place], Suspension nasal inhaler Administer 2 Sprays in each nostril daily. prn ? ? OXcarbazepine (TRILEPTAL) 600 mg tablet TAKE 1 & 1 2 (ONE & ONE HALF) TABLETS BY MOUTH TWICE DAILY ??? dicyclomine (BENTYL) 10 mg capsule Take 1 Capsule (10 mg) by mouth 3 times daily. 90 Capsule 3 No current facility-administered medications on file prior to visit. Review of Systems: Review of Systems Constitutional: Negative for fever and weight loss. Cardiovascular: Negative for chest pain. Gastrointestinal: Negative for abdominal pain. Genitourinary: Negative for dysuria. Musculoskeletal: HPI Neurological: Negative for tingling, weakness and headaches. PMHx/PSHx/FMHx: Reviewed and updated in chart. Exam: BP 118/80 Pulse 77 Temp 97.6 ??F (36.4 ??C) Resp 18 Ht 5' 1 (1.549 m) Wt 94.1 kg (207 lb8 oz) SpO2 97% BMI 39.21 kg/m?? Physical Exam Vitals and nursing note reviewed. Constitutional: Appearance: Normal appearance. She is well-developed and well-groomed. Interventions: Face mask in place. Cardiovascular: Rate and Rhythm: Normal rate and regular rhythm. Pulmonary: Effort: Pulmonary effort is normal. Breath sounds: Normal breath sounds. Musculoskeletal: General: Tenderness present. No swelling or deformity. Right lower leg: No edema. Left lower leg: No edema. Comments: And muscle spasm to paraspinal msks Negative straight leg raise NL patellar reflexes No tenderness to piriformis Neurological: General: No focal deficit present. Mental Status: She is alert. Psychiatric: Attention and Perception: Attention normal. Mood and Affect: Mood normal. Speech: Speech normal. Behavior: Behavior normal. Behavior is cooperative. Thought Content: Thought content normal. Cognition and Memory: Cognition normal. Judgment: Judgment normal. Data Review/Procedures: I have reviewed the patient's medical history in detail; there are no changes to the history as noted in the electronic medical record. Assessment and Plan: Quynh was seen today for back pain. Diagnoses and all orders for this visit: Acute bilateral low back pain without sciatica - cyclobenzaprine (FLEXERIL) 5 mg Tablet; 1-2 tabs PO TID PRN for spasm - AMB REFERRAL TO PHYSICAL THERAPY If symptoms change/worsen, new symptoms develop, or other concerns arise, pt advised to seek medical attention Specific f/u: 1 mos if not better Appropriate patient instructions provided. Medications and options [...] Description 02/02/2025 9:30 AM CDT Office Visit [facility] Primary [facility] - [address] [address] Mary Perla MD [facility] [address] [address] Scheduled Referrals Name Type Priority Associated Diagnoses Orde r Schedule AMB REFERRAL TO PHYSICAL THERAPY Outpatient Referral Routine Acute bilateral low back pain without sciatica Ordered: 11/14/2020 documented as of this encounter Visit Diagnoses Diagnosis Acute bilateral low back pain without sciatica- Primary documented in this encounter Care Teams Eight Arm Operator Relationship Specialty Start Date End Date Mary Perla MD [address] [place] [address] [address] [place] [address] PCP - General Internal Medicine 09/25/20 documented as of this encounter
--- OUTSIDE RECORDS SUMMARY | 2024-06-04 06:26 | XMS_ITS | Encounter Summary ---
Author Organization [facility] Address [address] [place] [address] Care Team Providers Care Tax Services Specialist Name Role Phone Mary Perla MD Primary Care Provider Reason for Visit * Reason Comments Erroneous encounter-disregard Encounter Details Date Type Department Care Team (Late st Contact Info) Description 03/27/2022 8:00 AM CDT Video Visit [facility] Primary Care - [address] [place] [address] Mitra Rivera FNP [address] [place] [address] ERRONEOUS ENCOUNTER--DISREGARD (Primary Dx) Social History Tobacco Use Types [...] AM CDT documented as of this encounter Progress Notes * Mitra Rivera FNP - 03/27/2022 8:00 AM CDT Patient on my schedule for rash. Video is not working. She needs to come in. I sent a message to nimesh asking her to add pt to my schedule tomorrow at 2pm documented in this encounter Plan of Treatment Upcoming Encounters Date Type Department Care Team (Late st Contact Info) Description 02/02/2025 9:30 AM CDT Office Visit [facility] - [address] [place] [address] Mary Perla MD [address] [place] [address] documented as of this encounter Visit Diagnoses Diagnosis ERRONEOUS ENCOUNTER--DISREGARD- Primary documented in this encounter Care Teams Tax Services Specialist Relationship Specialty Start Date End Date Mary Perla MD [address] [place] [address] PCP - General Internal Medicine 09/25/20 documented as of this encounter
--- OUTSIDE RECORDS SUMMARY | 2024-06-04 06:26 | XMS_ITS | Encounter Summary ---
Author Organization [facility] Address [address] [place] [address] Care Team Providers Care Retail Office Associate Name Role Phone Mary Peral MD Primary Care Provider Reason for Visit * Reason Comments Hypertension Encounter Details Date Type Department Care Team (Late st Contact Info) Description 12/15/2023 11:00 AM CDT Office Visit [facility] Primary Care - [address] [place] [address] [address] HTN (hypertension), benign (Primary Dx) Social History Tobacco Use Types [...] Sign Reading Time Taken Comments Blood Pressure 128/80 12/15/2023 11:03 AM CDT Pulse 96 12/15/2023 11:03 AM CDT Temperature 36.3 ??C (97.4 ??F) 12/15/2023 11:03 AM C DT Respiratory Rate 18 12/15/2023 11:03 AM CDT Oxygen Saturation 100% 12/15/2023 11:03 AM CDT Inhaled Oxygen Concentration - - Weight 89.4 kg (197 lb) 12/15/2023 11:03 AM CDT Height 154.9 cm (5' 1 ) 12/15/2023 11:03 AM CDT Body Mass Index 37.22 12/15/2023 11:03 AM CDT documented in this encounter Progress Notes * Shayy James FNP - 12/15/2023 11:18 AM CDT SUBJECTIVE: Quynh De Leon is a 38 y.o. female here for Chief Complaint Patient presents with Hypertension Started Lisinopril initially, found out she was , stopped the lisinopril and started Procardia 30 mg XL. Some readings at home 130s/80s. Today 128/80. Went to ER Friday due to BP 160s, by time to ER and in room came down. Outpatient Medications Marked as Taking for the 12/15/23 encounter (Office Visit) with Shayy James FNP Medication Sig Dispense Refill NIFEdipine (ADALAT CC) 30 mg Extended Release tablet Take 1 Tablet (30 mg) by mouth daily. 30 Tablet 5 PNV,calcium 08-fnwu-fceud acid ( Vitamin Plus Low Iron) 27 mg iron- 1 mg Tablet Take 1 Tablet by mouth daily. cetirizine (ZyrTEC) 10 mg tablet Take 10 mg by mouth daily. prn fluticasone propionate (FLONASE) 50 mcg/spray [place], Suspension nasal inhaler Administer 2 Sprays in each nostril daily. prn OXcarbazepine (TRILEPTAL) 600 mg tablet TAKE 1 & 1 2 (ONE & ONE HALF) TABLETS BY MOUTH TWICE DAILY Allergies Allergen Reactions Levetiracetam Unknown The patient reports that she has never smoked. She has never used smokeless tobacco. ROS: Gen: Denies fevers, chills, weight changes CV: Denies chest pain, palpitations Resp: Denies shortness of breath, dyspnea on exertion GI: Denies abdominal pain, nausea, vomiting, diarrhea TOBACCO COUNSELING She is not a tobacco/nicotine user. OBJECTIVE: Vitals: 12/15/23 1103 BP: 128/80 BP Location: Right arm Patient Position (BP): Sitting BP Cuff Size: Large Adult Pulse: 96 Resp: 18 Temp: 97.4 ??F (36.3 ??C) TempSrc: Oral SpO2: 100% Weight: 89.4 kg (197 lb) Height: 5' 1 (1.549 m) General [...] wheezes, rales or rhonchi, symmetric air entry. Neuro: CN2-12 intact, 2+ patellar reflexes, no gross motor or sensory deficits Depression Screen Positive: PHQ-2 score >= 3 or PHQ-9 score >= 9 PHQ-2 Total: 1 (12/15/2023 11:10 AM) DEPRESSION PLAN OF CARE Her depression screen was negative. ASSESSMENT AND PLAN: HTN: Stable in office. Continue Procardia 30 mg XL, [facility] following, send BP in one week, if elevated increase Procardia 60 mg. Advised to call back directly if there are further questions, or if these symptoms fail to improve as anticipated or worsen. An After Visit Summary was printed and given to the patient. Follow up 1 week. CHIKA Fall This patient was seen by ANGEL Han. Mary Connelly MD was within a 30 mile radius. * Neris Dawson - 12/15/2023 11:10 AM CDT Depression Screen Positive: PHQ-2 score >= 3 or PHQ-9 score >= 9 PHQ-2 Total: 1 (12/15/2023 11:10 AM) DEPRESSION PLAN OF CARE Her depression screen was negative. documented in this encounter Plan of Treatment Upcoming Encounters Date Type Department Care Team (Late Contact Info) Description 02/02/2025 9:30 AM CDT Office Visit [facility] Primary Care - [address] [address] Mary Perla MD [address] [address] documented as of this encounter Goals Goal Patient Goal Type Associated Problems Recent Progress Patient-Stated? Author HYPERTENSIO N CARE PLAN GOAL Care Plan ALANNA MYC HYPERTENSION CARE PLAN PROBLEM No Edd Downey RN documented as of this encounter Visit Diagnoses Diagnosis HTN (hypertension), benign- Primary Essential hypertension, benign documented in this encounter Additional Health Concerns Active Problems Noted Date Diagnosed Date ALANNA MYC HYPERTENSION CARE PLAN PROBLEM 4 Assessment Noted Time PHQ-9 Depression Total Score: 1 12/15/19 24 11:10 AM CDT documented as of this encounter Care Teams Retail Office Associate Relationship Specialty Start Date End Date Mary Perla MD [facility] [address] [address] PCP - General Internal Medicine 09/25/20 documented as of this encounter
--- OUTSIDE RECORDS SUMMARY | 2024-06-04 06:26 | XMS_ITS | Encounter Summary ---
Author Organization [facility] Address [address] [place] [address] Care Team Providers Care Mine Safety Director Name Role Phone Mary Perla MD Primary Care Provider [phone] Reason for Visit * Reason Onset Date Comments medication clarification 01/29/2022 Pls Respond to the Pharm? about Nystatin Gram Di sp QTY? 01/30/2022 Encounter Details Date Type Department Care Team (Late st Contact Info) Description 01/29/2022 Telephone [facility] [address] [place] [address] Mary Perla MD [address] [place] [address] medication clarification ; Pls Respond to the Pharm? about Nystatin Gram Disp QTY? Social History Tobacco Use Types Packs/Day Years [...] suspected to have Coronavirus/COVID-19? No / Unsure 01/29/2022 8:30 AM CDT documented as of this encounter Miscellaneous Notes * Telephone Encounter - Meg Sen - 01/31/2022 11:53 AM CDT Changed to 60 gm per LC - sent to pharmacy * Telephone Encounter - Chelita Eisenberg - 01/31/2022 9:37 AM CDT Name of PCP Provider or Prescribing Provider: Mary Perla MD Next office visit: Visit date not found Caller: [facility] Message: Follow up. Atif said he's been calling since 01/29 because this script for Nystatin needs a corrected fill quantity. Please advise. Call back Number: [phone] * Telephone Encounter - Anitha Phillips - 01/30/2022 9:41 AM CDT Name of PCP or Prescribing Provider: Mary Perla MD The pt's pharmacy has called requesting clarification on the following prescription, Nystatin: Date/Time Action Taken User Additional Information 01/29/22 0856 Sign Mitra Rivera FNP Disp Refills Start End nystatin (NYSTOP) 100,000 unit/gram powder 1 Gram 0 01/29/2022 Sig - Route: Apply to affected area 2 times daily. - Topical Sent to pharmacy as: nystatin 100,000 unit/gram topical powder (NYSTOP) Class: E-Prescribe E-Prescribing Status: Receipt confirmed by pharmacy (01/29/2022 8:57 AM CDT) Please Contact the [facility] or Re-Write the Script to Change the following information: Quantity: The Nystatin Only comes in #15 grams or #60 grams for the Dispense Amount. The Pharmacy need you all to [facility] Please, so they can release the Rx to the patient. Thank-you. [facility] [address] [place] [address] - [address] [place] [phone] * Telephone Encounter - Natalie Pham - 01/29/2022 2:26 PM CDT Name of PCP Provider or Prescribing Provider: Mary Perla MD Next office visit: Visit date not found Caller: [facility] Message: Pharmacy states the NYSTATIN only come in 15,30,or 60 gram. Please advise Call back Number: [phone] * Telephone Encounter - Carina Mcgee - 01/29/2022 9:02 AM CDT Name of PCP or Prescribing Provider: Mary Perla MD Next office visit: Visit date not found The pt's pharmacy has called requesting clarification on the following prescription, NYSTATIN Please contact the pharmacy to change the following information: ??? Quantity: [facility] needing a quantity it does not come in 1 gram [facility] [address] [place] [id number] Call back #:[phone] documented in this encounter Plan of Treatment Upcoming Encounters Date Type Department Care Team (Late st Contact Info) Description 02/02/2025 9:30 AM CDT Office Visit [facility] - [address] [address] Mary Perla MD [address] [address] documented as of this encounter Visit Diagnoses Diagnosis Intertrigo Other specified erythematous condition documented in this encounter Care Teams Mine Safety Director Relationship Specialty Start Date End Date Mary Perla MD [facility] [address] PCP - General Internal Medicine 09/25/20 documented as of this encounter
--- OUTSIDE RECORDS SUMMARY | 2024-06-04 06:26 | XMS_ITS | Patient Health Record ---
Author Organization Replaced by [facility] Address [address] [place] [address] Care Team Providers Care Roller Inspector And Mender Name Role Phone Mariusz Carlson Primary Care Provider Reason For Referral No Information Immunizations Vaccine Route Administration Date Status Comme nts COVID-19 Moderna 2nd IM Intramuscular 08/17/2020 Administered EUA date 0. Screening reviewed and consent signed. Patient tolerated well. COVID-19 Moderna 1ST IM Intramuscular 07/20/2020 Administered EUA date 0. Screening reviewed and consent signed. Patient tolerated well. Plan Of Treatment No Information Insurance Providers Payer Name Payer Address Payer Phone Subscriber Number Group Number Insured Name Patient Relationship to Insured Coverage Start Date Coverage End Date [employer] [address] [place] [phone] [id number] Quynh De Leon Self - patient is the insured 2020
--- OUTSIDE RECORDS SUMMARY | 2024-06-04 06:26 | XMS_ITS | Encounter Summary ---
Author Organization [facility] Address [address] [place] [address] Care Team Providers Care Waste Reclaimer Name Role Phone Mary Perla MD Primary Care Provider Reason for Visit * Reason Comments E&M Of Chronic Disease(s) Rashes everywh ere. For two weeks Encounter Details Date Type Department Care Team (Late st Contact Info) Description 01/29/2022 8:30 AM CDT Office Visit [facility] - [address] [place] [address] Mitra Rivera FNP [address] [place] [address] Encounter for routine adult health examination with abnormal findings (Primary Dx); Intertrigo; Irritable bowel syndrome, unspecified type; Nonintractable epilepsy without status epilepticus, unspecified epilepsy type Social History Tobacco Use Types Packs/Day [...] AM CDT documented as of this encounter Last Filed Vital Signs Vital Sign Reading Time Taken Comments Blood Pressure 124/86 01/29/2022 8:37 AM CDT Pulse 74 01/29/2022 8:37 AM CDT Temperature 36.2 ??C (97.2 ??F) 01/29/2022 8:37 AM CD T Respiratory Rate - - Oxygen Saturation 96% 01/29/2022 8:37 AM CDT Inhaled Oxygen Concentration - - Weight 89.8 kg (198 lb) 01/29/2022 8:37 AM CDT Height 154.9 cm (5' 1 ) 01/29/2022 8:37 AM CDT Body Mass Index 37.41 01/29/2022 8:37 AM CDT documented in this encounter Progress Notes * Mitra Rivera, NUTRITION SERVICES ASSOCIATE - 01/29/2022 8:30 AM CDT Chief Complaint: Chief Complaint Patient presents with ? ? E&M Of Chronic Disease(s) Rashes everywhere. For two weeks Nursing documentation reviewed. History of Present Illness: Quynh De Leon is a 36 y.o. female here today for above. C/o rash [place] - [place], [place], etc On last day started itching bilateral AC joints Then went to [place] PMHx: IBS Had seen Dr Mazariegos in [place] Has had a colonoscopy for bleeding - fishers Dicyclomine PRN ?? Epilepsy Dr Espinoza - on trilyptal ?? 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 CERVICAL CANCER SCREENING Never done ??? 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 dicyclomine (BENTYL) 10 mg capsule Take 10 mg by mouth 2 times daily as needed. ??? cetirizine (ZyrTEC) 10 mg tablet Take 10 mg by mouth daily. prn ??? fluticasone propionate (FLONASE) 50 mcg/spray [place], Suspension nasal inhaler Administer 2 Sprays in each nostril daily. prn ? ? OXcarbazepine (TRILEPTAL) 600 mg tablet TAKE 1 & 1 2 (ONE & ONE HALF) TABLETS BY MOUTH TWICE DAILY ??? [DISCONTINUED] dicyclomine (BENTYL) 10 mg capsule TAKE 1 CAPSULE BY MOUTH THREE TIMES DAILY 90 Capsule 0 ??? methylPREDNISolone (MEDROL DOSPACK) 4 mg Tablets, Dose Pack Use as directed with food (Patient not taking: Reported on 01/29/2022) 21 Tablet 0 No current facility-administered medications on file prior to visit. Review of Systems: Review of Systems Constitutional: Negative. HENT: Negative. Eyes: Negative. Respiratory: Negative. Cardiovascular: Negative. Gastrointestinal: Negative. Genitourinary: Negative. Musculoskeletal: Negative. Skin: Positive for itching and rash. Neurological: Negative. Endo/Heme/Allergies: Negative. Psychiatric/Behavioral: Negative. PMHx/PSHx/FMHx: Reviewed and updated in chart. Past Medical History: Diagnosis Date ??? Allergies seasonal ??? Epilepsy ??? IBS (irritable bowel syndrome) Family History Problem Relation Name Age of Onset ??? GERD Father Wilfrid ??? Hypertension Father Wilfrid ??? GERD Mother smoker ??? Healthy Brother ??? Brain Cancer Maternal Grandmother ??? Other Maternal Grandfather Andre ??? Other Paternal Grandmother Yoselin Lau ??? Other Paternal Grandfather Wilfrid Sr ??? Heart Disease Paternal Grandfather Wilfrid Sr ??? Breast Cancer Paternal Aunt ??? Uterine Cancer Paternal Aunt ??? Liver Cancer Maternal Uncle ETOH related Past Surgical History: Procedure Laterality Date ??? HX BREAST REDUCTION 2007 ??? HX WISDOM TEETH EXTRACTION 2001 Exam: BP 124/86 (BP Location: Left arm, Patient Position (BP): Sitting, BP Cuff Size: Large Adult) Pulse 74 Temp 97.2 ??F (36.2 ??C) Ht 5' 1 (1.549 m) Wt 89.8 kg (198 lb) SpO2 96% BMI 37.41 kg/m?? Physical Exam Vitals and nursing note reviewed. Constitutional: General: She is not in acute distress. Appearance: Normal appearance. She is not diaphoretic. HENT: Head: Normocephalic and atraumatic. Right Ear: Tympanic membrane, ear canal and external ear normal. Left Ear: Tympanic membrane, ear canal and external ear normal. Nose: Nose normal. Mouth/Throat: Mouth: Mucous membranes are moist. Pharynx: No oropharyngeal exudate. Eyes: General: No scleral icterus. Conjunctiva/sclera: Conjunctivae normal. Neck: Thyroid: No thyromegaly. Cardiovascular: Rate and Rhythm: Normal rate and regular rhythm. Pulses: Normal pulses. Heart sounds: Normal heart sounds. Pulmonary: Effort: Pulmonary effort is normal. Breath sounds: Normal breath sounds. No wheezing or rales. Abdominal: General: Bowel sounds are normal. Palpations: Abdomen is soft. Tenderness: There is no abdominal tenderness. Musculoskeletal: General: No signs of injury. Normal range of motion. Cervical back: Neck supple. Lymphadenopathy: Cervical: No cervical adenopathy. Skin: General: Skin is warm and dry. Capillary Refill: Capillary refill takes less than 2 seconds. Findings: Erythema present. Comments: bilat AC joints are red with satellite lesions Neurological: General: No focal deficit present. Mental Status: She is alert. Psychiatric: Mood and Affect: Mood normal. Behavior: Behavior normal. Thought Content: Thought content normal. Judgment: Judgment normal. Data Review/Procedures: I have reviewed the patient's medical history in detail; there are no changes to the history as noted in the electronic medical record. Assessment and Plan: Quynh was seen today for e&m of chronic disease(s). Diagnoses and all orders for this visit: Encounter for routine adult health examination with abnormal findings Patient was seen today for Routine Physical Examination. Pt is up to date with recommended screenings/testing for age and sex. Please EMELYN IN ON healthy lifestyle choices including diet rich in fruits and vegetables, regular physical activity with a goal of 30 minutes of cardiac exercise 5 times per week, limited alcohol intake Discussed recommendations for age/sex. Intertrigo - nystatin (NYSTOP) 100,000 unit/gram powder; Apply to affected area 2 times daily. Irritable bowel syndrome, unspecified type Continue prn dicyclomine Nonintractable epilepsy without status epilepticus, unspecified epilepsy type Continue with neurology If symptoms change/worsen, new symptoms develop, or other concerns arise, pt advised to seek medical attention Specific f/u: yearly and prn Appropriate patient instructions provided. Medications and [...] AM CDT Office Visit [facility] - [address] [place] [address] Mary Perla MD [address] [place] [phone] documented as of this encounter Visit Diagnoses Diagnosis Encounter for routine adult health examination with abnormal findings- Primary Intertrigo Other specified erythematous condition Irritable bowel syndrome, unspecified type Nonintractable epilepsy without status epilepticus, unspecified epilepsy type documented in this encounter Care Teams Waste Reclaimer Relationship Specialty Start Date End Date Mary Perla MD [address] [place] [phone] PCP - General Internal Medicine 09/25/20 documented as of this encounter
--- OUTSIDE RECORDS SUMMARY | 2024-06-04 06:26 | XMS_ITS | Encounter Summary ---
Author Organization [facility] Address [address] Driver: [place] [address] Care Team Providers Care Line Tester Name Role Phone Mary Perla MD Primary Care Provider [phone] Encounter Details Date Type Department Care Team (Latest Contact Info) Description 01/29/2022 Travel Social History Tobacco Use Types Packs/Day [...] Description 02/02/2025 9:30 AM CDT Office Visit [facility] - [facility] [address] [address] Mary Perla MD [address] [place] [address] documented as of this encounter Visit Diagnoses Not on filedocumented in this encounter Care Teams Line Tester Relationship Specialty Start Date End Date Mary Perla MD [address] [facility] [address] [place] [address] PCP - General Internal Medicine 09/25/20 documented as of this encounter
--- OUTSIDE RECORDS SUMMARY | 2024-06-04 06:26 | XMS_ITS | Encounter Summary ---
Author Organization [facility] Address [address] [place] [address] Care Team Providers Care Construction Executive Name Role Phone Mary Perla MD Primary Care Provider [phone] Reason for Visit * Reason Comments Physical Chronic Conditions Coordination Encounter Details Date Type Department Care Team (Late st Contact Info) Description 02/03/2024 9:30 AM CDT Office Visit [facility] Primary [facility] - [address] [address] Mary Perla MD [address] [place] [address] Encounter for routine adult health examination without abnormal findings (Primary Dx); Irritable bowel syndrome, unspecified type; HTN (hypertension), benign; Nonintractable epilepsy without status epilepticus, unspecified epilepsy [...] Sign Reading Time Taken Comments Blood Pressure 124/80 02/03/2024 9:37 AM CDT Pulse 77 02/03/2024 9:37 AM CDT Temperature 36.7 ??C (98.1 ??F) 02/03/2024 9:37 AM CD T Respiratory Rate - - Oxygen Saturation 97% 02/03/2024 9:37 AM CDT Inhaled Oxygen Concentration - - Weight 90.6 kg (199 lb 12.8 oz) 02/03/2024 9:37 AM CDT Height 154.9 cm (5' 1 ) 02/03/2024 9:37 AM CDT Body Mass Index 37.75 02/03/2024 9:37 AM CDT documented in this encounter Progress Notes * Mary Perla MD - 02/03/2024 9:30 AM CDT Chief Complaint Patient presents with Physical Chronic Conditions Coordination HPI Here for annual Answers submitted by the patient for this visit: High Blood Pressure Questionnaire (Submitted on 02/03/2024) Chief Complaint: Hypertension anxiety: No peripheral edema: No sweats: No Compliance problems: diet, exercise Was but blighted ovum s/p 01/15 D &C 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 to 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 HTN Reports compliance with med Checking BP at home - 120/80 Denies side effect to medicines IBS Had seen Dr Mazariegos in [place] in the past Has had a colonoscopy for bleeding fissure 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 Allergic to grass, trees, rag weed, dust, mold Albuterol prn Epilepsy Follows with neurology Dr Espinoza Reports compliance with med Muscles will sometimes back and legs spasms or quiver like there is too much energy in the muscle Shower helps and advil only occurs at night and sometimes jaw would hurt like she has been clenching Follows with MACHINE CHOCOLATE MOLDER Breast reduction nodules mammogram Pap UTD Past Medical History: Diagnosis Date Allergies seasonal Epilepsy IBS (irritable bowel syndrome) Current Outpatient Medications: NIFEdipine (ADALAT CC) 30 mg Extended Release tablet, Take 1 Tablet (30 mg) by mouth daily., Disp: 30 Tablet, Rfl: 5 PNV,calcium [id number] acid ( Vitamin Plus Low Iron) 27 mg iron- 1 mg Tablet, Take 1 Tablet by mouth daily., Disp: , Rfl: clonazePAM (KlonoPIN RAPID DISSOLVE) 0.25 mg Tablet, Rapid Dissolve, Take 0.25 mg by mouth., Disp: , Rfl: dicyclomine (BENTYL) 10 mg capsule, Take 10 mg by mouth 2 times daily as needed., Disp: , Rfl: cetirizine (ZyrTEC) 10 mg tablet, Take 10 mg by mouth daily. prn, Disp: , Rfl: fluticasone propionate (FLONASE) 50 mcg/spray [place], Suspension nasal inhaler, Administer 2 Sprays in each nostril daily. prn, Disp: , Rfl: OXcarbazepine (TRILEPTAL) 600 mg tablet, TAKE 1 & 1 2 (ONE & ONE HALF) TABLETS BY MOUTH TWICE DAILY, Disp: , Rfl: Allergies Allergen Reactions Levetiracetam Unknown Social History Socioeconomic History Marital status: Single Spouse name: Not on file Number of children: Not on file Years of education: Not on file Highest education level: Not on file Occupational History Not on file Tobacco Use Smoking status: Never Smokeless tobacco: Never Vaping Use Vaping status: Never Used Substance and Sexual Activity Alcohol use: Not [...] Cancer Paternal Aunt Uterine Cancer Paternal Aunt ROS Review of Systems Constitutional: Negative for [...] not nervous/anxious. Feels safe EXAM Vitals BP 124/80 (BP Location: Left arm, Patient Position (BP): Sitting, BP Cuff Size: Adult) Pulse 77 Temp 98.1 ??F (36.7 ??C) (Oral) Ht 5' 1 (1.549 m) Wt 90.6 kg (199 lb 12.8 oz) LMP (LMP Unknown) SpO2 97% No BMI 37.75 kg/m?? GEN - NAD, well developed, well [...] non-tender, non-distended, no hepatosplenomegaly, no masses palpated BUSINESS SERVICES CLERK - No focal neurologic deficit LE - No edema ASSESSMENT AND PLAN Diagnoses and all orders for this visit: ICD-10-CM ICD-9-CM 1. Encounter for routine adult health examination without abnormal findings Z00.00 V70.0 2. Irritable bowel syndrome, unspecified type K58.9 564.1 dicyclomine (BENTYL) 10 mg capsule 3. HTN (hypertension), benign I10 401.1 4. Nonintractable epilepsy without status epilepticus, unspecified epilepsy type G40.909 345.90 Encounter for routine adult health examination with abnormal findings Up to date for age and sex related screening and immunization Continue following with MACHINE CHOCOLATE MOLDER Preventative Care/Health Maintenance: Immunization History Administered Date(s) Administered (ADACEL/BOOSTRIX)(10 YR UP) TDAP VACCINE, IM 11/22/2019 (BEXSERO)(10-25 YR) MENINGOCOCCAL RECOMBIANT PROTEIN AND OUTER MEMBRANE VESICLE VACCINE, SEROGROUP B MENB-4C, 2 DOSE IM 04/16/2017 (GARDASIL 9)(9-45 YRS) HUMAN PAPILLOMAVIRUS VACCINE, TYPES 6, 11, 16, 18, 31, 33, 45, 52, 58, NONAVALENT (9VHPV), 2 OR 3 DOSE, IM 02/01/2023 (SPIKEVAX) (12 YRS UP PRIMARY SERIES) COVID-19 [...] (Mpsv4) SQ 02/07/2016 Tetanus Toxoid, Adsorbed 02/12/2013 Health Maintenance Topic Date Due HEPATITIS B VACCINES (1 of 3 - 19+ 3-dose series) 2004 CERVICAL CANCER SCREENING Never done COVID-19 Vaccine ( - 2022- season) 2023 Preventative Visit- Commercial 06/16/2023 HPV VACCINES (2 - 3-dose SCDM series) 03/01/2023 INFLUENZA VACCINE (1) 01/15/2024 DTAP/TDAP/TD VACCINES (2 - Td or Tdap) 11/21/2029 RSV VACCINE (60+ or ) (1 - 1-dose 60+ series) 2045 PNEUMOCOCCAL VACCINE 0-64 YEARS Aged Out HTN Stable Continue current meds Irritable bowel syndrome, unspecified type Stable Continue prn meds Nonintractable epilepsy without status epilepticus, unspecified epilepsy type Continue follow up with neurology Continue Trileptal Mary Perla MD documented in this encounter Plan of Treatment Upcoming Encounters Date Type Department Care Team (Late st Contact Info) Description 02/02/2025 9:30 AM CDT Office Visit [facility] Primary [facility] - [address] [address] [place] [address] [place] [phone] documented as of this encounter Goals Goal Patient Goal Type Associated Problems Recent Progress Patient-Stated? Author HYPERTENSIO N CARE PLAN GOAL Care Plan ALANNA MYC HYPERTENSION CARE PLAN PROBLEM No Edd Downey RN documented as of this encounter Visit Diagnoses Diagnosis Encounter for routine adult health examination without abnormal findings- Primary Irritable bowel syndrome, unspecified type HTN (hypertension), benign Essential hypertension, benign Nonintractable epilepsy without status epilepticus, unspecified epilepsy type documented in this encounter Additional Health Concerns Active Problems Noted Date Diagnosed Date ALANNA MYC HYPERTENSION CARE PLAN PROBLEM 4 Assessment Noted Time PHQ-9 Depression Total Score: 1 12/15/19 24 11:10 AM CDT documented as of this encounter Care Teams Construction Executive Relationship Specialty Start Date End Date Mary Perla MD [address] [place] [address] PCP - General Internal Medicine 09/25/20 documented as of this encounter
--- OUTSIDE RECORDS SUMMARY | 2024-06-04 06:26 | XMS_ITS | Encounter Summary ---
Author Organization [facility] Address [address] [place] [address] Care Team Providers Care Maintenance Truck Driver Name Role Phone Mary Perla MD Primary Care Provider Reason for Visit * Reason Comments Clinical Consult Before Scheduling Encounter Details Date Type Department Care Team (Late st Contact Info) Description 11/03/2023 Telephone [facility] Primary Care - [address] [place] [address] Mary Perla MD [address] [place] [phone] Clinical Consult Before Scheduling Social History Tobacco Use Types Packs/Day Years [...] encounter Miscellaneous Notes * Telephone Encounter - Kasey Uribe RN - 11/03/2023 10:52 AM CDT Follow up call to patient. Reports on Friday she felt light headed. 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 Her Blood pressure was 141/88. Friday she experienced another headache. Blood pressure was 141/101. Resent blood pressure 135/83. She has also been experiencing ear pain and was diagnosed with ear infection at Urgent care 2 weeks ago. She was prescribed ear drops that she did not complete full course due to her being on vacation. Patient does still complain of ear pain. No appointments available in office. I would recommend getting an in person evaluation to determine if you have an infection that needs to be treated. Unfortunately we do not have any openings to get you in soon enough to access you. I would recommend going to [facility] for evaluation. Regarding blood pressure Advised blood pressure reading is quite high. Normal blood pressure is usually less than 120/80. A reading of 159/100 indicates hypertension, which can increase your risk forheart disease and stroke. It's important to manage high blood pressure through lifestyle changes and medication. If you're feeling any symptoms like headache, chest pain, or shortness of breath, please seek immediate medical attention. Verbalized understanding. No further questions. * Telephone Encounter - Ilan Forrest PCT - 11/03/2023 9:50 AM CDT Copied from [facility] #[id number]. Topic: Symptomatic Care >> November 03, 2023 9:47 AM Ilan Bass wrote: Caller has new symptoms and is seeking care. Age Range/Symptom: Adult: 18+ - Blood pressure concerns (high or low) Are you having any additional symptoms? No Caller Name: Quynh De Leon Callback Number: [phone] (home) Call Notes: patient is calling stating that she has been having some b/p concerns but no sooner appt she would like to get in documented in this encounter Plan of Treatment Upcoming Encounters Date Type Department Care Team (Late st Contact Info) Description 02/02/2025 9:30 AM CDT Office Visit [facility] [place] [facility] - [facility] [address] [address] Mary Perla MD [address] [place] [phone] documented as of this encounter Visit Diagnoses Not on filedocumented in this encounter Care Teams Maintenance Truck Driver Relationship Specialty Start Date End Date Mary Perla MD [address] [place] [address] PCP - General Internal Medicine 09/25/20 documented as of this encounter
--- OUTSIDE RECORDS SUMMARY | 2024-06-04 12:29 | XMS_ITS | Encounter Summary ---
Author Organization [facility] Address [address] [place] [address] Care Team Providers Care Studio Operations Engineer In Charge Name Role Phone Mary Perla MD Primary Care Provider [phone] Reason for Visit * Reason Comments Medication Refill Encounter Details Date Type Department Care Team (Late st Contact Info) Description 01/09/2022 Refill [facility] Primary Care - [address] [place] [phone] Mary Perla MD [address] [place] [phone] Irritable bowel syndrome, unspecified type Social History [...] for Rx refill Quynh De Leon at [phone] (home) called about Rx refill of Requested [...] 02/02/2025 9:30 AM CDT Office Visit [facility] Primary Care - [address] [place] [address] Mary Perla MD [address] [place] [phone] documented as of this encounter Visit Diagnoses Diagnosis Irritable bowel syndrome, unspecified type documented in this encounter Care Teams Studio Operations Engineer In Charge Relationship Specialty Start Date End Date Mary Perla MD [address] [place] [phone] PCP - General Internal Medicine 09/25/20 documented as of this encounter
--- OUTSIDE RECORDS SUMMARY | 2024-06-04 12:29 | XMS_ITS | Encounter Summary ---
Author Organization [facility] Address [address] [place] [address] Care Team Providers Care Risk Mgr Name Role Phone Mary Perla MD Primary Care Provider Reason for Visit * Reason Comments Clinical Consult Before Scheduling Encounter Details Date Type Department Care Team (Late st Contact Info) Description 11/03/2023 Telephone [facility] Primary Care - [address] [place] [phone] Mary Perla MD [address] [place] [phone] Clinical Consult Before Scheduling Social History [...] - 11/03/2023 9:50 AM CDT Copied from [facility] #[id number]. Topic: Symptomatic Care >> November 03, 2023 9:47 AM Ilan Bass wrote: Caller has new symptoms and is seeking care. Age Range/Symptom: Adult: 18+ - Blood pressure concerns (high or low) Are you having any additional symptoms? No Caller Name: Quynh De Leon Callback Number: [phone] (home) Call Notes: patient is calling stating that she has been having some b/p concerns but no sooner appt she would like to get in documented in this encounter Plan of Treatment Upcoming Encounters Date Type Department Care Team (Late st Contact Info) Description 02/02/2025 9:30 AM CDT Office Visit [facility] Primary Care - [facility] [address] [address] Mary Perla MD [address] [place] [phone] documented as of this encounter Visit Diagnoses Not on filedocumented in this encounter Care Teams Risk Mgr Relationship Specialty Start Date End Date Mary Perla MD [address] [place] [address] PCP - General Internal Medicine 09/25/20 documented as of this encounter
--- OUTSIDE RECORDS SUMMARY | 2024-06-04 12:29 | XMS_ITS | Encounter Summary ---
Author Organization [facility] Address [address] Driver: [place] [id number] Care Team Providers Care Dairy Farm Worker Name Role Phone Mary Perla MD Primary Care Provider [phone] Encounter Details Date Type Department Care Team [...] Description 02/02/2025 9:30 AM CDT Office Visit [facility] Primary Care - [facility] [address] [address] Mary Perla MD [address] [place] [address] documented as of this encounter Visit Diagnoses Not on filedocumented in this encounter Care Teams Dairy Farm Worker Relationship Specialty Start Date End Date Mary Perla MD [address] [facility] [address] [place] [address] PCP - General Internal Medicine 09/25/20 documented as of this encounter
--- OUTSIDE RECORDS SUMMARY | 2024-06-04 12:29 | XMS_ITS | Encounter Summary ---
Author Organization [facility] Address [address] [place] [address] Care Team Providers Care Edi Developer Name Role Phone Mary Perla MD Primary Care Provider [phone] Encounter Details Date Type Department Care Team [...] Description 02/02/2025 9:30 AM CDT Office Visit [facility] Primary Care - [address] [place] [address] Mary Perla MD [address] [place] [address] documented as of this encounter Goals [...] documented as of this encounter Care Teams Edi Developer Relationship Specialty Start Date End Date Mary Perla MD [address] [facility] [address] [place] [phone] PCP - General Internal Medicine 09/25/20 documented as of this encounter
--- OUTSIDE RECORDS SUMMARY | 2024-06-04 12:29 | XMS_ITS | Encounter Summary ---
Author Organization [facility] Address [address] [place] [address] Care Team Providers Care Director Content Marketing Name Role Phone Mary Perla MD Primary Care Provider [phone] Encounter Details Date Type Department Care Team [...] Description 02/02/2025 9:30 AM CDT Office Visit [facility] Primary Care - [address] [place] [address] Mary Perla MD [address] [place] [address] documented as of this encounter Visit Diagnoses Not on filedocumented in this encounter Care Teams Director Content Marketing Relationship Specialty Start Date End Date Mary Perla MD [address] [place] [phone] PCP - General Internal Medicine 09/25/20 documented as of this encounter
--- OUTSIDE RECORDS SUMMARY | 2024-06-04 12:29 | XMS_ITS | Encounter Summary ---
Author Organization [facility] Address [address] [place] [address] Care Team Providers Care Specimen Collector Name Role Phone Mary Perla MD Primary Care Provider Reason for Visit * Reason Comments Provider Call Encounter Details Date Type Department Care Team (Late st Contact Info) Description 12/11/2023 Telephone [facility] Primary Care - [address] [place] [address] Mary Perla MD [address] [place] [address] Provider Call Social History Tobacco Use [...] 12/11/2023 11:15 AM CDT Copied from [facility] #[id number]. Topic: Qfdtblnq-So-Ioyshpeq Call >> Dec 11, 2023 11:02 AM Caitlin Franco wrote: Caller is requesting to speak with Clinical Care Team. Caller Name: Bc PARNELL ROHIT Callback Number: [phone] Option 3 Clinician Type: Healthcare Professional Call [...] Description 02/02/2025 9:30 AM CDT Office Visit [facility] Primary Care - [address] [facility] [address] [place] [address] Mary Perla MD [address] [address] documented as of this encounter [...] documented as of this encounter Care Teams Specimen Collector Relationship Specialty Start Date End Date Mary Perla MD [address] [place] [phone] PCP - General Internal Medicine 09/25/20 documented as of this encounter
--- OUTSIDE RECORDS SUMMARY | 2024-06-04 12:29 | XMS_ITS | Encounter Summary ---
Author Organization [facility] Address 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 HTN Reports compliance with med Checking BP at home - 120/80 Denies side effect to medicines IBS Had seen Dr Mazariegos in [place] in the past Has had a colonoscopy for bleeding fissure Dr Ramesh marketing information analyst Allergic to grass, trees, rag weed, dust, mold Albuterol prn Epilepsy Follows with neurology Dr Espinoza Reports compliance with med Muscles will sometimes back and legs spasms or quiver like there is too much energy in the muscle Shower helps and advil only occurs at night and sometimes jaw would hurt like she has been clenching Follows with ELECTRIC MOTOR REBUILDER Breast reduction nodules mammogram Pap UTD Past Medical History: Diagnosis Date Allergies seasonal Epilepsy IBS (irritable bowel syndrome) Current Outpatient Medications: NIFEdipine (ADALAT CC) 30 mg Extended Release tablet, Take 1 Tablet (30 mg) by mouth daily., Disp: 30 Tablet, Rfl: 5 PNV,calcium 25-wkdx-vvfkh acid ( Vitamin Plus Low Iron) 27 [...] , Rfl: fluticasone propionate (FLONASE) 50 mcg/spray [place], Suspension nasal inhaler, Administer 2 Sprays in [...] non-tender, non-distended, no hepatosplenomegaly, no masses palpated CLIMATOLOGIST - No focal neurologic deficit LE - [...] related screening and immunization Continue following with ELECTRIC MOTOR REBUILDER Preventative Care/Health Maintenance: Immunization History Administered Date(s) [...] 02/02/2025 9:30 AM CDT Office Visit [facility] Primary Care - [address] [address] [place] [address] [place] [address] documented as of this encounter Goals [...] documented as of this encounter Care Teams Owner Manager Relationship Specialty Start Date End Date Mary Perla MD [address] [place] [phone] PCP - General Internal Medicine 09/25/20 documented as of this encounter
--- OUTSIDE RECORDS SUMMARY | 2024-06-04 12:29 | XMS_ITS | Encounter Summary ---
Author Organization [facility] Address [address] [place] [address] Care Team Providers Care Raw Products Director Name Role Phone Mary Perla MD Primary Care Provider [phone] Encounter Details Date Type Department Care Team [...] Description 02/02/2025 9:30 AM CDT Office Visit [facility] Primary Care - [address] [place] [address] Mary Perla MD [address] [place] [address] documented as of this encounter Visit Diagnoses Not on filedocumented in this encounter Care Teams Raw Products Director Relationship Specialty Start Date End Date Mary Perla MD [address] [place] [phone] PCP - General Internal Medicine 09/25/20 documented as of this encounter
--- OUTSIDE RECORDS SUMMARY | 2024-06-04 12:29 | XMS_ITS | Encounter Summary ---
Author Organization [facility] Address [address] [place] [address] Care Team Providers Care Animal Daycare Provider Name Role Phone Mary Perla MD Primary Care Provider [phone] Encounter Details Date Type Department Care Team [...] 9:30 AM CDT [facility] Primary Care - [address] [place] [address] Mary Perla MD [address] [place] [address] documented as of this encounter Visit Diagnoses Not on filedocumented in this encounter Care Teams Animal Daycare Provider Relationship Specialty Start Date End Date Mary Perla MD [address] [place] [phone] PCP - General Internal Medicine 09/25/20 documented as of this encounter
--- OUTSIDE RECORDS SUMMARY | 2024-06-04 12:29 | XMS_ITS | Encounter Summary ---
Author Organization [facility] Address [address] [place] [address] Care Team Providers Care Lithographers Printer Name Role Phone Mary Perla MD Primary Care Provider [phone] Encounter Details Date Type Department Care Team (Late Contact Info) Description 01/21/2024 Orders Only [facility] - [address] [place] [phone] Provider, Abstract NO ADDRESS ON FILE [...] Description 02/02/2025 9:30 AM CDT Office Visit [facility] - [address] [place] [phone] Mary Perla MD [address] [place] [phone] documented as of this encounter Goals [...] Tissue Abstract Provider PATHOLOGY/CYTOLOGY O RDERABLES [facility] - [address] [facility] CLIA# [id number] [id number] [place] [address] documented in this encounter Visit Diagnoses Not on filedocumented in this encounter Additional Health Concerns Active Problems Noted Date Diagnosed Date ALANNA MYC HYPERTENSION CARE PLAN PROBLEM 4 Assessment Noted Time PHQ-9 Depression Total Score: 1 12/15/19 24 11:10 AM CDT documented as of this encounter Care Teams Lithographers Printer Relationship Specialty Start Date End Date Mary Perla MD [address] [place] [phone] PCP - General Internal Medicine 09/25/20 documented as of this encounter
--- OUTSIDE RECORDS SUMMARY | 2024-06-04 12:29 | XMS_ITS | Encounter Summary ---
Author Organization [facility] Address [address] [place] [address] Care Team Providers Care Stock Saw Operator Name Role Phone Mary Perla MD Primary Care Provider Reason for Visit * Reason Comments Rash Body rash started la st Friday/FridayNo change in detergent or soap until after rash appeared Urinary Frequency Started 2 wks ago Encounter Details Date Type Department Care Team (Late st Contact Info) Description 04/13/2024 2:40 PM CDT Office Visit [facility] Primary Care Same Day [address] [place] [address] Elly Meza, MIKAEL [address] [place] [address] Urinary frequency (Primary Dx); Skin [...] this encounter Progress Notes * Elly Meza, LEAD FURNACE OPERATOR - 04/13/2024 2:47 PM CDT Images from [...] by mouth daily. 90 Tablet 3 PNV,calcium 83-cyad-mrxrv acid ( Vitamin Plus Low Iron) 27 mg iron- 1 mg Tablet Take 1 Tablet by mouth daily. clonazePAM (KlonoPIN RAPID DISSOLVE) 0.25 mg Tablet, Rapid Dissolve Take 0.25 mg by mouth. cetirizine (ZyrTEC) 10 mg tablet Take 10 mg by mouth daily. prn fluticasone propionate (FLONASE) 50 mcg/spray [place], Suspension nasal inhaler Administer 2 Sprays in [...] [facility] - [address] [place] [phone] Mary Perla MD [address] [place] [address] documented as of this encounter Goals [...] UA POC Yellow Pale to Dark Yellow [facility] - [address] CLARITY UA POC Clear Clear, Other [place] [facility] - [address] GLUCOSE UA POC Negative Negative, Normal [facility] - [facility] BILIRUBIN UA POC Negative Negative [facility] - [address] KETONES UA POC Negative Negative [facility] - [address] SPECIFIC GRAVITY UA POC >=1.030 1.000 - 1.030 [facility] - [address] BLOOD UA POC Negative Negative [facility] - [address] PH UA POC 5.5 5.0 - 8.0 [facility] - [address] PROTEIN UA POC Trace(A) Negative [facility] - [address] UROBILINOGEN UA POC 0.2 <2.0 mg/dL [facility] - [address] NITRITE UA POC Negative Negative [facility] [address] LEUKOCYTE ESTERASE UA POC Negative Negative [facility] - [address] NUMBER POC 0 [facility] - [address] K[address] EXP DATE POC 0 [facility] - [address] Urine 04/13/2024 2:54 PM CDT Elly Meza LEAD FURNACE OPERATOR POINT OF CARE TESTI NG [facility] - [address] [facility] CLIA# [id number] [address] [place] [address] documented in this encounter Visit Diagnoses Diagnosis Urinary frequency- Primary Skin rash Rash and other nonspecific skin eruption documented in this encounter Additional Health Concerns Active Problems Noted Date Diagnosed Date ALANNA MYC HYPERTENSION CARE PLAN PROBLEM 4 Assessment Noted Time PHQ-9 Depression Total Score: 1 12/15/19 24 11:10 AM CDT documented as of this encounter Care Teams Stock Saw Operator Relationship Specialty Start Date End Date Mary Perla MD [facility] [address] [address] PCP - General Internal Medicine 09/25/20 documented as of this encounter
--- OUTSIDE RECORDS SUMMARY | 2024-06-04 12:29 | XMS_ITS | Encounter Summary ---
Author Organization [facility] Address [address] [place] [address] Care Team Providers Care Military Personnel Specialist Name Role Phone Mary Perla MD Primary Care Provider Reason for Visit * Reason Comments Chronic Conditions Coordination Hypertension Encounter Details Date Type Department Care Team (Late st Contact Info) Description 11/05/2023 9:30 AM CDT Office Visit [facility] Primary Care - [address] [place] [address] Shayy James, [address] [address] HTN (hypertension), benign (Primary Dx); [...] ETHYL ESTERS ORAL Take by mouth. PNV,calcium 92-rtbx-gkvtk acid ( Vitamin Plus Low Iron) 27 [...] daily. prn fluticasone propionate (FLONASE) 50 mcg/spray [place], Suspension nasal inhaler Administer 2 Sprays in [...] Description 02/02/2025 9:30 AM CDT Office Visit [facility] Primary Care - 1001 [facility] 1001 [facility] 300 [place] [address] Mary Perla MD 1001 [facility] 300 [place] [address] Scheduled Orders Name Type Priority [...] category. FASTING:YES FASTING: YES Test Performed at: [facility] [address] [place] [address] ??[phone] Isabel Simpson MD 11/07/2023 9:22 AM CDT 11/07/2023 9:24 AM CDT Shayy James PILLOWCASE CUTTER URINE ORDERABLES [facility] [phone] [facility] [address] * HEMOGLOBIN A1C (11/07/2023 9:22 AM CDT) HEMOGLOBIN A1C 5.3 <5.7 % of total Hgb [employer] Trevor Rose Comment: For the purpose of screening for the presence of diabetes: <5.7% ? Consistent with the absence of diabetes 5.7-6.4% ?Consistent with increased risk for diabetes ?(prediabetes) > or =6.5% ??Consistent with diabetes This assay result is consistent with a decreased risk of diabetes. Currently, no consensus exists regarding use of hemoglobin A1c for diagnosis of diabetes in children. According to [place] Diabetes Association (ADA) guidelines, hemoglobin A1c <7.0% [...] change in test platforms from the Sandoval Digitizer Operator to the Polly raoul c503 may have shifted HbA1c results compared to historical results. Based on laboratory validation testing conducted at [facility], the Polly platform relative to the Sandoval [...] recommended. FASTING:YES FASTING: YES Test Performed at: [place] [address] [place] ??[phone] KariNkechi Simpson Blood 11/07/2023 9:22 AM CDT 11/07/2023 9:24 AM CDT Anant[employer] Giana James PILLOWCASE CUTTER CHEMISTRY ORDERABLES [facility] [phone] [facility] [place] [address] [place] [address] * COMPREHENSIVE METABOLIC PANEL (11/07/2023 9:22 AM CDT) GLUCOSE 93 65 - 99 mg/dL [facility] Rose Comment: ? Fasting reference interval BUN 14 7 - 25 mg/dL [facility] emelia Rose CREATININE 0.66 0.50 - 0.97 mg/dL [facility] emelia Rose GFR 115 > OR = 60 mL/min/1. 73m2 [facility] emelia Rose BUN/CREAT RATIO SEE NOTE: (calc) [facility] emelia Rose Comment: ?? Not Reported: BUN and Creatinine are within ?? reference range. ? SODIUM 135 135 - 146 mmol/L [facility] emelia Rose POTASSIUM 3.9 3.5 - 5.3 mmol/L [facility] em[facility] Rose CHLORIDE 100 98 - 110 mmol/L [facility] CO2 28 20 - 32 mmol/L [facility] em[facility] Rose CALCIUM 8.7 8.6 - 10.2 mg/dL [facility] emelia Rose TOTAL PROTEIN 6.3 6.1 - 8.1 g/dL [facility] emelia Rose ALBUMIN 3.9 3.6 - 5.1 g/dL [facility] GLOBULIN 2.4 1.9 - 3.7 g/dL (calc) [facility] emelia Rose ALBUMIN/GLOBULIN RATIO 1.6 1.0 - 2.5 (calc) [facility] BILIRUBIN TOTAL 0.3 0.2 - 1.2 mg/dL [facility] emelia Rose ALKALINE PHOSPHATASE 57 31 - 125 U/L [facility] emelia Rose AST 14 10 - 30 U/L [facility] ALT 17 6 - 29 U/L [facility] emelia Rose Comment: FASTING:YES FASTING: YES Test Performed at: [place] [address] [place] ??[phone] KariNkechi Simpson Blood 11/07/2023 9:22 AM CDT 11/07/2023 9:24 AM CDT Shayy James [facility] CHEMISTRY ORDERABLES [facility] [phone] [place] [address] [place] [address] * (ABNORMAL) LIPID PANEL (11/07/2023 9:22 AM CDT) CHOLESTEROL 212(H) <200 mg/dL [facility] emelia Rose HDL 46(L) > OR = 50 mg/dL [facility] emelia Rose TRIGLYCERIDE 138 <150 mg/dL [facility] LDL CALCULATED 139(H) mg/dL (calc) [facility] Comment: Reference range: <100 Desirable range <100 mg/dL for primary prevention; ?? <70 mg/dL for patients with CHD or diabetic patients with > or = 2 CHD risk factors. LDL-C is now calculated using the Sheba calculation, which is a validated novel method providing better accuracy than the Friedewald equation in the estimation of LDL-C. Héctor KHAN et al. BECKY. 2013;310(19): 2597-2484 (http://education.AppTank.BuzzCity/faq/FUK240) CHOL/HDL RATIO 4.6 <5.0 (calc) [facility] NON-HDL CHOLESTEROL 166(H) <130 mg/dL (calc) [facility] emelia Rose Comment: For patients with diabetes plus 1 major ASCVD risk factor, treating to a non-HDL-C goal of <100 mg/dL (LDL-C of <70 mg/dL) is considered a therapeutic option. Test Performed at: [place] [address] [place] ??[id number] Isabel Simpson Blood 11/07/2023 9:22 AM CDT 11/07/2023 9:24 AM CDT Shayy James PILLOWCASE CUTTER CHEMISTRY ORDERABLES [facility] [phone] [place] [address] [place] [address] documented in this encounter Visit Diagnoses Diagnosis HTN (hypertension), benign- Primary Essential hypertension, benign Screening for diabetes mellitus Screening, lipid Screening for lipoid disorders documented in this encounter Care Teams Military Personnel Specialist Relationship Specialty Start Date End Date Mary Perla MD [address] [place] [address] PCP - General Internal Medicine 09/25/20 documented as of this encounter
--- OUTSIDE RECORDS SUMMARY | 2024-06-04 12:29 | XMS_ITS | Encounter Summary ---
Author Organization [facility] Address [address] [place] [address] Care Team Providers Care Developmental Psychologist Name Role Phone Mary Perla MD Primary Care Provider Reason for Visit * Reason Onset Date Comments New medication 12/10/2021 Encounter Details Date Type Department Care Team (Late st Contact Info) Description 12/10/2021 Telephone [facility] Primary Care - [address] [address] Mary Perla MD [address] [address] New medication Social History Tobacco [...] allergies. I would advise she contact her mercury recoverer if this is something that they traditionally do for her. At her first visit, she did not mention she was seeing an mercury recoverer for any reason. Additionally she needs to be on the schedule for an annual physical sometime soon can be with myself or LC. She is seeing Kristel through video visits recently. * Telephone Encounter - Angela White - 12/10/2021 3:42 PM CDT Name of PCP Provider or Prescribing Provider: Mary Perla MD Next office visit: Visit date not found Caller: Quyhn De Leon Message: Patient called stating that she will be going on a school trip in December and will be in the [place] during the entire trip. Patient is asking for a steroids for her allergies while she is away? Patient also state that her mercury recoverer will not prescribe her the medication because she hasn't seen him in a while. Please advise patient Call back Number: [phone] (home) [facility] [address] [place] [address] ?? documented in this encounter Plan of Treatment Upcoming Encounters Date Type Department Care Team (Late st Contact Info) Description 02/02/2025 9:30 AM CDT Office Visit [facility] Primary Care - [address]1 [facility] [address] [place] [address] Mary Perla MD [address] [address] documented as of this encounter Visit Diagnoses Not on filedocumented in this encounter Care Teams Developmental Psychologist Relationship Specialty Start Date End Date Mary Perla MD 100[address] [facility] 300 [place] [address] PCP - General Internal Medicine 09/25/20 documented as of this encounter
--- OUTSIDE RECORDS SUMMARY | 2024-06-04 12:29 | XMS_ITS | Encounter Summary ---
Author Organization [facility] Address [address] [place] [address] Care Team Providers Care Datapower Consultant Name Role Phone Mary Perla MD Primary Care Provider Reason for Visit * Reason Comments Rash Rash on leg. White l sidney on toenails. For approximately one week. Encounter Details Date Type Department Care Team (Late st Contact Info) Description 03/28/2022 2:00 PM CDT Office Visit [facility] Primary Care - [address] [place] [address] Mitra Rivera, CHIKA [address] [place] [address] Dermatitis (Primary Dx) Social History [...] a day Then scratched behind her knee [place] some bumps Then shaved the area because [...] to Visit Medication Sig Dispense Refill PNV,calcium 97-dlik-jtese acid ( Vitamin Plus Low Iron) 27 [...] daily. prn fluticasone propionate (FLONASE) 50 mcg/spray [place], Suspension nasal inhaler Administer 2 Sprays in [...] 02/02/2025 9:30 AM CDT Office Visit [facility] Primary Care - [address] [address] Mary Perla MD [address] [address] documented as of this encounter Visit Diagnoses Diagnosis Dermatitis- Primary Contact dermatitis and other eczema, due to unspecified cause documented in this encounter Care Teams Datapower Consultant Relationship Specialty Start Date End Date Mary Perla MD [address] [facility] 300 [place] [address] PCP - General Internal Medicine 09/25/20 documented as of this encounter
--- OUTSIDE RECORDS SUMMARY | 2024-06-04 12:29 | XMS_ITS | Encounter Summary ---
Author Organization [facility] Address [address] [place] [address] Care Team Providers Care Compensation Vice President Name Role Phone Mary Perla MD Primary Care Provider [phone] Encounter Details Date Type Department Care Team [...] Description 02/02/2025 9:30 AM CDT Office Visit [facility] Primary Care - [address] [place] [address] Mary Perla MD [address] [place] [address] documented as of this encounter Goals [...] documented as of this encounter Care Teams Compensation Vice President Relationship Specialty Start Date End Date Mary Perla MD [address] [facility] 300 [place] [address] PCP - General Internal Medicine 09/25/20 documented as of this encounter
--- OUTSIDE RECORDS SUMMARY | 2024-06-04 12:29 | XMS_ITS | Encounter Summary ---
Author Organization [facility] Address [address] [place] [address] Care Team Providers Care Furnace Firer Name Role Phone Mary Perla MD Primary Care Provider [phone] Reason for Visit * Reason Comments Hypertension Encounter Details Date Type Department Care Team (Late st Contact Info) Description 12/15/2023 11:00 AM CDT Office Visit [facility] Primary Care - [address] [place] [address] [address] HTN (hypertension), benign (Primary Dx) [...] by mouth daily. 30 Tablet 5 PNV,calcium 64-lapk-unrfg acid ( Vitamin Plus Low Iron) 27 mg iron- 1 mg Tablet Take 1 Tablet by mouth daily. cetirizine (ZyrTEC) 10 mg tablet Take 10 mg by mouth daily. prn fluticasone propionate (FLONASE) 50 mcg/spray [place], Suspension nasal inhaler Administer 2 Sprays in [...] Office Visit [facility] Primary Care - [address] [address] Mary Perla MD [address] [address] documented as of this encounter [...] documented as of this encounter Care Teams Furnace Firer Relationship Specialty Start Date End Date Mary Perla MD [facility] [address] [address] PCP - General Internal Medicine 09/25/20 documented as of this encounter
--- OUTSIDE RECORDS SUMMARY | 2024-06-04 12:29 | XMS_ITS | Encounter Summary ---
Author Organization [facility] Address [address] [place] [address] Care Team Providers Care Associate Professor Of Geology Name Role Phone Mary Perla MD Primary Care Provider Reason for Visit * Reason Comments Erroneous encounter-disregard Encounter Details Date Type Department Care Team (Late st Contact Info) Description 03/27/2022 8:00 AM CDT Video Visit [facility] Primary Care - [address] [place] [address] Mitra Rivera FNP [address] [place] [address] ERRONEOUS ENCOUNTER--DISREGARD (Primary Dx) Social [...] Description 02/02/2025 9:30 AM CDT Office Visit [facility] Primary Care - [address] [place] [address] Mary Perla MD [address] [place] [address] documented as of this encounter Visit Diagnoses Diagnosis ERRONEOUS ENCOUNTER--DISREGARD- Primary documented in this encounter Care Teams Associate Professor Of Geology Relationship Specialty Start Date End Date Mary Perla MD [address] [place] [address] PCP - General Internal Medicine 09/25/20 documented as of this encounter
--- OUTSIDE RECORDS SUMMARY | 2024-06-04 12:29 | XMS_ITS | Encounter Summary ---
Author Organization [facility] Address [address] [place] [address] Care Team Providers Care Band Nailer Name Role Phone Mary Perla MD Primary Care Provider [phone] Encounter Details Date Type Department Care Team [...] 02/02/2025 9:30 AM CDT Office Visit [facility] Primary Care - [address] [place] [address] Mary Perla MD [address] [place] [address] documented as of this encounter Visit Diagnoses Not on filedocumented in this encounter Care Teams Band Nailer Relationship Specialty Start Date End Date Mary Perla MD [address] [place] [address] PCP - General Internal Medicine 09/25/20 documented as of this encounter
--- OUTSIDE RECORDS SUMMARY | 2024-06-04 12:29 | XMS_ITS | Encounter Summary ---
Author Organization [facility] Address [address] [place] [address] Care Team Providers Care Toll Test Worker Name Role Phone Mary Perla MD Primary Care Provider [phone] Encounter Details Date Type Department Care Team (Late Contact Info) Description 05/19/2024 Orders Only [facility] - [address] [place] [address] Provider, Abstract NO ADDRESS ON FILE [...] 02/02/2025 9:30 AM CDT Office Visit [facility] - [address] [place] [address] Mary Perla MD [address] [place] [address] documented as of this encounter Goals Goal Patient Goal Type Associated Problems Recent Progress Patient-Stated? Author HYPERTENSIO N CARE PLAN GOAL Care Plan ALANNA MYC HYPERTENSION CARE PLAN PROBLEM No Edd Downey RN documented as of this encounter Procedures Procedure Name Priority Date/Time Associated Diagnosis Comments US BREAST UNI RT LTD Routine 05/18/2024 10:39 AM WATER PLANT PUMP OPERATOR SUPERVISOR documented in this encounter Results * US BREAST UNI RT LTD (05/18/2024 10:39 AM WATER PLANT PUMP OPERATOR SUPERVISOR) Anatomical Region Laterality Modality Breast Right Other Abstract Provider US ORDERABLES documented in this encounter Visit Diagnoses Not on filedocumented in this encounter Additional Health Concerns Active Problems Noted Date Diagnosed Date ALANNA MYC HYPERTENSION CARE PLAN PROBLEM 4 Assessment Noted Time PHQ-9 Depression Total Score: 1 12/15/19 24 11:10 AM CDT documented as of this encounter Care Teams Toll Test Worker Relationship Specialty Start Date End Date Mary Perla MD [address] [facility] 300 [place] [address] PCP - General Internal Medicine 09/25/20 documented as of this encounter
--- OUTSIDE RECORDS SUMMARY | 2024-06-04 12:29 | XMS_ITS | Encounter Summary ---
Author Organization [facility] Address [address] [place] [address] Care Team Providers Care Pier Master Assistant Name Role Phone Mary Perla MD Primary Care Provider [phone] Encounter Details Date Type Department Care Team ([facility] Contact Info) Description 03/27/2022 Abstract [facility] - [address] [place] [address] Mary Perla MD [address] [place] [address] Social History Tobacco Use Types Packs/Day [...] Description 02/02/2025 9:30 AM CDT Office Visit [facility] - [address] [place] [address] Mary Perla MD [address] [place] [address] documented as of this encounter Visit Diagnoses Not on filedocumented in this encounter Care Teams Pier Master Assistant Relationship Specialty Start Date End Date Mary Perla MD [address] [place] [address] PCP - General Internal Medicine 09/25/20 documented as of this encounter
--- OUTSIDE RECORDS SUMMARY | 2024-06-04 12:29 | XMS_ITS | Encounter Summary ---
Author Organization [facility] Address [address] [place] [address] Care Team Providers Care Document Analyst Name Role Phone Mary Perla MD Primary Care Provider [phone] Reason for Visit * Reason Comments Physical Encounter Details Date Type Department Care Team (Late st Contact Info) Description 01/29/2023 10:30 AM CDT Office Visit [facility] Primary Care - [address] [place] [address] Mary Perla MD [address] [place] [address] Encounter for routine adult health examination [...] Downey IBS Had seen Dr Mazariegos in [place] in the past Has had a colonoscopy for bleeding - [place] 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 - No focal neurologic deficit LE - [...] related screening and immunization Continue following with PROOF COIN COLLECTOR Preventative Care/Health Maintenance: Immunization History Administered Date(s) [...] Description 02/02/2025 9:30 AM CDT Office Visit [facility] Primary Care - [facility] [address] Mary Perla MD [address] [place] [address] documented as of this encounter Visit Diagnoses Diagnosis Encounter for routine adult health examination without abnormal findings- Primary Screening, lipid Screening for lipoid disorders Screening for diabetes mellitus Screening for deficiency anemia Screening for other and unspecified deficiency anemia documented in this encounter Care Teams Document Analyst Relationship Specialty Start Date End Date Mary Perla MD [address] [place] [phone] PCP - General Internal Medicine 09/25/20 documented as of this encounter
--- OUTSIDE RECORDS SUMMARY | 2024-06-04 12:29 | XMS_ITS | Encounter Summary ---
Author Organization [facility] Address [address] [place] [address] Care Team Providers Care Calcine Furnace Tender Name Role Phone Mary Perla MD Primary Care Provider [phone] Reason for Visit * Reason Onset Date Comments Blood Pressure Monitoring 12/12/2023 Encounter Details Date Type Department Care Team (Late st Contact Info) Description 12/12/2023 [facility] [address] [place] [address] Bry Rangel Blood Pressure Monitoring Social History [...] No return call. Attempted to outreach via BAC ON TRACaging. No answer, though pt was seen reading the initial MMM. Ifat any time patient would like to set up monitoring, patient can call [phone] and ask for an field marketing specialist. Will close encounter. * Telephone Encounter - Bry Rangel - 12/15/2023 11:21 AM CDT Virtual Primary Care Outreach Called patient (second attempt) to set up blood pressure monitoring. No answer, LVM requesting callback. Will send RACTIV message for final attempt at outreach. * [...] [facility] Primary [facility] - [address] [address] Mary Perla MD [address] [place] [address] documented as of this encounter Goals [...] documented as of this encounter Care Teams Calcine Furnace Tender Relationship Specialty Start Date End Date Mary Perla MD [address] [place] [address] PCP - General Internal Medicine 09/25/20 documented as of this encounter
--- OUTSIDE RECORDS SUMMARY | 2024-06-04 12:29 | XMS_ITS | Encounter Summary ---
Author Organization [facility] Address [address] [place] [address] Care Team Providers Care Business Control Specialist Name Role Phone Mary Perla MD Primary Care Provider [phone] Encounter Details Date Type Department Care Team [...] Description 02/02/2025 9:30 AM CDT Office Visit [facility] Primary Care - [address] [place] [address] Mary Perla MD [address] [place] [address] documented as of this encounter Visit Diagnoses Not on filedocumented in this encounter Care Teams Business Control Specialist Relationship Specialty Start Date End Date Mary Perla MD [address] [place] [address] PCP - General Internal Medicine 09/25/20 documented as of this encounter
--- OUTSIDE RECORDS SUMMARY | 2024-06-04 12:29 | XMS_ITS | Encounter Summary ---
Author Organization [facility] Address [address] [place] [address] Care Team Providers Care Bilingual Branch Manager Name Role Phone Mary Perla MD Primary Care Provider [phone] Encounter Details Date Type Department Care Team (Late Contact Info) Description 01/23/2024 Orders Only [facility] - [address] [place] [address] Provider, Abstract NO ADDRESS ON FILE [...] Description 02/02/2025 9:30 AM CDT Office Visit [facility] - [address] [place] [address] Mary Perla MD [address] [place] [address] documented as of this encounter Goals [...] CDT) Abstract Provider PROCEDURE/MINOR SURG ICAL ORDERABLES [facility] PRIMARY CARE - [address] [place] [address] CLAK# [id number] [facility] [phone] [place] [address] documented in this encounter Visit Diagnoses Not on filedocumented in this encounter Additional Health Concerns Active Problems Noted Date Diagnosed Date ALANNA MYC HYPERTENSION CARE PLAN PROBLEM 4 Assessment Noted Time PHQ-9 Depression Total Score: 1 12/15/19 24 11:10 AM CDT documented as of this encounter Care Teams Bilingual Branch Manager Relationship Specialty Start Date End Date Mary Perla MD [address] [place] [address] PCP - General Internal Medicine 09/25/20 documented as of this encounter
--- OUTSIDE RECORDS SUMMARY | 2024-06-04 12:29 | XMS_ITS | Encounter Summary ---
Author Organization [facility] Address [address] [place] [address] Care Team Providers Care Tar Kettle Runner Name Role Phone Mary Perla MD Primary Care Provider Reason for Visit * Reason Comments Medication Assistance Medication Assistance Medication Assistance Encounter Details Date Type Department Care Team (Late st Contact Info) Description 12/10/2023 Telephone [facility] Primary Care - [address] [place] [address] Mary Perla MD [address] [place] [address] Medication Assistance; Medication Assistance; Medication Assistance [...] - 12/11/2023 10:46 AM CDT Copied from [facility] #[id number]. Topic: Medication Request >> Dec 11, 2023 10:43 AM Genaro Mcgovern wrote: Caller is requesting: Medication - New Request (Not Currently Taking) Medication (Ask patient/caregiver to spell if possible): Nifedipine Preferred Pharmacy: [facility] [address] [address] Patient/Caregiver Callback Number: [phone] Call Notes: Her distribution specialist recommended this medication to take the place of Lisinopril * Telephone Encounter - Edd Downey RN - 12/11/2023 9:39 AM CDT Spoke to patient, she stopped taking Lisinopril last night. Found out she was yesterday. BP today while I was on the phone with her was 125/81. * Telephone Encounter - Payal Gardner - 12/10/2023 4:13 PM CDT Copied from [facility] #[id number]. Topic: Medication Request >> Dec 10, 2023 4:13 PM Payal Cedillo wrote: Caller is requesting: Medication Question from Patient (Not involving new prescription or refill) Caller: Quynh De Leon Patient/Caregiver Callback Number: Telephone Information: Medication (Ask patient/caregiver to spell if possible): LISINOPRIL Call Notes: would also like to know if she needs to stop taking this med, please advise gonzalez * Telephone Encounter - Payal Gardner - 12/10/2023 4:12 PM CDT Copied from [facility] #[id number]. Topic: Medication Request >> Dec 10, 2023 [...] [facility] Primary Care - [address] [place] [address] Mary Perla MD [address] [place] [address] Scheduled Orders Name Type Priority Associated Diagnoses Orde r Schedule PATIENT SELF MEASURED BLOOD PRESSURE (SMBP) REPORTING THROUGH [employer] Telemedicine Routine Ordered: 024 documented as of this encounter Visit Diagnoses Not on filedocumented in this encounter Care Teams Tar Kettle Runner Relationship Specialty Start Date End Date Mary Perla MD [address] [place] [address] PCP - General Internal Medicine 09/25/20 documented as of this encounter
--- OUTSIDE RECORDS SUMMARY | 2024-06-04 12:29 | XMS_ITS | Encounter Summary ---
Author Organization [facility] Address [address] [place] [address] Care Team Providers Care Bottle And Glass Inspector Name Role Phone Mary Perla MD Primary Care Provider [phone] Reason for Visit * Reason Onset Date Comments medication clarification 01/29/2022 Pls Respond to the Pharm? about Nystatin Gram Di sp QTY? 01/30/2022 Encounter Details Date Type Department Care Team (Late st Contact Info) Description 01/29/2022 Telephone [facility] Contact Center Clinics [address] [place] [address] Mary Perla MD [address] [place] [address] medication clarification ; Pls Respond [...] visit: Visit date not found Caller: [facility] Message: Follow up. Atif said he's been calling since 01/29 because this script for Nystatin needs a corrected fill quantity. Please advise. Call back Number: [phone] * Telephone Encounter - Anitha Phillips - [...] (01/29/2022 8:57 AM CDT) Please Contact the [facility] or Re-Write the Script to Change the following information: Quantity: The Nystatin Only comes in #15 grams or #60 grams for the Dispense Amount. The Pharmacy need you all to Choose One [facility] Please, so they can release the Rx to the patient. Thank-you. [facility] [address] [place] [address] - [address] [place] [phone] * Telephone Encounter - Natalie Pham - 01/29/2022 2:26 PM CDT Name of PCP Provider or Prescribing Provider: Mary Perla MD Next office visit: Visit date not found Caller: [facility] Message: Pharmacy states the NYSTATIN only come in 15,30,or 60 gram. Please advise Call back Number: [phone] * Telephone Encounter - Carina Mcgee - 01/29/2022 9:02 AM CDT Name of PCP or Prescribing Provider: Mary Perla MD Next office visit: Visit date not found The pt's pharmacy has called requesting clarification on the following prescription, NYSTATIN Please contact the pharmacy to change the following information: ??? Quantity: [facility] needing a quantity it does not come in 1 gram [facility] [address] [place] [address] Call back #:[phone] documented in this encounter Plan of Treatment Upcoming Encounters Date Type Department Care Team (Late st Contact Info) Description 02/02/2025 9:30 AM CDT Office Visit [facility] Primary Care - [address] [address] Mary Perla MD [address] [address] documented as of this encounter Visit Diagnoses Diagnosis Intertrigo Other specified erythematous condition documented in this encounter Care Teams Bottle And Glass Inspector Relationship Specialty Start Date End Date Mary Perla MD [facility] [address] PCP - General Internal Medicine 09/25/20 documented as of this encounter
--- OUTSIDE RECORDS SUMMARY | 2024-06-04 12:29 | XMS_ITS | Encounter Summary ---
Author Organization [facility] Address [address] [place] [address] Care Team Providers Care Gift Shop Manager Name Role Phone Mary Perla MD Primary Care Provider [phone] Encounter Details Date Type Department Care Team [...] Description 02/02/2025 9:30 AM CDT Office Visit [facility] Primary Care - [address] [place] [address] Mary Perla MD [address] [place] [address] documented as of this encounter Visit Diagnoses Not on filedocumented in this encounter Care Teams Gift Shop Manager Relationship Specialty Start Date End Date Mary Perla MD [address] [place] [address] PCP - General Internal Medicine 09/25/20 documented as of this encounter
--- OUTSIDE RECORDS SUMMARY | 2024-06-04 12:29 | XMS_ITS | Encounter Summary ---
Author Organization [facility] Address [address] Driver: [place] [address] Care Team Providers Care Clay Shop Supervisor Name Role Phone Mary Perla MD Primary Care Provider [phone] Encounter Details Date Type Department Care Team [...] Visit [facility] Primary Care - [facility] [address] [address] Mary Perla MD [address] [place] [address] documented as of this encounter Visit Diagnoses Not on filedocumented in this encounter Care Teams Clay Shop Supervisor Relationship Specialty Start Date End Date Mary Perla MD [address] [facility] [address] [place] [address] PCP - General Internal Medicine 09/25/20 documented as of this encounter
--- OUTSIDE RECORDS SUMMARY | 2024-06-04 12:29 | XMS_ITS | Encounter Summary ---
Author Organization [facility] Address [address] Driver: [place] [address] Care Team Providers Care Air Tank Assembler Name Role Phone Mary Perla MD Primary Care Provider [phone] Encounter Details Date Type Department Care Team [...] COVID-19? Unable to assess 04/24/2021 8:05 AM WATERPROOFER HELPER documented as of this encounter Plan of Treatment Upcoming Encounters Date Type Department Care Team (Late st Contact Info) Description 02/02/2025 9:30 AM CDT Office Visit [facility] Primary Care - [address] [address] Mary Perla MD [facility] [address] [address] documented as of this encounter Visit Diagnoses Not on filedocumented in this encounter Care Teams Air Tank Assembler Relationship Specialty Start Date End Date Mary Perla MD [address] [facility] [address] [place] [address] PCP - General Internal Medicine 09/25/20 documented as of this encounter
--- OUTSIDE RECORDS SUMMARY | 2024-06-04 12:29 | XMS_ITS | Encounter Summary ---
Author Organization [facility] Address [address] Driver: [place] [address] Care Team Providers Care Fiction And Nonfiction Prose Writer Name Role Phone Mary Perla MD Primary Care Provider [phone] Encounter Details Date Type Department Care Team [...] Description 02/02/2025 9:30 AM CDT Office Visit [facility] Primary Care - [address] [address] Mary Perla MD [address] [place] [address] documented as of this encounter Visit Diagnoses Not on filedocumented in this encounter Care Teams Fiction And Nonfiction Prose Writer Relationship Specialty Start Date End Date Mary Perla MD [address] [facility] [address] [place] [address] PCP - General Internal Medicine 09/25/20 documented as of this encounter
--- OUTSIDE RECORDS SUMMARY | 2024-06-04 12:29 | XMS_ITS | Encounter Summary ---
Author Organization [facility] Address [address] [place] [address] Care Team Providers Care Construction Contractor Name Role Phone Mary Perla MD Primary Care Provider Reason for Visit * Reason Comments E&M Of Chronic Disease(s) Rashes everywh ere. For two weeks Encounter Details Date Type Department Care Team (Late st Contact Info) Description 01/29/2022 8:30 AM CDT Office Visit 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 Epilepsy Dr Espinoza - on trilyptal ?? Follows with RN GERIATRIC Garett Suarez Breast reduction nodules mammogram Pap [...] prn ??? fluticasone propionate (FLONASE) 50 mcg/spray [place], Suspension nasal inhaler Administer 2 Sprays in [...] 02/02/2025 9:30 AM CDT Office Visit [facility] Primary Care - [address] [place] [address] Mary Perla MD [address] [place] [address] documented as of this encounter Visit Diagnoses Diagnosis Encounter for routine adult health examination with abnormal findings- Primary Intertrigo Other specified erythematous condition Irritable bowel syndrome, unspecified type Nonintractable epilepsy without status epilepticus, unspecified epilepsy type documented in this encounter Care Teams Construction Contractor Relationship Specialty Start Date End Date Mary Perla MD [address] [place] [address] PCP - General Internal Medicine 09/25/20 documented as of this encounter
--- OUTSIDE RECORDS SUMMARY | 2024-06-04 12:29 | XMS_ITS | Encounter Summary ---
Author Organization [facility] Address [address] [place] [address] Care Team Providers Care Student Teaching Coordinator Name Role Phone Mary Perla MD Primary Care Provider Encounter Details Date Type Department Care Team (Late st Contact Info) Description 02/03/2023 Abstract [facility] - [address] [place] [address] Mary Perla MD [address] [place] [address] Social History Tobacco Use Types Packs/Day [...] Description 02/02/2025 9:30 AM CDT Office Visit [facility] - [address] [place] [address] Mary Perla MD [address] [place] [address] documented as of this encounter Visit Diagnoses Not on filedocumented in this encounter Care Teams Student Teaching Coordinator Relationship Specialty Start Date End Date Mary Perla MD [address] [facility] [address] [place] [address] PCP - General Internal Medicine 09/25/20 documented as of this encounter
--- OUTSIDE RECORDS SUMMARY | 2024-06-04 12:29 | XMS_ITS | CONTINUITY OF CARE DOCUMENT ---
Author Name sakina presley Address Unknown Organization [facility] Address [address] [place] [address] Phone [phone] Care Team Providers Care Line Department Supervisor Name Role Phone Dian Melendez MD Unavailable [phone] Dian Melendez MD Unavailable INSURANCE PROVIDERS Payer name Policy type / Coverage type [place] red alliance party ID [employer] Commercial insurance co [facility] [id number]
--- OUTSIDE RECORDS SUMMARY | 2024-06-04 12:29 | XMS_ITS | Clinical Summary ---
Author Organization [facility] [address] Address [facility] [place] [address] Care Team Providers Care Oil Well Logger Name Role Phone Mary Perla MD Primary Care Provider [phone] Allergies Active Allergy Reactions Criticality Noted Date Comments Levetiracetam Unknown 12/11/2023 Medications Medication Sig Dispensed Refills Start Date End Date Status cetirizine (ZyrTEC) 10 mg tablet Take 10 mg by mouth daily. prn Active fluticasone propionate (FLONASE) 50 mcg/spray [place], Suspension nasal inhaler Administer 2 Sprays in each nostril daily. prn Active OXcarbazepine (TRILEPTAL) 600 mg tablet TAKE 1 & 1 2 (ONE & ONE HALF) TABLETS BY MOUTH TWICE DAILY 08/06/2020 Active PNV,calcium 53-xebz-arbdn acid ( Vitamin Plus Low Iron) 27 [...] Department Care Team Description 05/19/2024 Orders Only [facility] Primary Care - [address] [facility] [address] [place] [address] Provider, Abstract 04/13/2024 2:40 PM CDT Office Visit [facility] Primary Care Same Day [address] [place] [address] Elly Meza, MIKAEL Urinary frequency [...] Visit [facility] Primary Care - [address] [place] [address] Mary Perla MD [address] [place] [address] Health Maintenance Due Date Last Done [...] HYPERTENSION CARE PLAN PROBLEM No Edd Downey heavy equipment operating engineer Procedure Name Priority Date/Time Associated Diagnosis Comments US BREAST UNI RT LTD Routine 05/18/2024 10:39 AM TOP WADDY POC URINALYSIS DIPSTICK AUTOMATED Routine 04/13/2024 2:54 PM CDT Urinary frequency HEMOGLOBIN A1C Routine 11/07/2023 9:22 AM CDT Screening for diabetes mellitus from Last 3 Months or Most Recently Relevant to Health Maintenance Results * US BREAST UNI RT LTD (05/18/2024 10:39 AM TOP WADDY) Anatomical Region Laterality Modality Breast Right Other Abstract Provider US ORDERABLES * (ABNORMAL) POC URINALYSIS DIPSTICK AUTOMATED (04/13/2024 2:54 PM CDT) COLOR UA POC Yellow Pale to Dark Yellow [facility] - [address] CLARITY UA POC Clear Clear, Other [facility] - [address] GLUCOSE UA POC Negative Negative, Normal [facility] - [address] BILIRUBIN UA POC Negative Negative [facility] [address] KETONES UA POC Negative Negative [facility] - [address] SPECIFIC GRAVITY UA POC >=1.030 1.000 - 1.030 [facility] - [address] BLOOD UA POC Negative Negative [facility] - [address] PH UA POC 5.5 5.0 - 8.0 [facility] - [address] PROTEIN UA POC Trace(A) Negative [facility] - [address] UROBILINOGEN UA POC 0.2 <2.0 mg/dL [facility] - [address] NITRITE UA POC Negative Negative [facility] - [address] LEUKOCYTE ESTERASE UA POC Negative Negative [facility] - [address] KIT LOT NUMBER POC 0 [facility] - [address] KIT EXP DATE POC 0 [facility] [address] Urine 04/13/2024 2:54 PM CDT Elly Meza NP POINT OF CARE TESTI NG [facility] - [address] CLIA# [id number] [address] * HEMOGLOBIN A1C (11/07/2023 9:22 AM CDT) HEMOGLOBIN A1C 5.3 <5.7 % of total Hgb [facility] [place] Comment: For the purpose of screening for the presence of diabetes: <5.7% ? Consistent with the absence of diabetes 5.7-6.4% ?Consistent with increased risk for diabetes ?(prediabetes) > or =6.5% ??Consistent with diabetes This assay result is consistent with a decreased risk of diabetes. Currently, no consensus exists regarding use of hemoglobin A1c for diagnosis of diabetes in children. According to [place] Diabetes Association (ADA) guidelines, hemoglobin A1c <7.0% represents optimal control in non- diabetic patients. Different metrics may apply to specific patient populations. Standards of Medical Care in Diabetes(ADA). ?? ESTIMATED AVERAGE GLUCOSE (MG/DL) 105 mg/dL [facility] Rose ESTIMATED AVERAGE GLUCOSE (MMOL/L) 5.8 mmol/L [facility] em[facility] Rose Comment: ? This test was performed on the Polly raoul c503 platform. Effective 09/01/23, a change in test platforms from the Sandoval Studio Musician to the Polly raoul c503 may have shifted HbA1c results compared to historical results. Based on laboratory validation testing conducted at [facility], the Polly platform relative to the Sandoval [...] recommended. FASTING:YES FASTING: YES Test Performed at: [facility] [address] [place] Isabel Simpson Blood 11/07/2023 9:22 AM CDT 11/07/2023 9:24 AM CDT Shayy James RESEARCH FOOD TECHNOLOGIST CHEMISTRY ORDERABLES [facility] [phone] [facility] [address] [address] [address] from Last 3 Months or Most Recently Relevant to Health Maintenance Additional Health Concerns Active Problems Noted Date Diagnosed Date ALANNA MYC HYPERTENSION CARE PLAN PROBLEM 4 Care Teams Oil Well Logger Relationship Specialty Start Date End Date Mary Perla MD [address] [place] [address] PCP - General Internal Medicine 09/25/20
--- OUTSIDE RECORDS SUMMARY | 2024-06-04 12:30 | XMS_ITS | Encounter Summary ---
Author Organization [facility] Address [address] [place] [address] Phone Care Team Providers Care Data Warehousing Architect Name Role Phone Wil Downey MD Primary Care Provider [phone] Reason for Visit * Reason Comments OT Treatment orthosis only * Consultation (Routine) - Closed Specialty Diagnoses / Procedures Referred By Nathalie kapoor Referred To Contact Occupational Therapy Diagnoses De Quervain's disease (tenosynovitis) Héctor Ware MD Phone: tel: fax: [facility] Occupational Therapy [address] [place] [address] 6th [place] [address] [place] [address] Phone: tel: fax: Referral ID Status Reason Start Date Expiration Date V isits Requested Visits Authorized [id number] Closed Specialty Services Required 08/10/2019 02/18/2021 24 24 Encounter Details Date Type Department Care Team (Late st Contact Info) Description 08/10/2019 4:30 PM INSPECTOR BULLET SLUGS Therapy [facility] Occupational Therapy [address] [place] [address] 6th [place] [address] [place] [address] Kat Encarnacion, OT [address] [place] [address] De Quervain's disease (tenosynovitis) (Primary Dx) Social History Tobacco Use Types Packs/Day Years Used Date Smoking Tobacco: Never Smokeless Tobacco: Never Alcohol Use Standard Drinks/Week Comments Yes 0 (1 standard drink = 0.6 oz pur e alcohol) Comments No Sex and Gender Information Value Date Recorded Sex Assigned at Not on file Legal Sex Female 9:12 PM INSPECTOR BULLET SLUGS Gender Identity Not on file Sexual Orientation [...] 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 Achieved. Senior Ui Web Developer Goals 08/10/2019 Pt will report comfort in orthosis for protection during ADLs by 08/10/2019. Achieved. Plan: Pt discharged this date. Pt to call for orthosis modifications as needed. Start Time: 1630 End Time: 1700 MOIRA Garrett,CHT ECTOR BULLET SLUGS documented in this encounter Plan of Treatment Not on file documented as of this encounter Visit Diagnoses Diagnosis De Quervain's disease (tenosynovitis)- Primary Radial styloid tenosynovitis documented in this encounter Orders Outpatient Referral Count Last Ordered Date Fir st Ordered Date AMB REFERRAL ORDER TO OCCUPATIONAL THERAPY 1 08/10/2019 documented in this encounter Care Teams Data Warehousing Architect Relationship Specialty Start Date End Date Wil Downey MD PCP - General 12/12/16 04/17/21 documented as of this encounter
--- OUTSIDE RECORDS SUMMARY | 2024-06-04 12:30 | XMS_ITS | Encounter Summary ---
Author Organization [facility] Address [address] [place] [address] Phone Care Team Providers Care Application Support Analyst Name Role Phone Mary Perla MD Primary Care Provider Encounter Details Date Type Department Care Team (Late st Contact Info) Description 02/12/2024 3:00 PM CDT Office Visit [facility] [address] [facility] 6th [place] [address] [place] [address] Richard Espinoza III, MD [address] [place] [address] Partial epilepsy with impairment of [...] more drinks on one occasion? Never 01/05/2024 [place] Depression Scale Answer Date Recorded [place] Depression Scale Total 10 01/05/2024 The thought of harming myself has occurred to me . 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 She continues working at [employer] full-time, and reports she is completing her [...] mouth 2 (two) times a day ALLERGIES Qyunh is allergic to keppra [levetiracetam]. SOCIAL HISTORY [...] documented as of this encounter Care Teams Application Support Analyst Relationship Specialty Start Date End Date Mary Perla MD [address] [facility] [address] [place] [address] PCP - General Internal Medicine 04/18/21 documented as of this encounter
--- OUTSIDE RECORDS SUMMARY | 2024-06-04 12:30 | XMS_ITS | Encounter Summary ---
Author Organization [facility] Address [address] Driver: [place] [address] Care Team Providers Care Motor Vehicle Clerk Name Role Phone Mary Perla MD Primary Care Provider [phone] Encounter Details Date Type Department Care Team [...] Visit [facility] Primary Care - [address] [address] Mary Perla MD [address] [place] [address] documented as of this encounter Visit Diagnoses Not on filedocumented in this encounter Care Teams Motor Vehicle Clerk Relationship Specialty Start Date End Date Mary Perla MD [address] [place] [address] PCP - General Internal Medicine 09/25/20 documented as of this encounter
--- OUTSIDE RECORDS SUMMARY | 2024-06-04 12:30 | XMS_ITS | Encounter Summary ---
Author Organization [facility] Address [address] [place] [address] Phone Care Team Providers Care Algebra Teacher Name Role Phone Wil Downey MD Primary Care Provider [phone] Encounter Details Date Type Department Care Team (Late st Contact Info) Description 08/10/2019 Telephone [facility] Epilepsy [address] [facility] 6th [place] [address] [place] [address] Dianna Shin RN Social History Tobacco Use Types Packs/Day Years Used Date Smoking Tobacco: Never Smokeless Tobacco: Never Alcohol Use Standard Drinks/Week Comments Yes 0 (1 standard drink = 0.6 oz pur e alcohol) Comments No Sex and Gender Information Value Date Recorded Sex Assigned at Not on file Legal Sex Female 9:12 PM WOOD CASKET ASSEMBLER Gender Identity Not on file Sexual Orientation Not on file documented as of this encounter Miscellaneous Notes * Telephone Encounter - Dianna Shin RN - 08/11/2019 8:49 AM WOOD CASKET ASSEMBLER Called pt to assess how long she will be in [place] and she stated the trip got cancelled so she no longer needs a script. She thanked this nurse for the follow up. CASKET ASSEMBLER * Telephone Encounter - Dianna Shin RN - 08/10/2019 12:56 PM WOOD CASKET ASSEMBLER Pt asked for written prescription for AEDs to hand carry in case of emergency, as she is going to [place], date unknown. CASKET ASSEMBLER documented in this encounter Plan of Treatment Not on file documented as of this encounter Visit Diagnoses Not on filedocumented in this encounter Care Teams Algebra Teacher Relationship Specialty Start Date End Date Wil Downey MD PCP - General 12/12/16 04/17/21 documented as of this encounter
--- OUTSIDE RECORDS SUMMARY | 2024-06-04 12:30 | XMS_ITS | Encounter Summary ---
Author Organization [facility] Address [address] [place] [address] Phone Care Team Providers Care Camera Tuning Engineer Name Role Phone Mary Perla MD Primary Care Provider Reason for Visit * Reason Onset Date Comments medication question 12/11/2023 Encounter Details Date Type Department Care Team (Late st Contact Info) Description 12/11/2023 Telephone [facility] Obstetrics and Gynecology [facility] Outpatient Health 7th Floor [address] [place] [address] Pancho Puckett RN medication question Social History Tobacco Use [...] on file Legal Sex Female 9:12 PM FASHION MERCHANDISER Gender Identity Not on file Sexual Orientation [...] for her and partner to review via [employer]. Pt amenable and understanding verbalized. * Telephone [...] documented as of this encounter Care Teams Camera Tuning Engineer Relationship Specialty Start Date End Date Mary Perla MD [address] [facility] [address] [place] [address] PCP - General Internal Medicine 04/18/21 documented as of this encounter
--- OUTSIDE RECORDS SUMMARY | 2024-06-04 12:30 | XMS_ITS | Encounter Summary ---
Author Organization [facility] Address [address] [place] [address] Care Team Providers Care Light Rail Train Operator Name Role Phone Mary Perla MD Primary Care Provider [phone] Reason for Visit * Reason Onset Date Comments muscle relaxer 11/07/2020 Encounter Details Date Type Department Care Team (Late st Contact Info) Description 11/07/2020 Telephone [facility] Primary Care - [address] [address] Mary Perla MD [address] [address] muscle relaxer Social History Tobacco [...] we recommend against manipulation (cracking back) from primary care provider as it could result in negative outcome. [...] Advil with no relief Call back Number: [phone] documented in this encounter Plan of Treatment Upcoming Encounters Date Type Department Care Team (Late st Contact Info) Description 02/02/2025 9:30 AM CDT Office Visit [facility] Primary Care - [address] [place] [address] Mary Perla MD [address] [place] [address] documented as of this encounter Visit Diagnoses Not on filedocumented in this encounter Care Teams Light Rail Train Operator Relationship Specialty Start Date End Date Mary Perla MD [address] [place] [address] PCP - General Internal Medicine 09/25/20 documented as of this encounter
--- OUTSIDE RECORDS SUMMARY | 2024-06-04 12:30 | XMS_ITS | Encounter Summary ---
Author Organization [facility] Address [address] [place] [address] Phone Care Team Providers Care Topographical Field Assistant Name Role Phone Wil Downey MD Primary Care Provider [phone] Reason for Visit * Reason Comments Gynecologic Exam Encounter Details Date Type Department Care Team (Latest Contact Info) Description 09/27/2020 10:30 AM CDT Office Visit [facility] Obstetrics and Gynecology [address] [facility] 1st Floor [address] [place] [address] Corin Fraser, MIKAEL [address] [id number] Encounter for gynecological examination without abnormal finding [...] on file Legal Sex Female 9:12 PM HUNTING GUIDE Gender Identity Not on file Sexual Orientation [...] removed Advantages of the hormonal IUD: o Business Broker or less frequent periods, some women stop [...] for labels that state ???purified?? orhave the PRISON ([place] Pharmacopeia) symbol. The ???PRISON Verified Virgilio?? on the supplement label means that the PRISON has tested and found the calcium supplement [...] pharmacist about possible interactions between prescription or [id number] medications and calcium supplements. What is Vitamin [...] need more vitamin D. According to the [place] of Medicine (IOM), the safe upper limit [...] canned with bones 3 oz 325 mg [place], canned with bones 3 oz 180 mg Shrimp, canned 3 oz 125 mg Dairy Serving Size Estimated Calcium* Ricotta, part-skim 4 oz 335 mg Yogurt, plain, low-fat 6 oz 310 mg Milk, skim, low-fat, whole 8 oz 300 mg Yogurt with fruit, low-fat 6 oz 260 mg Mozzarella, part-skim 1 oz 210 mg Cheddar 1 oz 205 mg Yogurt, Slovak 6 oz 200 mg Zambian Cheese 1 oz 195 mg Feta Cheese 4 oz 140 mg Cottage Cheese, 2% 4 oz 105 mg Frozen yogurt, vanilla 8 oz 105 mg Ice Cream, vanilla 8 oz 85 mg Parmesan 1 tbsp 55 mg Fortified Food Serving Size Estimated Calcium* [place] milk, rice milk or soy milk, fortified 8 oz 300 mg Estill juice and other fruit juices, fortified 8 oz 300 mg Tofu, prepared with calcium 4 oz 205 mg Waffle, frozen, fortified 2 pieces 200 mg Oatmeal, fortified 1 packet 140 mg Burmese muffin, fortified 1 muffin 100 mg Cereal, [...] product. The National Osteoporosis Foundation, Copyright [address] [place] [address] [address] [place] [address] documented in this encounter Progress Notes * Corin Fraser NP - 09/27/2020 10:30 AM CDT Well Woman Exam Patient ID: Quynh De Leon is a 35 y.o. female Subjective: Chief Complaint: Gynecologic Exam HPI: Quynh De Leon is a 35 y.o. female who presents for a well woman exam. No SEATING AND MOBILITY TECHNOLOGIST c/o MOC: Santa 05/2017, no issues STI [...] daily added in this encounter Care Teams Topographical Field Assistant Relationship Specialty Start Date End Date Wil Downey MD PCP - General 12/12/16 04/17/21 documented as of this encounter
--- OUTSIDE RECORDS SUMMARY | 2024-06-04 12:30 | XMS_ITS | Encounter Summary ---
Author Organization [facility] Care Team Providers Care Weather Forcaster Name Role Phone Wil Downey MD Primary Care Provider [phone] Encounter Details Date Type Department Care Team [...] on file Legal Sex Female 9:12 PM CLOTH TRIMMER HAND Gender Identity Not on file Sexual Orientation Not on file documented as of this encounter Plan of Treatment Not on file documented as of this encounter Visit Diagnoses Not on filedocumented in this encounter Care Teams Weather Forcaster Relationship Specialty Start Date End Date Wil Downey MD PCP - General 12/12/16 04/17/21 documented as of this encounter
--- OUTSIDE RECORDS SUMMARY | 2024-06-04 12:30 | XMS_ITS | Encounter Summary ---
Author Organization [facility] Address [address] [facility] [address] Driver: [place] [address] Care Team Providers Care Financial Underwriter Name Role Phone Unavailable Primary Care Provider [...] Description 02/02/2025 9:30 AM CDT Office Visit [facility] Primary Care - [address] [address] Mary Perla MD [address] [address] documented as of this encounter Visit Diagnoses Not on filedocumented in this encounter
--- OUTSIDE RECORDS SUMMARY | 2024-06-04 12:30 | XMS_ITS | Encounter Summary ---
Author Organization [facility] Address [address] [place] [address] Phone Care Team Providers Care Shingle Weaver Name Role Phone Mary Perla MD Primary Care Provider Encounter Details Date Type Department Care Team (Late st Contact Info) Description 06/25/2023 Telephone [facility] Scheduling [address] [place] [address] Marissa Cabral CMA Social History [...] on file Legal Sex Female 9:12 PM INTERNIST Gender Identity Not on file Sexual Orientation Not on file documented as of this encounter Miscellaneous Notes * Telephone Encounter - Marissa Larkin - 06/25/2023 3:31 PM CST Called and left a message regarding to schedule a follow up appointment per the provider. Left a call back number in the message. RNIST documented in this encounter Plan of Treatment Not on file documented as of this encounter Visit Diagnoses Not on filedocumented in this encounter Care Teams Shingle Weaver Relationship Specialty Start Date End Date Mary Perla MD [address] [facility] [address] [place] [address] PCP - General Internal Medicine 04/18/21 documented as of this encounter
--- OUTSIDE RECORDS SUMMARY | 2024-06-04 12:30 | XMS_ITS | Encounter Summary ---
Author Organization [facility] Address [address] [place] [address] Phone Care Team Providers Care Senior Ux Developer Name Role Phone Mary Perla MD Primary Care Provider [phone] Reason for Visit * Diagnostic Imaging (Routine) - Closed Specialty Diagnoses / Procedures Referred By Contac t Referred To Contact Diagnoses of unknown anatomic location Procedures [place] 14 [place] [address] [place] [address] Phone: tel: fax: [facility] (All Locations) Referral ID Status Reason Start Date Expiration Date Visits Re quested Visits Authorized [id number] Closed 01/05/2024 02/03/2025 1 1 Encounter Details Date Type Department Care Team (Late st Contact Info) Description 01/05/2024 2:05 PM CDT Ancillary Procedure [facility] Obstetrics and Gynecology [address] [place] [address] Outpatient Health 7th Floor [address] [place] [address] Social History Tobacco Use Types [...] more drinks on one occasion? Never 01/05/2024 [place] Depression Scale Answer Date Recorded [place] Depression Scale Total 10 01/05/2024 The thought of harming myself has occurred to me . 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
--- OUTSIDE RECORDS SUMMARY | 2024-06-04 12:30 | XMS_ITS | Referral Summary ---
Author Organization [facility] Address [address] [place] [address] Care Team Providers Care Garage Door Technician Name Role Phone Mary Perla MD [...] more drinks on one occasion? Never 01/05/2024 [place] Depression Scale Answer Date Recorded [place] Depression Scale Total 10 01/05/2024 The thought of harming myself has occurred to me . 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 Not on file Not on file Last Filed Vital Signs Vital Sign Reading Time Taken Comments Blood Pressure 126/85 02/12/2024 2:47 PM CDT Pulse 84 02/12/2024 2:47 PM CDT Temperature - - Respiratory Rate - - Oxygen Saturation 97% 07/01/2017 1:08 PM VENUE ATTENDANT Inhaled Oxygen Concentration - - Weight 91.6 [...] Recently Relevant to Health Maintenance Insurance [employer] [facility] H[facility]PPO Address: [address] [address] [facility]O Address: [address] [address] Care Teams Garage Door Technician Relationship Specialty Start Date End Date Mary Perla MD [address] [facility] [address] [place] [address] PCP - General Internal Medicine 04/18/21
--- OUTSIDE RECORDS SUMMARY | 2024-06-04 12:30 | XMS_ITS | Encounter Summary ---
Author Organization [facility] Address [address] [place] [address] Care Team Providers Care Pipefitter Name Role Phone Mary Perla MD Primary Care Provider [phone] Reason for Visit * Reason Comments Establish Care Encounter Details Date Type Department Care Team (Late st Contact Info) Description 09/25/2020 11:00 AM CDT Office Visit [facility] Primary Care - [address] [place] [phone] Mary Perla MD [address] [place] [phone] Encounter for routine adult health examination with abnormal findings (Primary Dx); Irritable bowel syndrome, unspecified type; Nonintractable epilepsy without status epilepticus, unspecified epilepsy type; Screening, lipid; Screening for diabetes mellitus; Screening [...] Sign Reading Time Taken Comments Blood Pressure 132/88 09/25/2020 11:13 AM CDT Pulse 73 09/25/2020 11:13 AM CDT Temperature 36.4 ??C (97.6 ??F) 09/25/2020 11:13 AM C DT Respiratory Rate - - Oxygen Saturation 98% 09/25/2020 11:13 AM CDT Inhaled Oxygen Concentration - - Weight 90.7 kg (200 lb) 09/25/2020 11:13 AM CDT Height 154.9 cm (5' 1 ) 09/25/2020 11:13 AM CDT Body Mass Index 37.79 09/25/2020 11:13 AM CDT documented in this encounter Progress Notes * Mary Perla MD - 09/25/2020 11:00 AM CDT Chief Complaint Patient presents with ??? Establish Care HPI Here to establishwith new PCP Had both covid shots IBS Had seen Dr Mazariegos in [place] Has had a colonoscopy for bleeding - fishers When eating would sit in esophagus Has not had an [place] like food not moving, not now it is since starting dyclinome Stools go back and forth Epilepsy Dr Espinoza Follows with POST FORM REMOVER Garett Suarez Breast reduction nodules mammogram Pap UTD Has IUD No kids Sexually active with mon boyfriend Had HgA1c and chosterol through work Past Medical History: Diagnosis Date ??? Allergies seasonal ??? Epilepsy ??? IBS (irritable bowel syndrome) Current Outpatient Medications: ??? dicyclomine (BENTYL) 10 mg capsule, Take 10 mg by mouth 2 times daily as needed., Disp: , Rfl: ??? cetirizine (ZyrTEC) 10 mg tablet, Take 10 mg by mouth daily. prn, Disp: , Rfl: ??? fluticasone propionate (FLONASE) 50 mcg/spray Petty, Suspension nasal inhaler, Administer 2 Sprays in each nostril daily. prn, Disp: , Rfl: ? ? OXcarbazepine (TRILEPTAL) 600 mg tablet, TAKE 1 & 1 2 (ONE & ONE HALF) TABLETS BY MOUTHTWICE DAILY, Disp: , Rfl: No Known Allergies Social History Socioeconomic History ??? Marital status: Single Spouse name: Not on file ??? Number of children: Not on file ??? Years of education: Not on file ??? Highest education level: Not on file Occupational History ??? Not on file Tobacco Use ??? Smoking status: Never Smoker ??? Smokeless tobacco: Never Used Vaping Use ??? Vaping Use: Never used Substance and Sexual Activity ??? Alcohol use: Not Currently ??? Drug use: Never ??? Sexual activity: Not on file Other Topics Concern ??? Not on file Social History Narrative ??? Not on file Social Determinants of Health Financial Resource Strain: ??? Difficulty of Paying Living Expenses: Food Insecurity: ??? Worried About Running Out of Food in the Last Year: ??? Ran Out of Food in the Last Year: Transportation Needs: ??? Lack of Transportation (Medical): ??? Lack of Transportation (Non-Medical): Physical Activity: ??? Days of Exercise per Week: ??? Minutes of Exercise per Session: Stress: ??? Feeling of Stress : Social Connections: ??? Frequency of Communication with Friends and Family: ??? Frequency of Social Gatherings with Friends and Family: ??? Attends Jainism Services: ??? Active Member of Clubs or Organizations: ??? Attends Club or Organization Meetings: ??? Marital Status: Intimate Partner Violence: ??? Fear of Current or Ex-Partner: ??? Emotionally Abused: ??? Physically Abused: ??? Sexually Abused: Family History Problem Relation Name Age of Onset ??? Other Father ??? Healthy Mother ??? Healthy Brother ??? Other Maternal Grandmother ??? Other Maternal Grandfather ??? Other Paternal Grandmother ??? Other Paternal Grandfather ROS Review of Systems Constitutional: Negative for chills, diaphoresis, fever, malaise/fatigue and weight loss. HENT: Negative for congestion, ear discharge, ear pain, hearing loss, nosebleeds, sinus pain, sore throat and tinnitus. Eyes: Negative for blurred vision, double vision, photophobia, pain, discharge and redness. Respiratory: Negative for cough, hemoptysis, sputum production, shortness of breath, wheezing and stridor. Cardiovascular: Negative for chest pain, palpitations, orthopnea, claudication, leg swelling and PND. Gastrointestinal: Positive for constipation and diarrhea. Negative for abdominal pain, blood in stool, heartburn, melena, nausea and vomiting. Genitourinary: Negative for dysuria, flank pain, frequency, hematuria and urgency. Musculoskeletal: Negative for back pain, falls, joint pain, myalgias and neck pain. Skin: Negative for itching and rash. Neurological: Negative for dizziness, tingling, tremors, sensory change, speech change, focal weakness, seizures, loss of consciousness, weakness and headaches. Endo/Heme/Allergies: Negative for environmental allergies and polydipsia. Does not bruise/bleed easily. Psychiatric/Behavioral: Negative for depression, hallucinations, memory loss, substance abuse and suicidal ideas. The patient is not nervous/anxious and does not have insomnia. Feels safe EXAM Vitals BP 132/88 Pulse 73 Temp 97.6 ??F (36.4 ??C) Ht 5' 1 (1.549 m) Wt 90.7 kg (200 lb) SpO2 98% No Comment: IUD BMI 37.79 kg/m?? GEN - NAD, well developed, well [...] non-tender, non-distended, no hepatosplenomegaly, no masses palpated ALLIGATOR TRAPPER - No focal neurologic deficit LE - No edema, normal pulses bilat ASSESSMENT AND PLAN Quynh was seen today for establish care. Diagnoses and all orders for this visit: Encounter for routine adult health examination with abnormal findings Up to date for age and sex related screening and immunization Continue following with POST FORM REMOVER Irritable bowel syndrome, unspecified type - dicyclomine (BENTYL) 10 mg capsule; Take 10 mg by mouth 2 times daily as needed. - dicyclomine (BENTYL) 10 mg capsule; Take 1 Capsule (10 mg) by mouth 3 times daily. Nonintractable epilepsy without status epilepticus, unspecified epilepsy type Continue follow up with neurology Continue Trileptal Screening, lipid - LIPID PANEL; Future - LIPID PANEL Screening for diabetes mellitus - COMPREHENSIVE METABOLIC PANEL; Future - COMPREHENSIVE METABOLIC PANEL Screening for deficiency anemia - CBC WITH DIFFERENTIAL; Future - CBC WITH DIFFERENTIAL Other orders - cetirizine (ZyrTEC) 10 mg tablet; Take 10 mg by mouth daily. prn - fluticasone propionate (FLONASE) 50 mcg/spray Petty, Suspension nasal inhaler; Administer 2 Sprays in each nostril daily. prn - OXcarbazepine (TRILEPTAL) 600 mg tablet; TAKE 1 & 1 2 (ONE & ONE HALF) TABLETS BY MOUTH TWICE DAILY Mary Perla MD documented in this encounter Plan of Treatment Upcoming Encounters Date Type Department Care Team (Late st Contact Info) Description 02/02/2025 9:30 AM CDT Office Visit [facility] Primary Care - [address] [place] [phone] Mary Perla MD [address] [place] [phone] documented as of this encounter Procedures Procedure Name Priority Date/Time Associated Diagnosis Comments CBC WITH DIFFERENTIAL Routine 09/25/2020 1:59 PM CDT Screening for deficiency anemia LIPID PANEL Routine 09/25/2020 1:59 PM CDT Screening, lipid COMPREHENSIVE METABOLIC PANEL Routine 09/25/2020 1:59 PM CDT Screening for diabetes mellitus documented in this encounter Results * (ABNORMAL) LIPID PANEL (09/25/2020 1:59 PM CDT) CHOLESTEROL 218(H) <200 mg/dL [facility] HDL 52 > OR = 50 mg/dL [facility] TRIGLYCERIDE 99 <150 mg/dL [facility] LDL CALCULATED 145(H) mg/dL (calc) [facility] Comment: Reference range: <100 Desirable range <100 mg/dL for primary prevention; ?? <70 mg/dL for patients with CHD or diabetic patients with > or = 2 CHD risk factors. LDL-C is now calculated using the Sheba calculation, which is a validated novel method providing better accuracy than the Friedewald equation in the estimation of LDL-C. Héctor KHAN et al. BECKY. 2013;310(19): 7798-6776 (http://education.Kofax/faq/BDP100) CHOL/HDL RATIO 4.2 <5.0 (calc) [facility] TOTAL NON-HDL CHOL(LDL+VLDL) 166(H) <130 mg/dL (calc) [facility] Comment: For patients with diabetes plus 1 major ASCVD risk factor, treating to a non-HDL-C goal of <100 mg/dL (LDL-C of <70 mg/dL) is considered a therapeutic option. Test Performed at: [facility] [id number] [place], [place] ??[phone] Tevin Giordano D.O., MPH Blood 09/25/2020 1:59 PM CDT Mary Perla MD CHEMISTRY ORDERABLES [facility] [address] [place] [address] * COMPREHENSIVE METABOLIC PANEL (09/25/2020 1:59 PM CDT) GLUCOSE 82 65 - 99 mg/dL [facility] Comment:Fasting reference in terval BUN 10 7 - 25 mg/dL [facility] CREATININE 0.72 0.50 - 1.10 mg/dL [facility] GFR 108 > OR = 60 mL/min/1. 73m2 [facility] GFR, 126 > OR = 60 mL/min/1. 73m2 [facility] BUN/CREAT RATIO NOT APPLICABLE 6 - 22 (calc) [facility] SODIUM 138 135 - 146 mmol/L [facility] POTASSIUM 4.1 3.5 - 5.3 mmol/L [facility] CHLORIDE 103 98 - 110 mmol/L [facility] CO2 27 20 - 32 mmol/L [facility] CALCIUM 9.3 8.6 - 10.2 mg/dL [facility] TOTAL PROTEIN 6.9 6.1 - 8.1 g/dL [facility] ALBUMIN 4.2 3.6 - 5.1 g/dL [facility] GLOBULIN 2.7 1.9 - 3.7 g/dL (calc) [facility] ALBUMIN/GLOBULI N RATIO 1.6 1.0 - 2.5 (calc) [facility] BILIRUBIN TOTAL 0.3 0.2 - 1.2 mg/dL [facility] ALKALINE PHOSPHATASE 63 31 - 125 U/L [facility] AST 16 10 - 30 U/L [facility] ALT 16 6 - 29 U/L [facility] Comment: Test Performed at: [id number] ??[phone] Tevin Giordano D.O., MPH Blood 09/25/2020 1:59 PM CDT Mary Perla MD CHEMISTRY ORDERABLES [facility] [address] [place] [address] * (ABNORMAL) CBC WITH DIFFERENTIAL (09/25/2020 1:59 PM CDT) WBC 5.9 3.8 - 10.8 Thousand/u L [facility] RBC 5.14(H) 3.80 - 5.10 Million/uL [facility] HEMOGLOBIN 15.2 11.7 - 15.5 g/dL [facility] HEMATOCRIT 44.6 35.0 - 45.0 % [facility] MCV 86.8 80.0 - 100.0 fL [facility] MCH 29.6 27.0 - 33.0 pg [facility] MCHC 34.1 32.0 - 36.0 g/dL [facility] RDW 12.5 11.0 - 15.0 % [facility] PLATELETS 223 140 - 400 Thousand/u L [facility] MPV 10.5 7.5 - 12.5 fL [facility] NEUTROPHIL ABSOLUTE 3,452 1,500 - 7,800 cells/uL [facility] LYMPHOCYTE ABSOLUTE 2,047 850 - 3,900 cells/uL [facility] MONOCYTE ABSOLUTE 354 200 - 950 cells/uL [facility] EOSINOPHIL ABSOLUTE 18 15 - 500 cells/uL [facility] BASOPHILS ABSOLUTE 30 0 - 200 cells/uL [facility] NEUTROPHIL 58.5 % [facility] LYMPHOCYTES 34.7 % [facility] MONOCYTE 6.0 % [facility] EOSINOPHILS 0.3 % [facility] BASOPHILS 0.5 % [facility] Comment: FASTING:YES FASTING: YES Test Performed at: [facility] [address] [place], [place] ??[address] Tevin Giordano D.O., MPH Blood 09/25/2020 1:59 PM CDT Mary Perla MD HEMATOLOGY ORDERABLE S [facility] [address] [place] [address] documented in this encounter Visit Diagnoses Diagnosis Encounter for routine adult health examination with abnormal findings- Primary Irritable bowel syndrome, unspecified type Nonintractable epilepsy without status epilepticus, unspecified epilepsy type Screening, lipid Screening for lipoid disorders Screening for diabetes mellitus Screening for deficiency anemia Screening for other and unspecified deficiency anemia documented in this encounter Care Teams Pipefitter Relationship Specialty Start Date End Date Mary Perla MD [address] [facility] [address] [place] [phone] PCP - General Internal Medicine 09/25/20 documented as of this encounter
--- OUTSIDE RECORDS SUMMARY | 2024-06-04 12:30 | XMS_ITS | Encounter Summary ---
Author Organization [facility] Address [address] [place] [address] Phone Care Team Providers Care Ion Exchange Operator Name Role Phone Wil Downey MD Primary Care Provider [phone] Reason for Visit * Reason Onset Date Comments OT Discharge 09/09/2019 Encounter Details Date Type Department Care Team (Late st Contact Info) Description 09/09/2019 Documentation [facility] Occupational Therapy [address] [facility] 6th [place] [address] [place] [address] Kat Encarnacion, OT [address] [address] OT Discharge Social History Tobacco Use Types Packs/Day Years Used Date Smoking Tobacco: Never Smokeless Tobacco: Never Alcohol Use Standard Drinks/Week Comments Yes 0 (1 standard drink = 0.6 oz pur e alcohol) Comments No Sex and Gender Information Value Date Recorded Sex Assigned at Not on file Legal Sex Female 9:12 PM CHOKER HOOKER Gender Identity Not on file Sexual Orientation Not on file documented as of this encounter Progress Notes * Kat Encarnacion, OT - 09/09/2019 2:20 PM CDT Patient discharged from OT on 08/10/19 documented in this encounter Plan of Treatment Not on file documented as of this encounter Visit Diagnoses Not on filedocumented in this encounter Care Teams Ion Exchange Operator Relationship Specialty Start Date End Date Wil Downey MD PCP - General 12/12/16 04/17/21 documented as of this encounter
--- OUTSIDE RECORDS SUMMARY | 2024-06-04 12:30 | XMS_ITS | Encounter Summary ---
Author Organization [facility] [place] [facility] Address [address] [place] [address] Phone Care Team Providers Care Personnel Arbitrator Name Role Phone Wil Downey MD Primary Care Provider [phone] Reason for Referral * (Routine) - Closed Specialty Diagnoses / Procedures Referred By Contac t Referred To Contact Diagnoses Arthritis of carpometacarpal (CMC) joint of right thumb Procedures De Quervain's injection: R extensor compartment 1 Héctor Ware MD Phone: tel: fax: [facility] (All Locations) Referral ID Status Reason Start Date Expiration Date Visits Re quested Visits Authorized [id number] Closed 08/10/2019 02/18/2021 1 1 MATING MANAGER Encounter Details Date Type Department Care Team (Latest Contact Info) Description 08/10/2019 3:40 PM ESTIMATING MANAGER Office Visit [facility] Orthopaedic Surgery [address] [place] [address] 6th [place] [address] [place] [address] Héctor Ware MD [address] [facility] [address] [place] [address] Arthritis of carpometacarpal (CMC) joint of right thumb (Primary Dx) Social History Tobacco Use Types Packs/Day Years Used Date Smoking Tobacco: Never Smokeless Tobacco: Never Alcohol Use Standard Drinks/Week Comments Yes 0 (1 standard drink = 0.6 oz pur e alcohol) Comments No Sex and Gender Information Value Date Recorded Sex Assigned at Not on file Legal Sex Female 9:12 PM ESTIMATING MANAGER Gender Identity Not on file Sexual Orientation Not on file documented as of this encounter Progress Notes * Héctor Ware MD - 08/10/2019 3:40 PM CST Images from the original note were not included. NEW PATIENT VISIT HISTORY OF PRESENT ILLNESS It is my pleasure seeing Quynh. 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 Has had two injections before. Did not work. PAST MEDICAL HISTORY She has a past medical history of Epilepsy without status epilepticus, not intractable ([facility] PAST SURGICAL HISTORY She has a [...] recommend surgical treatment. Héctor Ware M.D., MSc, [facility](C) Professor [facility] Orthopedics MATING MANAGER * Héctor Ware MD - 08/10/2019 3:40 [...] the procedure well with no immediate complications MATING MANAGER documented in this encounter Plan of Treatment Not on file documented as of this encounter Procedures Procedure Name Priority Date/Time Associated Diagnosis Comments OK INJECTION 1 TENDON SHEATH/LIGAMENT APONEUROSIS Routine 08/10/2019 3:40 PM ESTIMATING MANAGER Arthritis of carpometacarpal (CMC) joint of right thumb documented in this encounter Results * OK INJECTION 1 TENDON SHEATH/LIGAMENT APONEUROSIS (08/10/2019 3:40 PM ESTIMATING MANAGER) Narrative Héctor Ware MD - 08/10/2019 3:40 PM ESTIMATING MANAGER Héctor Ware MD ? 08/10/2019 ??4:39 PM [...] procedure well with no immediate complications us Héctro Ware MD IN CLINIC/BEDSIDE ORDERABLES Final Result [...] of right thumb Given 08/10/2019 4:39 PM ESTIMATING MANAGER 1 mL methylPREDNISolone acetate (DEPO-medrol) injection 40 mg 40 mg, intra-articular, One-Time Injection, Starting on Fri08/10/19 at 1639, For 1 doseIndications:Arthritis of carpometacarpal (CMC) joint of right thumb Given 08/10/2019 4:39 PM ESTIMATING MANAGER 40 mg documented in this encounter Discontinued [...] 12/11/2023 added in this encounter Care Teams Personnel Arbitrator Relationship Specialty Start Date End Date Wil Downey MD PCP - General 12/12/16 04/17/21 documented as of this encounter
--- OUTSIDE RECORDS SUMMARY | 2024-06-04 12:30 | XMS_ITS | Encounter Summary ---
Author Organization [facility] Address [address] Driver: [place] [address] Care Team Providers Care Clearing Tub Worker Name Role Phone Mary Perla MD Primary Care Provider [phone] Encounter Details Date Type Department Care Team [...] Description 02/02/2025 9:30 AM CDT Office Visit [facility] Primary Care - [address] [address] Mary Perla MD [facility] [address] documented as of this encounter Visit Diagnoses Not on filedocumented in this encounter Care Teams Clearing Tub Worker Relationship Specialty Start Date End Date Mary Perla MD [address] [facility] [address] [place] [address] PCP - General Internal Medicine 09/25/20 documented as of this encounter
--- OUTSIDE RECORDS SUMMARY | 2024-06-04 12:30 | XMS_ITS | Encounter Summary ---
Author Organization [facility] Address [address] [place] [address] Phone Care Team Providers Care Senior Bi Developer Name Role Phone Mary Perla MD Primary Care Provider Reason for Visit * Reason Comments IUD Removal Planning Breast Lumps on both breasts Encounter Details Date Type Department Care Team (Late st Contact Info) Description 06/22/2021 8:45 AM DIRECTOR OF OPERATIONS FOR THERAPY Office Visit [facility] Obstetrics and Gynecology [address] [facility] 7th Floor [address] [place] [address] Solomon Messina MD [address] [facility] [phone] [place] [address] Encounter for IUD removal (Primary [...] on file Legal Sex Female 9:12 PM DIRECTOR OF OPERATIONS FOR THERAPY Gender Identity Not on file Sexual Orientation Not on file documented as of this encounter Last Filed Vital Signs Vital Sign Reading Time Taken Comments Blood Pressure 144/85 06/22/2021 9:04 AM DIRECTOR OF OPERATIONS FOR THERAPY Pulse - - Temperature - - Respiratory Rate - - Oxygen Saturation - - Inhaled Oxygen Concentration - - Weight 90.4 kg (199 lb 6.4 oz) 06/22/2021 9:04 A M DIRECTOR OF OPERATIONS FOR THERAPY Height 154.9 cm (5' 1 ) 06/22/2021 9:04 AM DIRECTOR OF OPERATIONS FOR THERAPY Body Mass Index 37.68 06/22/2021 9:04 AM DIRECTOR OF OPERATIONS FOR THERAPY documented in this encounter Patient Instructions * Patient Instructions* Solomon Messina MD - 06/22/2021 8:45 AM DIRECTOR OF OPERATIONS FOR THERAPY [facility] Family Planning Post-op Instructions/Expectations After your IUD [...] notice any of the above, please call [phone] to speak to the nurse during normal business hours. Please call our exchange at [phone] if it is after hours. The answering service will call the physician on-call who will then call you back. Patient Education Planning for MINE INSPECTOR: Why you should plan for : There [...] not be used during . These include dpit-ind-gvnszed medicines, prescription medicines, vitamins, and herbal supplements. [...] you have a medical condition. ?? 2017 [employer] Information is for End User's use only and may not be sold, redistributed or otherwise used for commercial purposes. All illustrations and images included in CareNotes?? are the copyrighted property of [employer] or [employer]. The above information is an engineering aide only. It is not intended as medical advice for individual conditions or treatments. Talk to your doctor, nurse or pharmacist before following any medical regimen to see if it is safe and effective for you. 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 All [...] acid was sent pharmacy with instructions. - [id number] acid 29 mg iron- 1 mg tablet,chewable; [...] created using MModal and may have some commissions coordinator variance. CTOR OF OPERATIONS FOR THERAPY documented in this encounter Plan of Treatment [...] documented as of this encounter Care Teams Senior Bi Developer Relationship Specialty Start Date End Date Mary Perla MD [address] [facility] [address] [place] [address] PCP - General Internal Medicine 04/18/21 documented as of this encounter
--- OUTSIDE RECORDS SUMMARY | 2024-06-04 12:30 | XMS_ITS | Encounter Summary ---
Author Organization [facility] Healthcare Address [address] [place] [address] Care Team Providers Care Sea Shell Gatherer Name Role Phone Wil Downey MD Primary Care Provider [phone] Reason for Visit * Diagnostic Imaging (Routine) - Closed Specialty Diagnoses / Procedures Referred By Contdewayne t Referred To Contact Diagnoses Mass of right breast Procedures US Breast Right Limited Diagnostic Mammogram Bilateral W [place] Diagnostic Mammogram Right [place] Devika Hogan NP [address] [facility] MSC [phone] [place] [address] Phone: tel: fax: [facility] Referral ID Status Reason Start Date Expiration Date Visits Re quested Visits Authorized [id number] Closed 07/27/2019 02/04/2021 1 1 Encounter Details Date Type Department Care Team (Latest Contact Info) Description 08/13/2019 7:55 AM DIRECTOR SERVICE - 08/13/2019 11:59 PM DIRECTOR SERVICE Hospital Encounter [facility] [place] [address] Mariah Luu MD [address] [facility] [address] [place] [address] Devika Hogan NP [address] [facility] [phone] [place] [address] Mass of right breast Discharge Disposition: Discharge [...] file Legal Sex Female 9:12 PM DIRECTOR SERVICE Gender Identity Not on file Sexual Orientation [...] Devika Hogan NP - 08/13/2019 11:39 AM DIRECTOR SERVICE Right breast us is normal and no worry within the area of pt concern. Please ensure she is aware. Devika Hogan NP CTOR SERVICE documented in this encounter Plan of Treatment Not on file documented as of this encounter Procedures Procedure Name Priority Date/Time Associated Diagnosis Comments US BREAST RIGHT LIMITED Schedule Routine, Read Routine (OP Routine) 08/13/2019 8:40 AM DIRECTOR SERVICE Mass of right breast documented in this encounter Results * US Breast Right Limited (08/13/2019 8:40 AM DIRECTOR SERVICE) Anatomical Region Laterality Modality Breast Right Ultrasound 08/13/2019 8:52 AM DIRECTOR SERVICE Impressions 08/13/2019 11:31 AM DIRECTOR SERVICE 1. ??Normal breast tissue identified in the [...] Elly Morrissey M.D. Narrative 08/13/2019 11:31 AM DIRECTOR SERVICE EXAMINATION: RIGHT BREAST ULTRASOUND HISTORY: 34-year-old woman with history of breast reduction at age 24 who presents with a palpable abnormality in the right breast at the 9:30 position 7 cm from the nipple. COMPARISON: Mammogram dated 01/21/2012 and mammogram and ultrasound dated 07/16/2011 TECHNIQUE: Directed ultrasound evaluation of the RIGHT breast was performed by a trained perl developer and Dr. Matamoros. ULTRASOUND FINDINGS: A targeted [...] RIGHT breast was performed by a trained perl developer and Dr. Matamoros. ULTRASOUND FINDINGS: A targeted [...] signed by: Elly Morrissey M.D. Devika Hogan PEDIATRICS PHYSICIAN IMG MAMMO PROCEDURES Final Result documented in this encounter Visit Diagnoses Diagnosis Mass of right breast Lump or mass in breast documented in this encounter Care Teams Sea Shell Gatherer Relationship Specialty Start Date End Date Wil Downey MD PCP - General 12/12/16 04/17/21 documented as of this encounter
--- OUTSIDE RECORDS SUMMARY | 2024-06-04 12:30 | XMS_ITS | Encounter Summary ---
Author Organization [facility] Address [address] [place] [address] Phone Care Team Providers Care Brand Advocate Name Role Phone Mary Perla MD Primary Care Provider [phone] Encounter Details Date Type Department Care Team (Late st Contact Info) Description 01/21/2022 Telephone [facility] Obstetrics and Gynecology [address] [facility] Outpatient Health 7th Floor [address] [place] [address] Lilibeth Damian Social History Tobacco Use Types Packs/Day Years Used Date Smoking Tobacco: Never Smokeless Tobacco: Never Alcohol Use Standard Drinks/Week Comments Yes 0 (1 standard drink = 0.6 oz pur e alcohol) Comments No Sex and Gender Information Value Date Recorded Sex Assigned at Not on file Legal Sex Female 9:12 PM REHABILITATION THERAPY AIDE Gender Identity Not on file Sexual Orientation [...] on filedocumented in this encounter Care Teams Brand Advocate Relationship Specialty Start Date End Date Mary Perla MD [address] [facility] [address] [place] [address] PCP - General Internal Medicine 04/18/21 documented as of this encounter
--- OUTSIDE RECORDS SUMMARY | 2024-06-04 12:30 | XMS_ITS | Encounter Summary ---
Author Organization [facility] Address [address] [place] [address] Phone Care Team Providers Care Furniture Shampooer Name Role Phone Mary Perla MD Primary Care Provider Reason for Visit * Reason Comments Follow-up NO NORMAL CYCLES IN 3MO Encounter Details Date Type Department Care Team (Late st Contact Info) Description 11/15/2021 7:45 AM CDT Office Visit [facility] Obstetrics and Gynecology [address] [facility] 1st Floor [address] [place] [address] Corin Fraser, MIKAEL [address] [address] PCOS (polycystic ovarian syndrome) (Primary Dx); Desire for Social History Tobacco Use Types Packs/Day Years Used Date Smoking Tobacco: Never Smokeless Tobacco: Never Alcohol Use Standard Drinks/Week Comments Yes 0 (1 standard drink = 0.6 oz pur e alcohol) Comments No Sex and Gender Information Value Date Recorded Sex Assigned at Not on file Legal Sex Female 9:12 PM TRANSPORTATION AGENT Gender Identity Not on file Sexual Orientation [...] this encounter Progress Notes * Corin Fraser, EDUCATIONAL PSYCHOLOGY PROFESSOR - 11/15/2021 7:45 AM CDT Patient ID: [...] inquiring re: metformin use. Will check labs. [facility] 09/2020 wnl. - Hemoglobin A1c; Future Desire [...] A1C 5.1 <5.7 % of total Hgb [facility] Comment: For the purpose of screening for the presence of diabetes: <5.7% ? Consistent with the absence of diabetes 5.7-6.4% ?Consistent with increased risk for diabetes ?(prediabetes) > or =6.5% ??Consistent with diabetes This assay result is consistent with a decreased risk of diabetes. Currently, no consensus exists regarding use of hemoglobin A1c for diagnosis of diabetes in children. According to [place] Diabetes Association (ADA) guidelines, hemoglobin A1c <7.0% represents optimal control in non- diabetic patients. Different metrics may apply to specific patient populations. Standards of Medical Care in Diabetes(ADA). ?? Blood specimen (specimen) 11/15/2021 11:21 AM CDT 11/15/2021 11:22 AM CDT us Corin Fraser EDUCATIONAL PSYCHOLOGY PROFESSOR LAB BLOOD ORDERABLES Fi nal Result [facility] [address] [place] [address] documented in this encounter Visit Diagnoses Diagnosis [...] 08/26/2021 added in this encounter Care Teams Furniture Shampooer Relationship Specialty Start Date End Date Mary Perla MD [address] [facility] [address] [place], [place] [id number] PCP - General Internal Medicine 04/18/21 documented as of this encounter
--- OUTSIDE RECORDS SUMMARY | 2024-06-04 12:30 | XMS_ITS | Encounter Summary ---
Author Organization [facility] Address [address] [place] [address] Phone Care Team Providers Care Cook Cashier Food Prep Name Role Phone Mary Perla MD Primary Care Provider [phone] Reason for Referral * Diagnostic Imaging (Routine) - Pending Review Specialty Diagnoses / Procedures Referred By Contac t Referred To Contact Diagnoses of unknown anatomic location Procedures US Ob Limited Dayanara Hill MD [address] [place] [address] Phone: tel: fax: [facility] (All Locations) Referral ID Status Reason Start Date Expiration Date V isits Requested Visits Authorized [id number] Pending Review 01/05/2024 02/03/2025 1 1 * Diagnostic Imaging (Routine) - Closed Specialty Diagnoses / Procedures Referred By Contdewayne t Referred To Contact Diagnoses of unknown anatomic location Procedures US Ob Under 14 Weeks Dayanara Hill MD [address] [place] [address] Phone: tel: fax: [facility] (All Locations) Referral ID Status Reason Start Date Expiration Date Visits Re quested Visits Authorized [id number] Closed 01/05/2024 02/03/2025 1 1 Reason for Visit * Reason Comments New Patient Initial Visit Encounter Details Date Type Department Care Team (Late st Contact Info) Description 01/05/2024 1:15 PM CDT Office Visit [facility] Obstetrics and Gynecology [address] [facility] 7th Floor [address] [place] [address] of unknown anatomic location (Primary [...] more drinks on one occasion? Never 01/05/2024 [place] Depression Scale Answer Date Recorded [place] Depression Scale Total 10 01/05/2024 The thought of harming myself has occurred to me . 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 Not on file Not [...] CDT Psychiatry Resources Psychiatry: [facility] @ [phone] [facility] @ [phone] [facility] @ [phone] [facility] @ [phone] Therapy: [facility] @ [phone] [facility] @ [phone] [facility] @ [phone] [facility] @ [phone] / Resources: Behavioral Health Unit: [phone] Help for Moms Support International (PSI) [place] Maternal Mental Health Hotline: 199-QMN-SVKP documented in this encounter Ordered Prescriptions Prescription [...] Hill MD - 01/05/2024 1:15 PM CDT [facility] Gynecology Note Subjective/Objective Patient ID: Quynh [...] Large Ketones, ur, POC Negative Negative Specific [place], POC 1.015 1.003 - 1.030 Blood, ur, POC Negative Negative pH, ur, POC 6.5 5.0 - 8.0 Protein, ur, POC 30.(A) Negative Urobilinogen, urine, POC 0.2 0.2 - 1.0 mg/dL Nitrite, ur, POC Negative Negative Leukocytes, ur, POC Negative Negative Lot Number [id number] Urine 01/05/2024 2:44 PM CDT Dayanara Hill [...] 12/11/2023 added in this encounter Care Teams Cook Cashier Food Prep Relationship Specialty Start Date End Date Mary Perla MD [address] [facility] [address] [place] [address] PCP - General Internal Medicine 04/18/21 documented as of this encounter
--- OUTSIDE RECORDS SUMMARY | 2024-06-04 12:30 | XMS_ITS | Encounter Summary ---
Author Organization [facility] Address [address] [place] [address] Phone Care Team Providers Care Handyperson Name Role Phone Mary Perla MD Primary Care Provider [phone] Encounter Details Date Type Department Care Team (Late st Contact Info) Description 11/26/2021 Telephone [facility] Epilepsy [address] [facility] Medicine 6th [place] [address] [place] [address] Richard Espinoza III, MD [address] [place] [address] Social History Tobacco Use Types Packs/Day Years Used Date Smoking Tobacco: Never Smokeless Tobacco: Never Alcohol Use Standard Drinks/Week Comments Yes 0 (1 standard drink = 0.6 oz pur e alcohol) Comments No Sex and Gender Information Value Date Recorded Sex Assigned at Not on file Legal Sex Female 9:12 PM RN ANESTHESIOLOGY Gender Identity Not on file Sexual Orientation [...] documented as of this encounter Care Teams Handyperson Relationship Specialty Start Date End Date Mary Perla MD [address] [facility] [address] [place] [address] PCP - General Internal Medicine 04/18/21 documented as of this encounter
--- OUTSIDE RECORDS SUMMARY | 2024-06-04 12:30 | XMS_ITS | Encounter Summary ---
Author Organization [facility] Address [address] [place] [address] Phone Care Team Providers Care Glaze Handler Name Role Phone Mary Perla MD Primary Care Provider Encounter Details Date Type Department Care Team (Late st Contact Info) Description 05/28/2023 2:30 PM PROFESSIONAL VOLLEYBALL PLAYER Telemedicine [facility] Epilepsy [address] [facility] Advanced Medicine 6th [place] [address] [place] [address] Richard Espinoza III, MD [address] [place] [address] Partial epilepsy with impairment of consciousness, intractable (CMS/HCC) ([facility]) Social History Tobacco Use Types Packs/Day Years [...] on file Legal Sex Female 9:12 PM PROFESSIONAL VOLLEYBALL PLAYER Gender Identity Not on file Sexual Orientation [...] her last visit. She continues working at [employer] full-time. He reports traveling intermittently, and recently visited with her parents in [place]. She continues to have intermittent, mild tension headache, which is relieved with ibuprofen. PAST MEDICAL HISTORY Quynh has a past medical history of Epilepsy without status epilepticus, not intractable (CMS/HCC) ([facility]) and Partial epilepsy with impairment of consciousness, intractable (CMS/HCC) ([facility]) (04/20/2019). PAST SURGICAL HISTORY She has [...] which took place via Real-time video connection ([employer], Zoom or similar). During the visit, I was located in the office and the patient was located at home in the [facility]. The patient visit started at 2:42 and [...] a telephone or video visit during the [facility] public health emergencywas explained to them. After being given an opportunity to ask questions about and discuss this type of visit, they verbally consented to proceeding with the telephone/video visit and understand thatthis service replaces an office visit. ESSIONAL VOLLEYBALL PLAYER documented in this encounter Plan of Treatment [...] documented as of this encounter Care Teams Glaze Handler Relationship Specialty Start Date End Date Mary Perla MD [address] [place] [address] PCP - General Internal Medicine 04/18/21 documented as of this encounter
--- OUTSIDE RECORDS SUMMARY | 2024-06-04 12:30 | XMS_ITS | Encounter Summary ---
Author Organization [facility] Address [address] [facility] [address] Driver: [place] [address] Care Team Providers Care Glass Silverer Name Role Phone Mary Perla MD Primary Care Provider [phone] Encounter Details Date Type Department Care Team (Latest Contact Info) Description 11/14/2020 Travel Social History Tobacco Use Types Packs/Day [...] 02/02/2025 9:30 AM CDT Office Visit [facility] Primary Care - [address] [address] Mary Perla MD [facility] [address] [address] documented as of this encounter Visit Diagnoses Not on filedocumented in this encounter Care Teams Glass Silverer Relationship Specialty Start Date End Date Mary Perla MD [address] [facility] [address] [place] [address] PCP - General Internal Medicine 09/25/20 documented as of this encounter
--- OUTSIDE RECORDS SUMMARY | 2024-06-04 12:30 | XMS_ITS | Clinical Summary ---
Author Organization [facility] Address [address] [place] [address] Care Team Providers Care Transit Mixer Operator Name Role Phone Mary Perla MD [...] more drinks on one occasion? Never 01/05/2024 [place] Depression Scale Answer Date Recorded [place] Depression Scale Total 10 01/05/2024 The thought of harming myself has occurred to me . 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 Not on file [...] - Oxygen Saturation 97% 07/01/2017 1:08 PM BACK ROLL LATHE OPERATOR Inhaled Oxygen Concentration - - Weight 91.6 [...] Most Recently Relevant to Health Maintenance Insurance [facility]O Address: [facility] [id number] [place] [address] [facility] HMO/PPO Address: [address] [address] [facility] HMO/PPO Address: [address] [address] Care Teams Transit Mixer Operator Relationship Specialty Start Date End Date Mary Perla MD [address] [facility] [address] [place] [address] PCP - General Internal Medicine 04/18/21
--- OUTSIDE RECORDS SUMMARY | 2024-06-04 12:30 | XMS_ITS | Encounter Summary ---
Author Organization [facility] Address [address] [place] [address] Care Team Providers Care Protective Signal Repairer Helper Name Role Phone Mary Perla MD Primary Care Provider [phone] Reason for Referral * Physical Therapy (Routine) - Closed Specialty Diagnoses / Procedures Referred By Nathalie t Referred To Contact Diagnoses Acute bilateral low back pain without sciatica Mitra Rivera FNP [address] [place] [address] Referral ID Status Reason Start Date Expiration Date Visits Re quested Visits Authorized [id number] Closed 11/14/2020 11/14/2021 6 6 Reason for Visit * Reason Comments Back Pain x1 week Encounter Details Date Type Department Care Team (Late st Contact Info) Description 11/14/2020 2:00 PM CDT Office Visit 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 Hips tend to be off with one is higher than the other No Known Allergies Current Outpatient Medications on File Prior to Visit Medication Sig Dispense Refill ??? dicyclomine (BENTYL) 10 mg capsule Take 10 mg by mouth 2 times daily as needed. ??? cetirizine (ZyrTEC) 10 mg tablet Take 10 mg by mouth daily. prn ??? fluticasone propionate (FLONASE) 50 mcg/spray [place], Suspension nasal inhaler Administer 2 Sprays in [...] [facility] Primary Care - [address] [address] Mary Perla MD [facility][note 2][address] [address] Scheduled Referrals Name Type Priority Associated Diagnoses Orde r Schedule AMB REFERRAL TO PHYSICAL THERAPY Outpatient Referral Routine Acute bilateral low back pain without sciatica Ordered: 11/14/2020 documented as of this encounter Visit Diagnoses Diagnosis Acute bilateral low back pain without sciatica- Primary documented in this encounter Care Teams Protective Signal Repairer Helper Relationship Specialty Start Date End Date Mary Perla MD [address] [place] [address] [address] [place] [address] PCP - General Internal Medicine 09/25/20 documented as of this encounter
--- OUTSIDE RECORDS SUMMARY | 2024-06-04 12:30 | XMS_ITS | Encounter Summary ---
Author Organization [facility] Address [address] [place] [address] Care Team Providers Care Water Taxi Boat Mate Name Role Phone Mary Perla MD Primary Care Provider [phone] Reason for Visit * Reason Comments Cough x1 week Sinus Problem Encounter Details Date Type Department Care Team (Late st Contact Info) Description 04/24/2021 2:30 PM CLERK ANALYST Video Visit [facility] Primary Care - [address] [place] [address] Mitra Rivera, PASTRY DECORATOR [address] [place] [address] Upper respiratory tract infection, unspecified [...] COVID-19? Unable to assess 04/24/2021 8:05 AM CLERK ANALYST documented as of this encounter Last Filed Vital Signs Vital Sign Reading Time Taken Comments Blood Pressure - - Pulse - - Temperature - - Respiratory Rate - - Oxygen Saturation - - Inhaled Oxygen Concentration - - Weight 93.9 kg (207 lb) 04/24/2021 2:33 PM CLERK ANALYST Height 154.9 cm (5' 1 ) 04/24/2021 2:33 PM CLERK ANALYST Body Mass Index 39.11 04/24/2021 2:33 PM CLERK ANALYST documented in this encounter Progress Notes * Mitra Rivera, PASTRY DECORATOR - 04/24/2021 2:45 PM CST HISTORY OF [...] Rfl: ??? fluticasone propionate (FLONASE) 50 mcg/spray [place], Suspension nasal inhaler, Administer 2 Sprays in [...] that co-insurance and deductible may apply: yes K ANALYST documented in this encounter Plan of Treatment Upcoming Encounters Date Type Department Care Team (Late st Contact Info) Description 02/02/2025 9:30 AM CDT Office Visit [facility] Primary Care - [address] [place] [address] Mary Perla MD [address] [place] [address] documented as of this encounter Visit Diagnoses Diagnosis Upper respiratory tract infection, unspecified type- Primary documented in this encounter Care Teams Water Taxi Boat Mate Relationship Specialty Start Date End Date Mary Perla MD [address] [place] [address] PCP - General Internal Medicine 09/25/20 documented as of this encounter
--- OUTSIDE RECORDS SUMMARY | 2024-06-04 12:30 | XMS_ITS | Encounter Summary ---
Author Organization [facility] Address [address] [place] [address] Phone Care Team Providers Care Powdered Metal Supervisor Name Role Phone Mary Perla MD Primary Care Provider Encounter Details Date Type Department Care Team (Late st Contact Info) Description 09/05/2023 Telephone [facility] Epilepsy [address] [facility] 6th [place] [address] [place] [address] Richard Espinoza III, MD [address] [place] [address] Social History Tobacco Use Types [...] on file Legal Sex Female 9:12 PM STONE AND CONCRETE WASHER Gender Identity Not on file Sexual Orientation Not on file documented as of this encounter Miscellaneous Notes * Telephone Encounter - Nevin Thayer RN - 09/05/2023 11:41 AM CDT Seizure precaution letter and medication letter uploaded to [employer]. Informed patient to look in [employer] under the letters tab to locate. * Telephone Encounter - Nevin Thayer RN - 09/05/2023 10:32 AM CDT Quynh called. She is going to [facility] and will be going on a hike [...] generate both letters and upload to her [employer] account. documented in this encounter Plan of Treatment Not on file documented as of this encounter Visit Diagnoses Not on filedocumented in this encounter Care Teams Powdered Metal Supervisor Relationship Specialty Start Date End Date Mary Perla MD [facility] [address] [place] [address] PCP - General Internal Medicine 04/18/21 documented as of this encounter
--- OUTSIDE RECORDS SUMMARY | 2024-06-04 12:30 | XMS_ITS | Encounter Summary ---
Author Organization [facility] Address [address] [place] [address] Phone Care Team Providers Care Senior Engineering Manager Name Role Phone Mary Perla MD Primary Care Provider Encounter Details Date Type Department Care Team (Late st Contact Info) Description 05/02/2022 3:30 PM FIBERGLASS MACHINE OPERATOR Telemedicine [facility] Epilepsy [address] [facility] Advanced Medicine 6th [place] [address] [place] [address] Richard Espinoza III, MD [address] [place] [address] Partial epilepsy with impairment of [...] on file Legal Sex Female 9:12 PM FIBERGLASS MACHINE OPERATOR Gender Identity Not on file [...] Epilepsy without status epilepticus, not intractable (CMS/HCC) ([facility]) and Partial epilepsy with impairment of consciousness, intractable (CMS/HCC) ([facility]) (04/20/2019). PAST SURGICAL HISTORY She [...] which took place via Real-time video connection (Xanga, C3Nanoom or similar). During the visit, I was located in the office and the patient was located at home in the state [facility]. The patient visit started at 3:31 [...] a telephone or video visit during the [address] emergencywas explained to them. After being given an opportunity to ask questions about and discuss this type of visit, they verbally consented to proceeding with the telephone/video visit and understand thatthis service replaces an office visit. RGLASS MACHINE OPERATOR documented in this encounter Plan [...] as of this encounter Care Teams Senior Engineering Manager Relationship Specialty Start Date End Date Mary Perla MD [address] [facility] [address] [place] [address] PCP - General Internal Medicine 04/18/21 documented as of this encounter
--- OUTSIDE RECORDS SUMMARY | 2024-06-04 12:30 | XMS_ITS | Encounter Summary ---
Author Organization [facility] Address [address] [place] [address] Phone Care Team Providers Care Dinkey Operator Name Role Phone Mary Perla MD Primary Care Provider Encounter Details Date Type Department Care Team (Late st Contact Info) Description 07/11/2022 Telephone [facility] Movement Disorders [address] [facility] 6th [place] [address] [place] [address] Eli Redman CMA Social History Tobacco Use Types Packs/Day Years Used Date Smoking Tobacco: Never Smokeless Tobacco: Never Alcohol Use Standard Drinks/Week Comments Yes 0 (1 standard drink = 0.6 oz pur e alcohol) Comments No Sex and Gender Information Value Date Recorded Sex Assigned at Not on file Legal Sex Female 9:12 PM CORDWOOD CUTTER Gender Identity Not on file Sexual Orientation Not on file documented as of this encounter Miscellaneous Notes * Telephone Encounter - Eli Tobias - 12/16/2022 1:29 PM CDT Completed. documented in this encounter Plan of Treatment Not on file documented as of this encounter Visit Diagnoses Not on filedocumented in this encounter Care Teams Dinkey Operator Relationship Specialty Start Date End Date Mary Perla MD [address] [facility] [address] [place] [address] PCP - General Internal Medicine 04/18/21 documented as of this encounter
--- OUTSIDE RECORDS SUMMARY | 2024-06-04 12:30 | XMS_ITS | Encounter Summary ---
Author Organization [facility] Address [address] [place] [address] Phone Care Team Providers Care Certified Substance Abuse Counselor Name Role Phone Mary Perla MD Primary Care Provider Encounter Details Date Type Department Care Team (Late st Contact Info) Description 05/22/2022 Telephone [facility] Epilepsy [address] [facility] 6th [place] [address] [place] [address] Richard Espinoza III, MD [address] [place] [address] Social History Tobacco Use Types Packs/Day Years Used Date Smoking Tobacco: Never Smokeless Tobacco: Never Alcohol Use Standard Drinks/Week Comments Yes 0 (1 standard drink = 0.6 oz pur e alcohol) Comments No Sex and Gender Information Value Date Recorded Sex Assigned at Not on file Legal Sex Female 9:12 PM TELLER SUPERVISOR Gender Identity Not on file Sexual [...] Dayanara Johnson RMA - 05/22/2022 2:52 PM TELLER SUPERVISOR Quynh called asking if she can get a script for OXC to take with her to [place]. She's leaving on 06/10 and wants to have a prescription on hand incase her medication gets thrown away. Patient also asked for a letter stating why she needs the medication. ER SUPERVISOR documented in this encounter Plan of Treatment Not on file documented as of this encounter Visit Diagnoses Not on filedocumented in this encounter Care Teams Certified Substance Abuse Counselor Relationship Specialty Start Date End Date Mary Perla MD [address] [facility] [address] [place] [address] PCP - General Internal Medicine 04/18/21 documented as of this encounter
--- OUTSIDE RECORDS SUMMARY | 2024-06-04 12:30 | XMS_ITS | Encounter Summary ---
Author Organization [facility] Address [address] [place] [address] Phone Care Team Providers Care Weighing Station Operator Name Role Phone Wil Downey MD Primary Care Provider [phone] Encounter Details Date Type Department Care Team (Late st Contact Info) Description 04/19/2020 11:00 AM TATTOO ARTIST Telemedicine [facility] Epilepsy [address] [facility] Advanced Medicine 6th [place] [address] [place] [address] Richard Espinoza III, MD [address] [place] [address] Partial epilepsy with impairment of consciousness, intractable (CMS/HCC) (Primary Dx) Social History Tobacco Use Types Packs/Day Years Used Date Smoking Tobacco: Never Smokeless Tobacco: Never Alcohol Use Standard Drinks/Week Comments Yes 0 (1 standard drink = 0.6 oz pur e alcohol) Comments No Sex and Gender Information Value Date Recorded Sex Assigned at Not on file Legal Sex Female 9:12 PM TATTOO ARTIST Gender Identity Not on file Sexual Orientation [...] had rash (hives) after a trip to [place] this October, which is now under control with allergy meds. She has beenconsulting with her environmental field office manager. She has been on OXC for 15 [...] of Epilepsy without status epilepticus, not intractable ([facility]). PAST SURGICAL HISTORY She has a [...] patient was located at home in the [facility]. The patient visit started at 11:00 and [...] an office visit. Jasmeet Espinoza III, MD OO ARTIST documented in this encounter Plan of Treatment [...] documented as of this encounter Care Teams Weighing Station Operator Relationship Specialty Start Date End Date Wil Downey MD PCP - General 12/12/16 04/17/21 documented as of this encounter
--- OUTSIDE RECORDS SUMMARY | 2024-06-04 12:30 | XMS_ITS | Continuity of Care Document ---
Author Organization [facility] Address [address] [place] [address] [address] [place] [address] Phone Care Team Providers Care Manager Code Name Role Phone Omar PT,MPT,ATC, Ethan Unavailable Unavai lable Procedures Procedure Date Screen Advance Directives Directive Yes / No Effective Date File Name No Information Encounters Encounter Description Practice Location Reason(s) For Visit Diagnoses Date Provider Providers Copied on Encounter [facility], [address] [place], [place] [address], [place], [place], [id number], [place] tel:[phone] [place] No Diagnosis Omar Long. , [place], [place]. Referring Provider: Physician Screen. Family History Family Member Type Diagnosis Age At Onset No Information Payers Payer name Insurance type Covered republican ID Authoriza tion(s) Self Pay - GFE [...]
--- OUTSIDE RECORDS SUMMARY | 2024-06-04 12:30 | XMS_ITS | Encounter Summary ---
Author Organization [facility] Address [address] [place] [address] Phone Care Team Providers Care Small Electric Engine Technician Name Role Phone Mary Perla MD Primary Care Provider [phone] Encounter Details Date Type Department Care Team (Late st Contact Info) Description 10/30/2021 Telephone [facility] Obstetrics and Gynecology [address] [facility] 7th Floor [address] [place] [address] Rose Urban Social History Tobacco Use Types Packs/Day Years Used Date Smoking Tobacco: Never Smokeless Tobacco: Never Alcohol Use Standard Drinks/Week Comments Yes 0 (1 standard drink = 0.6 oz pur e alcohol) Comments No Sex and Gender Information Value Date Recorded Sex Assigned at Not on file Legal Sex Female 9:12 PM FINANCIAL 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
--- OUTSIDE RECORDS SUMMARY | 2024-06-04 12:30 | XMS_ITS | Encounter Summary ---
Author Organization [facility] Address [address] [place] [address] Phone Care Team Providers Care Chief Medical Physicist Name Role Phone Wil Downey MD Primary Care Provider [phone] Encounter Details Date Type Department Care Team (Late st Contact Info) Description 09/14/2019 Telephone [facility] Epilepsy [address] 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 She verbalized understanding and clarified preferred pharmacy. Clonazepam order entered and pended for Dr Epsinoza's approval. Encouraged pt to work on managing [...] of COVID restrictions. * Telephone Encounter - Dianan Shin RN - 09/14/2019 9:[address] Espinoza, Pt called communications planner last night and stated she had an [...] on filedocumented in this encounter Care Teams Chief Medical Physicist Relationship Specialty Start Date End Date Wil Downey MD PCP - General 12/12/16 04/17/21 documented as of this encounter
--- OUTSIDE RECORDS SUMMARY | 2024-06-04 12:30 | XMS_ITS | Encounter Summary ---
Author Organization [facility] Address [address] [place] [address] Phone Care Team Providers Care Seat Covers Trimmer Name Role Phone Mary Perla MD Primary Care Provider [phone] Encounter Details Date Type Department Care Team (Late st Contact Info) Description 04/26/2021 3:00 PM AIRLINE HOSTESS Telemedicine [facility] Epilepsy [address] [facility] Advanced Medicine 6th [place] [address] [place] [address] Richard Espinoza III, MD [address] [place] [address] Partial epilepsy with impairment of consciousness, intractable (CMS/HCC) (H[facility]) Social History Tobacco Use Types Packs/Day Years Used Date Smoking Tobacco: Never Smokeless Tobacco: Never Alcohol Use Standard Drinks/Week Comments Yes 0 (1 standard drink = 0.6 oz pur e alcohol) Comments No Sex and Gender Information Value Date Recorded Sex Assigned at Not on file Legal Sex Female 9:12 PM AIRLINE HOSTESS Gender Identity Not on file Sexual Orientation [...] Epilepsy without status epilepticus, not intractable (CMS/HCC) ([facility]) and Partial epilepsy with impairment of consciousness, intractable (CMS/HCC) ([facility]) (04/20/2019). PAST SURGICAL HISTORY She [...] patient was located at home in the [facility]. The patient visit started at 3:00 and [...] understand thatthis service replaces an office visit. INE HOSTESS documented in this encounter Plan of Treatment [...] documented as of this encounter Care Teams Seat Covers Trimmer Relationship Specialty Start Date End Date Mary Perla MD [address] [facility] [address] [place] [address] PCP - General Internal Medicine 04/18/21 documented as of this encounter
--- OUTSIDE RECORDS SUMMARY | 2024-06-04 12:30 | XMS_ITS | Encounter Summary ---
Author Organization [facility] Address [address] [place] [address] Phone Care Team Providers Care Shoe Stainer Name Role Phone Mary Perla MD Primary Care Provider Encounter Details Date Type Department Care Team (Late st Contact Info) Description 12/11/2023 Telephone [facility] Epilepsy [address] [facility] Medicine 6th [place] [address] [place] [address] Richard Espinoza III, MD [address] [place] [address] Social History Tobacco Use Types [...] on file Legal Sex Female 9:12 PM LICENSING ANALYST Gender Identity Not on file Sexual Orientation [...] not included. Richard Espinoza III, MD You; [facility] Epi [facility] Pool15 hours ago (6:01 PM) Agree continuing [...] on filedocumented in this encounter Care Teams Shoe Stainer Relationship Specialty Start Date End Date Mary Perla MD [address] [facility] [address] [place] [address] PCP - General Internal Medicine 04/18/21 documented as of this encounter
--- OUTSIDE RECORDS SUMMARY | 2024-06-04 12:31 | XMS_ITS | Encounter Summary ---
Author Organization [facility] Address [address] [place] [address] Phone Care Team Providers Care Tow Mate Name Role Phone Wil Downey MD Primary Care Provider [phone] Mary Perla MD Primary Care Provider [phone] Encounter Details Date Type Department Care Team (Latest Contact Info) Description 07/01/2017 Orders Only [facility] CONVERSION Scanning, Provider Social History Tobacco Use Types Packs/Day Years Used Date Smoking Tobacco: Never Comments Unknown Sex and Gender Information Value Date Recorded Sex Assigned at Not on file Legal Sex Female 9:12 PM API PRODUCT MANAGER Gender Identity Not on file Sexual Orientation Not on file documented as of this encounter Plan of Treatment Not on file documented as of this encounter Procedures Procedure Name Priority Date/Time Associated Diagnosis Comments OBSTETRIC/GYNECOLOGY ULTRASONOGRAPHY REPORT 07/01/2017 2:20 PM API PRODUCT MANAGER documented in this encounter Results * OBSTETRIC/GYNECOLOGY ULTRASONOGRAPHY REPORT (07/01/2017 2:20 PM API PRODUCT MANAGER) Anatomical Region Laterality Modality Ultrasound us Provider Scanning IMG OB US PROCEDURES Final Res ult documented in this encounter Visit Diagnoses Not on filedocumented in this encounter Care Teams Tow Mate Relationship Specialty Start Date End Date Wil Downey MD PCP - General 12/12/16 04/17/21 Mary Perla MD [address] [facility] [address] [place] [address] PCP - General Internal Medicine 04/18/21 documented as of this encounter
--- OUTSIDE RECORDS SUMMARY | 2024-06-04 12:31 | XMS_ITS | Encounter Summary ---
Author Organization [facility] Facility Care Team Providers Care Shipping Clerk Name Role Phone Unavailable Primary Care Provider Unavailabl e Encounter Details Date Type Department Care Team (Late st Contact Info) Description 07/16/2011 - 07/16/2011 11:59 PM CEMENT MAS[facility] Hospital Encounter [facility] Marisela Monaco MD [phone] [place] [address] Lump or mass in breast Social History Tobacco Use Types Packs/Day Years Used Date Smoking Tobacco: Never Assessed Comments Unknown Sex and Gender Information Value Date Recorded Sex Assigned at Not on file Legal Sex Female 9:12 PM CEMENT MASON Gender Identity Not on file Sexual Orientation [...]
--- OUTSIDE RECORDS SUMMARY | 2024-06-04 12:31 | XMS_ITS | Encounter Summary ---
Author Organization [facility] Address [address] [place] [address] Phone Care Team Providers Care Psychiatry Resident Name Role Phone Wil Downey MD Primary Care Provider [phone] Reason for Visit * Reason Onset Date Comments questions about meds/time change 08/10/2018 Encounter Details Date Type Department Care Team (Late st Contact Info) Description 08/10/2018 Telephone [facility] Epilepsy [address] [facility] 6th [place] [address] [place] [address] Richard Espinoza III, MD [address] [place] [address] questions about meds/time change Social History Tobacco Use Types Packs/Day Years Used Date Smoking Tobacco: Never Smokeless Tobacco: Never Comments Unknown Sex and Gender Information Value Date Recorded Sex Assigned at Not on file Legal Sex Female 9:12 PM ALLIGATOR TRAPPER Gender Identity Not on file Sexual Orientation Not on file documented as of this encounter Miscellaneous Notes * Telephone Encounter - Dianna Shin RN - 08/11/2018 4:01 PM ALLIGATOR TRAPPER Called pt at work and relayed Dr Espinoza's information. Pt is nervous about having a sz due to the time change difference. Reiterated that there are no guarantees she won't have a sz but that the recommendation is what Dr Espinoza tells his pts that travel. She verbalized understanding. GATOR TRAPPER * Telephone Encounter - Dianna Shin RN - 08/11/2018 3:56 PM ALLIGATOR TRAPPER Called pt and LVM asking for return call as Dr Espinoza's explanation is comprehensive. Attempted to call pt at work number but had to disconnect. GATOR TRAPPER * Telephone Encounter - Richard Espinoza MD [...] also worsen seizures due to sleep deprivation. GATOR TRAPPER * Telephone Encounter - Dianna Shin RN - 08/10/2018 6:[address] Espinoza, Please see pt's message timestamped at 1241pm. She is asking about med administration times for international travel. What would you like me to tell her, as I have not received this question before? Thank you for clarifyingNaye GATOR TRAPPER * Telephone Encounter - Elly Garcia - 08/10/2018 12:41 PM ALLIGATOR TRAPPER Patient will be going to [place] and there is about a 6 hour time difference she currently takes her medication 10AM-10PM she is wanting to know when she travels should she change it to 4AM-4PM ? Please advise Patient will be at work from [address] [facility] #[phone] GATOR TRAPPER documented in this encounter Plan of Treatment Not on file documented as of this encounter Visit Diagnoses Not on filedocumented in this encounter Care Teams Psychiatry Resident Relationship Specialty Start Date End Date Wil Downey MD PCP - General 12/12/16 04/17/21 documented as of this encounter
--- OUTSIDE RECORDS SUMMARY | 2024-06-04 12:31 | XMS_ITS | Encounter Summary ---
Author Organization [facility] Address [address] [place] [address] Care Team Providers Care Maintenance Clerk Name Role Phone Wil Downey MD Primary Care Provider [phone] Encounter Details Date Type Department Care Team [...] on file Legal Sex Female 9:12 PM ROLLED GLASS CROSSCUTTER Gender Identity Not on file Sexual Orientation [...] Narrative GARRY - 12/23/2016 2:23 PM CDT [id number] us Notinfile Unknown LAB BLOOD ORDERABLES Final Res ult GARRY [address] [place] [address] * DISCHARGE LABORATORY CUMULATIVE REPORT (12/18/2016 12:00 AM CDT) Narrative 12/18/2016 12:00 AM CDT Ordered by an unspecified provider. Historical Provider LAB BLOOD ORDERABLES Yanira l Result documented in this encounter Visit Diagnoses Not on filedocumented in this encounter Care Teams Maintenance Clerk Relationship Specialty Start Date End Date Wil Downey MD PCP - General 12/12/16 04/17/21 documented as of this encounter
--- OUTSIDE RECORDS SUMMARY | 2024-06-04 12:31 | XMS_ITS | Encounter Summary ---
Author Organization [facility] Address [address] [place] [address] Phone Care Team Providers Care After School Teacher Name Role Phone Wil Downey MD Primary Care Provider [phone] Reason for Visit * Reason Comments Return Patient 1 y f/u Encounter Details Date Type Department Care Team (Late st Contact Info) Description 04/01/2018 2:00 PM CDT Office Visit [facility] Epilepsy [address] [facility] 6th [place] [address] [place] [address] Richard Espinoza III, MD [address] [place] [address] Partial epilepsy with impairment of consciousness, intractable (CMS/HCC) (Primary Dx) Social History Tobacco Use Types Packs/Day Years Used Date Smoking Tobacco: Never Smokeless Tobacco: Never Comments Unknown Sex and Gender Information Value Date Recorded Sex Assigned at Not on file Legal Sex Female 9:12 PM WOOD MACHINIST APPRENTICE Gender Identity Not on file Sexual Orientation [...] of Epilepsy without status epilepticus, not intractable ([facility] PAST SURGICAL HISTORY She has no past [...] 08/10/2019 added in this encounter Care Teams After School Teacher Relationship Specialty Start Date End Date Wil Downey MD PCP - General 12/12/16 04/17/21 documented as of this encounter
--- OUTSIDE RECORDS SUMMARY | 2024-06-04 12:31 | XMS_ITS | Encounter Summary ---
Author Organization [facility] Facility Care Team Providers Care Clinical Services Assistant Name Role Phone Unavailable Primary Care Provider Unavailabl e Encounter Details Date Type Department Care Team (Late st Contact Info) Description 03/02/2014 - 03/02/2014 11:59 PM CDT Hospital Encounter [facility] Marisela Monaco MD [phone] [place] [address] Screening for malignant neoplasm of cervix Social History Tobacco Use Types Packs/Day Years Used Date Smoking Tobacco: Never Comments Unknown Sex and Gender Information Value Date Recorded Sex Assigned at Not on file Legal Sex Female 9:12 PM OTHER WOOD PROCESSING MACHINE OPERATOR Gender Identity Not on file [...]
--- OUTSIDE RECORDS SUMMARY | 2024-06-04 12:31 | XMS_ITS | Encounter Summary ---
Author Organization [facility] Facility Care Team Providers Care Route Sales Manager Name Role Phone Unavailable Primary Care Provider Unavailabl e Encounter Details Date Type Department Care Team (Late st Contact Info) Description 09/02/2013 12:47 AM CDT - 09/02/2013 5:06 AM CDT Hospital Encounter [facility] Zana Marsh MD [address] [place] [address] Epilepsy (HCC); Vomiting alone; Other alteration of consciousness Social History Tobacco Use Types Packs/Day Years Used Date Smoking Tobacco: Never Comments Unknown Sex and Gender Information Value Date Recorded Sex Assigned at Not on file Legal Sex Female 9:12 PM SEMICONDUCTOR WAFERS TESTER Gender Identity Not on file Sexual [...] agrees with it. ACC# ??Date Time ??Exam [id number] Sep 02, 2013 03:09:[address] Head or Brain w/o cont EXAMINATION: [...] agrees with it. ACC# Date Time Exam [id number] Sep 02, 2013 03:09:[address] Head or Brain w/o cont EXAMINATION: [...] agrees with it. ACC# ??Date Time ??Exam [id number] Sep 02, 2013 02:32:00 [id number] Chest 2 views Frontl & Lat EXAMINATION: [...] agrees with it. ACC# Date Time Exam [id number] Sep 02, 2013 02:32:00 [id number] Chest 2 views Frontl & Lat EXAMINATION: [...] 06. Urine 09/02/2013 2:09 AM CDT Result [facility] Nathalie Mclaughlin LAB BLOOD ORDERABLES Final Resu lt Performing Organization Address [facility] de Phone Number HISTORICAL RESULTS * (ABNORMAL) [...] RESULTS Urine 09/02/2013 2:09 AM CDT Result [facility] Zana Quigley MD LAB BLOOD ORDERA BLES Final Result Performing Organization Address [facility] de Phone Number HISTORICAL RESULTS * Blood glucose, POC (09/02/2013 1:52 AM CDT) Glucose, POC, bld 96 70 - 199 mg/dl HISTORICAL RESULTS Blood specimen (specimen) 09/02/2013 1:52 AM CDT Result [facility] Historical Provider LAB BLOOD ORDERABLES Yanira l Result Performing Organization Address [facility] de Phone Number HISTORICAL RESULTS * (ABNORMAL) [...] function panel (09/02/2013 1:41 AM CDT) Pathologist [facility] Protein, pl 6.9 6.5 - 8.5 g/dl [...] ORDERABLES Final Resu lt Performing Organization Address City/[facility] de Phone Number HISTORICAL RESULTS * Plasma basic metabolic panel (09/02/2013 1:41 AM CDT) [facility] Sodium 138 135 - 145 mmol/L HISTORICAL [...] ORDERABLES Final Resu lt Performing Organization Address City/[facility] Co de Phone Number HISTORICAL RESULTS * Discharge Laboratory Cumulative Report (09/02/2013 12:00 AM CDT) 09/02/2013 Narrative HISTORICAL RESULTS - 09/03/2013 3:17 PM CDT ?[facility] ?Department of Laboratories ? One [facility] [place] ? YARIEL Woodruff [address] Patient Name: ??STALIN DE LEON [facility] Rec Number: [id number] Fin Number: ?[id number] Date: ?1985 Sex/Age: ? Female 28 years Admit Date: ?09/02/2013 Discharge Date: 09/02/2013 Doctor: ?Zana Quigley V Facility: ?[facility] Location: ?TCC-5 Chart Printed: 09/03/2013 15:17 ?? [...] ?URINALYSIS ?Macroscopic ?Test: Color ? Clarity ??Specific Chapman ??pH ? Reference: [Yellow] ??[Clear] ??[1.003-1.030] ? [...] ?Test: Neut Pct Auto ??Lymph Pct Auto ??[place] Pct Auto ? Reference: [38.7-74.5] ?[20.0-54.3] ? [...] WHITE CELL DIFFERENTIAL ?Test: Lymph Abs Auto ??[place] Abs Auto ??Eos Abs Auto ? Reference: [...]
--- OUTSIDE RECORDS SUMMARY | 2024-06-04 12:31 | XMS_ITS | Encounter Summary ---
Author Organization [facility] Address [address] [place] [address] Phone Care Team Providers Care Machine Operator Replanter Name Role Phone Wil Downey MD Primary Care Provider [phone] Encounter Details Date Type Department Care Team (Late st Contact Info) Description 03/27/2018 Orders Only [facility] Scheduling [address] [place] [address] Ted Wan CMA Social History Tobacco Use Types Packs/Day Years Used Date Smoking Tobacco: Never Comments Unknown Sex and Gender Information Value Date Recorded Sex Assigned at Not on file Legal Sex Female 9:12 PM CHEESE PANCAKE 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
--- OUTSIDE RECORDS SUMMARY | 2024-06-04 12:31 | XMS_ITS | Encounter Summary ---
Author Organization [facility] Healthcare Address [address] [place] [address] Care Team Providers Care Engineering Officer Name Role Phone Wil Downey MD Primary Care Provider [phone] Encounter Details Date Type Department Care Team (Latest Contact Info) Description 12/18/2016 4:37 PM CDT - 12/18/2016 11:59 PM T Hospital Encounter [facility] OP INTERIM [phone] Marisela Hernandez MD [address] [phone] [place] [address] Discharge Disposition: Discharge to home or self care Social History Tobacco Use Types Packs/Day Years Used Date Smoking Tobacco: Never Comments Unknown Sex and Gender Information Value Date Recorded Sex Assigned at Not on file Legal Sex Female 9:12 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 Patient Type: [facility] Ref Lab Reported: 12/25/2016 ? Physician(s): Marisela [...] 68. ??This HPV test was performed at [facility] in [place], [place] utilizing the Gen-Probe Aptima assay. This specimen has been rescreened in accordance with this laboratory's Cath Lab Radiology Technician Program. sherman/12/25/2016 16:37 ?Biju Bell, CT(ASCP) ??Report Electronically Reviewed and Signed Out By MARK Beltre, CT(ASCP)[facility] 12/25/2016 16:37:21 ?? Gross Description A. ??Liquid based pap test, Thin prep: ??Cervical/vaginal - Screening ThinPrep ??with HPV ?? Clinical Diagnosis and History Last Menstrual Period: Not Provided. ICD-9 code V72.31 per requisition. The HPV test was performed by [facility], [address] [place] [address]. This Cytology report is available electronically in Clinical Desktop. The performance characteristics of some immunohistochemical stains, in-situ hybridization and fluorescence in-situ hybridization tests and immunophenotyping by flow cytometry cited in this report (if any) were determined by the Surgical Pathology Department at [facility] as part of an ongoing water quality control engineer program and in compliance with federally mandated [...] determined by the Surgical Pathology Department of [facility]. ??It has not been cleared or approved [...] on filedocumented in this encounter Care Teams Engineering Officer Relationship Specialty Start Date End Date Wil Downey MD PCP - General 12/12/16 04/17/21 documented as of this encounter
--- OUTSIDE RECORDS SUMMARY | 2024-06-04 12:31 | XMS_ITS | Encounter Summary ---
Author Organization [facility] Healthcare Address [address] [place] [address] Care Team Providers Care Elephant Keeper Name Role Phone Wil Downey MD Primary Care Provider [phone] Encounter Details Date Type Department Care Team (Latest Contact Info) Description 12/19/2016 11:04 AM CDT - 12/19/2016 11:59 PM T Hospital Encounter [facility] OP INTERIM [phone] Marisela Hernandez MD [address] [phone] [place] [address] Discharge Disposition: Discharge to home or self care Social History Tobacco Use Types Packs/Day Years Used Date Smoking Tobacco: Never Comments Unknown Sex and Gender Information Value Date Recorded Sex Assigned at Not on file Legal Sex Female 9:12 PM NECKTIES PAINTER Gender Identity Not on file Sexual [...] AM CDT Ordered by an unspecified provider. [facility] Provider LAB BLOOD ORDERABLES Yanira l Result * N. gonorrhoeae/C. trachomatis amplification test (12/18/2016 3:15 PM CDT) Report Final Report: Negative for: ??Chlamydia trachomatis rRNA Negative for: ??Neisseria gonorrhoeae rRNA [facility] Endocervical 12/18/2016 3:15 PM CDT 12/19/2016 11:42 AM CDT Narrative [facility] - 12/19/2016 11:45 AM CDT Testing performed by the Gen-Probe Tigris APTIMA Combo 2 Assay. This nucleic acid amplification test (NAAT) detects ribosomal RNA (rRNA) from Chlamydia trachomatis and Neisseria gonorrhoeae using target capture,and Control Systems Specialist-Mediated Amplification (TMA). This test is approved by the [place] Food and Drug Administration for endocervical, vaginal, and male urethral swab specimens, in addition to male and female urine specimens. The performance characteristics for these specimen types have been verified by the [facility] Laboratory.The performance characteristics of this assay for pharyngeal and rectal specimens collected from cervical swab collection devices have been validated and verified by the [facility] Laboratory. Verification studies support a [...] O RDERABLES Final Result [facility] Department [place] [address] documented in this encounter Visit Diagnoses Not on filedocumented in this encounter Care Teams Elephant Keeper Relationship Specialty Start Date End Date Wil Downey MD PCP - General 12/12/16 04/17/21 documented as of this encounter
--- OUTSIDE RECORDS SUMMARY | 2024-06-04 12:31 | XMS_ITS | Encounter Summary ---
Author Organization [facility] Address [address] [place] [address] Phone Care Team Providers Care Environmental Health Officer Name Role Phone Wil Downey MD Primary Care Provider [phone] Encounter Details Date Type Department Care Team (Late st Contact Info) Description 04/19/2019 4:00 PM PORTER MARINA Office Visit [facility] Epilepsy [address] [facility] Advanced Medicine 6th [place] [address] [place] [address] Richard Espinoza III, MD [address] [place] [address] Partial epilepsy with impairment of consciousness, intractable (CMS/HCC) Social History Tobacco Use Types Packs/Day Years Used Date Smoking Tobacco: Never Smokeless Tobacco: Never Comments Unknown Sex and Gender Information Value Date Recorded Sex Assigned at Not on file Legal Sex Female 9:12 PM PORTER MARINA Gender Identity Not on file Sexual Orientation Not on file documented as of this encounter Last Filed Vital Signs Vital Sign Reading Time Taken Comments Blood Pressure 127/82 04/19/2019 3:15 PM PORTER MARINA Pulse 74 04/19/2019 3:15 PM PORTER MARINA Temperature - - Respiratory Rate - - Oxygen Saturation - - Inhaled Oxygen Concentration - - Weight 91.8 kg (202 lb 6.4 oz) 04/19/2019 3:15 P M PORTER MARINA Height 154.9 cm (5' 1 ) 04/19/2019 3:15 PM PORTER MARINA Body Mass Index 38.24 04/19/2019 3:15 PM PORTER MARINA documented in this encounter Ordered Prescriptions Prescription [...] year old female who was referred by Wli Downey MD for evaluation of seizures. HISTORY [...] had rash (hives) after a trip to [place] this October, which is now under control with allergy meds. She has beenconsulting with her childbirth and infant care teacher. She has been on OXC for 15 yrs. Before OXC, she was on PHT, CBZ, LEV. PAST MEDICAL HISTORY Quynh has a past medical history of Epilepsy without status epilepticus, not intractable (CMS/[facility]). PAST SURGICAL HISTORY She has no past [...] She will continue to f/u with her senior specialist and continue to monitor. PLAN The patient will continue her oxcarbazepine 900 mg twice daily. She was given a refill of her antiepileptic medication today. We reviewed the importance of regular antiepileptic medication compliance, as well as good general medical health, to optimize seizure control. She will follow-up in the epilepsy clinic in one year, sooner if clinically indicated. ER MARINA documented in this encounter Plan of Treatment [...] 022 added in this encounter Care Teams Environmental Health Officer Relationship Specialty Start Date End Date Wil Downey MD PCP - General 12/12/16 04/17/21 documented as of this encounter
--- OUTSIDE RECORDS SUMMARY | 2024-06-04 12:31 | XMS_ITS | Encounter Summary ---
Author Organization [facility] Facility Care Team Providers Care Chief Operator Synthesis Name Role Phone Unavailable Primary Care Provider Unavailabl e Encounter Details Date Type Department Care Team (Late st Contact Info) Description 04/17/2011 - 04/17/2011 11:59 PM CDT Hospital Encounter [facility] Marisela Monaco MD [address] [phone] [place] [address] Screening for malignant neoplasm of cervix; Satisfactory cervical smear but lacking transformation zone Social History Tobacco Use Types Packs/Day Years Used Date Smoking Tobacco: Never Assessed Comments Unknown Sex and Gender Information Value Date Recorded Sex Assigned at Not on file Legal Sex Female 9:12 PM 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
--- OUTSIDE RECORDS SUMMARY | 2024-06-04 12:31 | XMS_ITS | Encounter Summary ---
Author Organization 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
--- OUTSIDE RECORDS SUMMARY | 2024-06-04 12:31 | XMS_ITS | Encounter Summary ---
Author Organization [facility] Facility Care Team Providers Care Seismic Plotter Name Role Phone Unavailable Primary Care Provider Unavailabl e Encounter Details Date Type Department Care Team (Late st Contact Info) Description 02/03/2008 - 02/03/2008 11:59 PM CDT Hospital Encounter [facility] Delaney Brown MD [address] [place] [address] Social History Tobacco Use Types Packs/Day Years Used Date Smoking Tobacco: Never Assessed Comments Unknown Sex and Gender Information Value Date Recorded Sex Assigned at Not on file Legal Sex Female 9:12 PM BULLET CASTING OPERATOR Gender Identity Not on file Sexual Orientation Not on file documented as of this encounter Plan of Treatment Not on file documented as of this encounter Visit Diagnoses Not on filedocumented in this encounter
--- OUTSIDE RECORDS SUMMARY | 2024-06-04 12:31 | XMS_ITS | Encounter Summary ---
Author Organization [facility] Facility Care Team Providers Care Commercial Loan Collection Officer Name Role Phone Unavailable Primary Care Provider Unavailabl e Encounter Details Date Type Department Care Team (Late st Contact Info) Description 09/04/2010 - 09/04/2010 11:59 PM CDT Hospital Encounter [facility] Richard Blackwell III, MD [address] [place] [address] Condition of brain Social History Tobacco Use Types Packs/Day Years Used Date Smoking Tobacco: Never Assessed Comments Unknown Sex and Gender Information Value Date Recorded Sex Assigned at Not on file Legal Sex Female 9:12 PM PIPE THREADING MACHINE OPERATOR Gender Identity Not on file [...]
--- OUTSIDE RECORDS SUMMARY | 2024-06-04 12:31 | XMS_ITS | Encounter Summary ---
Author Organization [facility] Healthcare Address [address] [place] [address] Care Team Providers Care Black Mill Operator Name Role Phone Wil Downey MD Primary Care Provider [phone] Encounter Details Date Type Department Care Team (Latest Contact Info) Description 05/20/2017 10:50 PM CLICKER OPERATOR - 05/20/2017 11:59 PM [facility] Hospital Encounter [facility] OP INTERIM [phone] Marisela Hernandez MD [address] [facility] [address] [phone] [place] [address] Discharge Disposition: Discharge to home or self care Social History Tobacco Use Types Packs/Day Years Used Date Smoking Tobacco: Never Comments Unknown Sex and Gender Information Value Date Recorded Sex Assigned at Not on file Legal Sex Female 9:12 PM CLICKER OPERATOR Gender Identity Not on file Sexual [...] TEST Routine Gen Lab 05/20/2017 3:38 PM CLICKER OPERATOR DISCHARGE LABORATORY CUMULATIVE REPORT 05/20/2017 12:00 AM CLICKER OPERATOR documented in this encounter Results * N. gonorrhoeae/C. trachomatis amplification test (05/20/2017 3:38 PM CLICKER OPERATOR) Report Final Report: Negative for: ??Chlamydia trachomatis rRNA Negative for: ??Neisseria gonorrhoeae rRNA [facility] Urine 05/20/2017 3:38 PM CLICKER OPERATOR 05/20/2017 11:05 PM CLICKER OPERATOR Narrative [facility] - 05/20/2017 11:05 PM CLICKER OPERATOR Testing performed by the Gen-Probe Tigris APTIMA Combo 2 Assay. This nucleic acid amplification test (NAAT) detects ribosomal RNA (rRNA) from Chlamydia trachomatis and Neisseria gonorrhoeae using target capture,and Presser First-Mediated Amplification (TMA). This test is approved by the [place] Food and Drug Administration for endocervical, vaginal, and male urethral swab specimens, in addition to male and female urine specimens. The performance characteristics for these specimen types have been verified by the [facility] Laboratory.The performance characteristics of this assay for pharyngeal and rectal specimens collected from cervical swab collection devices have been validated and verified by the [facility]. Verification studies support a lack [...] MICROBIOLOGY - GENERAL O RDERABLES Final Result [facility] [place] [address] * DISCHARGE LABORATORY CUMULATIVE REPORT (05/20/2017 12:00 AM CLICKER OPERATOR) Narrative 05/20/2017 12:00 AM CLICKER OPERATOR Ordered by an unspecified provider. us Historical Provider LAB BLOOD ORDERABLES Yanira l Result documented in this encounter Visit Diagnoses Not on filedocumented in this encounter Care Teams Black Mill Operator Relationship Specialty Start Date End Date Wil Downey MD PCP - General 12/12/16 04/17/21 documented as of this encounter
--- OUTSIDE RECORDS SUMMARY | 2024-06-04 12:31 | XMS_ITS | Encounter Summary ---
Author Organization [facility] Healthcare Address [address] [place] [address] Care Team Providers Care Sales And Service Representative Name Role Phone Wil Downey MD Primary Care Provider [phone] Encounter Details Date Type Department Care Team (Latest Contact Info) Description 07/01/2017 1:29 PM STEEL HANDLER - 07/01/2017 11:59 PM STEEL HANDLER Hospital Encounter [facility] OP INTERIM [phone] Marisela Hernandez MD [address] [facility] [address] [phone] [place] [address] Discharge Disposition: Discharge to home or self care Social History Tobacco Use Types Packs/Day Years Used Date Smoking Tobacco: Never Comments Unknown Sex and Gender Information Value Date Recorded Sex Assigned at Not on file Legal Sex Female 9:12 PM STEEL HANDLER Gender Identity Not on file Sexual Orientation [...] on filedocumented in this encounter Care Teams Sales And Service Representative Relationship Specialty Start Date End Date Wil Downey MD PCP - General 12/12/16 04/17/21 documented as of this encounter
--- OUTSIDE RECORDS SUMMARY | 2024-06-04 12:31 | XMS_ITS | Encounter Summary ---
Author Organization [facility] Facility Care Team Providers Care Dental Appliance Repairer Name Role Phone Unavailable Primary Care Provider Unavailabl e Encounter Details Date Type Department Care Team (Late st Contact Info) Description 01/21/2012 - 01/21/2012 11:59 PM CDT Hospital Encounter [facility] Marisela Monaco MD [address] [phone] [place] [address] Lump or mass in breast Social History Tobacco Use Types Packs/Day Years Used Date Smoking Tobacco: Never Assessed Comments Unknown Sex and Gender Information Value Date Recorded Sex Assigned at Not on file Legal Sex Female 9:12 PM WINDER HELPER Gender Identity Not on file Sexual Orientation [...]
--- OUTSIDE RECORDS SUMMARY | 2024-06-04 12:31 | XMS_ITS | Encounter Summary ---
Author Organization [facility] Facility Care Team Providers Care Weather Stripper Name Role Phone Unavailable Primary Care Provider Unavailabl e Encounter Details Date Type Department Care Team (Late st Contact Info) Description 03/15/2015 12:03 PM CDT - 03/15/2015 11:59 PM CDT Hospital Encounter [facility] Marisela Hernandez MD [address] [phone] [place] [address] Hypertrichosis Social History Tobacco Use Types Packs/Day Years Used Date Smoking Tobacco: Never Comments Unknown Sex and Gender Information Value Date Recorded Sex Assigned at Not on file Legal Sex Female 9:12 PM PLATE FITTER Gender Identity Not on file Sexual Orientation [...] l HISTORICAL RESULTS Comment: TSH Interpretive Guide: Holden: ??TSH surges within the first 15 to [...] 03/17/2015 7:30 AM CDT Test performed at [facility] Dept of Lab Medicine and Pathology, [address] [place] [address], [id number]. Marisela Hernandez MD LAB BLOOD ORDERABLES [facility] Performing Organization Address [facility]/ZIP Co de Phone Number HISTORICAL RESULTS * Serum dehydroepiandrosterone sulfate (DHEA-S) (03/15/2015 7:21 AM CDT) DHEA-S 179 44 - 332 mcg/dl HISTORICAL RESULTS Serum 03/15/2015 7:21 AM CDT Narrative HISTORICAL RESULTS - 03/16/2015 6:34 AM CDT Test performed at [facility] Dept of Lab Medicine and Pathology, [address] [place] [address], [address]. Marisela Hernandez MD LAB BLOOD ORDERABLES Final R esult HISTORICAL RESULTS * DISCHARGE LABORATORY CUMULATIVE REPORT (03/15/2015) Narrative 03/15/2015 Ordered by an unspecified provider. Historical Provider LAB BLOOD ORDERABLES Yanira l Result documented in this encounter Visit Diagnoses Diagnosis Hypertrichosis Hirsutism documented in this encounter
--- OUTSIDE RECORDS SUMMARY | 2024-06-04 12:31 | XMS_ITS | Encounter Summary ---
Author Organization [facility] Address [address] [place] [address] Phone Care Team Providers Care Flight Crew Ordnanceman Name Role Phone Wil Downey MD Primary Care Provider [phone] Reason for Visit * Reason Comments Annual Exam Encounter Details Date Type Department Care Team (Late st Contact Info) Description 07/27/2019 2:45 PM VACUUM METALIZER OPERATOR Office Visit [facility] Obstetrics and Gynecology [address] [facility] [address] [address] 7[address] [place] [address] Devika Hogan, ARTIFICIAL INTELLIGENCE SPECIALIST [address] [facility] [phone] [place] [address] Well woman exam (Primary Dx); Mass of right breast Social History Tobacco Use Types Packs/Day Years Used Date Smoking Tobacco: Never Smokeless Tobacco: Never Alcohol Use Standard Drinks/Week Comments Yes 0 (1 standard drink = 0.6 oz pur e alcohol) Comments No Sex and Gender Information Value Date Recorded Sex Assigned at Not on file Legal Sex Female 9:12 PM VACUUM METALIZER OPERATOR Gender Identity Not on file Sexual Orientation Not on file documented as of this encounter Last Filed Vital Signs Vital Sign Reading Time Taken Comments Blood Pressure 100/70 07/27/2019 2:35 PM VACUUM METALIZER OPERATOR Pulse - - Temperature - - Respiratory Rate - - Oxygen Saturation - - Inhaled Oxygen Concentration - - Weight 91 kg (200 lb 9.6 oz) 07/27/2019 2:35 PM VACUUM METALIZER OPERATOR Height 154.9 cm (5' 1 ) 07/27/2019 2:35 PM VACUUM METALIZER OPERATOR Body Mass Index 37.9 07/27/2019 2:35 PM VACUUM METALIZER OPERATOR documented in this encounter Progress Notes * Devika Hogan, ARTIFICIAL INTELLIGENCE SPECIALIST - 07/27/2019 2:45 PM CST Images from [...] on phone: None Gets together: None Attends spiritism service: None Active member of club or [...] RTO 1 year. Devika Hogan NP 07/27/2019 UM METALIZER OPERATOR documented in this encounter Plan of [...] 07/27/2019 added in this encounter Care Teams Flight Crew Ordnanceman Relationship Specialty Start Date End Date Wil Downey MD PCP - General 12/12/16 04/17/21 documented as of this encounter
== END 2024-05-30 18:33 | disposition home or self-care (01) ==
PROVIDERS: Emergency Provider Emergency Medicine; PCP Obstetrics & Gynecology
DX: O21.9 Vomiting of pregnancy, unspecified (principal); O99.352 Diseases of the nervous system complicating pregnancy, second trimester; O23.42 Unspecified infection of urinary tract in pregnancy, second trimester; N39.0 Urinary tract infection, site not specified; G40.909 Epilepsy, unspecified, not intractable, without status epilepticus; O16.2 Unspecified maternal hypertension, second trimester; O99.282 Endocrine, nutritional and metabolic diseases complicating pregnancy, second trimester; E28.2 Polycystic ovarian syndrome; O09.522 Supervision of elderly multigravida, second trimester; Z3A.14 14 weeks gestation of pregnancy
CPT/HCPCS: 36415; 80053; 81001; 83690; 85025; 87086; 96361; 96365; 96375; 99284; J0696; J2405; J7030

== ENCOUNTER 2025-01-15 22:54 | Emergency (ER) | payer OTHER, SELFPAY ==
--- OUTSIDE RECORDS SUMMARY | 2025-01-15 22:56 | XMS_ITS | Clinical Summary ---
Author Organization [facility] Address [address] [place] [address] Care Team Providers Care Lion Tamer Name Role Phone Mary Perla MD Primary Care Provider [phone] Source Comments [facility],non-owned Affiliates and Associated Physician Practices is amultiple site organization consisting of ambulatory clinics and hospital sitesin [place], [place], [place]. This disclosure is being madepursuant to the Care Everywhere program and may not contain all information available regarding this patient. Last updated 18.[facility] Allergies Active Allergy Reactions Criticality Noted Date Comments Levetiracetam Rash Medium 08/11/2024 Skin Adhesives Rash Medium 09/23/2024 Medications * This document contains information received from the source organization and may not represent a complete record from that organization. * Be aware that medications may not be up to date on this document. Alwaysverify current medications with the patient. OXcarbazepine (Trileptal) 600 MG tablet Take 1.5 (one and one-half) tablets by mouth 2 times daily Active cetirizine (ZyrTEC) 10 MG tablet Take 1 (one) tablet by mouth once daily Active albuterol HFA (Proventil; Ventolin; Proair) 108 (90 Base) MCG/ACT inhaler Inhale 2 (two) puffs by mouth every 4 hours as needed Active fluticasone propionate (Flonase) 50 MCG/ACT nasal spray USE 2 SPRAY(S) IN EACH NOSTRIL ONCE DAILY Active Vit-Fe Fumarate-FA ( vitamin) 28-0.8 MG tablet Take 1 (one) tablet by mouth once daily Active magnesium oxide (Mag-Ox) 400 MG tablet Take 1 (one) tablet by mouth once daily 5 Active magnesium oxide (Mag-Ox) 400 MG tablet Take 1 (one) tablet by mouth once daily as needed 5 Active Additional Information Patient not taking.Reason: Patient adjusted, Informant: Patient, Reported on 09/30/2024 acetaminophen (Tylenol) 500 MG tablet Take 2 (two) tablets by mouth every 6 hours as needed for Fever or Pain 60 tablet 5 Active ibuprofen (Motrin) 600 MG tablet Take 1 (one) tablet by mouth every 6 hours as needed for Pain 30 tablet 5 Active naloxone HCl (Narcan) 4 MG/0.1ML nasal spray [place] 1 (one) spray into the nose as needed (May repeat every 2 min in alternating nostrils until emergency medical help arrives for overdose) 5 Active Additional Information Patient not taking.Reason: Other, Informant: Patient, Reported on 10/12/2024 labetalol (Normodyne; Trandate) 200 MG tablet Take 2 (two) tablets by mouth every 8 hours for 60 days 120 tablet 2 5 Active docusate sodium (Colace) 100 MG capsule Take 1 (one) capsule by mouth once daily 30 capsule 5 Active polyethylene glycol 3350 (MiraLax) 17 GM/SCOOP powder Mix and drink 17 (seventeen) g by mouth once daily 238 g 5 Active Additional Information Patient not taking.Reason: Other, Informant: Patient, Reported on 10/12/2024 mometasone (Elocon) 0.1 % ointment Apply to affected area once daily 90 g 1 5 Active Additional Information Patient not taking.Reason: Other, Informant: Patient, Reported on 11/02/2024 lisinopril (Prinivil; Zestril) 10 MG tablet Take 1 (one) tablet by mouth once daily 30 tablet 1 5 Active folic acid (Folvite) 1 MG tablet Take 1 (one) tablet by mouth once daily 5 Active drospirenone-et hinyl estradiol (Tenisha) 3-0.03 MG tabletIndicatio ns:Contraceptiv e Therapy,Polycys tic Ovary Syndrome Take 1 (one) tablet by mouth once daily Reasons: Control Treatment, Polycystic Ovary Syndrome 28 tablet 6 Active Active Problems Problem Noted Date Diagnosed Date At risk for depression 11/02/2024 Overview (11/02/2024): 11/02/24 - EPDS 18 today. Long discussion of options at this point. She has no SI/HI nor has ever had this in the past. No history of counseling or meds. We discussed options today and counseling resources given for [place]. Assessment & Plan (11/23/2024 8:59 PM CDT): Repeat EPDS today is much better - at 5. Continue to monitor at upcoming visits. Assessment & Plan (11/02/2024 3:48 PM CDT): EPDS 18 today. Long discussion of options at this point. She has no SI/HI nor has ever had this in the past. No history of counseling or meds. We discussed options today and counseling resources given for [place]. Plan for repeat screening in two weeks, also instructed to call or contact us if she feels like she needs to talk about how she's doing. 06/01 resources also educated. History of classical section 10/12/2024 Overview (10/12/2024): with classical 09/2024 for severe pre-e at 30 weeks. Fetus with AEDF and FGR. Repeat c/s indicated in any future deliveries. Gross hematuria 10/12/2024 Overview (10/12/2024): Noted hematuria every morning that subsides through out the day - depends on hydration and sometimes is darker at times. Has been told in the past that she has crystals in her urine Assessment & Plan (10/12/2024 4:28 PM CDT): Check UA today and follow up next week - if UA is obviously telling then will tx, otherwise consider urology consult for workup of hematuria Cystic fibrosis carrier 08/18/2024 Overview (08/18/2024): Awaiting partner screening results. Epilepsy 08/18/2024 Overview (10/12/2024): followed by Dr Espinoza, very stable on oxcarbazepine Benign essential HTN, chronic, antepartum 2024 Overview (11/02/2024): Nifedipine 60 mg daily, labetalol 100 mg BID 09/28 at [facility] - Presently taking nifedipine cr 60mg bid and labetalol was decreased by MFM to 200mg bid. She will record her BP bid, bring log and monitor to appt in 2 weeks. Has a primary provider: Dr Mary Jesus MD at [facility]. Will make an appt for 2 months from now for transfer of care 10/12 - BPs are 110-120/70-80 and doing well. Notes she was on lisinopril 10mg QD prior to being with Dr. Jesus at [facility]. Will drop the labetalol today and maintain on procardia 60mg BID - will then recheck in two weeks. 10/19- 10/19/24- stopped labetalol altogether on 11/12 then had palpitations, restarted 100BID for the past 5 days. Feels better but wants to stop the procardia and back to her lisinopril which she tolerates well. Today we'll stop the procardia and start [id number] QD. Then will consider stopping labetalol in two weeks if well controlled. She will try dropping down to QD labetalol in one week if tolerated, then see me in two weeks for stop of labetalol and will maintain on lisinopril. 11/02 - doing better on lisinopril 10QAM, labetalol 100 BID. Will drop labetalol to 100 QHS and will likely stop altogether next visit in two weeks. Assessment & Plan (11/23/2024 8:58 PM CDT): Stop labetalol and continue QD lisinopril. Will also be seeing her PCP Dr. Tanner to continue maintenance of HTN. She was managing this before . Assessment & Plan (11/02/2024 3:43 PM CDT): doing better on lisinopril 10QAM, labetalol 100 BID. Will drop labetalol to 100 QHS and will likely stop altogether next visit in two weeks. Assessment & Plan (10/19/2024 1:40 PM CDT): 10/19/24- stopped labetalol altogether on 11/12 then had palpitations, restarted 100BID for the past 5 days. Feels better but wants to stop the procardia and back to her lisinopril which she tolerates well. Today we'll stop the procardia and start [id number] QD. Then will consider stopping labetalol in two weeks if well controlled. She will try dropping down to QD labetalol in one week if tolerated, then see me in two weeks for stop of labetalol and will maintain on lisinopril. Will also finalize control at that visit. Assessment & Plan (10/15/2024 5:07 PM CDT): BPs are 110-120/70-80 and doing well. Notes she was on lisinopril 10mg QD prior to being with Dr. Jesus at [facility]. Will drop the labetalol today and maintain on procardia 60mg BID. She notes lethargy and sx's consistent with beta chadwick intolerance likely related to her dose. We'll stop labetalol today and recheck in one week. Breast mass, right 08/18/2024 Overview (10/12/2024): Awaiting repeat breast ultrasound, ordered 08/12. 09/28-Had US when in hospital by [facility]. Order placed for f/u bilateral mammogram and right breast US. Pt given phone # for [facility] Radiology to make an appt for radiology studies. 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 08/18/2024 10/12/2024 Encounters Date Type Department Care Team Description 11/16/2024 1:34 PM CDT - 11/16/2024 11:59 PM CDT Hospital Encounter [facility] [address], [address] [phone] Aida Campbell MD Discharge Disposition: Home or Self Care 11/16/2024 Travel 11/02/2024 2:13 PM CDT - 11/02/2024 11:59 PM CDT Hospital Encounter [facility] [address], [address] [place] [phone] Aida Campbell MD Discharge Disposition: Home or Self Care 11/02/2024 Travel 10/19/2024 12:34 PM CDT - 10/19/2024 11:59 PM CDT Hospital Encounter [facility] [address], [address] [place] [phone] Aida Campbell MD Discharge Disposition: Home or Self Care 10/19/2024 Travel 10/15/2024 Orders Only [facility] [address], [address] [place] [phone] Aida Campbell MD 10/15/2024 Results Follow-Up [facility] [address], [address] [phone] Aida Campbell MD 10/15/2024 Telephone [facility] [address], [address] [phone] Rosalva Rogers, RN Blood Pressure from Last 3 Months Immunizations Immunization Administration Dates Next Due COVID MODERNA 12+ yr 50mcg/0.5mL 05/30/2023 COVID MODERNA BIVALENT 12Y+ 50MCG/0.5ML 04/07/2022 Covid Moderna primary monova lent 12+ yr 0.5mL 06/13/2021,07/19/2020 HEP A VACCINE, ADULT 05/02/2015,11/28/2014 HEP B VACCINE, ADULT 3 DOSE 05/02/2015, 5 Human Papilloma Virus [place] lent Vaccine 02/01/2023 INFLUENZA VACCINE, QUADR. (A FLURIA, FLUZONE QUADRIVALENT; 6MO+) (IIV4) 01/21/2016 INFLUENZA VACCINE, QUADR. (F LUZONE; FLULAVAL; FLUARIX; AFLURIA QUADRIVALENT; 6MO+), 0.5 ML (IIV4) 04/07/2022,06/13/2021,04/17/2020,03/03,01/28/2018,03/26/2017,01/31/2016 INFLUENZA VACCINE, TRIV. (FL UZONE; FLULAVAL; FLUARIX; AFLURIA TRIVALENT; 6MO+), 0.5 ML (IIV3) 05/21/2024 MENINGOCOCAL MENINGITIS 02/07/2016 MENINGOCOCCAL ACWY (MCV4P) VAC IM 04/16/2017, MENINGOCOCCAL B RECOMBINANT, 2 OR 3 DOSE, IM 04/16/2017 TD, HISTORIC VACCINE 02/12/2013 TDAP (7yrs+) 09/03/2024 TDAP, HISTORIC VACCINE 11/22/2019 Family History Medical History Relation Name Comments Hypertension Father Hypertension Mother CAD (Coronary Artery Disease) Paternal Grandfather Relation Name Status Comments Father Mother Paternal Grandfather Social History Tobacco Use Types Packs/Day Years Used Date Smoking Tobacco: Never Smokeless Tobacco: Never Tobacco Cessation:Counseling Given: Yes Alcohol Use Standard Drinks/Week Comments Not Currently 0 (1 standard drink = 0.6 oz pur e alcohol) Overall Financial Resource Strain (CARDIA) Answe r Date Recorded How hard is it for you to pa y for the very basics like food, housing, medical care, and heating? Not hard at all 11/02/2024 [facility] - Occupational Stress Questionnaire Answer Date Recorded Do you feel stress - tense, restless, nervous, or anxious, or unable to sleep at night because your mind is troubled all the time - these days? Only a little 11/02/2024 Hunger Vital Sign Answer Date Recorded Within the past 12 months, y ou worried that your food would run out before you got the money to buy more. Never true 11/03/19 Within the past 12 months, t he food you bought just didn't last and you didn't have money to get more. Never true 11/02/2024 PRAPARE - Transportation Answer Date Re corded In the past 12 months, has l ack of transportation kept you from medical appointments or from getting medications? No 10/15 In the past 12 months, has l ack of transportation kept you from meetings, work, or from getting things needed for daily living? No 11/02/2024 [place] Depression Scale Answer Date Recorded [place] Depression Scale Total 0 11/16/2024 The thought of harming myself has occurred to me . Never 11/16/2024 Housing Stability Vital Sign Answer Connor e Recorded In the last 12 months, was t here a time when you were not able to pay the mortgage or rent on time? No 11/02/2024 In the past 12 months, how m any times have you moved where you were living? 1 11/02/2024 At any time in the past 12 m ont, were you homeless or living in a half-way (including now)? No 11/02/2024 Comments No Sex and Gender Information Value Date Recorded Sex Assigned at Not on file Legal Sex Female 7:07 AM CDT Gender Identity Not on file Sexual Orientation Not on file Last Filed Vital Signs Vital Sign Reading Time Taken Comments Blood Pressure 120/68 11/16/2024 1:48 PM CDT Pulse 76 11/16/2024 1:48 PM CDT Temperature 36.6 C (97.9 F) 09/30/2024 1:54 PM CDT Respiratory Rate 16 11/16/2024 1:48 PM CDT Oxygen Saturation 98% 11/16/2024 1:48 PM CDT Inhaled Oxygen Concentration - - Weight 94.7 kg (208 lb 12.8 oz) 11/16/2024 1:48 PM CDT Height 154.9 cm (5' 1) 11/16/2024 1:48 PM CDT Body Mass Index 39.45 11/16/2024 1:48 PM CDT Plan of Treatment Upcoming Encounters Date Type Department Care Team (Late st Contact Info) Description 05/24/2025 12:30 PM PCB DESIGN ENGINEER Appointment [facility] [address], [address] [place] [address] Aida Campbell MD [address] [facility] [address] [place] [address] Health Maintenance Due Date Last Done Comments HEPATITIS C SCREENING 06/28/2003 HEPATITIS B VACCINE (3 of 3 - 19+ 3-dose series) 06/27/2015 05/02/2015, 11/28/2014 HPV VACCINE (2 - 3-dose SCDM series) 03/01/2023 02/01/2023 COVID-19 VACCINE ( season) 2024 05/30/2023, 04/07/2022, 06/13/2021, Additional history exists INFLUENZA VACCINE (#1) 2025 , 04/07/2022, 06/13/2021, Additional history exists PAP SMEAR 04/22/2027 04/22/2024, 04/22/2024 DTAP/TDAP/TD VACCINES (4 - Td or Tdap) 09/03/2034 09/03/2024, 11/22/2019, 02/12/2013 ZOSTER VACCINE (1 of 2) 2035 MENINGOCOCCAL (Group B) VACCINE SHARED DECISION-MAKING Aged Out 04/16/2017 No longer eligible based on patient's age to complete this topic MENINGOCOCCAL GROUPS A/C/Y/W VACCINE Aged Out 04/16/2017, 02/14/2016, 02/07/2016 No longer eligible based on patient's age to complete this topic HIV SCREENING Completed 09/06/2024, 05/19/2024 DEPRESSION SCREENING Completed 11/16/2024 HIB VACCINE Aged Out No longer eligi ble based on patient's age to complete this topic PNEUMOCOCCAL VACCINE Aged Out No long er eligible based on patient's age to complete this topic Procedures Procedure Name Priority Date/Time Associated Diagnosis Comments HIV-1 HIV-2 ANTIBODY + HIV P24 AG PANEL Routine 09/06/2024 7:07 AM CDT from Last 3 Months or Most Recently Relevant to Health Maintenance Results * HIV-1 HIV-2 ANTIBODY + HIV P24 AG PANEL (09/06/2024 7:07 AM CDT) HIV1/2 Ab + P24 Ag Non Reactive Non Reactive 09/06/2024 8:43 AM CDT [facility] Blood BLOOD SPECIMEN / Unknown Lab Venipuncture / Unknown 09/06/2024 7:07 AM CDT 09/06/2024 7:56 AM CDT Narrative [facility] - 09/06/2024 8:43 AM CDT No Laboratory evidence of HIV infection. us Carola Delacruz MD LAB - CHEMISTRY ORDERABLES [facility] Result Performing Organization Address City/State/[facility] Co de Phone Number [facility] [address] [phone] from Last 3 Months or Most Recently Relevant to Health Maintenance Insurance [facility] * Guarantor: STALIN DE LEON Account Type Relation to Patient Date of Phone Billing Address Personal/Family [address] [place] [address] [facility] * Guarantor: STALIN DE LEON Account Type Relation to Patient Date of Phone Billing Address Personal/Family [address] [place] [address] Advance Directives * Full Code (Latest Code Status on File) Date Activated Date Inactivated Comments 09/17/2024 2:51 PM 09/18/2024 6:24 PM * Full Code Date Activated Date Inactivated Comments 08/25/2024 2:31 PM 09/17/2024 2:51 PM Care Teams Lion Tamer Relationship Specialty Start Date End Date Mary Perla MD [facility] [address] [address] PCP - General Internal Medicine 08/05/24
--- OUTSIDE RECORDS SUMMARY | 2025-01-15 22:56 | XMS_ITS | Patient Health Record ---
Author Organization [facility] [employer] Address [address] [place] [address] Care Team Providers Care Oracle Programmer Name Role Phone Eric Garrido Unavailable [phone] Reason For Referral No Information Medications Medication SIG (Take, Route, Frequency, Duration) Notes Start Date End Date Status clonazePAM 0.25 MG Oral A ctive Fluticasone Propionate Diskus 50 MCG/ACT Inhalation *Reorder from [employer] Platform for eRx and Interaction Alerts* Active Clotrimazole 10 MG Mouth/Throat Active OXcarbazepine 600 MG Oral Active Dicyclomine HCl 10 MG Oral Active FLUZONE QUAD 5511-1033 (PF) 60 MCG (15 MCG X 4)/0.5 ML IM SYRINGE *Reorder from [employer]izen Platform for eRx and Interaction Alerts* Active ADACEL TDAP 2 Lf-(2.5-5-3-5 mcg)-5Lf/0.5 mL Intramuscular *Reorder from Advanced Liquid Logicspan for eRx and Interaction Alerts* Active Sulfamethoxazole-Tri methoprim 800-160 MG Oral Active Plan Of Treatment No Information Insurance Providers Payer Name Payer Address Payer Phone Subscriber Number Group Number Insured Name Patient Relationship to Insured Coverage Start Date Coverage End Date Aetna Pos [address] [place] [address] [id number] TSALIN MALDONADO Self - patient is the insured
--- OUTSIDE RECORDS SUMMARY | 2025-01-15 22:56 | XMS_ITS | Patient Health Record ---
Author Organization [facility] Address [address] [place] [address] Care Team Providers Care Cisco Certified Network Associate Name Role Phone Mariusz Carlson Primary Care [...] Date Coverage End Date Aet[employer] [address] [place] [phone] [id number] Quynh De Leon Self - patient is the insured 2020
[2025-01-15 23:16] VITALS: BP 139/75; PULSE 89; RESP 14; TEMP 36.9; O2SAT 98
--- OUTSIDE RECORDS SUMMARY | 2025-01-15 23:40 | XMS_ITS | Clinical Summary ---
Author Organization [employer] [address] Address [facility] [place] [address] Care Team Providers Care Pest Locator Name Role Phone Mary Perla MD Primary Care Provider [phone] Allergies Active Allergy Reactions Criticality Noted Date Comments Levetiracetam Unknown 12/11/2023 Medications cetirizine (ZyrTEC) 10 mg tablet Take 10 mg by mouth daily. prn Active fluticasone propionate (FLONASE) 50 mcg/spray [place], Suspension nasal inhaler Administer 2 Sprays in each nostril daily. prn Active OXcarbazepine (TRILEPTAL) 600 mg tablet TAKE 1 & 1 2 (ONE & ONE HALF) TABLETS BY MOUTH TWICE DAILY 1 Active PNV,calcium 25-wwxe-xfkyx acid ( Vitamin Plus Low Iron) 27 mg iron- 1 mg Tablet Take 1 Tablet by mouth daily. 2 Active clonazePAM (KlonoPIN RAPID DISSOLVE) 0.25 mg Tablet, Rapid Dissolve Take 0.25 mg by mouth. 1 Active NIFEdipine (ADALAT CC) 30 mg Extended Release tablet Take 1 Tablet (30 mg) by mouth daily. 90 Tablet 3 4 Active folic acid (FOLVITE) 1 mg tablet Take 1 mg by mouth daily. Active lisinopriL (PRINIVIL) 10 mg tablet Take 1 Tablet (10 mg) by mouth daily. 100 Tablet 3 5 Active Active Problems Problem Noted Date Diagnosed [...] Encounters Date Type Department Care Team Description 12/29/2024 External Device Data ST[facility] ABSTRACTION Provider, Abstract 12/29/2024 External Device Data [facility] ABSTRACTION Provider, Abstract 12/13/[address] [facility] - [address] [place] [phone] Mary Perla MD Medication Refill 12/07/2024 External Device Data ST[place] ABSTRACTION Provider, Abstract 11/30/2024 External Device Data [facility] ABSTRACTION Provider, Abstract 11/09/2024 External Device Data [facility] ABSTRACTION Provider, Abstract 11/03/2024 External Device Data ST[facility] ABSTRACTION Provider, Abstract 11/02/2024 External Device Data STL ABSTRACTION Provider, Abstract from Last 3 Months Immunizations Immunization Administration Dates Next Due (ADACEL/BOOSTRIX)(10 YR UP) TDAP VACCINE, 0.5ML, IM 11/22/2019 (BEXSERO)(10-25 YR) MENINGOC OCCAL RECOMBIANT PROTEIN AND OUTER MEMBRANE VESICLE VACCINE, SEROGROUP B MENB-4C, 2 DOSE IM 04/16/2017 (GARDASIL 9)(9-45 YRS) HUMAN PAPILLOMAVIRUS VACCINE, TYPES 6, 11, 16, 18, 31, 33, 45, 52, 58, NONAVALENT (9VHPV), 2 OR 3 DOSE, IM 02/01/2023 (M-M-R II/PRIORIX)(12 MO UP) MEASLES, MUMPS AND RUBELLA VIRUS VACCINE, 0.5 ML IM/SUBCUT 10/19/2024 (SPIKEVAX) (12 YRS UP PRIMAR Y SERIES) [...] Paternal Grandfather Wilfrid Sr Other Paternal Grandmother Yoselin Lau Relation Name Status Comments Brother Alive Father Wilfrid Alive Maternal Grandfather Adnre Maternal Grandmother Maternal Uncle Mother Alive Paternal [...] at Not on file Legal Sex Female 9:57 AM CDT Gender Identity Not on file Sexual Orientation Not on file Last Filed Vital Signs Vital Sign Reading Time Taken Comments Blood Pressure 136/72 04/13/2024 2:40 PM CDT Pulse 91 04/13/2024 2:40 PM CDT Temperature 36.1 C (97 F) 04/13/2024 2:40 PM CDT Respiratory Rate 18 04/13/2024 2:40 PM CDT Oxygen Saturation 99% 04/13/2024 2:40 PM CDT Inhaled Oxygen Concentration - - Weight 94.5 kg (208 lb 6.4 oz) 04/13/2024 2:40 P M CDT Height 154.9 cm (5' 1) 04/13/2024 2:40 PM CDT Body Mass Index 39.38 04/13/2024 2:40 PM CDT Plan of Treatment Upcoming Encounters Date Type Department Care Team (Late st Contact Info) Description 02/02/2025 9:30 AM CDT Office Visit [facility] - [address] [place] [phone] Mary Perla MD [address] [phone] Health Maintenance Due Date Last Done Comments HEPATITIS B VACCINES (1 of 3 - 19+ 3-dose series) 2004 05/02/2015, 11/28/2014 HPV/Cotest (21-29) 2006 HPV/Cotest (30-65) 2015 HPV VACCINES (2 - 3-dose series) 03/01/2023 02/02/20 23 COVID-19 Vaccine ( - 2023-2 5 season) 2024 05/30/2023, 04/07/2022, 06/12/2021, Additional history exists Preventative Visit- Commercial 06/16/2024 0 02/03/2024, 01/29/2023, 01/29/2022, Additional history exists INFLUENZA VACCINE (#1) 2025 , 05/21/2024, 04/07/2022, Additional history exists Pre-Diabetes and Diabetes Screening 11/06/2026 11/07/2023 CERVICAL CANCER SCREENING 04/22/2027 PAP SMEAR 04/22/2027 04/22/2024 DTAP/TDAP/TD VACCINES (3 - T d or Tdap) 09/03/2034 09/03/2024, 11/22/2019, 02/12/2013 Goals Goal Patient Goal Type Associated Problems Recent Progress Patient-Stated? Author HYPERTENSIO N CARE PLAN GOAL Care Plan ALANNA MYC HYPERTENSION CARE PLAN PROBLEM No Edd Downey RN Procedures Procedure Name Priority Date/Time Associated Diagnosis Comments HEMOGLOBIN A1C Routine 11/07/2023 9:22 AM CDT Screening for diabetes mellitus from Last 3 Months or Most Recently Relevant to Health Maintenance Results * HEMOGLOBIN A1C (11/07/2023 9:22 AM CDT) HEMOGLOBIN A1C 5.3 <5.7 % of total Hgb [facility]ipette[facility]akshmi Rose Comment: For the purpose of screening for the presence of diabetes: <5.7% Consistent with the absence of diabetes 5.7-6.4% Consistent with increased risk for diabetes (prediabetes) > or =6.5% Consistent with diabetes This assay result is consistent with a decreased risk of diabetes. Currently, no consensus exists regarding use of hemoglobin A1c for diagnosis of diabetes in children. According to [place] Diabetes Association (ADA) guidelines, hemoglobin A1c <7.0% represents optimal control in non- diabetic patients. Different metrics may apply to specific patient populations. Standards of Medical Care in Diabetes(ADA). ESTIMATED AVERAGE GLUCOSE (MG/DL) 105 mg/dL PipetteLakshmi Rose ESTIMATED AVERAGE GLUCOSE (MMOL/L) 5.8 mmol/L PipetteLakshmi Rose Comment: This test was performed on the Polly raoul c503 platform. Effective 09/01/23, a change in test platforms from the [employer] Coordinator to the Polly raoul c503 may have shifted HbA1c results compared to historical results. Based on laboratory validation testing conducted at [facility], the Polly platform relative to the Sandoval [...] recommended. FASTING:YES FASTING: YES Test Performed at: [facility] [address] [address] [address] Isabel Simpson Blood 11/07/2023 9:22 AM CDT 11/07/2023 9:24 AM CDT us Kianalia James [employer]MPER CHEMISTRY ORDERABLES Final Re sult [facility] [phone] [place] [address] [address] [address] from Last 3 Months or Most Recently Relevant to Health Maintenance Additional Health Concerns Active Problems Noted Date Diagnosed Date ALANNA MYC HYPERTENSION CARE PLAN PROBLEM 4 Insurance CHOICE [id number] Care Teams Pest Locator Relationship Specialty Start Date End Date Mary Perla MD [address] [place] [phone] PCP - General Internal Medicine 09/25/20
--- OUTSIDE RECORDS SUMMARY | 2025-01-15 23:40 | XMS_ITS | Clinical Summary ---
Author Organization [facility] Address [address] [facility] [place] [address] Care Team Providers Care Hydroelectric Plant Operator Name Role Phone Mary Perla MD Primary Care Provider [phone] Source Comments [facility],non-owned Affiliates and Associated Physician Practices is amultiple site organization consisting of ambulatory clinics and hospital sitesin [place], [place], [place] and [place]. This disclosure is being madepursuant to the Care Everywhere program and may not contain all information available regarding this patient. Last updated 18.[facility] Allergies Active Allergy Reactions Criticality Noted Date [...] naloxone HCl (Narcan) 4 MG/0.1ML nasal spray [place] 1 (one) spray into the nose as [...] daily, labetalol 100 mg BID 09/28 at [facility] - Presently taking nifedipine cr 60mg bid and labetalol was decreased by MFM to 200mg bid. She will record her BP bid, bring log and monitor to appt in 2 weeks. Has a primary provider: Dr Mary Jesus MD at [facility]. Will make an appt for 2 months from now for transfer of care 10/12 - BPs are 110-120/70-80 and doing well. Notes she was on lisinopril 10mg QD prior to being with Dr. Jesus at [facility]. Will drop the labetalol today and maintain on procardia 60mg BID - will then recheck in two weeks. 10/19- 10/19/24- stopped labetalol altogether on 11/12 then had palpitations, restarted 100BID for the past 5 days. Feels better but wants to stop the procardia and back to her lisinopril which she tolerates well. Today we'll stop the procardia and start [id number] QD. Then will consider stopping labetalol in [...] Today we'll stop the procardia and start [id number] QD. Then will consider stopping labetalol in [...] prior to being with Dr. Jesus at [facility]. Will drop the labetalol today and maintain on procardia 60mg BID. She notes lethargy and sx's consistent with beta chadwick intolerance likely related to her dose. We'll stop labetalol today and recheck in one week. Breast mass, right 08/18/2024 Overview (10/12/2024): Awaiting repeat breast ultrasound, ordered 08/12. 09/28-Had US when in hospital by [facility]. Order placed for f/u bilateral mammogram and right breast US. Pt given phone # for [facility] to make an appt for [...] CDT Hospital Encounter [facility] [address], [address] [phone] Aida Campbell MD Discharge Disposition: Home or Self Care 11/16/2024 Travel 11/02/2024 2:13 PM CDT - 11/02/2024 11:59 PM CDT Hospital Encounter [facility] [address], [address] [place] [phone] Aida Campbell MD Discharge Disposition: Home or Self Care 11/02/2024 Travel 10/19/2024 12:34 PM CDT - 10/19/2024 11:59 PM CDT Hospital Encounter [facility] at [address], [address] [place] [phone] Aida Campbell MD Discharge Disposition: Home or Self Care 10/19/2024 Travel 10/15/2024 Orders Only [facility] [address], [address] [place] [phone] Aida Campbell MD 10/15/2024 Results Follow-Up [facility] [address], [address] [phone] Aida Campbell MD 10/15/2024 Telephone [facility] [address], [address] [phone] Rosalva Rogers, RN Blood Pressure from Last [...] and heating? Not hard at all 11/02/2024 [facility] [place] [facility] Occupat ional Health - Occupational Stress [...] things needed for daily living? No 11/02/2024 [place] Depression Scale Answer Date Recorded [place] Depression Scale Total 0 11/16/2024 The thought [...] were you homeless or living in a snf (including now)? 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 us Carola Delacruz MD LAB - CHEMISTRY ORDERABLES [facility] Result Performing Organization Address City/State/[facility] Co de Phone Number [facility] [address] [phone] from Last 3 Months or Most Recently Relevant to Health Maintenance Insurance [facility] * Guarantor: STALIN DE LEON Account Type Relation to Patient Date of Phone Billing Address Personal/Family [address] [place] [address] [facility] * Guarantor: STALIN DE LEON Account Type Relation to Patient Date of Phone Billing Address Personal/Family [address] [place] [address] Advance Directives * Full Code (Latest Code Status on File) Date Activated Date Inactivated Comments 09/17/2024 2:51 PM 09/18/2024 6:24 PM * Full Code Date Activated Date Inactivated Comments 08/25/2024 2:31 PM 09/17/2024 2:51 PM Care Teams Hydroelectric Plant Operator Relationship Specialty Start Date End Date Mary Perla MD [facility] [address] [address] PCP - General Internal Medicine 08/05/24
--- OUTSIDE RECORDS SUMMARY | 2025-01-15 23:40 | XMS_ITS | Encounter Summary ---
Author Organization [facility] Address [address] [place] [address] Care Team Providers Care Salad Chef Name Role Phone Mary Perla MD Primary Care Provider [phone] Reason for Visit * Reason Comments Medication Assistance Medication Assistance Medication Assistance Encounter Details Date Type Department Care Team (Late st Contact Info) Description 12/10/2023 Telephone [facility] Primary [facility] - [facility] [address] [phone] Mary Perla MD [address] [place] [phone] Medication Assistance; Medication Assistance; Medication Assistance [...] - 12/11/2023 10:46 AM CDT Copied from [facility] #[id number]. Topic: Medication Request >> Dec 11, 2023 10:43 AM Genaro Mcgovern wrote: Caller is requesting: Medication - New Request (Not Currently Taking) Medication (Ask patient/caregiver to spell if possible): Nifedipine Preferred Pharmacy: [facility] [address] [place] [address] Patient/Caregiver Callback Number: [phone] Call Notes: Her flat clothier recommended this medication to take the place of Lisinopril * Telephone Encounter - Edd Downey RN - 12/11/2023 9:39 AM CDT Spoke to patient, she stopped taking Lisinopril last night. Found out she was yesterday. BP today while I was on the phone with her was 125/81. * Telephone Encounter - Payal Gardner - 12/10/2023 4:13 PM CDT Copied from [facility] #[id number]. Topic: Medication Request >> Dec 10, 2023 [...] please advise gonzalez * Telephone Encounter - Kendra Payal - 12/10/2023 4:12 PM CDT Copied from [facility] #[id number]. Topic: Medication Request >> Dec 10, 2023 [...] [facility] - [id number] [phone] Mary Perla MD [address] [phone] Scheduled Orders Name Type Priority Associated Diagnoses Orde r Schedule PATIENT SELF MEASURED BLOOD PRESSURE (SMBP) REPORTING THROUGH [facility] Routine Ordered: 024 documented as of this encounter Visit Diagnoses Not on filedocumented in this encounter Care Teams Salad Chef Relationship Specialty Start Date End Date Mary Perla MD [address] [phone] PCP - General Internal Medicine 09/25/20 documented as of this encounter
[2025-01-16 00:28] VITALS: RESP 15; O2SAT 98
[2025-01-16] MEDS: KETOROLAC 30 MG/ML VIAL (*BKC) 15 MG IM (00:34)
[2025-01-16 00:44] LABS: Strep Group A RT-PCR NOT DETECTED (Negative)
[2025-01-16] MEDS: dexAMETHasone 10 MG/10 ML INTENSOL CONC (*BKC) PO (00:54)
[2025-01-16 00:56] LABS: Influenza A QL RT-PCR Negative (Negative); Influenza B QL RT-PCR Negative (Negative); RSV RNA, RT-PCR Negative (Negative); SARS-CoV-2 RNA PCR Negative (Negative)
[2025-01-16] MEDS: ONDANSETRON HCL ODT 4 MG TABLET PO (01:29)
[2025-01-16 01:34] VITALS: BP 113/58; PULSE 84; RESP 18; O2SAT 98
--- NOTE | 2025-01-16 06:20 | ED_ITS ---
HPI - General Adult General Chief complaint: Unspecified Stated complaint: Feels like right side of throat is swollen Time Seen by Provider: 01/15/25 23:21 History of Present Illness HPI narrative: Patient presents here with a sore throat, feels like she there is pain when she swallows. Also having some congestion. Was recently at pediatric hospital for a few days due to her sick daughter Related Data Home Medications ?Medication ?Instructions ?Recorded ?Confirmed ?Last Taken ?Type folic acid 1 mg tablet 1 mg PO HS 01/15/24 01/15/24 Unknown History nifedipine 30 mg tablet,extended 30 mg PO HS 01/15/24 01/15/24 Unknown History release oxcarbazepine 600 mg tablet 900 mg PO BID 01/15/24 01/15/24 Unknown History vit with calcium-iron 1 tablet PO HS 01/15/24 01/15/24 Unknown History fum-folic acid 60 mg-0.8 mg tablet Allergies Allergy/AdvReac Type Severity Reaction Status Date / Time levetiracetam (From [facility]) Allergy Hives Verified 01/15/25 22:55 Penicillins AdvReac Mild Nausea and Verified 01/15/25 22:55 Vomiting Review of Systems Review of Systems: All systems reviewed & are unremarkable except as noted in HPI and below PMFSH Past Medical History Medical History HTN (hypertension) Epilepsy Social History Social History Smoking status: Never smoker Living arrangements: with family Spiritual care concerns: No Exam Narrative: EXAMINATION OF ORGAN SYSTEMS/BODY AREAS: Constitutional: Vital signs per nursing GENERAL:[No acute distress, non-toxic appearing.] HEAD: Normal with no signs of head trauma. EYES: EOMI, conjunctiva normal ENT: Hearing grossly intact, normal voice, normal oropharynx LUNGS: Nonlabored breathing. HEART: [Regular rate and rhythm] ABD: [Soft], [nontender to palpation] EXT: Normal range of motion SKIN: [No rashes or lesions.] NEURO: [Alert and oriented x 3. No gross focal sensory or strength deficits.] PSYCH: Normal affect Course Vital Signs Vital signs: Vital Signs Temperature 98.4 F 01/15/25 23:16 Pulse Rate 89 01/15/25 23:16 Respiratory Rate 14 01/15/25 23:16 Blood Pressure 139/75 01/15/25 23:16 Pulse Oximetry 98 01/15/25 23:16 Oxygen Delivery Room Air 01/15/25 23:16 Temperature 98.4 F 01/15/25 23:16 Pulse Rate 84 01/16/25 01:34 Respiratory Rate 18 01/16/25 01:34 Blood Pressure 113/58 L 01/16/25 01:34 Pulse Oximetry 98 01/16/25 01:34 Oxygen Delivery Room Air 01/15/25 23:16 Medical Decision Making MDM Narrative Medical decision making narrative: Patient presenting here with sore throat, she is very well-appearing, normal voice, no tonsillar exudates or swelling, swabs are negative here, given Toradol and dexamethasone with immediate improvement in her symptoms and she feels much better, return precautions discussed with follow-up to PCP. Vital Signs Vital Signs: Vital Signs Temperature 98.4 F 01/15/25 23:16 Pulse Rate 89 01/15/25 23:16 Respiratory Rate 14 01/15/25 23:16 Blood Pressure 139/75 01/15/25 23:16 Pulse Oximetry 98 01/15/25 23:16 Oxygen Delivery Room Air 01/15/25 23:16 Temperature 98.4 F 01/15/25 23:16 Pulse Rate 84 01/16/25 01:34 Respiratory Rate 18 01/16/25 01:34 Blood Pressure 113/58 L 01/16/25 01:34 Pulse Oximetry 98 01/16/25 01:34 Oxygen Delivery Room Air 01/15/25 23:16 Lab Data Labs: Lab Results 01/16/25 01/16/25 Range/Units 00:14 00:15 Influenza A (RT-PCR) Negative (Negative) Influenza B (RT-PCR) Negative (Negative) RSV (RT-PCR) Negative (Negative) SARS-CoV-2 RNA (RT-PCR) Negative (Negative) Group A Strep (PCR) Not detected (Negative) Discharge Plan Discharge Clinical Impression: Acute sore throat Patient Disposition: Home Condition: Stable Instructions: Pharyngitis (ED) Additional Instructions: Your flu, COVID, RSV, and strep swabs were negative today. Please try the med ications as prescribed, and follow up with your doctor. You can always return to the emergency room if you feel worse. Patient Language: Icelandic Prescriptions: New ibuprofen 600 mg tablet 600 mg PO TID PRN (Reason: fever or pain) Qty: 30 0RF ondansetron 4 mg tablet,disintegrating 4 mg PO Q8H PRN (Reason: nausea and vomiting) Qty: 20 0RF No Action cephalexin 500 mg capsule 500 mg PO Q6H 7 Days Qty: 28 0RF ondansetron 4 mg tablet,disintegrating 4 mg PO Q8H PRN (Reason: nausea and vomiting) Qty: 20 0RF nifedipine 30 mg tablet extended release 30 mg PO HS oxcarbazepine 600 mg tablet 900 mg PO BID folic acid 1 mg tablet 1 mg PO HS 60-0.8 mg Tablet 1 tablet PO HS Follow-up/Referrals: UNKNOWN,DOCTOR [Primary Care Provider] -
== END 2025-01-16 01:40 | disposition home or self-care (01) ==
PROVIDERS: Emergency Provider Emergency Medicine
DX: J02.9 Acute pharyngitis, unspecified (principal); Z20.822 Contact with and (suspected) exposure to COVID-19; I10 Essential (primary) hypertension; G40.909 Epilepsy, unspecified, not intractable, without status epilepticus; Z79.899 Other long term (current) drug therapy
CPT/HCPCS: 87637; 87651; 96372; 99283; A9270; J1885; J8540

== ENCOUNTER 2025-05-17 10:14 | Emergency (ER) | payer OTHER, SELFPAY ==
[2025-05-17] VITALS (17 sets, daily range): BP systolic 114–135; BP diastolic 59–83; PULSE 54–82; RESP 13–20; TEMP 36.4; O2SAT 97–100
--- NOTE | ~2025-05-17 | CT_ITS ---
CT abdomen pelvis w con Clinical History: BRBPR, n/v and abd pain . Comparison: None Technique: Axial images lung bases to symphysis pubis IV contrast information not listed in PACS Coronal, sagittal reformats CT images acquired with automatic exposure control for dose reduction DLP: 723 mGy-cm Findings: Lung bases: Clear. Visualized heart and pericardium: Unremarkable. Liver: Steatosis. Gallbladder: Unremarkable. Spleen: Unremarkable. Pancreas: Unremarkable. Adrenal glands: Unremarkable. Kidneys: Right kidney- No hydronephrosis. No renal stones. Left kidney- No hydronephrosis. No renal stones. Distal esophagus/stomach: Apparent gastric antral wall thickening likely merely under distention. Small bowel loops: Normal caliber and wall thickness. Colon: Long segment wall thickening. Normal RLQ appendix. Nodes: No enlarged nodes. Peritoneum: No ascites. No free air. Urinary bladder: Unremarkable. Uterus: Unremarkable. Adnexa: No masses. Bones: No acute bony abnormality. Soft tissues: Unremarkable. Aorta: No aneurysm or dissection. IVC: Unremarkable. Main portal vein/SMV/splenic vein: Patent. IMPRESSION: 1. Long segment colitis, likely infectious or inflammatory. Reviewed, dictated and finalized at location [facility]. 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
[2025-05-17 10:53] LABS: Hematocrit 44.0 % (37.0-47.0); Hemoglobin 15.1 g/dL (12.0-15.0); Immature Granulocyte Percent A 0.1 % (0-0.5); Lymphocytes Absolute Auto 0.94 K/mm3 (0.9-3.2); Mean Corpuscular HGB Conc 34.3 g/dl (32-36); Mean Corpuscular Hemoglobin 29.5 pg (26-34); Mean Corpuscular Volume 85.9 fl (80-100); Nucleated Red Blood Cells Absolute Auto 0.000 K/mm3 (0.0-0.012); Nucleated Red Blood Cells Perc 0.0 % (0.0-0.2); Platelet Count Result 222 k/mm3 (150-375); Red Blood Count 5.12 M/mm3 (4.2-5.4); White Blood Count 7.7 K/mm3 (4.5-10.0)
--- OUTSIDE RECORDS SUMMARY | 2025-05-17 11:02 | XMS_ITS | Clinical Summary ---
Author Organization [facility] Address [address] [place] [address] Care Team Providers Care Medical Doctor Md/Medical Director Name Role Phone Mary Perla MD Primary Care Provider [phone] Allergies Active Allergy Reactions Criticality Noted Date Comments Levetiracetam Unknown 12/11/2023 Medications fluticasone propionate (FLONASE) 50 mcg/actuation nasal spray 9 Active cetirizine (ZyrTEC) 10 mg tablet Take 1 tablet (10 mg total) by mouth daily Active Vitamin Plus Low Iron 27 mg iron- 1 mg tablet Take 1 tablet by mouth daily 2 Active NIFEdipine CC 30 mg 24 hr tablet Take 1 tablet (30 mg total) by mouth daily 4 Active folic acid (FOLVITE) 1 mg tabletIndications:P artial epilepsy with impairment of consciousness, intractable (HCC), of unknown anatomic location Take 1 tablet (1 mg total) by mouth daily 30 tablet 11 4 Active lisinopriL (PRINIVIL,ZESTRIL) 10 mg tablet Take 1 tablet (10 mg total) by mouth daily 5 Active magnesium oxide (MAG-OX) 400 mg (241.3 mg elemental magnesium) tablet Take 1 tablet (400 mg total) by mouth daily as needed 5 Active 115/iron/folic acid ( 19 ORAL) A ctive OXcarbazepine (TRILEPTAL) 600 mg tabletIndications:P artial epilepsy with impairment of consciousness, intractable (HCC) Take 1.5 tablets (900 mg total) by mouth 2 (two) times a day 270 tablet 3 5 03/16/20 26 Active clonazePAM (KlonoPIN) 0.25 mg disintegrating tabletIndications:P artial epilepsy with impairment of consciousness, intractable (HCC) Take 1 tablet (0.25 mg total) by mouth daily as needed for seizures 5 tablet 2 5 Active Active Problems Problem Noted Date [...] 07/01/2017 09/27/2020 Mass of breast 08/14/2016 09/27/2020 Encounters Date Type Department Care Team Description 03/16/2025 3:00 PM CDT Office Visit [facility] Medicine Epilepsy [address] [facility] 6th [place] [address] [place] [address] Richard Espinoza III, MD Partial epilepsy with impairment of consciousness, intractable (HCC) (Primary Dx) from Last 3 Months Immunizations Immunization Administration Dates Next Due Hep A, Adult [...] more drinks on one occasion? Never 01/05/2024 [place] Depression Scale Answer Date Recorded [place] Depression Scale Total 10 01/05/2024 The thought of harming myself has occurred to me . 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 Not on file [...] Sign Reading Time Taken Comments Blood Pressure 125/80 03/16/2025 3:06 PM CDT Pulse 84 02/12/2024 2:47 PM CDT Temperature - - Respiratory Rate - - Oxygen Saturation 97% 07/01/2017 1:08 PM HITCHER Inhaled Oxygen Concentration - - Weight 93.4 kg (206 lb) 03/16/2025 3:06 PM CDT Height 154.9 cm (5' 1) 03/16/2025 3:06 PM CDT Body Mass Index 38.92 03/16/2025 3:06 PM CDT Plan of Treatment Health Maintenance Due Date Last Done Comments Hepatitis C Screening 1985 Varicella Vaccines (1 of 2 - 13+ 2-dose series) 1998 HPV Vaccines (1 - 3-dose SCDM series) 2012 Cervical Cancer Screening 12/18/2017 12/18/2016 Regular Well Visit/Exam 18-64 09/27/2021 09/27/2020, 07/27/2019 Depression Screening 01/04/2025 01/05/2024 Covid-19 Vaccine ( season) 2025 06/13/2021, 08/17/2020, 07/19/2020 Influenza Vaccine (#1) 2025 , 04/07/2022, 06/13/2021, Additional history exists DTaP/Tdap/Td Vaccine (3 - Td or Tdap) 09/03/2034 09/03/2024, 11/22/2019, 02/12/2013 Hepatitis B Screening Completed 05/02/2015, 015 Pneumococcal vaccine <65 Aged Out No longer eligible based on patient's age to complete this topic Procedures Procedure Name Priority Date/Time Associated Diagnosis Comments PAP SMEAR WITH HPV Routine 12/18/2016 from Last 3 Months or Most Recently Relevant to Health Maintenance Results * PAP SMEAR WITH HPV (12/18/2016) Pap smear Normal [facility] Provider HEALTH MAINTENANCE Final Result from Last 3 Months or Most Recently Relevant to Health Maintenance Insurance [employer] H[employer] [facility] H[facility]/PPO Address: [address] [facility] HMO/PPO Address: [address] [place] [id number] Care Teams Medical Doctor Md/Medical Director Relationship Specialty Start Date End Date Mary Perla MD [address] [facility] [address] [place] [address] PCP - General Internal Medicine 04/18/21
--- OUTSIDE RECORDS SUMMARY | 2025-05-17 11:02 | XMS_ITS | Clinical Summary ---
Author Organization [facility] [address] Address [address] [place] [address] Care Team Providers Care Brick Layer Name Role Phone Mary Perla MD Primary Care Provider Allergies Active Allergy Reactions Criticality Noted Date Comments Levetiracetam Unknown 12/11/2023 Medications cetirizine (ZyrTEC) 10 mg tablet Take 10 mg by mouth daily. prn Active fluticasone propionate (FLONASE) 50 mcg/spray [place], Suspension nasal inhaler Administer 2 Sprays in each nostril daily. prn Active OXcarbazepine (TRILEPTAL) 600 mg tablet TAKE 1 & 1 2 (ONE & ONE HALF) TABLETS BY MOUTH TWICE DAILY 1 Active PNV,calcium 93-hfua-[id number] acid ( Vitamin Plus Low Iron) 27 mg iron- 1 mg Tablet Take 1 Tablet by mouth daily. 2 Active folic acid (FOLVITE) 1 mg tablet Take 1 mg by mouth daily. Active lisinopriL (PRINIVIL) 10 mg tablet Take 1 Tablet (10 mg) by mouth daily. 100 Tablet 3 5 Active Active Problems Problem Noted Date Diagnosed Date Missed 02/02/2025 At risk for depression 11/02/2024 Overview (02/02/2025): 11/02/24 - EPDS 18 today. Long discussion of options at this point. She has no SI/HI nor has ever had this in the past. No history of counseling or meds. We discussed options today and counseling resources given for [place]. Gross hematuria 10/12/2024 Overview (02/02/2025): Noted hematuria every morning that subsides through out the day - depends on hydration and sometimes is darker at times. Has been told in the past that she has crystals in her urine History of classical section 10/12/2024 Overview (02/02/2025): with classical 09/2024 for severe pre-e at 30 weeks. Fetus with AEDF and FGR. Repeat c/s indicated in any future deliveries. Benign essential HTN, chronic, antepartum 2024 Overview (02/02/2025): Nifedipine 60 mg daily, labetalol 100 [facility]ID [facility] - Presently taking nifedipine cr 60mg bid and labetalol was decreased by MFM to 200mg bid. She will record her BP bid, bring log and monitor to appt in 2 weeks. Has a primary provider: Dr Mary Jesus MD at [facility]. Will make an appt for 2 months from now for transfer of care 10/12 - BPs are 110-120/70-80 and doing well. Notes she was on lisinopril 10mg QD prior to being with Dr. Jesus at [facility]. Will drop the labetalol today and maintain on procardia 60mg BID - will then recheck in two weeks. 10/19- 10/19/24- stopped labetalol altogether on 11/12 then had palpitations, restarted 100BID for the past 5 days. Feels better but wants to stop the procardia and back to her lisinopril which she tolerates well. Today we'll stop the procardia and start [id number] QD. Then will consider stopping labetalol in [...] stop altogether next visit in two weeks. Breast mass, right 08/18/2024 Overview (02/02/2025): Awaiting repeat breast ultrasound, ordered 08/12. 09/28-Had US when in hospital by [facility]. Order placed for f/u bilateral mammogram and right breast US. Pt given phone # for [facility] to make an appt for radiology studies. Cystic fibrosis carrier 08/18/2024 Overview (02/02/2025): Awaiting partner screening results. 05/18/2024 Skin eruption 04/13/2024 of unknown anatomic location [...] Encounters Date Type Department Care Team Description 04/12/2025 Chart Note [facility] [address] [place] [address] Leatha Garcia, ANP 04/05/2025 External Device Data [facility] Provider, Abstract from Last 3 Months Immunizations Immunization Administration Dates Next Due (ADACEL/BOOSTRIX)(10 YR UP) TDAP VACCINE, 0.5ML, IM 09/03/2024,11/22/2019 (BEXSERO)(10-25 YR) MENINGOC OCCAL RECOMBIANT PROTEIN AND [...] QUADRIVALE NT 6 MOS UP PF IM 04/07/2022,06/13/2021,04/17/2020,03/03,01/28/2018,03/26/2017,01/31/2016 Influenza Seasonal Unspecifi ed Formulation IM 03/26/2017 Influenza Seasonal Unspecifi ed Formulation PF IM 05/21/2024 Influenza Vaccine High Dose 65+ Yrs IM 7 Influenza Vaccine Tri Split 4+ Im 04/17/2020 Meningococcal Polysaccharide Vaccine SQ 04/16/2017,02/14/2016 Meningococcal Polysaccharide Vaccine, Serogroups A, C, Y, W-135, quadrivalent (Mpsv4) SQ 02/07/2016 Td(adult) Unspecified Formulation 02/12/2013 Tetanus Toxoid, Adsorbed 02/12/2013 Family History Medical [...] Grandfather Wilfrid Sr Other Paternal Grandmother Yoselin Judi Relation Name Status Comments Brother Alive Father [...] Sign Reading Time Taken Comments Blood Pressure 118/70 02/02/2025 9:40 AM CDT Pulse 84 02/02/2025 9:40 AM CDT Temperature 36.7 C (98 F) 02/02/2025 9:40 AM CDT Respiratory Rate 16 02/02/2025 9:40 AM CDT Oxygen Saturation 98% 02/02/2025 9:40 AM CDT Inhaled Oxygen Concentration - - Weight 92.5 kg (204 lb) 02/02/2025 9:40 AM CDT Height 154.9 cm (5' 1) 02/02/2025 9:40 AM CDT Body Mass Index 38.55 02/02/2025 9:40 AM CDT Plan of Treatment Upcoming Encounters Date Type Department Care Team (Late st Contact Info) Description 02/08/2026 9:30 AM CDT Office Visit [facility] Primary Care - [address] [place] [phone] Mary Perla MD [address] [place] [phone] Health Maintenance Due Date Last Done Comments HEPATITIS B VACCINES (1 of 3 - 19+ 3-dose series) 2004 05/02/2015, 11/28/2014 HPV/Cotest (21-29) 2006 HPV/Cotest (30-65) 2015 HPV VACCINES (2 - 3-dose SCD M series) 03/01/2023 02/01/2023 INFLUENZA VACCINE (#1) 2025 , 05/21/2024, 04/07/2022, Additional history exists COVID-19 Vaccine ( - 2024-2 6 season) 2025 05/30/2023, 04/07/2022, 06/12/2021, Additional history exists Pre-Diabetes and Diabetes Screening 11/06/2026 11/07/2023 CERVICAL CANCER SCREENING 04/22/2027 PAP SMEAR 04/22/2027 04/22/2024 DTAP/TDAP/TD VACCINES (3 - T d or Tdap) 09/03/2034 09/03/2024, 11/22/2019, 02/12/2013 Preventative Visit- Commercial Completed 0 02/02/2025, 02/03/2024, 01/29/2023, Additional history exists Procedures Procedure Name Priority Date/Time Associated Diagnosis Comments HEMOGLOBIN A1C Routine 11/07/2023 9:22 AM CDT Screening for diabetes mellitus from Last 3 Months or Most Recently Relevant to Health Maintenance Results * HEMOGLOBIN A1C (11/07/2023 9:22 AM CDT) HEMOGLOBIN A1C 5.3 <5.7 % of total Hgb [facility] Comment: For the purpose of screening for the presence of diabetes: <5.7% Consistent with the absence of diabetes 5.7-6.4% Consistent with increased risk for diabetes (prediabetes) > or =6.5% Consistent with diabetes This assay result is consistent with a decreased risk of diabetes. Currently, no consensus exists regarding use of hemoglobin A1c for diagnosis of diabetes in children. According to [place] Diabetes Association (ADA) guidelines, hemoglobin A1c <7.0% represents optimal control in non- diabetic patients. Different metrics may apply to specific patient populations. Standards of Medical Care in Diabetes(ADA). ESTIMATED AVERAGE GLUCOSE (MG/DL) 105 mg/dL [place] [facility] ESTIMATED AVERAGE GLUCOSE (MMOL/L) 5.8 mmol/L [facility] Comment: This test was performed on the Polly raoul c503 platform. Effective 09/01/23, a change in test platforms from the [employer] to the Polly raoul c503 may have shifted HbA1c results compared to historical results. Based on laboratory validation testing conducted at [facility], the Polly platform relative to the Sandoval [...] recommended. FASTING:YES FASTING: YES Test Performed at: [facility] [place] [address] [address] [place] [phone] Isabel Simpson Blood 11/07/2023 9:22 AM CDT 11/07/2023 9:24 AM CDT us Shayy James HAND COOPER HELPER CHEMISTRY ORDERABLES Final Re sult [facility] [phone] [facility] [place] [address] [address] [place] [phone] from Last 3 Months or Most Recently Relevant to Health Maintenance Insurance Care Teams Brick Layer Relationship Specialty Start Date End Date Mary Perla MD [address] [place] [id number] PCP - General Internal Medicine 09/25/20
--- OUTSIDE RECORDS SUMMARY | 2025-05-17 11:02 | XMS_ITS | Encounter Summary ---
Author Organization [facility] Address [address] [place] [address] Phone Care Team Providers Care Sound Technician Name Role Phone Wil Downey MD Primary Care Provider [phone] Mary Perla MD Primary Care Provider [phone] Encounter Details Date Type Department Care Team (Latest Contact Info) Description 07/01/2017 Orders Only [facility] CONVERSION Scanning, Provider Social History Tobacco Use Types Packs/Day Years Used Date Smoking Tobacco: Never Comments Unknown Sex and Gender Information Value Date Recorded Sex Assigned at Not on file 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 Gender Identity Not on file Sexual Orientation Not on file documented as of this encounter Functional Status documented as of this encounter Plan of Treatment Not on file documented as of this encounter Procedures Procedure Name Priority Date/Time Associated Diagnosis Comments OBSTETRIC/GYNECOLOGY ULTRASONOGRAPHY REPORT 07/01/2017 2:20 PM FIELD INSTRUCTOR documented in this encounter Results * OBSTETRIC/GYNECOLOGY ULTRASONOGRAPHY REPORT (07/01/2017 2:20 PM FIELD INSTRUCTOR) Anatomical Region Laterality Modality Ultrasound us Provider Scanning IMG OB US PROCEDURES Final Res ult documented in this encounter Visit Diagnoses Not on filedocumented in this encounter Care Teams Sound Technician Relationship Specialty Start Date End Date Wil Downey MD PCP - General 12/12/16 04/17/21 Mary Perla MD [address] [facility] [address] [place] [address] PCP - General Internal Medicine 04/18/21 documented as of this encounter
--- OUTSIDE RECORDS SUMMARY | 2025-05-17 11:02 | XMS_ITS | Data Portability ---
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 Discussed plan. Not available 07/16/2024 16:28:26 08/04/2024 08/04/2024 Patient is ___weeks . Discussed plan. Not available 08/04/2024 17:56:47 Plan of Treatment Reminders Order Date Submit Date Provider Last Modified By Organization Details Last Modified Time Details Appointments None recorded. Lab None recorded. Referral None recorded. Procedures None recorded. Surgeries None recorded. Imaging US, obstetric, follow-up 2024 [email or web address], [address], [place], [address], 19:11:46 US, doppler, umbilical artery velocimetry 2024 025 [email or web address] [place], [address], [place], [address], 19:11:46 US, obstetric, limited 2024 025 [email or web address] [place], [address], [place], [address], 22:34:30 US, obstetric, 2nd or 3rd trimester 2024 025 [email or web address] [place], [address], [address], [place], [address], 22:38:13 Medication Orders Macrobid 100 mg capsule 2024 025 [facility] [place], [address], 18:20:05 Patient TargetsNo targets recorded. Patient InstructionsNo instructions recorded. Reason for Referral None Reported. Results Created Date Observation Date Name Description Value Unit Range Abnormal Flag Note LastModifiedBy Organization Detail LastModifiedTime 06/18/1906/18/2024 CULTU RE: URINE result report SEE RESULT S BELOW Test: Cultu re: Urine Speci men Sourc e: Urine - Clean Catch Speci men Type: Urine Speci men Date: 1608 Resul t Date: 2211 Resul t Statu s: Final resul t Abnor mal: No Resul ting Lab: [facility] [address] [facility] [address] Tel: CULTU RE ----- ----- ----- --- No growt h in 1 day (dete ction level of 10,00 0 colon ies / ml.) Not Available [facility] (Lab) [address] [facility], [place], [address], 06/19/2024 23:16:42 06/18/19 25 06/18/2024 urina lysis , dipst ick Leukocytes + Not Available Tamie pal [address], [place], [address], 06/18/2024 17:00:54 06/18/19 25 06/18/2024 urina lysis , dipst ick Urobilinogen + Not Available Rubi nicolas [address], [place], [address], 06/18/2024 17:00:54 06/18/19 25 06/18/2024 urina lysis , dipst ick Protein ++ Not Available [place] [address], [place], [address], 06/18/2024 17:00:54 06/18/19 25 06/18/2024 urina lysis , dipst ick pH 5 Not Available [place] [address], [place], [address], 06/18/2024 17:00:54 06/18/19 25 06/18/2024 urina lysis , dipst ick Blood +++ Not Available [place] [address], [place], [address], 06/18/2024 17:00:54 06/18/19 25 06/18/2024 urina lysis , dipst ick Specific [place] 1.025 Not Available [facility] [address], [place], [address], 06/18/2024 17:00:54 06/18/1906/18/2024 urina lysis , dipst ick Ketone + Not Available [place] [address], [place], [address], 06/18/2024 17:00:54 07/06/1907/06/2024 CULTU RE: URINE result report SEE RESULT S BELOW Test: Cultu re: Urine Speci men Sourc e: Urine - Clean Catch Speci men Type: Urine Speci men Date: 2024 1609 Resul t Date: 20243 Resul t Statu s: Final resul t Abnor mal: No Resul ting Lab: [facility] [address] [facility] [address] Tel: CULTU RE ----- ----- ----- --- No growt h in 1 day (dete ction level of 10,00 0 colon ies / ml.) Not Available [facility] (Lab) [address], [place], [address], 07/07/2024 22:57:05 08/04/19 25 08/04/2024 URINA LYSIS , WITH MICRO SCOPI C color, urine [place] abnormal Highl y color ed speci mens may inter fere with chemi stry resul ts. Not Available [facility] (Lab) [address], [place], [address], 08/08/2024 23:55:28 08/04/19 25 08/04/2024 URINA LYSIS , WITH MICRO SCOPI C appearance, urine Turbid abnormal Not Available [facility] (Lab) [address] [facility], [place], [address], 08/08/2024 23:55:28 08/04/19 25 08/04/2024 URINA LYSIS , WITH MICRO SCOPI C specific gravity, urine 1.041 . 1.005- 1.030 high Not Available [facility] (Lab) [address] [place], [address], 08/08/2024 23:55:28 08/04/19 25 08/04/2024 URINA LYSIS , WITH MICRO SCOPI C pH, urine 6.0 . 5.0-7. 0 Not Available [facility] (Lab) [address] [place], [address], 08/08/2024 23:55:28 08/04/19 25 08/04/2024 URINA LYSIS , WITH MICRO SCOPI C protein, UA 50 mg/dL negati ve, 10 , 20 abnormal Not Available [facility] (Lab) [address] [place], [address], 08/08/2024 23:55:28 08/04/19 25 08/04/2024 URINA LYSIS , WITH MICRO SCOPI C glucose, urine Normal mg/dL normal Not Available [facility] (Lab) [address] [facility], [place], [address], 08/08/2024 23:55:28 08/04/19 25 08/04/2024 URINA LYSIS , WITH MICRO SCOPI C ketones, urine Negati ve mg/dL negati ve Not Available [facility] (Lab) [address] [facility], [place], [address], 08/08/2024 23:55:28 08/04/19 25 08/04/2024 URINA LYSIS , WITH MICRO SCOPI C bilirubin, urine Negati ve negati ve Not Available [facility] (Lab) [address] [facility], [place], [address], 08/08/2024 23:55:28 08/04/19 25 08/04/2024 URINA LYSIS , WITH MICRO SCOPI C blood, urine Negati ve negati ve Not Available [facility] (Lab) [address] [facility], [place], [address], 08/08/2024 23:55:28 08/04/19 25 08/04/2024 URINA LYSIS , WITH MICRO SCOPI C nitrite, urine Negati ve negati ve Not Available [facility] (Lab) [address] [facility], [place], [address], 08/08/2024 23:55:28 08/04/19 25 08/04/2024 URINA LYSIS , WITH MICRO SCOPI C leukocyte esterase, urine Negati ve ezekiel/u L negati ve Not Available [facility] (Lab) [address] [facility], [place], [address], 08/08/2024 23:55:28 08/04/19 25 08/04/2024 URINA LYSIS , WITH MICRO SCOPI C urobilinogen , urine 2.0 mg/dL normal abnormal Not Available [facility] (Lab) [address] [place], [address], 08/08/2024 23:55:28 08/04/19 25 08/04/2024 URINA LYSIS , WITH MICRO SCOPI C RBC, urine 0-2 /hpf 0-2 Not Available [facility] (Lab) [address] [facility], [place], [address], 08/08/2024 23:55:28 08/04/19 25 08/04/2024 URINA LYSIS , WITH MICRO SCOPI C WBC, urine 0-5 /hpf 0-5 Not Available [facility] (Lab) [address] [facility], [place], [address], 08/08/2024 23:55:28 08/04/19 25 08/04/2024 URINA LYSIS , WITH MICRO SCOPI C bacteria, urine None /hpf Not Available [facility] (Lab) [address] [facility], [place], [address], 08/08/2024 23:55:28 08/04/19 25 08/04/2024 URINA LYSIS , WITH MICRO SCOPI C squamous epithelial cells, urine 0-5 /hpf Not Available [facility] (Lab) [address] [facility], [place], [address], 08/08/2024 23:55:28 08/04/19 25 08/04/2024 URINA LYSIS , WITH MICRO SCOPI C calcium oxalate crystal, urine Presen t /hpf none abnormal Not Available [facility] (Lab) [address] [facility], [place], [address], 08/08/2024 23:55:28 08/04/19 25 08/04/2024 CULTU RE: URINE result report SEE RESULT S BELOW Test: Cultu re: Urine Speci men Sourc e: Urine - Clean Catch Speci men Type: Urine Speci men Date: 2024 1714 Resul t Date: 2024 Resul t Statu s: Final resul t Abnor mal: No Resul ting Lab: [facility] [address] [facility] [address] Tel: CULTU RE ----- ----- ----- --- No growt h in 1 day (dete ction level of 10,00 0 colon ies / ml.) Not Available [facility] (Lab) [address], [place], [address], 08/08/2024 23:55:29 07/16/19 25 07/16/2024 US, obste tric, 2nd or 3rd trime ster No observ ation record ed. sanna [place] [address], [place], [address], 07/16/2024 17:38:39 07/16/19 25 07/16/2024 US, obste tric, follo w-up No observ ation record ed. [email or web address] [address], [place], [address], 07/27/2024 23:04:42 07/29/19 25 07/29/2024 US, obste tric, limit ed No observ ation record ed. [email or web address] [place] [address], [place], [address], 07/29/2024 17:00:58 07/29/19 25 07/29/2024 US, obste tric, follo w-up No observ ation record ed. [email or web address] [address], [place], [address], 08/02/2024 10:02:44 08/04/19 25 08/04/2024 US, obste tric, follo w-up No observ ation record ed. [email or web address] [place] [address], [place], [address], 08/04/2024 18:17:05 08/04/19 25 08/04/2024 US, doppl er, umbil ical arter y veloc imetr y No observ ation record ed. [email or web address] [place] [address], [place], [address], 08/04/2024 18:17:14 08/04/19 25 08/04/2024 US, obste tric, follo w-up No observ ation record ed. T[address], [place], [address], 08/10/2024 23:06:13 08/05/19 25 08/05/2024 US, obste tric, follo w-up No observ ation record ed. [email or web address] [address] , [place], [address], 08/05/2024 23:14:29 08/06/19 25 08/05/2024 US, obste tric, follo w-up No observ ation record ed. [facility] [address], [place], [address], 08/09/2024 22:45:38 08/06/19 25 08/05/2024 US, obste tric, follo w-up No observ ation record ed. [email or web address] [facility] [address] [address], [place], [address], 08/15/2024 22:00:44 08/11/19 25 08/11/2024 US, obste tric, follo w-up No observ ation record ed. [email or web address] [facility] [address] , [place], [address], 08/16/2024 22:21:41 08/19/19 25 08/18/2024 US, obste tric, follo w-up No observ ation record ed. [email or web address] [facility] [address], [place], [address], 08/23/2024 23:06:39 08/20/19 25 08/18/2024 US, obste tric, follo w-up No observ ation record ed. [email or web address] [facility] [address] [facility] [address], [place], [address], 08/26/2024 13:24:24 08/26/19 25 08/25/2024 US, obste tric, follo w-up No observ ation record ed. [email or web address] [address] [facility], [place], [address], 08/25/2024 23:58:33 08/28/19 25 08/25/2024 US, obste tric, follo w-up No observ ation record ed. [facility] [place] [address] [facility], [place], [address], 08/31/2024 17:44:44 09/03/19 25 09/01/2024 US, obste tric, follo w-up No observ ation record ed. [email or web address] [facility] [address] [facility] [address], [place], [address], 09/03/2024 14:03:36 09/09/19 25 08/25/2024 US, obste tric, follo w-up No observ ation record ed. [email or web address] [facility] [address] [facility], [place], [address], 09/09/2024 10:39:26 09/09/19 25 08/25/2024 US, obste tric, follo w-up No observ ation record ed. [email or web address] [facility] [address] [facility], [place], [address], 09/09/2024 10:39:39 Result Notes None recorded. Problems Name Problem SNOMED Code Status Onset Date Resolution Date Notes Provider Name and Address Organization Details Recorded Time Seizure disorder 638295626 Active oxcarbeza pine 900 bid Dario Mullen MD [address], [place], [address], [facility] 4 17:16:32 Hypertens shalonda disorder 27331497 Active Chronic HTN - procardia xl 60mg qd Dario Mullen MD [address], [place], [address], [facility] 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 4 12:09:21 Carrier of cystic fibrosis gene mutation 006780799 Active baby low risk Elizabeth Aly sujey, [facility] 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 5 16:44:29 Finding of growth 247081352 Active 10th %tile - repeat US in 3 weeks., 4th pecentile on 08/04/24 Referral faxed [facility] 08/04 Scheduled [facility] 08/05 Level II us & 08/11 US and consult [facility] Elizabeth Jermain rm, [facility] 5 15:17:43 bowel echogenic ity on obstetric ultrasoun d scan 596945095 Active Dario Mullen MD [address], [place], [address], [facility] 5 18:30:16 growth restricti on 35645539 Active Dario Mullen MD [address], [place], [address], [facility] 5 18:30:54 42342902 Active 2023 Maria Elena Parada sujey [facility] 4 16:44:58 Problem Notes None recorded. Procedures Surgical History Date Name Laterality Status Provider Name and Address Organization Details Recorded Time 4 Date of Last Pap Smear completed Maria Elena Woodwarder [facility] 04/22/2024 14:59:47 4 DILATION & CURETTAGE (SURG) completed Aspen Burns [facility] 01/16/2024 10:26:21 8 Breast Surgery completed Maria Elena Woodwarder [facility] 01/15/2024 10:34:11 Imaging Results None recorded. Procedure Notes None recorded. Medical Equipment None Reported. Allergies Allergen ID Allergen Name Allergen Category Reaction Reaction Severity Criticality Documentation Date Start Date Code Code System Note Provider Name and Address Organization Details Recorded Time 14058 Keppra medicatio n rash moderate Not available 01/15/2024 12116 7 RxNorm Maria Elena Parada sujey [facility] 4 10:28:54 Medications Name Sig Start Date Stop Date Status Note LastModified by Organization Details LastModified Time dicloxacill in 500 mg capsule TAKE 1 CAPSULE BY MOUTH 4 TIMES DAILY FOR 5 DAYS 01/14 completed Not Available Not Available Not Available labetalol 200 mg tablet Take 1 tablet twice a day by oral route. active Not Available Not Available No t Available fluconazole 150 mg tablet Take 1 tablet every 72 hours by oral route as directed. 06/18 completed Not Available Not Available Not Available nifedipine ER 30 mg tablet,exte nded release TAKE 1 TABLET BY MOUTH ONCE DAILY 06/18 completed Not Available Not Available Not Available aspirin 81 mg tablet,maxwell yed release TAKE 2 TABLETS BY MOUTH ONCE DAILY active Not Available Not Available No t Available nifedipine ER 60 mg tablet,exte nded release 24 hr TAKE 1 TABLET BY MOUTH ONCE DAILY active Not Available Not Available No t Available Nifedipine ER 30 mg tablet,exte nded release 01/14 completed Not Available Not Available Not Available cephalexin 500 mg capsule 06/18 completed Not Available Not Available Not Available [...] completed Not Available Not Available Not Available albuterol sulfate HFA 90 mcg/actuati on aerosol inhaler active Not Available Not Available Not Available ondansetron 4 mg disintegrat ing tablet take 1 tablet every 8 hours as needed active Not Available Not Available No t Available fluticasone propionate 50 mcg/actuati on nasal [...] completed Not Available Not Available Not Available nitrofurant oin monohydrate /macrocryst als 100 mg capsule Take 1 capsule every 12 hours by oral route. active Not Available Not Available No t Available Flonase 01/14 completed Not Available Not Available Not Available active Not Available Not Avai lable Not Available Vitals Date Recorded Body weight Systolic And Diastolic Provider Name and Address Organization Details Last Updated DateTime 07/16/2024 10310.18849 g 127/81 mm[Hg] Maria Elena Parada [place] - [facility] 07/16/2024 16:30:10 Date Recorded Body weight Systolic And Diastolic Provider Name and Address Organization Details Last Updated DateTime 08/04/2024 24609.60610 g 136/83 mm[Hg] Maria Elena Parada [facility] 08/04/2024 17:59:34 Social History Question Answer Notes LastModified by Organizat ion Details LastModified Time How Many Years Have You Consumed Alcohol? 15 Information not available 01/15/2024 Are You Blind Or Do You Have Difficulty Seeing? No Information not available 01/15/2024 What Is Your Level Of Caffeine Consumption? Moderate Information not available 01/15/2024 How Much Tobacco Do You Chew? None Information not available 01/15/2024 In The 14 Days Before Symptom Onset, Have You Had Close Contact With A Laboratory-confirme d COVID-19 While That Case Was Ill? No Information n ot available 01/15/2024 In The 14 Days Before [...] Of Diet Are You Following? REGULAR Information n ot available 01/15/2024 What Is The Highest Grade Or Level Of School You Have Completed Or The Highest Degree You Have Received? [id number] Information not available 01/15/2024 Are There Any [...] LastModified by Organizat ion Details LastModified Time Do you use any illicit or recreational drugs? No Information not available 01/15/2024 What is your level of alcohol consumption? Occasional Information not available 01/15/2024 Are you able to walk independently without assistance or assistive devices? 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 None Information not available 01/15/2024 Mental Status Question Answer Note LastModified by Organization D etails LastModified Time Do you feel stressed (tense, restless, nervous, or anxious, or unable to sleep at night)? [id number] Information not available 01/15/2024 Family History Relationship Description Onset Age of this Age Resolved Age Notes LastModified by Organization Details LastModified Time Mother Hypertensive disorder Not available 2023 10:28:59 Paternal Aunt Malignant neoplasm of breast Not available 2023 10:28:59 Paternal Aunt Malignant neoplasm of ovary Not available 2023 10:28:59 Paternal [...] Diagnosis/Indication Diagnosis SNOMED-CT Code Diagnosis ICD10 Code Diagnosis IMO Codes Diagnosis Note [id number] Dario Mullen MD [place] [address] [address] 01/15/2024 09:48:08 01/15/2024 10:39:37 Threatened miscarriage 40699664 O20.0 Z3A.01 [id number] Dario Mullen MD [place] [address],[place] [address] 01/15/2024 09:50:21 01/15/2024 11:10:27 Missed miscarriage 38278401 O02.1 This patient is a 38 female who presents for [missed/th reatened/i ncomplete] discussed the etiology, frequency, natural history, and treatment of this condition. Spent more than 35 minutes talking care of this patient, as well as, her history, the particular findings of her case, and detail of her the treatment options. We discussed the risk benefits of each option. She understand s the risk include infection and hemorrhage . She understand s a D&C also holds the risk of injury. She understand s that waiting can result in a septic that is even more difficult to treat. We talked about signs and symptoms of infection. She will contact us when she knows what she would like to do [id number] Dario Mullen MD [place] [address],[place] [address] 01/21/2024 14:49:06 01/21/2024 16:00:26 Missed miscarriage 03198587 O02.1 Polycystic ovary syndrome 862724632 E28.2 this patient presents for postop follow-up. She is 1 week postop from a suction D&C. She is recovering normally. Her bleeding is minimal. She has no foul-smell ing vaginal discharge. She denies any nausea, vomiting, fever, chills. We discussed contracept ion. We discussed future . She will follow up for a repeat test. polycystic ovarian syndrome. The patient needed year and a half to get prior to this . She is known to have history of PCOS. She does appear to be ovulating regularly at this time. [id number] MD Ra William [address],[place] [address] 02/10/2024 11:59:37 02/10/2024 12:34:32 Missed miscarriage 47750722 O02.1 [id number] Dario Mullen MD [place] [address],[place] [address] 04/06/2024 15:22:11 04/07/2024 05:23:51 screening 156212062 O36.80X0 Z87.59 Z3A.01 [id number] Dario Mullen MD [place] [address],[place] [address] 04/22/2024 13:50:30 04/22/2024 14:16:23 [id number] Dario Mullen MD [place] [address],[place] [address] 04/22/2024 13:50:49 04/22/2024 15:59:06 Amenorrhea 33254174 N91.2 this patient is a 38-year-ol d female who presents for amenorrhea . She is a positive test. Ultrasound revealed a 1st trimester gestation. Patient has no complaints . We talked about early care. Talked about genetic screening. We talked about her ultrasound results. We talked about the 12 week ultrasound that has genetic screening components . She was given recommenda tions on exercise, diet, over-the-c ounter medication s. We reviewed her obstetric history. We reviewed her medical history. We reviewed her social history. She will begin routine care at her next visit. pelvic exam was performed- normal breast exam-there is a 3-4 cm mobile mass in the lateral right breast. Firm, well-circu mscribed, nontender to obtain breast ultrasound [id number] Dario Mullen MD [place] [address],[place] [address] 05/19/2024 15:16:38 05/19/2024 16:06:30 screening 370908946 Z36.82 Z3A.13 [id number] Dario Mullen MD [place] [address],[place] [address] 05/19/2024 15:16:55 05/19/2024 18:27:40 Chronic hypertension complicating AND/OR reason for care during 47200563 O16.9 [id number] Dario Mullen MD [place] [address],[place] [address] 05/28/2024 09:55:50 05/28/2024 11:33:55 Chronic hypertension complicating AND/OR reason for care during 51356278 O16.9 [id number] MD Ra William [address],[place] [address] 06/18/2024 16:02:38 06/21/2024 07:54:26 Urinary symptoms 093167770 R39.9 Routine an tenatal care 276860676 Z34.82 [id number] MAYRA ACHARYA MD [place] [address],[place] [address] 07/06/2024 14:57:13 07/23/2024 14:37:08 [id number] Dario Mullen MD [place] [address],[place] [address] 07/07/2024 16:48:29 07/08/2024 09:41:23 [id number] Z33.1 [id number] MD Ra William [address],[place] [address] 07/16/2024 14:53:23 07/16/2024 16:20:54 screening for malformation 139477514 Z36.3 Z3A.21 [id number] Dario Mullen MD [place] [address],[place] [address] 07/16/2024 14:53:43 07/19/2024 08:00:55 Routine care 697440367 Z34.82 [id number] MD Ra William [address],[place] [address] 07/29/2024 14:23:59 07/29/2024 15:23:24 Spotting per vagina in 043447922 O26.859 Z3A.23 [id number] MD Ra William [address],[place] [address] 08/04/2024 16:21:25 08/04/2024 17:26:42 screening 706087825 Z36.2 Z3A.23 [id number] Dario Mullen MD [place] [address] [address] 08/04/2024 16:22:07 08/05/2024 07:22:45 Urinary tract infectious disease 24511298 N39.0 grow th restriction 93273949 O36.5999 Health Concerns Section Related Observation LastModified by Organization Detai ls LastModified Time None Recorded Concern Status LastModified by Organization Details LastModified Time None Recorded Advance Directives Directive None Recorded Payers Insurance Date Sequence Insurance Name Policy Number Policy Turcios Covered Member ID Turcios Member ID Guarantor Name 04/13/2024 PAYMENT PLAN Quynh De Leon 08/26/2024 1 R [id number] Quynh De Leon [id number] Quynh De Leon Notes Date Note Type Note Provider Name and Address Organization Details Recorded Time 07/16/2024 text/html Generic HPI TemplateReported by Patient Dario Mullen MD [address], [place], [address], [facility] 07/18/2024 22:49:15 08/04/2024 text/html Generic HPI TemplateReported by Patient Dario Mullen MD [address], [place], [address], [facility] 08/04/2024 18:33:03 OBGyn Episode Ob Episode Information Episode Created Date Number of Fetuses Patient Bloodtype Patient rh Status Prepregnancy Weight lbs Domestic Partner Domestic Partner Phone Father Name Dance Professor Status 01/15/20 24 1 CLOSED Fetus Data First Name Last Name Admitted to NICU Weight (g) Sex Living Outcome Pediatric Complications Fetus ID Race Codes Race Delivery Type , Spontane ous [id number] Tristan Calculation Initial Tristan Date Initial Exam Date Initial Exam Provider Initial Ultrasound Date Last Menstrual Period Date Ultra Sound Weeks Gestation 0 Eighteen To Twenty Week Tristan Update Ultra Sound Date Fundal Height At Umbil Quickening Date Ultra Sound Latest Weeks Gestation Final Tristan Confirmed By Final Tristan Confirmed Date Final Tristan Date Ultra Sound Latest Days Gestation 0 [...] Domestic Partner Domestic Partner Phone Father Name Dance Professor Status 05/19/20 24 1 A Positive [place] Fetus Data First Name Last Name Admitted to NICU Weight (g) Sex Living Outcome Pediatric Complications Fetus ID Race Codes Race Delivery Type [id number] Problems Problem Notes possible kidney stone ---see ing [facility] 08/11/2024 Problem Name Start Date End Date Resolution Snomed Code Not e Seizure disorder [id number] oxc arbezapine 900 bid Hypertensive disorder 57422896 Chronic HTN - procardia xl 60mg qd Carrier of cystic fibrosis gene mutation 212913430 baby low risk bowel echogenicity on obstetric ultrasound scan [id number] Disorder of placenta 978936480 bilobed placenta growth restriction 20769320 Finding of growth 425645324 10th %tile - re peat US in 3 weeks., 4th pecentile on 08/04/24Referral faxed [facility] 08/04 Scheduled [facility] 08/05 Level II us & 08/11 US and consult [facility] Tristan Calculation Initial Tristan Date Initial Exam Date Initial Exam Provider Initial Ultrasound Date Last Menstrual Period Date Ultra Sound Weeks Gestation 05/19/2024 04/22/2024 02/14/2024 9 Eighteen To Twenty Week Tristan Update Ultra Sound Date Fundal Height At Umbil Quickening Date Ultra Sound Latest Weeks Gestation Final Tristan Confirmed By Final Tristan Confirmed Date Final Tristan Date Ultra Sound Latest Days Gestation 0 [email or web address] 05/19/2024 11/26/19 25 0 Pre-tim Flowsheet Flowsheet Date 05/19/2024 Perales Score Blood Edema Fundus Height Fundus Units Glucose Ketones Leukocytes Nitrite Labor Signs Protein Cervic Dilation Cervic Effacement Cervic Station Type Weight in lbs Pre/Post Dialysis Refused 204.118869632797 BP Diastolic BP Location Tested BP Systolic [...] Type Weight in lbs Pre/Post Dialysis Refused 204.000346891849 BP Diastolic BP Location Tested BP Systolic [...] blood pressure spikes And gained better controlled. Flowsheet Date 06/18/2024 Perales Score Blood Edema Fundus Height Fundus Units Glucose Ketones Leukocytes Nitrite Labor Signs Protein Cervic Dilation Cervic Effacement Cervic Station none Type Weight in lbs Pre/Post Dialysis Refused 204.164079057815 BP Diastolic BP Location Tested BP Systolic BP Type 77 L arm 130 sitting Fetus Heart Rate Present A 145 Fetus Movement A No Comments Patient discussed some numbn ess on the lateral aspect of her left leg. , has some suprapubic cramping, has some urinary symptoms. We agreed to treat for urinary tract infection. Antibiotics were sent. Urine dip was positive. Flowsheet Date 07/06/2024 Perales Score Blood Edema Fundus Height Fundus Units Glucose Ketones Leukocytes Nitrite Labor Signs Protein Cervic Dilation Cervic Effacement Cervic Station Type Weight in lbs Pre/Post Dialysis Refused Weight 209.611390876433 BP Diastolic BP Location Tested BP Systolic BP Type Fetus Heart Rate Present Fetus Movement Comments Flowsheet Date 07/07/2024 Perales Score Blood Edema Fundus Height Fundus Units Glucose Ketones Leukocytes Nitrite Labor Signs Protein Cervic Dilation Cervic Effacement Cervic Station Type Weight in lbs Pre/Post Dialysis Refused BP Diastolic BP Location Tested BP Systolic BP Type Fetus Heart Rate Present Fetus Movement Comments Flowsheet Date 07/16/2024 Perales Score Blood Edema Fundus Height Fundus Units Glucose Ketones Leukocytes Nitrite Labor Signs Protein Cervic Dilation Cervic Effacement Cervic Station Type Weight in lbs Pre/Post Dialysis Refused BP Diastolic BP Location Tested BP Systolic BP Type Fetus Heart Rate Present Fetus Movement Comments Flowsheet Date 07/16/2024 Perales Score Blood Edema Fundus Height Fundus Units Glucose Ketones Leukocytes Nitrite Labor Signs Protein Cervic Dilation Cervic Effacement Cervic Station Type Weight in lbs Pre/Post Dialysis Refused 209.326698218806 BP Diastolic BP Location Tested BP Systolic BP Type 81 L arm 127 sitting Fetus Heart Rate Present A 144 Fetus Movement A Yes Comments no complaints, no problems, routine care, no contractions, no vaginal bleeding, no loss of fluid, no cramping Flowsheet Date 07/29/2024 Perales Score Blood Edema Fundus Height Fundus Units Glucose Ketones Leukocytes Nitrite Labor Signs Protein Cervic Dilation Cervic Effacement Cervic Station Type Weight in lbs Pre/Post Dialysis Refused BP Diastolic BP Location Tested BP Systolic BP Type Fetus Heart Rate Present Fetus Movement Comments Flowsheet Date 08/04/2024 Perales Score Blood Edema Fundus Height Fundus Units Glucose Ketones Leukocytes Nitrite Labor Signs Protein Cervic Dilation Cervic Effacement Cervic Station Type Weight in lbs Pre/Post Dialysis Refused BP Diastolic BP Location Tested BP Systolic BP Type Fetus Heart Rate Present Fetus Movement Comments Flowsheet Date 08/04/2024 Perales Score Blood Edema Fundus Height Fundus Units Glucose Ketones Leukocytes Nitrite Labor Signs Protein Cervic Dilation Cervic Effacement Cervic Station Type Weight in lbs Pre/Post Dialysis Refused 206.120543073370 BP Diastolic BP Location Tested BP Systolic BP Type 83 L arm 136 sitting Fetus Heart Rate Present Fetus Movement A Yes Comments UTI - Extended treatment, di cussed US results - growth issue, echogenic bowel - MFM Menstrual History Last Menstrual Date Menses Monthly [...]
--- OUTSIDE RECORDS SUMMARY | 2025-05-17 11:02 | XMS_ITS | Encounter Summary ---
Author Organization [facility] Address [address] [place] [address] Care Team Providers Care Simulation Analyst Name Role Phone Mary Perla MD Primary Care Provider [phone] Reason for Visit * Reason Comments Medication Assistance Medication Assistance Medication Assistance Encounter Details Date Type Department Care Team (Late st Contact Info) Description 12/10/2023 Telephone [facility] Primary Care - [facility] [address] [address] Mary Perla MD [address] [place] [address] Medication Assistance; Medication Assistance; Medication Assistance [...] - 12/11/2023 10:46 AM CDT Copied from [facility] #[id number]. Topic: Medication Request >> Dec 11, 2023 10:43 AM Genaro [email or web address] wrote: Caller is requesting: Medication - New Request (Not Currently Taking) Medication (Ask patient/caregiver to spell if possible): Nifedipine Preferred Pharmacy: [facility] [address] [place] [address] Patient/Caregiver Callback Number: [phone] Call Notes: Her toe stripper recommended this medication to take the place of Lisinopril * Telephone Encounter - Edd Downey RN - 12/11/2023 9:39 AM CDT Spoke to patient, she stopped taking Lisinopril last night. Found out she was yesterday. BP today while I was on the phone with her was 125/81. * Telephone Encounter - Payal Gardner - 12/10/2023 4:13 PM [address] from [facility] #[id number]. Topic: Medication Request >> Dec 10, 2023 [...] - 12/10/2023 4:12 PM CDT [address]ied from [facility] #[id number]. Topic: Medication Request >> Dec 10, 2023 [...] Description 02/08/2026 9:30 AM CDT Office Visit [facility] Primary Care - [address] [address] Mary Perla MD [address] [address] Scheduled Orders Name Type Priority Associated Diagnoses Orde r Schedule PATIENT SELF MEASURED BLOOD PRESSURE (SMBP) REPORTING THROUGH [facility] Routine Ordered: 024 documented as of this encounter Visit Diagnoses Not on filedocumented in this encounter Care Teams Simulation Analyst Relationship Specialty Start Date End Date Mary Perla MD [address] [facility] [address] [place] [address] PCP - General Internal Medicine 09/25/20 documented as of this encounter
--- OUTSIDE RECORDS SUMMARY | 2025-05-17 11:02 | XMS_ITS | Clinical Summary ---
Author Organization [facility] Address [address] [place] [address] Care Team Providers Care Logistics Specialist Name Role Phone Mary Perla MD Primary Care Provider [phone] Source Comments [facility],non-owned Affiliates and Associated Physician Practices is amultiple site organization consisting of ambulatory clinics and hospital sitesin [place], [place], [place] and [place]. This disclosure is being madepursuant to the Care Everywhere program and may not contain all information available regarding this patient. Last updated 18.[facility] Allergies Active Allergy Reactions Criticality Noted Date [...] tablet by mouth once daily as needed Active Additional Information Patient not taking.Reason: Patient adjusted, Informant: Patient, Reported on 09/30/2024 acetaminophen (Tylenol) 500 MG tablet Take 2 (two) tablets by mouth every 6 hours as needed for Fever or Pain 60 tablet Active ibuprofen (Motrin) 600 MG tablet Take 1 (one) tablet by mouth every 6 hours as needed for Pain 30 tablet Active naloxone HCl (Narcan) 4 MG/0.1ML nasal spray [place] 1 (one) spray into the nose as needed (May repeat every 2 min in alternating nostrils until emergency medical help arrives for overdose) 5 Active Additional Information Patient not taking.Reason: Other, Informant: Patient, Reported on 10/12/2024 labetalol (Normodyne; Trandate) 200 MG tablet Take 2 (two) tablets by mouth every 8 hours for 60 days 120 tablet 2 Active docusate sodium (Colace) 100 MG capsule Take 1 (one) capsule by mouth once daily 30 capsule Active polyethylene glycol 3350 (MiraLax) 17 GM/SCOOP [...] Treatment, Polycystic Ovary Syndrome 28 tablet 6 5 Active Active Problems Problem Noted Date [...] daily, labetalol 100 mg BID 09/28 at [facility] - Presently taking nifedipine cr 60mg bid and labetalol was decreased by MFM to 200mg bid. She will record her BP bid, bring log and monitor to appt in 2 weeks. Has a primary provider: Dr Mary Jesus MD at [facility]. Will make an appt for 2 months from now for transfer of care 10/12 - BPs are 110-120/70-80 and doing well. Notes she was on lisinopril 10mg QD prior to being with Dr. Jesus at [facility]. Will drop the labetalol today and maintain on procardia 60mg BID - will then recheck in two weeks. 10/19- 10/19/24- stopped labetalol altogether on 11/12 then had palpitations, restarted 100BID for the past 5 days. Feels better but wants to stop the procardia and back to her lisinopril which she tolerates well. Today we'll stop the procardia and start [id number] QD. Then will consider stopping labetalol in [...] Today we'll stop the procardia and start [id number] QD. Then will consider stopping labetalol in [...] prior to being with Dr. Jesus at [facility]. Will drop the labetalol today and maintain on procardia 60mg BID. She notes lethargy and sx's consistent with beta chadwick intolerance likely related to her dose. We'll stop labetalol today and recheck in one week. Breast mass, right 08/18/2024 Overview (10/12/2024): Awaiting repeat breast ultrasound, ordered 08/12. 09/28-Had US when in hospital by [facility]. Order placed for f/u bilateral mammogram and right breast US. Pt given phone # for [facility] to make an appt for radiology studies. 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 08/18/2024 10/12/2024 Encounters Date Type Department Care Team Description 03/30/2025 Telephone [facility] [address] [place] [address] Marjorie Aguirre RN High Risk Follow Up 03/18/2025 9:30 AM CDT - 03/18/2025 11:59 PM CDT Hospital Encounter [facility] - Ultrasound [address] [place] [address] Mary Perla MD Discharge Disposition: Home or Self Care 03/18/2025 8:57 AM CDT - 03/18/2025 9:29 AM CDT Hospital Encounter [facility] [address] [facility] [address] [place] [address] Mary Perla MD Discharge Disposition: Home or Self Care 02/21/2025 Telephone [facility] [address] [place] [address] [address] [place] [address] Olga Nelson (Ce) Appointment (Patient scheduled for screening mammogram. Per report dated 08/2024, recommendation is for bilateral diagnostic mammogram and right breast ultrasound Called patient to reschedule. Patient's appointment is on 03/18/25 at [facility]) 02/21/2025 Travel from Last 3 Months Immunizations Immunization Administration [...] Medical History Relation Name Comments Hypertension Father None Known Maternal Grandfather None Known Maternal Grandmother Hypertension Mother Cancer - Breast Paternal Aunt CAD (Coronary Artery Disease) Paternal Grandfather None Known Paternal Grandmother Relation Name Status Comments Father Maternal Grandfather Maternal Grandmother Mother Paternal Aunt Paternal Grandfather Paternal Grandmother Social History Tobacco Use Types Packs/Day Years [...] and heating? Not hard at all 11/02/2024 [facility] [place] [facility] - Occupational Stress [...] money to buy more. Never true 11/03/19 25 Within the past 12 months, t he [...] things needed for daily living? No 11/02/2024 [place] Depression Scale Answer Date Recorded [place] Depression Scale Total 0 11/16/2024 The thought [...] any time in the past 12 [facility], were you homeless or living in a fci (including now)? No 11/02/2024 Comments No Sex and Gender Information Value Date Recorded Sex Assigned at Not on file Legal Sex Female 7:07 AM CDT Gender Identity Female 02/17/2025 9:24 AM CDT Sexual Orientation Not on file Last Filed Vital Signs Vital Sign Reading Time Taken Comments Blood Pressure 120/68 11/16/2024 1:48 PM CDT Pulse 76 11/16/2024 1:48 PM CDT Temperature 36.6 C (97.9 F) 09/30/2024 1:54 PM CDT Respiratory Rate 16 11/16/2024 1:48 PM CDT Oxygen Saturation 98% 11/16/2024 1:48 PM CDT Inhaled Oxygen Concentration - - Weight 90.7 kg (200 lb) 03/18/2025 9:23 AM CDT Height 154.9 cm (5' 1) 03/18/2025 9:23 AM CDT Body Mass Index 37.79 03/18/2025 9:23 AM CDT Plan of Treatment Upcoming Encounters Date Type Department Care Team (Late st Contact Info) Description 05/24/2025 1:30 PM IMPLEMENTATION TECHNICIAN Appointment [facility] [address], [address] [place] [address] Aida Campbell MD [address] [place] [address] Health Maintenance Due Date Last Done Comments HEPATITIS C SCREENING 06/28/2003 HEPATITIS B VACCINE (3 of 3 - 19+ 3-dose series) 06/27/2015 05/02/2015, 11/28/2014 PAP with HPV 2015 HPV VACCINE (2 - 3-dose SCDM series) 03/01/2023 02/01/2023 DEPRESSION SCREENING 06/16/2024 COVID-19 VACCINE ( season) 2025 05/30/2023, 04/07/2022, 06/13/2021, Additional history exists INFLUENZA VACCINE (#1) 2025 , 04/07/2022, 06/13/2021, Additional history exists Cervical Cancer Screening 04/22/2027 PAP SMEAR 04/22/2027 04/22/2024, 04/22/2024 DTAP/TDAP/TD VACCINES [...] this topic HIV SCREENING Completed 09/06/2024, 05/19/2024 HIB VACCINE Aged Out No longer eligi ble based on patient's age to complete this topic PNEUMOCOCCAL VACCINE Aged Out No long er eligible based on patient's age to complete this topic Procedures Procedure Name Priority Date/Time Associated Diagnosis Comments US BREAST RIGHT LTD Routine 03/18/2025 9 :40 AM CDT Breast lump on right side at 9 o'clock position MAMMO BILAT DIAGNOSTIC W PABLITO Routine 03/18/2025 9:24 AM CDT Mass of upper outer quadrant of right breast HIV-1 HIV-2 ANTIBODY + HIV P24 AG PANEL Routine 09/06/2024 7:07 AM CDT from Last 3 Months or Most Recently Relevant to Health Maintenance Results * US Breast Right Ltd (03/18/2025 9:40 AM CDT) Anatomical Region Laterality Modality Breast Right Ultrasound 03/18/2025 10:3 2 AM CDT Impressions 03/18/2025 10:36 AM CDT IMPRESSION: There is no suspicious finding suggestive of malignancy in either breast. In particular, in the area of palpable concern in the lateral right breast, the palpable abnormality corresponds to normal fibroglandular tissue, which may be more prominent clinically due to hormonal changes. These results have been discussed with the patient by Dr. Madhavi Martines. OVERALL FINAL ASSESSMENT: BI-RADS Category 1: Negative. Annual screening mammography is recommended. Based upon the information provided by the patient, she has an elevated lifetime risk (=/>20%) for developing breast cancer and meets criteria for supplemental screening with annual breast MRI. Consider referral to the [facility] for formal risk assessment and high risk clinical surveillance. > Interpreting Provider: Madhavi Martines MD on 03/18/2025 10:36 AM Narrative 03/18/2025 10:36 AM CDT EXAMINATION: DIGITAL MAMMO BILAT DIAGNOSTIC W PABLITO, US BREAST RIGHT LTD DATE: 03/18/2025 HISTORY: This is a 39-year-old with a palpable thickness in the upper outer quadrant of the right breast. Patient states she has noticed this area of palpable concern however since her , August 2023. The patient also has a history of bilateral breast reduction in 2004. COMPARISON: Baseline exam TECHNIQUE: Full field digital mammographic views of BOTH breasts were performed, including computer aided detection (CAD) and BILATERAL digital breast tomosynthesis (DBT). Directed ultrasound evaluation of the RIGHT breast was performed.. BREAST PARENCHYMAL COMPOSITION:Category B: There are scattered areas of fibroglandular density. MAMMOGRAM FINDINGS: A triangular marker has been placed over the area of palpable concern in the lateral right breast approximately 9:00 position. This corresponds to an area of 5 cm nonmass region of fibroglandular tissue without associated mass or architectural distortion. There is similar scant fibroglandular density in the lateral left breast measuring approximately 2 cm. Postoperative changes of bilateral breast reduction are noted. SONOGRAM FINDINGS: There is no suspicious sonographic correlate for the area of palpable concern in the RIGHT breast. There is a 5 cm correlate of morphologically normal fibroglandular isoechoic tissue with echogenic Magdiel's ligaments in the 9:00 position of the right breast approximately 7 cm from the nipple. us Bj Burrell MD US ORDERABLES Final R esult * Mammo Bilat Diagnostic W [place] (03/18/2025 9:24 AM CDT) Anatomical Region Laterality Modality Breast Bilateral Mammography 03/18/2025 10:3 2 AM CDT Impressions 03/18/2025 10:36 AM CDT IMPRESSION: There is no suspicious finding suggestive of malignancy in either breast. In particular, in the area of palpable concern in the lateral right breast, the palpable abnormality corresponds to normal fibroglandular tissue, which may be more prominent clinically due to hormonal changes. These results have been discussed with the patient by Dr. Madhavi aMrtines. OVERALL FINAL ASSESSMENT: BI-RADS Category 1: Negative. Annual screening mammography is recommended. Based upon the information provided by the patient, she has an elevated lifetime risk (=/>20%) for developing breast cancer and meets criteria for supplemental screening with annual breast MRI. Consider referral to the [facility] for formal risk assessment and high risk clinical surveillance. > Interpreting Provider: Madhavi Martines MD on 03/18/2025 10:36 AM Narrative 03/18/2025 10:36 AM CDT EXAMINATION: DIGITAL MAMMO BILAT DIAGNOSTIC W PABLITO, US BREAST RIGHT LTD DATE: 03/18/2025 HISTORY: This is a 39-year-old with a palpable thickness in the upper outer quadrant of the right breast. Patient states she has noticed this area of palpable concern however since her , August 2023. The patient also has a history of bilateral breast reduction in 2004. COMPARISON: Baseline exam TECHNIQUE: Full field digital mammographic views of BOTH breasts were performed, including computer aided detection (CAD) and BILATERAL digital breast tomosynthesis (DBT). Directed ultrasound evaluation of the RIGHT breast was performed.. BREAST PARENCHYMAL COMPOSITION:Category B: There are scattered areas of fibroglandular density. MAMMOGRAM FINDINGS: A triangular marker has been placed over the area of palpable concern in the lateral right breast approximately 9:00 position. This corresponds to an area of 5 cm nonmass region of fibroglandular tissue without associated mass or architectural distortion. There is similar scant fibroglandular density in the lateral left breast measuring approximately 2 cm. Postoperative changes of bilateral breast reduction are noted. SONOGRAM FINDINGS: There is no suspicious sonographic correlate for the area of palpable concern in the RIGHT breast. There is a 5 cm correlate of morphologically normal fibroglandular isoechoic tissue with echogenic Magdiel's ligaments in the 9:00 position of the right breast approximately 7 cm from the nipple. Bj Burrell MD MAMMO ORDERABLES Final Result * HIV-1 HIV-2 ANTIBODY + HIV P24 AG PANEL (09/06/2024 7:07 AM CDT) HIV1/2 Ab + P24 Ag Non Reactive Non Reactive 09/06/2024 8:[address] [facility] Blood BLOOD SPECIMEN / Unknown Lab Venipuncture / Unknown 09/06/2024 7:07 AM CDT 09/06/2024 7:[address] [facility] - 09/06/2024 8:43 AM CDT No Laboratory evidence of HIV infection. Carola Delacruz MD LAB - CHEMISTRY ORDERABLES Fi nal Result [facility] [address] [place] [address] from Last 3 Months or Most Recently Relevant to Health Maintenance Insurance * Guarantor: WINSOMEBrijeshSTALIN MIRZA Account Type Relation to Patient Date of Phone Billing Address Personal/Family [address] [place] [address] * Guarantor: WINSOMEBrijeshSTALIN MIRZA Account Type Relation to Patient Date of Phone Billing Address Personal/Family [address] [place] [address] Advance Directives * Full Code (Latest Code Status on File) Date Activated Date Inactivated Comments 09/17/2024 2:51 PM 09/18/2024 6:24 PM * Full Code Date Activated Date Inactivated Comments 08/25/2024 2:31 PM 09/17/2024 2:51 PM Care Teams Logistics Specialist Relationship Specialty Start Date End Date Mary Perla MD [address] [facility] [address] [place] [address] PCP - General Internal Medicine 08/05/24
--- OUTSIDE RECORDS SUMMARY | 2025-05-17 11:02 | XMS_ITS | Data Portability ---
Author Organization [facility] HEL[facility] Address [address] [place] [address] Assessment No assessment recorded. Plan of Treatment Reminders Order Date Submit Date Provider Last Modified By Organization Details Last Modified Time Details Appointments None recorded. Lab SARS CoV 2 RNA (COVID-19), QL, sheet tester-PCR, respiratory specimen - [place] location please 2019 020 [facility] (Lab), [address] [place], [address], 0 17:55:45 Referral None recorded. Procedures None recorded. Surgeries None recorded. Imaging None recorded. Medication Orders None recorded. Patient TargetsNo targets recorded. Patient Instructions Encounter Date Encounter Id Patient Instructions Last Modified By Organization Details Last Modified Time 10/20/2019 [id number] Reviewed the following recommendations: -Stay home and [...] fever free for at least 3 days. [email or web address] Not available 10/20/2019 12:03:46 Reason for Referral None Reported. Results Created Date Observation Date Name Description Value Unit Range Abnormal Flag Note LastModifiedBy Organization Detail LastModifiedTime 10/20/19 20 10/20/2019 SARS CoV 2 RNA (COVI D-19) , QL, sheet tester-P CR, respi rator y speci men sars - cov - 2 PCR NEGATI VE mL Not Available [facility] [address] [place], [address], 10/21/2019 17:55:45 10/20/19 20 10/20/2019 SARS CoV 2 RNA (COVI D-19) , QL, sheet tester-P CR, respi rator y speci men covidcom1 [...] of this test metho d. Not Available [facility] (Lab) [address] [facility], [place], [address], 10/21/2019 17:55:45 10/20/19 20 10/20/2019 SARS CoV 2 RNA (COVI D-19) , QL, sheet tester-P CR, respi rator y speci men covidcom2 Posit shalonda resul ts are indic ative of the prese nce of SARS- CoV-2 RNA and do not rule out bacte rial infec tion or co-in fecti on with other virus es. Not Available [facility] (Lab) [address] [facility], [place], [address], 10/21/2019 17:55:45 10/20/19 20 10/20/2019 SARS CoV 2 RNA (COVI D-19) , QL, sheet tester-P CR, respi rator y speci men covidcom3 Test resul ts shoul d be used along with other clini emmie obser vatio ns, patie nt histo ry, epide miolo gical infor matio n and labor atory data in sheng miguel the diagn osis. Not Available [facility] (Lab) [address] [facility], [place], [address], 10/21/2019 17:55:45 10/20/1910/20/2019 SARS CoV 2 RNA (COVI D-19) , QL, sheet tester-P CR, respi rator y speci men covidcom4 This test has recei geronimo [facility] Emerg ency Use Autho rizat ion and has been verif ied [facility] . This test is only autho rized [...] or revok ed soone r. Not Available [facility] (Lab) [address] [place], [address], 10/21/2019 17:55:45 10/20/19 20 10/20/2019 SARS CoV 2 RNA (COVI D-19) , QL, sheet tester-P CR, respi rator y speci men covidcom5 [facility] is certi fied under CLIA- 88 as quali fied to perfo rm high compl exity testi ng. This testi ng was perfo rmed in the [facility] [employer] [place] [place] [address] (CLIA Licen se #[id number] 5, CAP #[id number], AU-ID #[id number]). Not Available [facility] (Lab) [address] [place], [address], 10/21/2019 17:55:45 10/20/19 20 10/20/2019 SARS CoV 2 RNA (COVI D-19) , QL, sheet tester-P CR, respi rator y speci men covidcom6 Facts heet for healt hcare provi ders: https ://ww w.fda .gov/ media /5832 56/do wnloa d Facts heet for mere nts: https ://ww w.fda .gov/ media /1362 57/do wnloa d Not Available [facility] ([facility]) [address], [place], [address], 10/21/2019 17:55:45 Result Notes None recorded. Medical [...] ICD10 Code Diagnosis IMO Codes Diagnosis Note [id number] Dianna Portillo MD [facility] [address] [place] [address] 10/20/2019 11:02:29 10/20/2019 13:27:13 Suspected COVID-19 [id number] Z03.818 Health Concerns Section Related Observation LastModified by Organization Detai ls LastModified Time None Recorded Concern Status LastModified by Organization Details LastModified Time None Recorded Advance Directives Directive None Recorded Payers Insurance Date Sequence Insurance Name Policy Number Policy Turcios Covered Member ID Turcios Member ID Guarantor Name 10/20/2019 1 [employer]ET[employer] (POS) [id number] Quynh De Leon [id number] Quynh De Leon Notes Date Note Type Note Provider Name and Address Organization Details Recorded Time 10/20/2019 text/html COVID ScreeningReported by PatientHPIFor associated symptoms, patient reportscoughbut reportsno shortness of breath. For onset/duration of fever, patient reportsno fever. COVID-19 Symptoms October 2019Reported by PatientUpper Respiratory SymptomsFor context, patient reportsallergies. For associated symptoms, patient reportsvomiting,nausea , andrunny nose. For covid-19 signs and symptoms, patient reportsheadache sameandsore throat same. 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 For severity, patient reportsmoderate(upper back pain). For onset/timing, patient reportsdate of symptoms onset: (2 days ago).ROS as noted in the HPI [place] [facility] 10/20/2019 12:12:28 OBGyn Episode No OBEpisode recorded.
[2025-05-17 11:04] LABS: INR 1.0; Prothrombin Time 13.5 Seconds (11.1-14.7)
[2025-05-17 11:05] LABS: Partial Thromboplastin Time 26.7 Seconds (22.3-36.8)
[2025-05-17 11:18] LABS: Alanine Aminotransferase 22 U/L (6-35); Albumin Level 4.1 g/dL (3.5-5.1); Alkaline Phosphatase 67 U/L (38-126); Anion Gap 5 mmol/L (4-12); Aspartate Amino Transferase 28 U/L (14-36); Bilirubin,Total 0.4 mg/dL (0.2-1.3); Blood Urea Nitrogen 14 mg/dL (7-17); Calcium 8.9 mg/dL (8.4-10.2); Carbon Dioxide 26 mmol/L (22-30); Chloride 101 mmol/L (98-107); Estimated CRCL calculation 105 ml/min; Estimated Glomerular Filt Rate > 60; Glucose 117 mg/dL (65-110); Potassium 4.3 mmol/L (3.4-5.0); Sodium 132 mmol/L (137-145); Total Protein 7.4 g/dL (6.3-8.2)
[2025-05-17 11:27] LABS: BEDSIDEPREGUCG Negative (Negative)
--- OUTSIDE RECORDS SUMMARY | 2025-05-17 11:29 | XMS_ITS | Clinical Summary ---
Author Organization [email or web address] [address] Address [address] [place] [address] Care Team Providers Care Sterile Products Processor Name Role Phone Mary Perla MD Primary Care Provider Allergies Active Allergy Reactions Criticality Noted Date Comments Levetiracetam Unknown 12/11/2023 Medications cetirizine (ZyrTEC) 10 mg tablet Take 10 mg by mouth daily. prn Active fluticasone propionate (FLONASE) 50 mcg/spray [place], Suspension nasal inhaler Administer 2 Sprays in each nostril daily. prn Active OXcarbazepine (TRILEPTAL) 600 mg tablet TAKE 1 & 1 2 (ONE & ONE HALF) TABLETS BY MOUTH TWICE DAILY 1 Active PNV,calcium 66-ltiq-ykrde acid ( Vitamin Plus Low Iron) 27 [...] daily, labetalol 100 mg BID 09/28 at [facility] - Presently taking nifedipine cr 60mg bid and labetalol was decreased by MFM to 200mg bid. She will record her BP bid, bring log and monitor to appt in 2 weeks. Has a primary provider: Dr Mary Jesus MD at [facility] Will make an appt for 2 months from now for transfer of care 10/12 - BPs are 110-120/70-80 and doing well. Notes she was on lisinopril 10mg QD prior to being with Dr. Jesus at [facility] Will drop the labetalol today and maintain on procardia 60mg BID - will then recheck in two weeks. 10/19- 10/19/24- stopped labetalol altogether on 11/12 then had palpitations, restarted 100BID for the past 5 days. Feels better but wants to stop the procardia and back to her lisinopril which she tolerates well. Today we'll stop the procardia and start [id number] QD. Then will consider stopping labetalol in [...] 08/12. 09/28-Had US when in hospital by [facility]. Order placed for f/u bilateral mammogram and right breast US. Pt given phone # for [facility] to make an appt for radiology [...] Department Care Team Description 04/12/2025 Chart Note [facility] [address] [place] [address] Leatha Garcia, ANP 04/05/2025 External Device Data [...] Description 02/08/2026 9:30 AM CDT Office Visit [facility] Primary Care - [address] [place] [address] Mary Perla MD [address] [place] [address] Health Maintenance Due Date Last Done [...] A1C 5.3 <5.7 % of total Hgb [facility] Comment: For the purpose of screening for the presence of diabetes: <5.7% Consistent with the absence of diabetes 5.7-6.4% Consistent with increased risk for diabetes (prediabetes) > or =6.5% Consistent with diabetes This assay result is consistent with a decreased risk of diabetes. Currently, no consensus exists regarding use of hemoglobin A1c for diagnosis of diabetes in children. According to [place] Diabetes Association (ADA) guidelines, hemoglobin A1c <7.0% represents optimal control in non- diabetic patients. Different metrics may apply to specific patient populations. Standards of Medical Care in Diabetes(ADA). ESTIMATED AVERAGE GLUCOSE (MG/DL) 105 mg/dL V[facility]se Rose ESTIMATED AVERAGE GLUCOSE (MMOL/L) 5.8 mmol/L [facility] Comment: This test was performed on the Polly raoul c503 platform. Effective 09/01/23, a change in test platforms from the Sandoval Mechanical Assembly Technician to the Polly raoul c503 may have shifted HbA1c results compared to historical results. Based on laboratory validation testing conducted at [facility], the Polly platform relative to the Sandoval [...] recommended. FASTING:YES FASTING: YES Test Performed at: [place] [address] [address] [place] [address] Isabel Simpson Blood 11/07/2023 9:22 AM CDT 11/07/2023 9:24 AM CDT us Shayy James PULMONOLOGIST CHEMISTRY ORDERABLES Final Re sult [facility] [phone] [place] [address] [address] [place] [address] from Last 3 Months or Most Recently Relevant to Health Maintenance Insurance Care Teams Sterile Products Processor Relationship Specialty Start Date End Date Mary Perla MD [address] [place] [address] PCP - General Internal Medicine 09/25/20
--- OUTSIDE RECORDS SUMMARY | 2025-05-17 11:29 | XMS_ITS | Encounter Summary ---
Author Organization [facility] Address [address] [place] [address] Care Team Providers Care Shrimp Peeling Machine Operator Name Role Phone Mary Perla MD Primary Care Provider [phone] Reason for Visit * Reason Comments Medication Assistance Medication Assistance Medication Assistance Encounter Details Date Type Department Care Team (Late st Contact Info) Description 12/10/2023 Telephone [facility] Primary Care - [facility] [address] Mary Perla MD [address] [place] [address] Medication Assistance; Medication Assistance; Medication Assistance [...] - 12/11/2023 10:46 AM CDT Copied from [facility] #[id number]. Topic: Medication Request >> Dec 11, 2023 10:43 AM Genaro Mcgovern wrote: Caller is requesting: Medication - New Request (Not Currently Taking) Medication (Ask patient/caregiver to spell if possible): Nifedipine Preferred Pharmacy: [facility] [address] [place] [address] Patient/Caregiver Callback Number: [phone] Call Notes: Her photogrammetrist recommended this medication to take the place of Lisinopril * Telephone Encounter - Edd Downey RN - 12/11/2023 9:39 AM CDT Spoke to patient, she stopped taking Lisinopril last night. Found out she was yesterday. BP today while I was on the phone with her was 125/81. * Telephone Encounter - Payal Gardner - 12/10/2023 4:13 PM CDT Copied from [facility] #[id number]. Topic: Medication Request >> Dec 10, 2023 [...] - 12/10/2023 4:12 PM CDT Copied from [facility] #[id number]. Topic: Medication Request >> Dec 10, 2023 [...] Description 02/08/2026 9:30 AM CDT Office Visit [facility] Primary Care - [address] [address] Mary Perla MD [address] [address] Scheduled Orders Name Type Priority Associated Diagnoses Orde r Schedule PATIENT SELF MEASURED BLOOD PRESSURE (SMBP) REPORTING THROUGH [facility] Routine Ordered: 024 documented as of this encounter Visit Diagnoses Not on filedocumented in this encounter Care Teams Shrimp Peeling Machine Operator Relationship Specialty Start Date End Date Mary Perla MD [address] [facility] [address] [place] [address] PCP - General Internal Medicine 09/25/20 documented as of this encounter
--- OUTSIDE RECORDS SUMMARY | 2025-05-17 11:29 | XMS_ITS | Encounter Summary ---
Author Organization [facility] Address [address] [place] [address] Phone Care Team Providers Care Chief Dispatcher Service Name Role Phone Wil Downey MD Primary Care Provider [phone] Mary Perla MD Primary Care Provider [phone] Encounter Details Date Type Department Care Team (Latest Contact Info) Description 07/01/2017 Orders Only [facility] CONVERSION Scanning, Provider Social History Tobacco Use Types Packs/Day Years Used Date Smoking Tobacco: Never Comments Unknown Sex and Gender Information Value Date Recorded Sex Assigned at Not on file Legal Sex Female 9:12 PM NON DESTRUCTIVE TESTING INSPECTOR Gender Identity Not on file Sexual Orientation Not on file documented as of this encounter Functional Status documented as of this encounter Plan of Treatment Not on file documented as of this encounter Procedures Procedure Name Priority Date/Time Associated Diagnosis Comments OBSTETRIC/GYNECOLOGY ULTRASONOGRAPHY REPORT 07/01/2017 2:20 PM NON DESTRUCTIVE TESTING INSPECTOR documented in this encounter Results * OBSTETRIC/GYNECOLOGY ULTRASONOGRAPHY REPORT (07/01/2017 2:20 PM NON DESTRUCTIVE TESTING INSPECTOR) Anatomical Region Laterality Modality Ultrasound us Provider Scanning IMG OB US PROCEDURES Final Res ult documented in this encounter Visit Diagnoses Not on filedocumented in this encounter Care Teams Chief Dispatcher Service Relationship Specialty Start Date End Date Wil Downey MD PCP - General 12/12/16 04/17/21 [facility] Perla MD [address] [facility] [address] [place] [address] PCP - General Internal Medicine 04/18/21 documented as of this encounter
--- OUTSIDE RECORDS SUMMARY | 2025-05-17 11:29 | XMS_ITS | Clinical Summary ---
Author Organization [facility] Address [address] [place] [address] Care Team Providers Care Vice President Pharmacy Name Role Phone Mary Perla MD Primary [...] Description 03/16/2025 3:00 PM CDT Office Visit [facility] Medicine Epilepsy [address] [facility] 6[address] [place] [address] [place] [address] Richard Espinoza III, MD Partial epilepsy with [...] more drinks on one occasion? Never 01/05/2024 [place] Depression Scale Answer Date Recorded [place] Depression Scale Total 10 01/05/2024 The thought of harming myself has occurred to me . Hardly ever 01/05/2024 Comments Unknown Sex and Gender Information Value Date Recorded Sex Assigned at Not on file Legal Sex Female 9:12 PM CANVAS GOODS SUPERVISOR Gender Identity Not on file Sexual Orientation Not on file Occupation Industry Job Start Date Job End Date [employer] Travel Pt Not on file Not on file Not [...] - Oxygen Saturation 97% 07/01/2017 1:08 PM CANVAS GOODS SUPERVISOR Inhaled Oxygen Concentration - - Weight 93.4 [...] SMEAR WITH HPV (12/18/2016) Pap smear Normal [facility] Provider HEALTH MAINTENANCE Final Result from Last 3 Months or Most Recently Relevant to Health Maintenance Insurance [employer]ET[employer] HMO [facility] Member Subscriber Plan / Payer (Ef fective 2021-Present) Name:Quynh De Leon Member ID:[id number] Relation to Subscriber:Self Name:Quynh De Leon Subscriber ID:[id number] Payer ID:[id number] ([facility]) Type:[facility] HMO/PPO Address: [address] [facility] Care Teams Vice President Pharmacy Relationship Specialty Start Date End Date Mary Perla MD [address] [facility] [address] [place] [address] PCP - General Internal Medicine 04/18/21
--- OUTSIDE RECORDS SUMMARY | 2025-05-17 11:29 | XMS_ITS | Clinical Summary ---
Author Organization [facility] Address [address] [place] [address] Care Team Providers Care Dietary Aide Teacher Name Role Phone Mary Perla MD Primary Care Provider [phone] Source Comments [facility],non-owned Affiliates and Associated Physician Practices is amultiple site organization consisting of ambulatory clinics and hospital sitesin [place], [place], [place] and [place]. This disclosure is being madepursuant to the Care Everywhere program and may not contain all information available regarding this patient. Last updated 18.[facility] Allergies Active Allergy Reactions Criticality Noted Date [...] naloxone HCl (Narcan) 4 MG/0.1ML nasal spray [place] 1 (one) spray into the nose as [...] daily, labetalol 100 mg BID 09/28 at [facility] - Presently taking nifedipine cr 60mg bid and labetalol was decreased by MFM to 200mg bid. She will record her BP bid, bring log and monitor to appt in 2 weeks. Has a primary provider: Dr Mary Jesus MD at [facility]. Will make an appt for 2 months from now for transfer of care 10/12 - BPs are 110-120/70-80 and doing well. Notes she was on lisinopril 10mg QD prior to being with Dr. Jesus at [facility]. Will drop the labetalol today and maintain on procardia 60mg BID - will then recheck in two weeks. 10/19- 10/19/24- stopped labetalol altogether on 11/12 then had palpitations, restarted 100BID for the past 5 days. Feels better but wants to stop the procardia and back to her lisinopril which she tolerates well. Today we'll stop the procardia and start [id number] QD. Then will consider stopping labetalol in [...] Today we'll stop the procardia and start [id number] QD. Then will consider stopping labetalol in [...] being with Dr. Jesus at [facility]. Will drop the labetalol today and maintain [...] breast US. Pt given phone # for [facility] Rad[facility] to make an appt for [...] Type Department Care Team Description 03/30/2025 Telephone [facility] [address] [place] [address] Marjorie Aguirre RN High Risk Follow Up 03/18/2025 9:30 AM CDT - 03/18/2025 11:59 PM CDT Hospital Encounter [facility] - Ultrasound [address] [place] [address] Mary Perla MD Discharge Disposition: Home or Self Care 03/18/2025 8:57 AM CDT - 03/18/2025 9:29 AM CDT Hospital Encounter [facility] [address] [facility] [address] [place] [address] Mary Perla MD Discharge Disposition: Home or Self Care 02/21/2025 Telephone [facility] [address] [place] [address] [address] [place] [address] Olga Nelson (Ce) Appointment (Patient scheduled for screening mammogram. Per report dated 08/2024, recommendation is for bilateral diagnostic mammogram and right breast ultrasound Called patient to reschedule. Patient's appointment is on 03/18/25 at [facility]) 02/21/2025 Travel from Last 3 Months Immunizations [...] and heating? Not hard at all 11/02/[address] [facility] - Occupational Stress [...] things needed for daily living? No 11/02/2024 [place] Depression Scale Answer Date Recorded [place] Depression Scale Total 0 11/16/2024 The thought [...] any time in the past 12 [facility], were you homeless or living in a fdc (including now)? No 11/02/2024 Comments No Sex [...] st Contact Info) Description 05/24/2025 1:30 PM CARD ASSEMBLER Appointment [facility] [address], [address] [place] [address] iAda Campbell MD [address] [facility] [address] [place] [address] Health Maintenance Due Date Last Done Comments [...] annual breast MRI. Consider referral to the [facility] for formal risk assessment [...] annual breast MRI. Consider referral to the [facility] for formal risk assessment [...] Reactive Non Reactive 09/06/2024 8:43 AM CDT [facility] Blood BLOOD SPECIMEN / Unknown Lab Venipuncture / Unknown 09/06/2024 7:07 AM CDT 09/06/2024 7:56 AM CDT Narrative [facility] - 09/06/2024 8:43 AM CDT No Laboratory evidence of HIV infection. Carola Delacruz MD LAB - CHEMISTRY ORDERABLES Fi nal Result [facility] [address] [place] [address] from Last 3 Months or Most Recently Relevant to Health Maintenance Insurance * Guarantor: WINSOMEBrijeshSTALIN MIRZA Account Type Relation to Patient Date of Phone Billing Address Personal/Family [address] [place] [address] * Guarantor: WINSOMEBrijeshSTALIN MIRZA Account Type Relation to Patient Date of Phone Billing Address Personal/Family [address] [place] [address] Advance Directives * Full Code (Latest Code Status on File) Date Activated Date Inactivated Comments 09/17/2024 2:51 PM 09/18/2024 6:24 PM * Full Code Date Activated Date Inactivated Comments 08/25/2024 2:31 PM 09/17/2024 2:51 PM Care Teams Dietary Aide Teacher Relationship Specialty Start Date End Date Mary Perla MD [address] [facility] [address] [place] [address] PCP - General Internal Medicine 08/05/24
[2025-05-17] MEDS: LACTATED RINGERS 1,000 ML 999 ML IV CONT (12:34)
--- NOTE | 2025-05-17 15:03 | ED_ITS ---
HPI - GI Bleed General Chief complaint: GI Bleed Stated complaint: gi bleed Time Seen by Provider: 05/17/25 10:18 History of Present Illness HPI Narrative: Patient has history of IBS, presenting here with intermittent constipation/diarrhea, and has noticed bright red blood in her stool that started today. Had this happen in the past had 2 negative colonoscopies. Also some nausea and abdominal pain Related Data Home Medications ?Medication ?Instructions ?Recorded ?Confirmed ?Last Taken ?Type folic acid 1 mg tablet 1 mg PO HS 01/15/24 01/15/24 Unknown History nifedipine 30 mg tablet,extended 30 mg PO HS 01/15/24 01/15/24 Unknown History release oxcarbazepine 600 mg tablet 900 mg PO BID 01/15/2407/09 Unknown History vit with calcium-iron 1 tablet PO HS 01/15/24 01/15/24 Unknown History fum-folic acid 60 mg-0.8 mg tablet Allergies Allergy/AdvReac Type Severity Reaction Status Date / Time levetiracetam (From [facility]) Allergy Hives Verified 01/15/25 22:55 Penicillins AdvReac Mild Nausea and Verified 01/15/25 22:55 Vomiting Review of Systems 2 Review of Systems: All systems reviewed & are unremarkable except as noted in HPI and below PMFSH Past Medical History Medical History HTN (hypertension) Epilepsy Social History Social History Smoking status: Never smoker Living arrangements: with family Spiritual care concerns: No Exam 2 Narrative: EXAMINATION OF ORGAN SYSTEMS/BODY AREAS: Constitutional: Vital signs per nursing GENERAL:[No acute distress, non-toxic appearing.] HEAD: Normal with no signs of head trauma. EYES: EOMI, conjunctiva normal ENT: Hearing grossly intact LUNGS: Nonlabored breathing. HEART: [Regular rate and rhythm] ABD: [Soft], [nontender to palpation] RECTAL: Some bloody stool in rectum, Hemoccult positive EXT: Normal range of motion SKIN: [No rashes or lesions.] NEURO: [Alert. No gross focal sensory or strength deficits.] PSYCH: Normal affect Course Vital Signs Vital signs: Vital Signs Temperature 97.6 F 05/17/25 10:17 Pulse Rate 66 05/17/25 10:17 Respiratory Rate 16 05/17/25 10:17 Blood Pressure 128/74 05/17/25 10:17 Pulse Oximetry 97 05/17/25 10:17 Oxygen Delivery Room Air 05/17/25 10:17 Temperature 97.6 F 05/17/25 10:17 Pulse Rate 82 05/17/25 13:33 Respiratory Rate 16 05/17/25 13:33 Blood Pressure 114/59 L 05/17/25 13: Pulse Oximetry 100 05/17/25 13:33 Oxygen Delivery Room Air 05/17/25 10:17 MDM MDM Narrative Medical decision making narrative: Electronic medical record was reviewed. Patient presented to the ED with complaint of [abdominal pain and vomiting]. Vitals [were within acceptable limits]. Physical exam revealed [tenderness to palpation in periumbilical abdomen]. Based on the patient's history and physical exam, my differential includes but is not limited to [gastritis, gastroenteritis, cholecystitis, pancreatitis, appendicitis]. [IV access was established by nursing staff. Patient was given IV fluids]. CBC, BMP, lipase, LFTs, bilirubin and alk phos were obtained. Labs were pertinent for labs within normal limits. [Decision was made to obtain a CT- abdomen to evaluate for acute abdominal process. CT-abdomen per radiology interpretation showing colitis.] On reevaluation, the patient states that they are feeling better. There were no witnessed episodes of vomiting in the emergency department. They are not complaining of any new abdominal pain. Repeat examination did not show any significant guarding or rebound. No new tenderness. At this time I do not feel there is any further emergent treatment to be provided. The patient was given strict return precautions, if they are to develop any worsening abdominal pain, vomiting, or blood in the vomit they are to return to the emergency department immediately. Patient verbally acknowledges understanding these directions. [The patient was informed of the above diagnostic test findings.] They will be discharged home scripts for Bentyl, Zofran, Pepto-Bismol. They were advised to follow-up with credit card control clerk in 2 days. The patient feels that this is appropriate medical decision making and verbalizes an understanding of the discharge instructions. Differential Diagnosis Differential Diagnosis: Differential Diagnostic considerations for GI bleeding include diverticular bleed, ischemic colitis, Meckel?s diverticulum, AV malformation, infectious colitis, inflammatory colitis, hemorrhoids, anal fissure.? Lab Data 05/17/25 10:46 05/17/25 10:46 Labs: Lab Results 05/17/25 05/17/25 05/17/25 Range/Units 10:46 10:47 11:18 WBC 7.7 (4.5-10.0) K/mm3 RBC 5.12 (4.2-5.4) M/mm3 Hgb 15.1 H (12.0-15.0) g/dL Hct 44.0 (37.0-47.0) % MCV 85.9 (80-100) fl MCH 29.5 (26-34) pg MCHC 34.3 (32-36) g/dl RDW 11.7 (11.5-14.5) % Plt Count 222 (150-375) k/mm3 MPV 10.1 (7.4-10.4) fl Immature Gran % (Auto) 0.1 (0-0.5) % Neut % (Auto) 83.7 H (45.5-73.1) % Lymph % (Auto) 12.3 L (18.3-44.2) % [place] % (Auto) 3.5 (2.6-8.5) % Eos % (Auto) 0.0 (0-4.4) % Baso % (Auto) 0.4 (0.2-1.2) % Lymph # (Auto) 0.94 (0.9-3.2) K/mm3 [place] # (Auto) 0.3 (0.1-0.6) K/mm3 Eos # (Auto) 0.0 (0-0.3) K/mm3 Baso # (Auto) 0.0 (0.0-0.1) K/mm3 Abs Immat Gran (auto) 0.01 (0.00-0.031) K/mm3 Absolute Neuts (auto) 6.4 (1.3-6.7) K/mm3 Absolute Nucleated RBC 0.000 (0.0-0.012) K/mm3 Nucleated RBC % 0.0 (0.0-0.2) % PT 13.5 (11.1-14.7) Seconds INR 1.0 APTT 26.7 (22.3-36.8) Seconds Sodium 132 L (137-145) mmol/L Potassium 4.3 (3.4-5.0) mmol/L Chloride 101 (98-107) mmol/L Carbon Dioxide 26 (22-30) mmol/L Anion Gap 5 (4-12) mmol/L BUN 14 D (7-17) mg/dL Creatinine 0.63 L (0.7-1.0) mg/dL Estim Creat Clear Calc 105 ml/min Estimated GFR > 60 (59 - ) Glucose 117 H (65-110) mg/dL Calcium 8.9 (8.4-10.2) mg/dL Total Bilirubin 0.4 (0.2-1.3) mg/dL AST 28 (14-36) U/L ALT 22 (6-35) U/L Alkaline Phosphatase 67 (38-126) U/L Total Protein 7.4 (6.3-8.2) g/dL Albumin 4.1 (3.5-5.1) g/dL POC Urine HCG, Qual Negative (Negative) Blood Type A Positive Antibody Screen Negative Imaging Data Radiologist's impression: ITS Impressions Abdomen/Pelvis CT 05/17/25 12:09 IMPRESSION: 1. Long segment colitis, likely infectious or inflammatory. Discharge Plan Discharge Clinical Impression: Colitis Patient Disposition: Home Condition: Stable Instructions: Colitis (ED) Additional Instructions: Please follow-up with your GI specialist, you can take the medications as prescribed for your symptoms, and if your bleeding worsens, please come back to the hospital. If you do not have a GI specialist, you can follow-up with the person given below. Patient Language: Lao Prescriptions: New ondansetron 4 mg tablet,disintegrating 4 mg PO Q8H PRN (Reason: nausea and vomiting) Qty: 10 0RF Pepto-Bismol 262 mg tablet 524 mg PO QID PRN (Reason: Diarrhea) 5 Days Qty: 20 0RF dicyclomine 20 mg tablet 20 mg PO TID PRN (Reason: abdominal pain) Qty: 30 0RF No Action cephalexin 500 mg capsule 500 mg PO Q6H 7 Days Qty: 28 0RF ondansetron 4 mg tablet,disintegrating 4 mg PO Q8H PRN (Reason: nausea and vomiting) Qty: 20 0RF nifedipine 30 mg tablet extended release 30 mg PO HS oxcarbazepine 600 mg tablet 900 mg PO BID folic acid 1 mg tablet 1 mg PO HS 60-0.8 mg Tablet 1 tablet PO HS ibuprofen 600 mg tablet 600 mg PO TID PRN (Reason: fever or pain) Qty: 30 0RF ondansetron 4 mg tablet,disintegrating 4 mg PO Q8H PRN (Reason: nausea and vomiting) Qty: 20 0RF Follow-up/Referrals: Brian Garza MD [Physician, Gastroenterology] - 2 Days UNKNOWN,DOCTOR [Primary Care Provider]
== END 2025-05-17 13:35 | disposition home or self-care (01) ==
PROVIDERS: Emergency Provider Emergency Medicine
DX: K52.9 Noninfective gastroenteritis and colitis, unspecified (principal); G40.909 Epilepsy, unspecified, not intractable, without status epilepticus; I10 Essential (primary) hypertension
CPT/HCPCS: 36415; 74177; 80053; 81025; 85025; 85610; 85730; 86850; 86900; 86901; 96360; 99284; J7120; Q9967